=== PATIENT | female | born 1945 | race Caucasian/White ===

== ENCOUNTER → 2024-04-11 | Outpatient (CLI) | payer OTHER, MEDICAID, SELFPAY ==
[2024-04-11 13:13] LABS: Basophils # (Auto) 0.1 Thou/mm3 (0.0-0.2); Basophils % (Auto) 1 % (0-2.5); Eosinophils # (Auto) 0.1 Thou/mm3 (0.0-0.5); Eosinophils % (Auto) 1 % (0-10); Hematocrit 41.2 % (36.0-46.0); Immature Granulocytes % (Auto) 1 % (0-0); Immature Granulocytes Auto 0.06 Thou/mm3 (0.00-0.00); Lymphocytes # (Auto) 1.5 Thou/mm3 (1.0-4.8); Lymphocytes % (Auto) 17 % (10-50); Mean Corpuscular Hemoglobin 36.6 pg (25.0-35.0); Mean Corpuscular Volume 108 fL (80-100); Monocytes # (Auto) 0.5 Thou/mm3 (0.0-0.8); Monocytes % (Auto) 5 % (0-12); Neutrophils # (Auto) 6.7 Thou/mm3 (1.8-7.7); Neutrophils % (Auto) 75 % (37-80); Nucleated Red Blood Cell % 0 /100 WBC (0); Platelet Count 357 Thou/mm3 (140-440); RDW Standard Deviation 63.3 fL (36.4-46.3); Red Blood Count 3.83 Miln/mm3 (4.00-5.20)
[2024-04-11 13:39] LABS: Alanine Aminotransferase 7 U/L (10-49); Albumin, Serum 4.3 gm/dL (3.4-4.8); Alkaline Phosphatase 122 U/L (46-116); Anion Gap 7 (7-16); Aspartate Amino Transferase < 10 U/L (0-34); BUN/Creatinine Ratio 20 Ratio (12-20); Bilirubin,Total 0.6 mg/dL (0.3-1.2); Blood Urea Nitrogen 18 mg/dL (9-23); Carbon Dioxide 34.3 mMol/L (20.0-31.0); Chloride 99 mMol/L (98-107); Creatinine (Component) 0.9 mg/dL (0.6-1.3); Free T4 (Free Thyroxine) 1.43 ng/dL (0.89-1.76); Globulin 2.1 gm/dL (2.3-3.5); Glucose 107 mg/dL (74-106); Osmolality,Calculated 281 (275-295); Potassium 3.1 mMol/L (3.4-5.1); Sodium 140 mMol/L (136-145); Thyroid Stimulating Hormone 1.14 uIU/mL (0.55-4.78); Total Protein 6.4 gm/dL (5.7-8.2); eGFR > 60 See Note
== END | disposition home or self-care (01) ==
LOC: COPL 12:21 → SCTO 12:27
PROVIDERS: PCP Family Medicine; Referring Provider Nurse Practitioner Family; Visit Provider Nurse Practitioner Family
DX: D45 Polycythemia vera (principal)
CPT/HCPCS: 36415; 80053; 84439; 84443; 85025

== ENCOUNTER → 2024-05-25 | Outpatient (CLI) | payer OTHER, MEDICAID, SELFPAY ==
[2024-05-24 15:44] LABS: Basophils # (Auto) 0.1 Thou/mm3 (0.0-0.2); Basophils % (Auto) 1 % (0-2.5); Eosinophils # (Auto) 0.1 Thou/mm3 (0.0-0.5); Eosinophils % (Auto) 1 % (0-10); Hematocrit 43.1 % (36.0-46.0); Hemoglobin 14.5 g/dL (12.0-16.0); Immature Granulocytes % (Auto) 0 % (0-0); Immature Granulocytes Auto 0.03 Thou/mm3 (0.00-0.00); Lymphocytes # (Auto) 1.8 Thou/mm3 (1.0-4.8); Lymphocytes % (Auto) 20 % (10-50); Mean Corpuscular HGB Conc 33.6 g/dl (31.0-37.0); Mean Corpuscular Hemoglobin 36.9 pg (25.0-35.0); Mean Corpuscular Volume 110 fL (80-100); Monocytes # (Auto) 0.5 Thou/mm3 (0.0-0.8); Monocytes % (Auto) 5 % (0-12); Neutrophils # (Auto) 6.6 Thou/mm3 (1.8-7.7); Neutrophils % (Auto) 73 % (37-80); Nucleated Red Blood Cell % 0 /100 WBC (0); Platelet Count 340 Thou/mm3 (140-440); RDW Standard Deviation 57.5 fL (36.4-46.3); Red Blood Count 3.93 Miln/mm3 (4.00-5.20); White Blood Count 9.1 Thou/mm3 (3.6-11.0)
[2024-05-24 16:07] LABS: INR 1.1 (0.9-1.3); Prothrombin Time 11.8 Seconds (9.0-12.2)
== END | disposition home or self-care (01) ==
PROVIDERS: Radiology Diagnostic Radiology; PCP Nurse Practitioner Family; Referring Provider Nurse Practitioner Family; Visit Provider Nurse Practitioner Family
DX: Z53.8 Procedure and treatment not carried out for other reasons (principal); Z01.812 Encounter for preprocedural laboratory examination
CPT/HCPCS: 36415; 85025; 85610; 85730

== ENCOUNTER 2024-06-14 15:17 | Outpatient (RCR) | payer OTHER, MEDICAID, SELFPAY | END 2024-06-17 23:59 | disposition home or self-care (01) | LOC: SCTC 15:17 | PROVIDERS: PCP Family Medicine; Referring Provider Family Medicine; Visit Provider Internal Medicine Hematology & Oncology | DX: D45 Polycythemia vera (principal); J44.9 Chronic obstructive pulmonary disease, unspecified; Z99.81 Dependence on supplemental oxygen; E61.1 Iron deficiency; K62.1 Rectal polyp; R91.1 Solitary pulmonary nodule; E04.1 Nontoxic single thyroid nodule | CPT/HCPCS: 99212; G0463 ==

== ENCOUNTER → 2024-10-07 | Outpatient (CLI) | payer OTHER, MEDICAID, SELFPAY ==
[2024-10-07 13:44] LABS: Basophils # (Auto) 0.1 Thou/mm3 (0.0-0.2); Basophils % (Auto) 1 % (0-2.5); Eosinophils # (Auto) 0.1 Thou/mm3 (0.0-0.5); Eosinophils % (Auto) 1 % (0-10); Hematocrit 39.8 % (36.0-46.0); Hemoglobin 13.4 g/dL (12.0-16.0); Immature Granulocytes % (Auto) 0 % (0-0); Immature Granulocytes Auto 0.03 Thou/mm3 (0.00-0.00); Lymphocytes # (Auto) 1.8 Thou/mm3 (1.0-4.8); Lymphocytes % (Auto) 20 % (10-50); Mean Corpuscular HGB Conc 33.7 g/dl (31.0-37.0); Mean Corpuscular Hemoglobin 34.9 pg (25.0-35.0); Mean Corpuscular Volume 104 fL (80-100); Monocytes # (Auto) 0.6 Thou/mm3 (0.0-0.8); Monocytes % (Auto) 7 % (0-12); Neutrophils # (Auto) 6.2 Thou/mm3 (1.8-7.7); Neutrophils % (Auto) 71 % (37-80); Nucleated Red Blood Cell % 0 /100 WBC (0); Platelet Count 259 Thou/mm3 (140-440); RDW Standard Deviation 52.9 fL (36.4-46.3); Red Blood Count 3.84 Miln/mm3 (4.00-5.20); White Blood Count 8.7 Thou/mm3 (3.6-11.0)
[2024-10-07 13:55] LABS: Collection Type, Urine Clean Catch
[2024-10-07 14:09] LABS: Alanine Aminotransferase < 7 U/L (10-49); Albumin, Serum 4.1 gm/dL (3.4-4.8); Albumin/Globulin Ratio 1.7 (1.2-2.2); Alkaline Phosphatase 102 U/L (46-116); Anion Gap 11 (7-16); Aspartate Amino Transferase 11 U/L (0-34); BUN/Creatinine Ratio 17 Ratio (12-20); Bilirubin,Total 0.3 mg/dL (0.3-1.2); Blood Urea Nitrogen 19 mg/dL (9-23); Calcium 9.3 mg/dL (8.3-10.6); Calcium (Corrected) 9.3 mg/dL (8.5-10.1); Carbon Dioxide 33.8 mMol/L (20.0-31.0); Chloride 99 mMol/L (98-107); Creatinine (Component) 1.1 mg/dL (0.6-1.3); Globulin 2.4 gm/dL (2.3-3.5); Glucose 103 mg/dL (74-106); Osmolality,Calculated 289 (275-295); Potassium 2.8 mMol/L (3.4-5.1); Sodium 144 mMol/L (136-145); Thyroid Stimulating Hormone 1.59 uIU/mL (0.55-4.78); Total Protein 6.5 gm/dL (5.7-8.2); eGFR 51 See Note
[2024-10-07 14:20] LABS: Bacteria,Urine 1+; Bilirubin,Urine Negative (Negative); Blood,Urine 1+ (Negative); Color,Urine Yellow (Lt Yel-Yel); Glucose, Urine Negative (Negative); Ketones,Urine Negative (Negative); Leukocyte Esterase,Urine Positive (Negative); Nitrite,Urine Positive (Negative); Protein,Urine 1+ (Neg - Trace); RBC,Urine 20 /hpf (0-3); Specific Gravity,Urine 1.022 (1.001-1.035); Squamous Epithelial Cell,Urine 8 /hpf (0-5); Urobilinogen,Urine Negative mg/dL (0.0-1.0); WBC,Urine 2274 /hpf (0-5)
[2024-10-07 14:59] LABS: Clarity,Urine Cloudy (Clear/Hazy)
== END | disposition home or self-care (01) ==
LOC: COPL 12:44
PROVIDERS: PCP Family Medicine; Referring Provider Internal Medicine Hematology & Oncology; Visit Provider Internal Medicine Hematology & Oncology
DX: I10 Essential (primary) hypertension (principal); D45 Polycythemia vera
CPT/HCPCS: 36415; 80053; 81001; 84443; 85025

== ENCOUNTER 2024-10-12 13:45 | Outpatient (RCR) | payer OTHER, MEDICAID, SELFPAY ==
--- NOTE | 2024-10-16 20:28 | CTCFLWUP_ITS ---
Patient: SHEKHAR SHARP : 1945 Page 6 of 7 FOLLOW UP NOTE DATE OF SERVICE: 10/12/2024 NAME: SHEKHAR SHARP ACCOUNT: [id number] : 1945 AGE: 79 INTERVAL HISTORY: Subjective: Chief Complaint Follow-up for COPD, polycythemia, urinary tract infection History of Present Illness Alex Antoine, a patient with a history of COPD and polycythemia, presents for follow-up. Her primary concerns include ongoing management of her chronic conditions and addressing multiple referrals for various health issues. The patient reports that her COPD remains severe, requiring continuous oxygen therapy at 3 liters. She notes difficulty with her oxygen use, particularly in the car. She has not smoked for 20 years. The patient mentions feeling dizzy real quick, though the frequency and duration of these episodes are not specified. Regarding her polycythemia, the patient underwent phlebotomy approximately a year ago but has not required it since then. She continues to take hydroxyurea, though there was some confusion about this during the visit. The patient also reports having a urinary tract infection, though she does not mention any specific symptoms. She acknowledges not drinking enough water and consuming 5-6 cans of Pepsi daily. The patient's adherence to treatment appears mixed. She uses her oxygen therapy regularly but does not use a CPAP machine. There was initial confusion about her hydroxyurea use, but it was clarified that she is still taking it. The patient mentions staying busy with treatments in the morning before bed, though specific details are not provided. Recent healthcare interactions include multiple referrals that have not yet resulted in appointments, including gastroenterology for a colonoscopy, dermatology for suspicious black lesions on the lips, pulmonology, and endocrinology for thyroid nodules. The patient expresses frustration with the long wait times for these appointments. Medications and Supplements - Hydroxyurea 500 mg - Taking daily for polycythemia - Helps prevent need for phlebotomy - Patient was confused about whether she was still taking it Review of Systems General: Positive for dizziness. Skin: Positive for dry lips. HEENT: Positive for suspicious black lesions on the lips. Respiratory: Positive for difficulty breathing. Genitourinary: Positive for frequent urination. Objective: Vital Signs - Oxygen Saturation: 95% (method not specified) Physical Examination General: Patient appears uncomfortable. HEENT: Lips are dry. Skin: Skin appears charred. Laboratory, Imaging, and Diagnostic Test Results - Date: Not specified - Oxygen saturation: 95% - Hematocrit: 39.8% (noted as good ) - Hemoglobin: Noted as good - Urinalysis: Elevated WBC count (specific value not provided) - Kidney function: GFR 40 (normal >60) - Previous results: - Hematocrit: Previously elevated, requiring phlebotomy (last phlebotomy performed 1 year ago) HISTORY OF PRESENT ILLNESS: PREVIOUS NOTE: Patient is a 78 years old female with past medical history of COPD, depression/generalized anxiety disorder, rectal tumor status post resection done in [place], we do not have records. Was referred to [facility] cancer treatment center by her PCP when she was found to have elevated hemoglobin/hematocrit, WBC and platelets. Uses oxygen throughout the day. Uses walker to ambulate at baseline. She had an episode of bluish discoloration of her right fingers and toes for which her PCP has started her on aspirin. She denies fever, headache, chills, increased shortness of breath or cough, chest pain, abdominal pain, nausea, vomiting, skin rashes, join pain. 09/04/2022: WBC 18.4, RBC 8.71, hemoglobin 20.0, hematocrit 67.1, MCV 77, platelets 972, absolute neutrophil count 14.5, absolute lymphocyte count 2.1 10/07/2022: WBC 16.4, hemoglobin 21.5, hematocrit 69.8, MCV 78, platelet count 979, positive JAK2 mutation, MPL negative, EPO 2.0, ferritin 13 11/14/2022: Chest CT without contrast Undergoing therapeutic phlebotomy from 10/04/2022 through 12/04/2022 11/19/2022: Abdominal ultrasound 11/20/2022: WBC 9.9, hemoglobin 15.1, hematocrit 50.4, MCV 82, platelet count 546 03/17/2023: WBC 20.8, RBC 6.44, hemoglobin 14.5, hematocrit 51.1, MCV 79, platelet count of 1,059,000, ANC 17.9 10/15/2023: WBC 9.9, RBC 5.72, hemoglobin 14.8, hematocrit 50.1, MCV 88, platelet count 530,000, ANC 7.2, iron saturation 7%, ferritin 7, B12 is 352, folate is 11.55, erythropoietin is 2.6 10/15/2023: WBC 9.5, RBC 5.34, hemoglobin 14.1, hematocrit 47.9, MCV 90, platelet count 484,000, ANC 7.3 11/09/2023: CT chest without contrast 12/09/2023: WBC 10.2, hemoglobin 14.7, hematocrit 49.3, MCV 90, platelets 428,000, ANC 7.7 OTHER MEDICAL HISTORY/CONDITIONS: COPD/Asthma Depression Right?foot?surgery?-?5?yrs?ago FAMILY HISTORY: Patient?denies?family?cancer?history. 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 Tobacco?Pack?per?Day:?1 Tobacco?Use?Years:?30 Tobacco?Use:?Quit?-?2014 ETOH?Use:?Denies Drug?Note:?Denies Social History Note:?Lives with ex- [employer] HISTORY: Menopause:?44 :?4 Live?Births:?4 Age?1st?:?20 MEDICATIONS: 1. Diltiazem CD - 120 mg 1 Capsule Daily 2. Eliquis - 5 mg 1 tab Twice a Day 3. hydroxyurea - 500 mg 1 Capsule Every other day 4. losartan - 25 mg 0.5 tab Daily 5. Multaq - 400 mg 1 tab Twice a Day 6. Trelegy Ellipta - 100-62.5-25 mcg 1 As directed Medications Last Reconciled by Angeline Chambers MA on 10/12/2024 ALLERGIES: No Known Drug Allergies REVIEW OF SYSTEMS: A complete 14-point review of systems was performed and is negative except as noted in interval history. PHYSICAL EXAMINATION: VITAL SIGNS: Temperature?99.8, B/P?111/71, Oxygen?Saturation?93% PAIN: 0 - No pain ECOG Performance Status: 0 - Asymptomatic and fully active GENERAL APPEARANCE: Appears well, in no apparent distress, appropriately interactive, on supplement oxygen HEENT: Normocephalic, no temporal wasting, normal conjunctiva, no scleral icterus, normal hearing, lips without lesions, neck normal range of motion. PSHYCHIATRIC: Appropriate affect, mood normal, behavior normal, intact thought and speech. LABORATORY DATA: I have personally reviewed and interpreted each of the patient?s relevant lab tests, abnormal findings are below: Date 04/11/24 05/24/24 10/07/24 ??WHITE?BLOOD?COUNT?(Thou/mm3) 9.0 9.1 8.7 ??RED?BLOOD?COUNT?(Miln/mm3) 3.83?L 3.93?L 3.84?L ??HEMOGLOBIN?(gm/dl) 14.0 14.5 13.4 ??HEMATOCRIT?(%) 41.2 43.1 39.8 ??PLATELET?COUNT?(Thou/mm3) 357 340 259 ??NEUTROPHILS?%,?AUTO?(%) 75 73 71 ??LYMPH?%,?AUTO?(%) 17 20 20 ??NEUTROPHILS,?AUTO?(Thou/mm3) 6.7 6.6 6.2 ??GLUCOSE,RANDOM?(mg/dL) ? ? 103 ??BLOOD?UREA?NITROGEN?(mg/dL) ? ? 19 ??CREATININE?(mg/dL) ? ? 1.10 ??SODIUM?(mmol/L) ? ? 144 ??POTASSIUM?(mmol/L) ? ? 2.8?L ??CHLORIDE?(mmol/L) ? ? 99 ??CrCl?(CandG)?(ml/min) ? ? 43.17 ??AST/SGOT?(Unit/L) ? ? 11 ??ALT/SGPT?(Unit/L) ? ? <?7?L ??ALKALINE?PHOSPHATASE?(Unit/L) ? ? 102 ??BILIRUBIN,?TOTAL?(mg/dL) ? ? 0.3 ??PROTEIN?TOTAL?(gm/dl) ? ? 6.5 ??ALBUMIN,?SERUM?(gm/dl) ? ? 4.1 ??GLOBULIN?(gm/dl) ? ? 2.4 ??ALBUMIN/GLOBULIN?RATIO ? ? 1.7 ??CALCIUM,?SERUM?(mg/dL) ? ? 9.3 ??CALCIUM?SERUM?(CORRECTED)?(mg/dL) ? ? 9.3 ASSESSMENT/PLAN: Assessment and Plan: Alex Antoine, a female patient with a history of COPD, polycythemia, and recent urine infection, presents for follow-up of multiple chronic conditions. Chronic Obstructive Pulmonary Disease (COPD) Assessment: Patient has severe COPD and requires continuous oxygen therapy at 3 liters. Oxygen saturation is currently 95%, which is good. The patient stopped smoking 20 years ago. The use of continuous oxygen therapy has likely contributed to the improvement in hemoglobin and hematocrit levels, reducing the need for phlebotomy. Plan: - Continue oxygen therapy at 3 liters - Advised on proper oxygen use during car travel - Discussed importance of consistent oxygen use for longevity Polycythemia Polycythemia vera, positive JAK2 mutation, hemoglobin greater than 16.5 (10/07/2022), decreased EPO, consistent with PCV. Taking hydroxyurea 500 mg daily, tolerating it well. Aspirin 81 mg daily discontinued by cane flume watcher due to starting Eliquis and blood in stools, Dr. Zuniga cane flume watcher. Previous therapeutic phlebotomy with goal hematocrit <52 (due to history of COPD on oxygen). Multiple therapeutic phlebotomies, last time on 02/26/2023. Previously on monthly phlebotomy with goal hematocrit less than 52 Assessment: Patient's polycythemia appears to be well-controlled with current management. Recent lab work shows hematocrit at 39.8, which is within normal range. The improvement is likely due to consistent oxygen therapy and hydroxyurea treatment. The last phlebotomy was performed a year ago, and it has not been required since then. Plan: - Decrease hydroxyurea dose from 500 mg to 200 mg daily - New prescription for hydroxyurea 200 mg to be sent to [facility] - Advised on the importance of proper handling of hydroxyurea as a cancer medication - Continue to monitor hematocrit levels Urinary Tract Infection Assessment: Recent urine test revealed elevated WBC count, indicating a urinary tract infection. Patient reports frequent urination but admits to inadequate water intake and excessive consumption of caffeinated beverages (5-6 cans of Pepsi daily). There is concern for potential kidney damage, with current kidney function at 40% (normal being 60%). Plan: - Advised to increase water intake to at least 2 bottles per day - Recommended reducing Pepsi consumption and replacing with water or natural beverages - Educated on the importance of proper hydration for kidney health and infection prevention - Monitor kidney function and urine tests in follow-up visits Iron Deficiency Assessment: Patient presents with iron deficiency, which is contributing to her pallor. This condition is being intentionally maintained due to the patient's history of polycythemia. Plan: - Continue to avoid iron supplementation - Monitor iron levels in future blood work Rectal polyp per patient Patient reports rectal tumor status post resection done in [place] many years ago, we do not have records, patient does not remember name place where she had the surgery. Recently, patient had consultation appointment with GI, Dr. Summers for possible colonoscopy. Patient reports she declined recommended colonoscopy due to fear of procedure, reassurance provided to patient, patient agreeable to proceed forward with colonoscopy, patient will call and schedule with Dr. Summers. Referred to GI again as patient want to be checked again .f/u scheduled as per patient 6mm thyroid nodule, thyroid US recommended, mild aneurysmal dilatation, (11/09/2023). Has existing order for follow up CT due 04/2024 US of thyroid scheduled for 03/18/2024 TSH T4 prior to follow-up f/u with endo Follow-up Care Assessment: Multiple referrals have been made for various health concerns, including GI (for colonoscopy due to rectal polyp), endocrinology (for thyroid nodules), dermatology (for suspicious black lesions on lips), and pulmonology. Some appointments are pending or scheduled for later dates. Plan: - Follow up with insurance regarding expediting GI appointment for colonoscopy - Ensure patient attends scheduled endocrinology appointment in February - Follow up on dermatology and pulmonology referrals - Schedule follow-up visit in 2 months with blood work - Provide patient with a list of all necessary appointments before leaving Polycythemia vera SABI 2 positive, 10/07/2022 Aspirin 81 mg, discontinued by cane flume watcher. Hydroxyurea 500 mg daily started (10/06/2022-) Multiple therapeutic phlebotomies, last on 02/26/2023. Iron deficiency, no supplementation to minimize the need for frequent therapeutic phlebotomies History of COPD, uses oxygen ORDERS: Order # Description RETURN TO CLINIC: 2 months BILLING AND COMPLIANCE: I reviewed external records from providers outside my specialty as summarized above. I spent a total of 50 minutes on this patient?s care on the day of their visit excluding time spent related to any billed procedures. This time includes time spent with the patient as well as time spent documenting in the medical record, reviewing patients records and tests, obtaining history, placing orders, communicating with other healthcare professionals, counseling the patient, family or caregiver, and/or care coordination for the diagnoses above. Electronically Signed by: {Object.Sanct_ID*PnP.NameFL@M}, {Object.Sanct_ID*PnP.Suffix@U} D: {Object.Sanct_Date} T: {Object.Sanct_Time} CC: PCP: Angeline Foster Referring: Angeline Foster This document was completed utilizing speech recognition software. Grammatical errors, random word insertions, pronoun errors, and incomplete sentences are an occasional consequence of this system due to software limitations, ambient noise, and hardware issues. Any formal questions or concerns about the content, text or information contained within the body of this dictation should be directly addressed to the provider for clarification.
== END 2024-10-15 23:59 | disposition home or self-care (01) ==
LOC: SCTC 13:45
PROVIDERS: PCP Family Medicine; Referring Provider Family Medicine; Visit Provider Internal Medicine Hematology & Oncology
DX: D45 Polycythemia vera (principal); N39.0 Urinary tract infection, site not specified; J44.9 Chronic obstructive pulmonary disease, unspecified; Z87.891 Personal history of nicotine dependence; E04.1 Nontoxic single thyroid nodule; K62.1 Rectal polyp
CPT/HCPCS: 99212; G0463

== ENCOUNTER 2024-12-27 16:29 | Inpatient (IN) | payer OTHER, MEDICAID, MEDICARE, SELFPAY ==
[2024-12-27] VITALS (13 sets, daily range): BP systolic 130–172; BP diastolic 70–83; PULSE 76–92; RESP 18–31; TEMP 36.1–37.3; O2SAT 92–100; BMI 24.0
--- NOTE | 2024-12-27 16:38 | EKG_ITS ---
[facility] Test Date: 2024-12-27 Pat Name: SHEKHAR SAHRP Department: Room: - Gender: Female Tie Cutter: : 1945 Requested By: Mikayla Chávez Order Number: [id number] Reading MD: Mikayla Chávez Measurements Intervals [place] Rate: 88 P: 60 NH: 148 QRS: -46 QRSD: 110 T: 84 QT: 312 QTc: 379 Interpretive Statements SINUS RHYTHM LEFT ANTERIOR FASCICULAR BLOCK [QRS AXIS <= -45, QR IN I, RS IN II] NONSPECIFIC T-WAVE ABNORMALITY Compared to ECG 03/14/2023 11:12:56 Atrial fibrillation no longer present T-wave abnormality still present /store/S0/[id number]
--- NOTE | 2024-12-27 16:39 | PD.EDSOB ---
ED SOB =RME/HPI General Chief Complaint: Shortness of Breath/Dyspnea Stated Complaint: SOB Time Seen by Provider: 12/27/24 16:38 Arrival date/time: 12/27/24 16:29 RME / HPI RME / HPI Narrative: 79 year old female with history of COPD on 3L home oxygen, hypertension, remote hx of smoking tobacco presents to the ED BIBA from home for evaluation of shortness of breath today. Per medics report, patient at home was saturating 82% on 6L nasal cannula. Was given 2 breathing treatments and 2g of Magnesium with some improvement. In the ED, patient reports the shortness of breath began 2 days ago and not improved with increased home oxygen. No other associated symptoms reported. Denies fevers, chills, sore throat, headache, chest pain, cough, n/v/d, or urinary symptoms. Related Data Home Medications ?Medication ?Instructions ?Recorded ?Confirmed albuterol sulfate 90 mcg/actuation 2 puff inhalation Q6H 06/19/17 03/16/23 aerosol inhaler (Ventolin HFA) hydroxyurea 500 mg capsule 500 mg PO QDAY 03/15/23 03/15/23 paroxetine HCl 20 mg tablet 20 mg PO QDAY 03/15/23 03/15/23 temazepam 15 mg capsule 15 mg PO HS 03/15/23 03/15/23 tiotropium 2.5 mcg-olodaterol 2.5 2 puff inhalation Q24H 03/16/23 03/16/23 mcg/actuation mist for inhalation (Stiolto Respimat) apixaban 5 mg tablet (Eliquis) 5 mg PO BID 12/28/24 12/28/24 diltiazem HCl 120 mg capsule,24 120 mg PO QDAY 12/28/24 12/28/24 hr,extended release dronedarone 400 mg tablet (Multaq) 400 mg PO BID 12/28/24 12/28/24 Previous Rx's ?Medication ?Instructions ?Recorded prednisone 10 mg tablet See Taper PO QDAY #30 tabs 03/17/23 Allergies Allergy/AdvReac Type Severity Reaction Status Date / Time orange Allergy Swelling Verified 03/13/23 22:30 of Lip/Tongue/Throat orange juice Allergy Swelling Verified 03/13/23 22:30 of Lip/Tongue/Throat Review of Systems Review of Systems Systems Reviewed: All systems reviewed, normal except as documented Past Medical History Past Medical History CARDIAC: Positive Cardiac Disorders and Congestive Heart Failure RESPIRATORY: Positive Chronic Obstructive Pulmonary Disease (COPD), Asthma, Emphysema and Pneumonia REPRODUCTIVE: Positive Previous Pregnancies MUSCULOSKELETAL: Positive Musculoskeletal Disorders and Fractures (right ankle) ENT: Positive Cataracts HEMATOLOGIC: Positive Blood Disorders and Anemia PSYCHO/SOCIAL: Positive Depression and Anxiety OTHER HISTORY: Positive Falls and Chicken Pox Family History FAMILY HISTORY: Positive Family Respiratory Disorders and Family Cardiac Disorders Surgical History SURGICAL: Positive Eye Surgery, Abdominal Surgery, Open Reduction Internal Fixation (06/22/17-orif right trimalleolar fx. 10/2017-hardware removal right fibula) and Hysterectomy Social History SMOKING STATUS: Unknown if ever smoked SECOND HAND EXPOSURE: No (1PPd or less-QUIT 10 yrs ago) ED Exam Narrative Physical exam: Constitutional: Awake, alert, nontoxic, in respiratory distress HEENT: NC, AT, EOMI Neck: Supple CV: slightly tachycardic, no m/r/g Lungs: generalized significant wheezing, diminished breath sounds bilaterally, no r/r Abd: Soft, NT, NT, no HSM noted to palpation Extremities: No deformities, 1+ edema BLE Neuro: AAOx3, CN 2-12 GIBL, no acute neuro deficit noted. Skin: Hot to touch, dry, intact Course Course Course Narrative: The patient is quite short of breath on arrival with very diminished breath sounds. Was given 2g of Magnesium and 2 nebulizer treatments by medics with an additional hour long neb treatment, 10mg albuterol, Atrovent, and soluMEDROL. Labs and imaging ordered. Patient feels hot to touch, queried infectious etiology, ordered covid and flu. Significant labs, elevated WBC at 26, PLT count 1,281. ABG reveals she is acidotic, pH 7.33, Co2 65. Potassium is 3.2, BNP is mildly elevated at 198. Chest xray shows infiltrates in the left base. Will initiate abx. I spoke with hospitalist team A and is pending admission. Quality Measures none Orders Category Date Time Status Bedside COVID-19 Antigen Test NOW Care 12/27/24 16:42 Active Bedside Influenza A&B Antigen Test NOW Care 12/27/24 16:42 Completed COVID-19 Screening Questionnaire NOW Care 12/27/24 17:[address] Screening NOW Care 12/27/24 18:28 Active Solar Power Installer NOW Care 12/27/24 16:39 Active Continuous Pulse Oximetry NOW Care 12/27/24 16:38 Completed Decision to Admit X1 Care 12/27/24 17:56 Completed EKG (ED ONLY) *Do not use* NOW Care 12/27/24 16:38 Completed Insert IV STAT Care 12/27/24 16:[address] angio chest Stat Exams 12/27/24 18:27 Completed EKG (ED Only) Stat Exams 12/27/24 16:38 Draft XR chest 1V portable Stat Exams 12/27/24 16:38 Completed Arterial Blood Gas Stat Lab 12/27/24 16:52 Completed B-Type Natriuretic Peptide Stat Lab 12/27/24 16:54 Completed Blood Culture (Lab) Stat Lab 12/27/24 16:54 Received CBC Stat Lab 12/27/24 16:54 Completed Comprehensive Metabolic Panel Stat Lab 12/27/24 16:54 Completed D-Dimer Stat Lab 12/27/24 16:54 Completed Drug Screen,Urine Stat Lab 12/27/24 16:38 Ordered Lactic Acid [Lactate (Lactic Acid)] Stat Lab 12/27/24 16:54 Completed Magnesium Stat Lab 12/27/24 16:54 Completed Partial Thromboplastin Time Stat Lab 12/27/24 16:54 Completed Path Review Blood Smear Stat Lab 12/27/24 16:54 Completed Procalcitonin Stat Lab 12/27/24 16:54 Completed Prothrombin Time with INR Stat Lab 12/27/24 16:54 Completed Sed Rate (ESR) Stat Lab 12/27/24 16:54 Completed Troponin I Stat Lab 12/27/24 16:54 Completed Urinalysis Stat Lab 12/27/24 16:38 Ordered ALBUTEROL RT 0.5ml [Proventil Rt 0.5ml] Med 12/27/24 16:37 Discontinued 10 mg INH X1 ONE Azithromycin Inj [Zithromax Inj] 500 mg Med 12/28/24 14:00 Active Sodium Chloride 0.9% 250 ml [Ns] 250 ml IV QDAY@1400 Azithromycin Inj [Zithromax Inj] 500 mg Med 12/27/24 18:15 Discontinued Sodium Chloride 0.9% 250 ml [Ns] 250 ml IV X1 Ipratropium [place] Rt Lanie [Atrovent Rt Lanie] Med 12/27/24 16:41 Discontinued 0.5 mg INH X1 ONE MethylPREDNISolone.* [SoluMEDROL Inj] Med 12/27/24 16:38 Discontinued 125 mg IV X1 ONE Ringers Lactated 1000 ml [Lactated Ringers] 1,000 ml Med 12/27/24 17:59 Discontinued IV 999 mls/hr Sodium Chloride Rt Lanie 0.9% [NS Rt Lanie 0.9%] Med 12/27/24 16:37 Active 3 ml INH PRN PRN cefTRIAXone/D5w 1gm IV premix [Rocephin/D5w 1gm IV Med 12/27/24 17:58 Discontinued premix] 1 gm in 50 ml IV X1 BiPAP / CPAP NOW RT 12/27/24 16:58 Active Oxygen Delivery NOW RT 12/27/24 16:38 Active Vital Signs Vital signs: Vital Signs Pulse Rate 85 12/27/24 16:41 Shortness of Breath / Dyspnea MDM Narrative MDM Narrative:: Daphne Lucas, josé miguel scribing for and in the presence of Dr. Lino. Patient data External records reviewed:: [facility] previous records and EMS form Clinical information provided by:: patient Social determinants that could affect healthcare access:: none Patient has the following chronic illnesses:: COPD on 3L home oxygen, hypertension, remote hx of smoking tobacco How is presenting disease/condition affected by chronic disease/condition?: exacerbated by Evaluation data The following diagnostics were reviewed and interpreted by me:: lab results, radiology exam(s) and EKG tracing(s) (EKG 12/27/2024 @ 16:38h. NSR, rate 88, no STEMI. ) Lab and/or radiology exams considered but not ordered:: None Interpretation Summary: Ordering Physician: Mikayla Lino MD Date of Service: 12/27/24 Procedure(s): XR chest 1V portable Accession Number(s): [id number] cc: Osmani Elizabeth MD; Mikayla Lino MD; NO PRIMARY/FAMILY,PHYSICIAN~ Examination: AP chest single view Technique one AP portable semiupright chest single view Date and time: December 27, 2024, 1720 hours Comparison March 18, 2024 INDICATIONS: Shortness of breath today. FINDINGS: Moderate hyperexpansion Opacity in the lingular segment No pulmonary edema Ectatic thoracic aorta IMPRESSION: COPD Recommend lateral chest view follow-up to assess for pneumonia versus scarring in the lingular segment left upper lobe Dictated By: Osmani Elizabeth MD Signed By: <Electronically signed by Osmani Elizabeth MD in [place]> 12/27/24 1818 Medications / Prescriptions Medications or Prescriptions considered but not ordered:: None Medication administrations:: Medication Administration History Acetaminophen (Acetaminophen 325 Mg Tablet) 650 mg PO Q6H PRN PRN Reason: Fever >100.4 Stop: 01/26/25 18:53 Acetaminophen (Acetaminophen 325 Mg Tablet) 650 mg PO Q6H PRN PRN Reason: PAIN SCALE 1-3 (mild Stop: 01/26/25 18:53 Last Admin: 12/28/24 03:23 Dose: 650 mg Documented By: PALLAVI Albuterol/Ipratropium (Albuterol/Ipratropium (Duoneb) Rt Lanie 3 Ml Nebu) 3 ml INH Q2HR PRN PRN Reason: SHORTNESS OF BREATH OR WHEEZE Stop: 01/26/25 18:53 Albuterol/Ipratropium (Albuterol/Ipratropium (Duoneb) Rt Lanie 3 Ml Nebu) 3 ml INH Q4HRRT [facility] Stop: 01/26/25 18:59 Last Admin: 12/28/24 02:43 Dose: 3 ml Documented By: Admin: 12/27/24 23:54 Dose: 3 ml Documented By: Admin: 12/27/24 20:23 Dose: 3 ml Documented By: POP Allopurinol (Allopurinol 100 Mg Tablet) 300 mg PO QDAY [facility] Stop: 01/26/25 19:14 Last Admin: 12/27/24 20:39 Dose: 300 mg Documented By: PALLAVI Docusate Sodium (Docusate Sod 100 Mg Capsule) 100 mg PO QDAY [facility]; Protocol Stop: 01/27/25 08:59 Hydroxyurea (Hydroxyurea 500 Mg Capsule) 1,000 mg PO QDAY [facility] Stop: 01/26/25 19:04 Azithromycin 500 mg/ Sodium (Chloride) 250 mls @ 250 mls/hr IV QDAY@1400 [facility] Stop: 01/04/25 13:59 Sodium Chloride (Ns) 1,000 mls @ 75 mls/hr IV .[id number] [facility] Stop: 01/26/25 18:59 Last Admin: 12/27/24 20:40 Dose: 75 mls/hr Documented By: PALLAVI Heparin Sodium/Dextrose (Heparin In D5w Ivpb) 25,000 unit in 250 mls @ 11.431 mls/hr IV .[id number] [facility]; Protocol Stop: 01/10/25 18:59 Last Titration: 12/28/24 03:20 Dose: 20 units/kg/hr, 12.701 mls/hr Documented By: PALLAVI Co-signed By: VR Admin: 12/27/24 20:23 Dose: 18 units/kg/hr, 11.431 mls/hr Documented By: PALLAVI Co-signed By: MEGHAN Methylprednisolone Sodium Succinate (Methylprednisolone Sod Succ 62.5 Mg/Ml 2ml Vial) 60 mg IVP BID [facility] Stop: 01/03/25 23:14 Last Admin: 12/27/24 23:29 Dose: 60 mg Documented By: PALLAVI Ondansetron HCl (Ondansetron Inj 2 Mg/Ml Inj 2 Ml) 4 mg IVP Q6H PRN; Protocol PRN Reason: NAUSEA OR VOMITING Stop: 01/26/25 18:53 Phenyleph/Shark Oil/Min Oil/Petrol (Preparation H Oint 30 Gm Tube) 0 gm AR BID PRN PRN Reason: HEMORRHOIDS Stop: 01/26/25 21:02 Sennosides (Senna Tablet) 1 tab PO QDAY [facility]; Protocol Stop: 01/27/25 08:59 Sodium Chloride (Sodium Chloride Rt Lanie 0.9% 3 Ml Nebu) 3 ml INH PRN PRN PRN Reason: SOLN Stop: 01/26/25 16:36 Last Admin: 12/27/24 16:41 Dose: 3 ml Documented By: TONIA Discontinued Medications Albuterol (Albuterol Rt 2.5 Mg/0.5 Ml Nebu) 10 mg INH X1 ONE Stop: 12/27/24 16:38 Last Admin: 12/27/24 16:41 Dose: 10 mg Documented By: TONIA Heparin Sodium (Porcine) (Heparin Sod Inj 5000 Unit/Ml Vial) 5,100 unit IV X1 ONE; Protocol Stop: 12/27/24 19:00 Last Admin: 12/27/24 20:21 Dose: 5,100 unit Documented By: PALLAVI Co-signed By: MEGHAN Heparin Sodium (Porcine) (Heparin Sod Inj 5000 Unit/Ml Vial) 2,550 unit 40 unit/kg (2550 unit) IV X1 ONE; Protocol Stop: 12/28/24 02:59 Last Admin: 12/28/24 03:21 Dose: 2,550 unit Documented By: PALLAVI Co-signed By: YANG Ceftriaxone Sodium/Dextrose (Rocephin/D5w 1gm Iv Premix) 1 gm in 50 mls @ 100 mls/hr IV X1 ONE Stop: 12/27/24 18:27 Last Infusion: 12/27/24 18:44 Dose: Infused Documented By: Admin: 12/27/24 18:14 Dose: 100 mls/hr Documented By: CINDA Lactated Ringer's (Lactated Ringers) 1,000 mls @ 999 mls/hr IV .Q1H1M ONE Stop: 12/27/24 18:59 Last Admin: 12/27/24 18:17 Dose: 999 mls/hr Documented By: CINDA Azithromycin 500 mg/ Sodium (Chloride) 250 mls @ 250 mls/hr IV X1 ONE Stop: 12/27/24 19:14 Last Admin: 12/27/24 18:16 Dose: 250 mls/hr Documented By: CINDA Potassium Chloride (Kcl Ivpb) 10 meq in 100 mls @ 100 mls/hr IV Q1H [facility] Stop: 12/28/24 03:09 Last Admin: 12/28/24 03:22 Dose: 100 mls/hr Documented By: Infusion: 12/28/24 02:57 Dose: Infused Documented By: Admin: 12/28/24 01:57 Dose: 100 mls/hr Documented By: Infusion: 12/28/24 01:50 Dose: Infused Documented By: Admin: 12/28/24 00:50 Dose: 100 mls/hr Documented By: Infusion: 12/28/24 00:30 Dose: Infused Documented By: Admin: 12/27/24 23:30 Dose: 100 mls/hr Documented By: PALLAVI Ipratropium [place] (Ipratropium Rt 0.5 Mg/ 2.5 Ml Nebu) 0.5 mg INH X1 ONE Stop: 12/27/24 16:42 Last Admin: 12/27/24 17:09 Dose: 0.5 mg Documented By: TONIA Melatonin (Melatonin 3 Mg Tablet) 10 mg PO X1 ONE Stop: 12/28/24 00:47 Last Admin: 12/28/24 04:03 Dose: Not Given Documented By: SD Non-Admin Reason: Discontinued Melatonin (Melatonin 3 Mg Tablet) 9 mg PO X1 ONE Stop: 12/28/24 00:47 Last Admin: 12/28/24 01:22 Dose: 9 mg Documented By: SD Methylprednisolone Sodium Succinate (Methylprednisolone Sod Succ 62.5 Mg/Ml 2ml Vial) 125 mg IV X1 ONE Stop: 12/27/24 16:39 Last Admin: 12/27/24 16:45 Dose: 125 mg Documented By: CINDA Potassium Chloride (Potassium Chloride 20 Meq Tabcr) 40 meq PO X1 ONE Stop: 12/27/24 19:13 Last Admin: 12/27/24 20:39 Dose: 40 meq Documented By: SD See above Consultations Consultation(s) initiated? (list below): No Diagnosis Shortness of Breath Differential Diagnosis: acute exacerbation of chronic obstructive airways disease, congestive heart failure, community acquired pneumonia and asthma with exacerbation Most likely diagnosis given after review of the tests above:: hypoxia dyspnea likely copd exacerbation Admission Indicated Admission indicated?: indicated Admission Request Was there a request for admission?: Yes Admission Attestation Admission request attestation: Discussed case with [] from Hospitalist service regarding admission. Discussed patients ED course, exam findings, labs, and radiology results. The Hospitalist [agrees,declines] to accept the patient for admission. Disposition Plan Disposition Plan: Admit Critical Care Time Critical Care Time Critical Care Time: Yes Total Critical Care Time (min.): 35 Attestation: The high probability of sudden, clinically significant deterioration in the patient's condition required the highest level of my preparedness to intervene urgently. The services I provided to this patient were to treat and/or prevent clinically significant deterioration. Services included the following: chart data review, reviewing nursing notes and/or old charts, documentation time, commercial solar sales consultant collaboration regarding findings and treatment options, medication orders and management, direct patient care, vital sign assessments and ordering, interpreting and reviewing diagnostic studies and lab tests. Aggregate critical care time includes only time during which I was engaged in work directly related to the patient's care, as described above, whether at bedside or elsewhere in the Emergency Department. It did not include time spent performing other reported procedures or the services of residents, students, nurses or physician assistants. Discharge Plan Plan Patient Disposition: Admit Acute Care w/in Hospital Problem List Clinical Impression: Hypoxia, Dyspnea, COPD exacerbation
[2024-12-27] MEDS: ALBUTEROL RT 2.5 MG/0.5 ML NEBU 10 MG INH (16:41)
[2024-12-27] MEDS: SODIUM CHLORIDE RT SOL 0.9% 3 ML NEBU INH (16:41)
[2024-12-27] MEDS: MethylPREDNISolone SOD SUCC 62.5 MG/ML 2ML VIAL 125 MG IV (16:45)
[2024-12-27 17:01] LABS: Base Excess 6 (-3-3); HCO3 34 mEq/L (20-26); Inspired O2, VO2 Liters 7 L/min; O2 Saturation 100 % (91-98); PCO2 65 mmHg (32.0-48.0); PO2 189 mmHg (83-108); pH, Arterial 7.33 (7.35-7.45)
[2024-12-27 17:02] LABS: Allen Test Performed/OK; Puncture Site Right Radial
[2024-12-27] MEDS: IPRATROPIUM RT 0.5 MG/ 2.5 ML NEBU INH (17:09)
[2024-12-27 17:10] LABS: Lactate (Lactic Acid) 1.3 mMol/L (0.4-2.0)
[2024-12-27 17:12] LABS: Basophils # (Auto) 0.4 Thou/mm3 (0.0-0.2); Basophils % (Auto) 1 % (0-2.5); Eosinophils # (Auto) 0.7 Thou/mm3 (0.0-0.5); Eosinophils % (Auto) 3 % (0-10); Hematocrit 40.9 % (36.0-46.0); Hemoglobin 11.8 g/dL (12.0-16.0); Immature Granulocytes Auto 0.25 Thou/mm3 (0.00-0.00); Lymphocytes # (Auto) 3.8 Thou/mm3 (1.0-4.8); Lymphocytes % (Auto) 15 % (10-50); Mean Corpuscular HGB Conc 28.9 g/dl (31.0-37.0); Mean Corpuscular Hemoglobin 23.9 pg (25.0-35.0); Mean Corpuscular Volume 83 fL (80-100); Monocytes # (Auto) 1.2 Thou/mm3 (0.0-0.8); Monocytes % (Auto) 5 % (0-12); Neutrophils # (Auto) 19.8 Thou/mm3 (1.8-7.7); Neutrophils % (Auto) 76 % (37-80); Nucleated Red Blood Cell # 0.00 Thou/mm3 (0.00-0.00); Nucleated Red Blood Cell % 0 /100 WBC (0); RDW Standard Deviation 64.0 fL (36.4-46.3); Red Blood Count 4.94 Miln/mm3 (4.00-5.20); White Blood Count 26.1 Thou/mm3 (3.6-11.0)
[2024-12-27 17:33] LABS: B-Type Natriuretic Peptide 198 pg/mL (0-100)
[2024-12-27 17:40] LABS: Platelet Count 1281 Thou/mm3 (140-440)
[2024-12-27 17:44] LABS: INR 1.1 (0.9-1.3); Partial Thromboplastin Time 32.6 Seconds (22.0-36.0); Prothrombin Time 11.8 Seconds (9.0-12.2)
[2024-12-27 17:46] LABS: Alanine Aminotransferase < 7 U/L (10-49); Albumin, Serum 3.9 gm/dL (3.4-4.8); Albumin/Globulin Ratio 1.8 (1.2-2.2); Alkaline Phosphatase 114 U/L (46-116); Anion Gap 8 (7-16); Aspartate Amino Transferase 14 U/L (0-34); BUN/Creatinine Ratio 14 Ratio (12-20); Bilirubin,Total 0.2 mg/dL (0.3-1.2); Blood Urea Nitrogen 13 mg/dL (9-23); Calcium 9.1 mg/dL (8.3-10.6); Calcium (Corrected) 9.2 mg/dL (8.5-10.1); Carbon Dioxide 32.2 mMol/L (20.0-31.0); Chloride 101 mMol/L (98-107); Creatinine (Component) 0.9 mg/dL (0.6-1.3); Estimated Creatinine Clearance 43.1 mL/min (>60); Globulin 2.2 gm/dL (2.3-3.5); Glucose 118 mg/dL (74-106); Magnesium 2.8 mg/dL (1.6-2.6); Osmolality,Calculated 282 (275-295); Potassium 3.2 mMol/L (3.4-5.1); Procalcitonin 0.06 ng/ml (0.0-0.49); Sodium 141 mMol/L (136-145); Total Protein 6.1 gm/dL (5.7-8.2); Troponin I < 0.020 ng/mL (0.0-0.045); eGFR > 60 See Note
[2024-12-27 17:57] LABS: Path Review Blood Smear Sent to Pathologist
[2024-12-27 18:11] LABS: D-Dimer < 250 ng/mL (<600)
[2024-12-27] MEDS: cefTRIAXone/D5w 1gm IV premix 1 GM/50 ML BAG IV (18:14)
[2024-12-27] MEDS: AZITHROMYCIN INJ 500 MG in SODIUM CHLORIDE 0.9% 250 ML 250 ML 250 MG IV (18:16)
[2024-12-27] MEDS: RINGERS LACTATED 1000 ML 1,000 ML 999 ML IV (18:17)
--- NOTE | 2024-12-27 18:27 | XR_ITS ---
Examination: CTA chest with intravenous contrast 2-D reconstructions 3-D reconstructions, vascular Date and time of exam: December 27, 2024 1912 hours INDICATIONS: Such as pain shortness of breath today CTDI: vol (mGy) 10.6 DLP: (mGycm) 231. Technique: Multiple axial sections of the thorax have been obtained. 3 mm slice thickness, from below the hemidiaphragms to above the apices of the lungs. Mediastinal and lung density settings have been obtained. 2-D sagittal and coronal reconstructions. 3-D angiographic renderings, 3-D volume renderings, 3D post processing, vascular maximum intensity projections obtained. Contrast administered is 100 cc Isovue 370.. Low dose protocols were performed. One or more of the following dose reduction techniques were used; automated exposure control, adjustment of the mA and/or KV according to patient size, use of iterative reconstruction technique. Findings: AP dimension ascending thoracic aorta 3.8 cm Mean pulmonary artery segment 35mm No pulmonary artery filling defects Moderate enlargement cardiac contour No lobar pneumonia or isabel pulmonary edema Liver is irregular in contour Gallstones Mild splenomegaly No pancreatic mass Partial visualization large right renal cyst 7.4 cm Severe osteopenia with mild chronic wedging mid dorsal vertebral bodies IMPRESSION: Pulmonary artery hypertension Negative for pulmonary artery emboli No pneumonia or pulmonary edema Cholelithiasis
--- NOTE | 2024-12-27 18:59 | ECHO_ITS ---
Transthoracic Echo Report Ht (in): 64 Wt (lb): 140 Exam Location: Echo Lab Status: Emergency Cushion Assembler: Sophia Todd Indications: Procedure Performed: BP: 139 / 75 HR: 91 MEASUREMENTS (Male / Female) Normal Values 2D ECHO LV Diastolic Diameter PLAX 5.0 cm 4.2 - 5.9 / 3.9 - 5.3 cm LV Systolic Diameter PLAX 3.3 cm IVS Diastolic Thickness 1.0 cm 0.6 - 1.0 / 0.6 - 0.9 cm LVPW Diastolic Thickness 1.1 cm 0.6 - 1.0 / 0.6 - 0.9 cm LV Relative Wall Thickness 0.4 LVOT Diameter 1.8 cm LA Volume Index 32.1 cm?/m? 16 - 28 cm?/m? Ascending Aorta Diameter 3.0 cm M-MODE AV Cusp Separation MM 1.5 cm DOPPLER AV Peak Velocity 199.0 cm/s AV Peak Gradient 15.8 mmHg AV Mean Gradient 7.0 mmHg AV Velocity Time Integral 43.1 cm LVOT Peak Velocity 144.0 cm/s LVOT Peak Gradient 8.3 mmHg LVOT Velocity Time Integral 30.5 cm LVOT Cardiac Index 4149.7 cm?/min?m? AV Area Cont Eq vti 1.8 cm? AV Area Cont Eq pk 1.8 cm? MV Area PHT 6.1 cm? Mitral E Point Velocity 103.0 cm/s Mitral A Point Velocity 121.0 cm/s Mitral E to A Ratio 0.9 LV E' Lateral Velocity 6.1 cm/s Mitral E to LV E' Lateral Ratio 16.9 LV E' Septal Velocity 7.1 cm/s Mitral E to LV E' Septal Ratio 14.6 TR Peak Velocity 300.0 cm/s TR Peak Gradient 36.0 mmHg PV Peak Velocity 124.0 cm/s PV Peak Gradient 6.2 mmHg FINDINGS Left Ventricle Normal left ventricular size, wall thickness, systolic function with no obvious regional wall motion abnormalities. There is grade I diastolic dysfunction of the left ventricle (impaired relaxation pattern). The ejection fraction is visually estimated at 55-60%. Right Ventricle The right ventricle is normal in size and systolic function. Left Atrium The left atrial cavity size is mildly increased. Right Atrium The right atrium is normal by two-dimensional imaging, color flow and Doppler imaging with no structural abnormalities, no thrombus formation present. Atrial Septum The interatrial septum appears normal with no evidence of a shunt. Aorta The aorta is normal by two-dimensional, color flow and Doppler interrogation. Mitral Valve The mitral valve is normal by two-dimensional, color flow and Doppler interrogation.mild mitral regurgitation. Aortic Valve Sclerotic aortic valve.There is no significant aortic valve regurgitation. Tricuspid Valve The tricuspid valve is normal by two-dimensional, color flow and Doppler interrogation. There is mild tricuspid valve regurgitation. Pulmonic Valve The pulmonic valve is not well visualized. There is no significant pulmonic valve regurgitation. Vessels The pulmonary artery appears normal. The inferior vena cava mildly dilated measuring 2.1cm Pericardium The pericardium is normal by two-dimensional imaging. There is no significant pericardial effusion. CONCLUSIONS Indication: A-fib and history of COPD Normal LV size and function. Diastolic dysfunction stage I. Estimated EF 55-60%. Normal RV size and function. Estimated RVSP moderately elevated at around of 40 to 50 mmHg Mild MR and TR. Mild aortic valve sclerosis without stenosis. Moderately dilated LA. IVC Mildly dilated measuring 2.1cm. No pericardial effusion Inderjit Bhatt (Electronically Signed) Final Date: 28 December 2024 19:40
--- NOTE | 2024-12-27 19:26 | ESHP_ITS ---
<Statement entered by Bebeto Robles MD - 12/28/24 17:28> Patient was examined and case was reviewed with team including attending physician. Note reviewed, I agree with most of its contents and agree with the patient's care as documented by Dr. 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 Per the ex- who was at the bedside he states that the patient has been having progressive shortness of breath for the past few months that worsened recently. Patient currently wearing BiPAP and refuses to remove it as she states it helps her breath. She was noted to have leukocytosis and thrombocytosis with platelets of 1281. Patient denies any fever or chills. As the patient is hypercoagulable due to her polycythemia and is currently hypoxic and tachycardic we started the patient on heparin drip while awaiting CTA of the chest to rule out pulmonary embolism. Patient however is on Eliquis however differential of pulmonary embolism remains. Spoke to Dr. Osman who is the patient's charge accounts audit clerk who recommended 1 g of hydroxyurea daily allopurinol and some cardiac workup. Patient will be started on DuoNebs as needed and scheduled and empiric antibiotics for possible community-acquired pneumonia. Case discussed with my attending Dr. Ada Robles MD PGY-2 Disclaimer: Despite multiple revisions, due to the dictation software being used, the document bellow may not be free of grammatical errors including phonetic/typographic errors. However, this does not deter from our commitment to providing health care in the patient's best interest in mind. Documentation for date of: 12/27/24 HPI History of Present Illness History of present illness: 79-year-old female with a past medical history of COPD on 3 L home oxygen, [id number] smoking history, hypertension, childhood asthma, and polycythemia presented to the ED via ambulance from home on 12/27/2024 for evaluation of worsening shortness of breath. History was obtained from her ex- at bedside due to her respiratory distress and being on bipap. According to the ex-, the patient has experienced chronic shortness of breath for the past year, with progressive worsening. Two home breathing treatments provided no relief. She is unable to lie flat, as this exacerbates her dyspnea. The shortness of breath occurs randomly, unrelated to activity, and is not present at night. She does not awaken with nocturnal dyspnea. She denies recent illness, cough, fever, chills, night sweats, leg swelling, nausea, vomiting, diarrhea, weight loss or urinary symptoms, but endorses fatigue and lightheadedness over the past three days. She has no history of recent surgery, prolonged travel, or immobility. Per EMS, the patient was saturating 82% on 6 L nasal cannula at home. She received two nebulized breathing treatments and 2 g of IV magnesium sulfate en route. ED course - Vitals: BP 172/83, HR 85, T 99.1F, O2 saturation: 92% on 6 L/min nasal cannula (FiO2 45%) - Labs: WBC 26.1. hemoglobin 11.8, platelet 1281; sodium 141, potassium 3.2, bicarb 32.2, creatinine 0.9, eGFR > 60, BUN/Cr ratio 14; BNP 198, Procalcitonin 0.06; D-dimer < 250; Lactic acid 1.3; Magnesium 2.8; ABG pH of 7.33, [id number], pO2 189, HCO3 34; AST 14, ALT <7, ALP 114; glucose 118 - Imaging: CXR showed moderate hyperexpansion, opacity in the lingular segment, no pulmonary edema, ectatic thoracic aorta in the lingular segment left upper lobe - Treatment: Albuterol 10mg x1 INH, Sodium chloride 3ml INH, Methylprednisolone 125mg x1, Ipratropium 0.5 mg INH x1, Ceftriaxone 1 gram x1, Azithromycin 500 mg x1, 1L Lactated Ringers Review of Systems Review of Systems Narrative Review of Systems: All 13 review of systems are negative except as listed above in the HPI. Past Medical History Past Medical History Comments PMH COMMENT: Past Medical History: as above Past Surgical History: hysterectomy Family History: respiratory and cardiac disorders Social History - Smoking: Quit smoking in 2015. Smoked 1 pack a day for 30 years. 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 Heart: Regular rate and rhythm, no murmurs. Lungs: Slightly tachypneic. Diminished breath sounds. No wheezing heard. Abdomen: Soft, nondistended, nontender. No guarding or rebound tenderness. Neurologic: Alert and oriented x3, no gross neurological deficit, and patient able to move all 4 extremities. Extremities: 1+ bilateral LE edema. Skin: No rash or ecchymoses. Results: Labs 12/28/24 02:22 12/28/24 02:22 Labs: Short CBC 12/27/24 Range/Units 16:54 WBC 26.1 H (3.6-11.0) Thou/mm3 Hgb 11.8 L (12.0-16.0) g/dL Hct 40.9 (36.0-46.0) % Plt Count 1281 H* (140-440) Thou/mm3 BMP 12/27/24 16:54 Sodium 141 Potassium 3.2 L Chloride 101 Carbon Dioxide 32.2 H BUN 13 Creatinine 0.9 Glucose 118 H Calcium 9.1 Cardiac Enzymes 12/27/24 Range/Units 16:54 Troponin I < 0.020 (0.0-0.045) ng/mL Liver Function 12/27/24 Range/Units 16:54 Total Bilirubin 0.2 L (0.3-1.2) mg/dL AST 14 (0-34) U/L ALT < 7 L (10-49) U/L Alkaline Phosphatase 114 (46-116) U/L Albumin 3.9 (3.4-4.8) gm/dL ABG Interpretation ABG results: 12/27/24 16:52 ABG pH 7.33 L ABG pCO2 65 H ABG pO2 189 H ABG HCO3 34 H ABG O2 Saturation 100 H ABG Base Excess 6 H Quality Measures Quality Measures none Advance care planning discussed with:: patient Medications Home Medications and Allergies Home Medications ?Medication ?Instructions ?Recorded ?Confirmed ?Type albuterol sulfate 90 mcg/actuation 2 puff inhalation Q 6H 06/19/17 12/28/24 History aerosol inhaler (Ventolin HFA) hydroxyurea 500 mg capsule 500 mg PO QDAY 03/15/23 History paroxetine HCl 20 mg tablet 20 mg PO QDAY 03/15/23 History temazepam 15 mg capsule 15 mg PO HS 03/15/23 5 History tiotropium 2.5 mcg-olodaterol 2.5 2 puff inhalation Q2 4H 03/16/23 12/28/24 History mcg/actuation mist for inhalation (Stiolto Respimat) apixaban 5 mg tablet (Eliquis) 5 mg PO BID 12/28/24 History diltiazem HCl 120 mg capsule,24 120 mg PO QDAY 5 12/28/24 History hr,extended release dronedarone 400 mg tablet (Multaq) 400 mg PO BID 12/2812/28/24 History Allergies Allergy/AdvReac Type Severity Reaction Status Date / Time orange Allergy Swelling Verified 03/13/23 22:30 of Lip/Tongue/Throat orange juice Allergy Swelling Verified 03/13/23 22:30 of Lip/Tongue/Throat Visit Medications Acetaminophen (Acetaminophen 325 Mg Tablet) 650 mg PO Q6H PRN PRN Reason: Fever >100.4 Stop: 01/26/25 18:53 Acetaminophen (Acetaminophen 325 Mg Tablet) 650 mg PO Q6H PRN PRN Reason: PAIN SCALE 1-3 (mild Stop: 01/26/25 18:53 Albuterol/Ipratropium (Albuterol/Ipratropium (Duoneb) Rt Lanie 3 Ml Nebu) 3 ml INH Q2HR PRN PRN Reason: SHORTNESS OF BREATH OR WHEEZE Stop: 01/26/25 18:53 Albuterol/Ipratropium (Albuterol/Ipratropium (Duoneb) Rt Lanie 3 Ml Nebu) 3 ml INH Q4HRRT AUTUMN Stop: 01/26/25 18:59 Allopurinol (Allopurinol 100 Mg Tablet) 300 mg PO QDAY AUTUMN Stop: 01/26/25 19:14 Docusate Sodium (Docusate Sod 100 Mg Capsule) 100 mg PO QDAY [facility]; Protocol Stop: 01/27/25 08:59 Hydroxyurea (Hydroxyurea 500 Mg Capsule) 1,000 mg PO QDAY [facility] Stop: 01/26/25 19:04 Azithromycin 500 mg/ Sodium (Chloride) 250 mls @ 250 mls/hr IV QDAY@1400 AUTUMN Stop: 01/04/25 13:59 Sodium Chloride (Ns) 1,000 mls @ 75 mls/hr IV .[id number] AUTUMN Stop: 01/26/25 18:59 Heparin Sodium/Dextrose (Heparin In D5w Ivpb) 25,000 unit in 250 mls @ 11.431 mls/hr IV .[id number] AUTUMN; Protocol Stop: 01/10/25 18:59 Ondansetron HCl (Ondansetron Inj 2 Mg/Ml Inj 2 Ml) 4 mg IVP Q6H PRN; Protocol PRN Reason: NAUSEA OR VOMITING Stop: 01/26/25 18:53 Sennosides (Senna Tablet) 1 tab PO QDAY [facility]; Protocol Stop: 01/27/25 08:59 Sodium Chloride (Sodium Chloride Rt Lanie 0.9% 3 Ml Nebu) 3 ml INH PRN PRN PRN Reason: SOLN Stop: 01/26/25 16:36 Last Admin: 12/27/24 16:41 Dose: 3 ml Discontinued Medications Albuterol (Albuterol Rt 2.5 Mg/0.5 Ml Nebu) 10 mg INH X1 ONE Stop: 12/27/24 16:38 Last Admin: 12/27/24 16:41 Dose: 10 mg Heparin Sodium (Porcine) (Heparin Sod Inj 5000 Unit/Ml Vial) 5,100 unit IV X1 ONE; Protocol Stop: 12/27/24 19:00 Ceftriaxone Sodium/Dextrose (Rocephin/D5w 1gm Iv Premix) 1 gm in 50 mls @ 100 mls/hr IV X1 ONE Stop: 12/27/24 18:27 Last Infusion: 12/27/24 18:44 Dose: Infused Lactated Ringer's (Lactated Ringers) 1,000 mls @ 999 mls/hr IV .[id number] ONE Stop: 12/27/24 18:59 Last Admin: 12/27/24 18:17 Dose: 999 mls/hr Azithromycin 500 mg/ Sodium (Chloride) 250 mls @ 250 mls/hr IV X1 ONE Stop: 12/27/24 19:14 Last Admin: 12/27/24 18:16 Dose: 250 mls/hr Ipratropium [place] (Ipratropium Rt 0.5 Mg/ 2.5 Ml Nebu) 0.5 mg INH X1 ONE Stop: 12/27/24 16:42 Last Admin: 12/27/24 17:09 Dose: 0.5 mg Methylprednisolone Sodium Succinate (Methylprednisolone Sod Succ 62.5 Mg/Ml 2ml Vial) 125 mg IV X1 ONE Stop: 12/27/24 16:39 Last Admin: 12/27/24 16:45 Dose: 125 mg Potassium Chloride (Potassium Chloride 20 Meq Tabcr) 40 meq PO X1 ONE Stop: 12/27/24 19:13 Assessment & Plan Plan 79-year-old female with severe COPD on 3?6 L home O2, [id number] smoking history, and hypertension presenting with acute on chronic hypoxic and hypercapnic respiratory failure likely due to COPD exacerbation requiring BiPAP and empiric antibiotics. #Acute on chronic hypoxic and hypercapnic respiratory failure COPD exacerbation vs PE vs CHF ABG on admission: pH 7.33, pCO2 65, pO2 189, HCO3 34 ? consistent with chronic CO2 retention with acute decompensation. CTA chest negative for pulmonary embolism, no evidence of pneumonia or pulmonary edema. Noted pulmonary artery hypertension. D-dimer <250. BNP 198. CTA other findings: Pulmonary artery hypertension, No pneumonia or pulmonary edema Met 2/4 SIRS criteria: RR 30, WBC 26.1. On admission, patient requiring 6 L/min NC (FiO2 45%) to maintain SpO2 92%. Received Methylprednisolone and antibitoics (Ceftriaxone 1 gram x1, Azithromycin 500 mg x1) in ED. Plan: - Continue supplemental O2, target SpO2 88?92% to avoid worsening hypercapnia. - Continue BiPAP - Continue scheduled albuterol-ipratropium nebulizers; add PRN treatments for breakthrouhg dyspnea. - Reassess ABG in 2?4 hrs if respiratory distress persists #Leukocytosis WBC 26.1 Likely reactive secondary to acute patient status. Plan - Trend CBC daily. - Evaluate for alternative sources of infection if no improvement. #Polycythemia vera Platelet count 1281. Known diagnosis. JAK2-positive. Followed by Dr. Trinidad. History noteable for multiple prior therapeutic phlebotomies. Currently on hydroxyurea 500 mg daily at home. Plan: - Increase hydroxyurea to [address] Trinidad's recommendation. - Start allopurinol 300 mg daily for hyperuricemia prophylaxis. - Monitor CBC daily to assess treatment response. - Maintain adequate hydration to reduce thrombosis risk. - Dr. Trinidad aware of admission. #Electrolyte abnormalities #Hypokalemia #Hypermagnesemia K 3.2 Mg 2.8. Likely iatrogenic from IV mag administered by EMS en route to hospital. Plan: - Pending phosphorous levels. If phosphorous is low, replace concurrently with potassium as hypophosphatemia can impair potassium repletion. - Recheck electrolytes in AM labs. Health Maintenance Disposition: Tele DVT prophylaxis: Heparin GI prophylaxis: none Diet: Low sodium Lines: Peripheral IV CODE STATUS: Limited Code Attending Provider Attestation/Addendum Yakelin Lucas DO, attest that I was physically present for the bartholomew portions of the service and evaluated the patient with the resident and I reviewed and discussed the case with the resident and agree with the resident's findings and plans of care as documented above Patient is an 79-year-old female with past medical history of COPD on 3 L home O2, chronic tobacco use of [id number] history, hypertension, 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 Patient states that she has had chronic shortness of breath, but came on worse today. Patient wearing BiPAP mask at time of evaluation and refusing to remove it. Per nurse at bedside, patient was saturating at 82% on 6 L nasal cannula upon presenting to the ED. She otherwise denies any fevers or chills. However, she does endorse having worsening fatigue and inability to perform her ADLs recently. Patient received 2 breathing treatments in the ED and magnesium with some improvement of her respiratory status. Upon evaluation in the ED, patient was noted to have leukocytosis of 26.1, hemoglobin 11.8 and thrombocytosis of 1281. Patient is afebrile and hypertensive. On exam, patient has diminished breath sounds in bilateral lung jackson with poor air movement. Will continue with breathing treatments. Due to respiratory distress, and patient's hypercoagulability in the setting of polycythemia, will obtain a CTA of chest to rule out any pulmonary embolism. Patient does take Eliquis at home, but will start patient on a heparin drip at this time. Case was discussed with patient's charge accounts audit clerk who recommends starting patient on hydroxyurea of 1 g daily, allopurinol and cardiac workup. Will consult patient's reinforcing iron and rebar workers. Will admit patient to telemetry for further workup and medical management of acute hypoxic respiratory failure, likely multifactorial in the setting of acute COPD exacerbation. Pending further imaging to rule out other causes. Patient does have trace pitting edema on bilateral lower extremities, but no vascular congestion noted on chest x-ray. Will give IV fluid hydration due to elevated cell counts. Will monitor fluid status closely. Will continue with breathing treatments and empiric antibiotics for community-acquired pneumonia. Will order echocardiogram.
[2024-12-27] MEDS: HEPARIN SOD INJ 5000 UNIT/ML VIAL 5100 UNIT IV (20:21)
[2024-12-27] MEDS: ALBUTEROL/IPRATROPIUM (Duoneb) RT SOL 3 ML NEBU INH ×2 (20:23→23:54)
[2024-12-27] MEDS: Heparin/D5w 25K 250 ML Ivpb 25,000 UNIT/250 ML BAG 11.431 UNIT IV (20:23)
[2024-12-27] MEDS: SODIUM CHLORIDE 0.9% 1000 ML 1,000 ML 75 ML IV (20:40)
--- NOTE | 2024-12-27 20:44 | PC.NURSE ---
attempted to call family (Gene) to bring home meds. left voicemail
[2024-12-27 20:54] LABS: Sed Rate (ESR) 31 mm/hr (0-30)
[2024-12-27 21:07] LABS: Base Excess 2 (-3-3); HCO3 30 mEq/L (20-26); Inspired Oxygen, FIO2 55 %; O2 Saturation 78 % (91-98); PCO2 61 mmHg (32.0-48.0); pH, Arterial 7.30 (7.35-7.45)
[2024-12-27 21:09] LABS: Allen Test Performed/OK; PO2 47 mmHg (83-108); Puncture Site Right Radial
[2024-12-27 21:32] LABS: Misc Send Out* See Sep Rpt
[2024-12-27 21:59] LABS: Troponin I < 0.020 ng/mL (0.0-0.045)
[2024-12-27 22:23] LABS: C-Reactive Protein < 0.5 mg/dL (0.0-0.9)
--- NOTE | 2024-12-27 23:01 | ESCONSULT_ITS ---
<Statement entered by Inderjit Bhatt MD - 12/28/24 18:54> I have personally seen and examined the patient separately on the above date of service and discussed the plan of care with the resident. I reviewed the resident Dr. Gilbert consultation progress note and agree with the resident findings and plan in the note above and have also edited the documentation to reflect my findings and plan. Patient well-known to me and follows up with me in the clinic regularly. 87-year-old female with a past medical history of severe COPD with 3 to 5 L home oxygen, ex-smoker with more than [id number] smoking history, paroxysmal atrial fibrillation diagnosed in 2022 anticoagulation as well as Multaq and Cardizem, polycythemia and thrombocytosis with JAK2 mutation followed by Dr. Dominguez with oncology, pulmonary hypertension secondary to her smoking history, essential hypertension, depression, anxiety, limited mobility mostly in wheelchair presented to the emergency department for worsening shortness of breath. Send patient now diagnosed with COPD exacerbation and cardiology consulted for further management of her atrial fibrillation on multiple medications. 1. Acute on chronic hypercapnic and had a toxic respiratory failure secondary to COPD exacerbation 2. Acute on chronic COPD exacerbation 3. Paroxysmal atrial fibrillation 4. Pulmonary hypertension 5. Polycythemia and thrombocytosis with JAK2 mutation 6. Severe COPD on 3 to 4 L home oxygen 7. Essential hypertension. Patient presented with severe COPD exacerbation. She has not been taking her inhalers recently and has been having worsening shortness of breath and continue to increase her oxygen at home and still continued to be short of breath and hence came to the emergency department for further evaluation. No clear cause found for the acute exacerbation of the COPD. Recommend to aggressively treat for COPD exacerbation with IV steroids Solu-Medrol as well as empiric antibiotics. Rule out any infection and other triggers for the COPD. Please consider BiPAP for increased work of breathing and to help with COPD exacerbation Regarding her paroxysmal atrial fibrillation she was initially diagnosed in 2022 and was placed on Multaq because of her COPD at 4 mg twice daily along with diltiazem 120 mg CD. Patient is in normal sinus rhythm with Multaq and and no RVR episodes in the last 2 years. She was on anticoagulation with Eliquis and recommend to continue the same if no further procedures are planned. She did have a history of some hematuria/uterine bleeding in between which actually improved. Check hemoglobin. Rate is well-controlled and recommend to continue with multiform a milligrams twice daily. If patient is hypotensive then diltiazem can be held for now. Blood pressure appears to be well-controlled on Cardizem and recommend to continue with the same if stable Inderjit Bhatt M.D. Interventional Cardiology HPI Data of Consult Patient: known to practice within the last 3 years Consult date: 12/27/24 Requesting Physician: Yakelin Caballero DO Admitting Provider: Yakelin Caballero DO Attending Provider: Yakelin Caballero DO Primary Care Provider: Physician No Primary/Family Consult Narrative History of present illness: Patient is an 79-year-old female with a past medical history of severe COPD on 3-5 L home oxygen, HTN, atrial fibrillation, polycythemia and thrombocytosis with JAK2 mutation, followed by Dr. Trinidad, pulmonary hypertension, history of smoking 40 to 50 pack year, who presented to the emergency room complaining of worsening shortness of breath. Per EMS, the patient was saturating 82% on on home oxygen, she received 2 breathing treatments and 2 g of IV magnesium sulfate en route but was still in respiratory distress. The patient reported that she had ran out of air at home, the patient reported she did have access to oxygen, but does not have any inhalers. Denied any sick contacts, denied fever, denied chest pain, syncope, nausea or vomiting. In the ED, initial vitals were BP 172/83, heart rate 85, T99.1F, saturating 92% on 6 L nasal cannula O2, patient was later started on BiPAP, initial labs showed leukocytosis WBC count 6.1 hemoglobin 11.8 platelet 1281, sodium 141 potassium 3.2 bicarb 32.2 creatinine 0.9 EGFR 60 BNP 198 procalcitonin 0.06 D-dimers < 250, lactic acid 1.3 magnesium 2.8, ABG 7.33, PC865, PO211, bicarb 34, AST 14 ALT less than 7 ALP 114, glucose 118, chest x-ray showed moderate hyperexpansion, potassium level Manage, ectatic thoracic aorta, the patient was given continuous nebulizer treatment in the ED, IV methylprednisolone 125 mg x 1, IV antibiotics ceftriaxone azithromycin and 1 L IV fluid bolus. Past medical history: severe COPD on 3-5 L home oxygen, HTN, atrial fibrillation, polycythemia and thrombocytosis with JAK2 mutation, followed by Dr. Trinidad, pulmonary hypertension, history of smoking 40 to 50 pack year, Past surgical history: Positive Eye Surgery, Abdominal Surgery, Open Reduction Internal Fixation (06/22/17-orif right trimalleolar fx. 10/2017-hardware removal right fibula) and Hysterectomy. Social history: Patient reported smoking more than 1 pack a day for over 30 years, quit smoking a few years ago, denied alcohol use, denied illicit drug use, patient is retired and lives with her ex-. Home medications: Multaq 400 mg twice daily, diltiazem 120 mg daily, Eliquis 5 mg twice daily, hydroxyurea 500 mg daily, paroxetine 20 mg daily, temazepam 15 mg nightly, tiotropium inhaler. cc:: cc: Yakelin Caballero DO Review of Systems Review of Systems Systems Reviewed: All systems reviewed, normal except as documented Past Medical History Past Medical History NEUROLOGIC: Negative Neurological Disorders, Seizures or Amyotrophic Lateral Sclerosis (ALS/Jimena Gehrig's) CARDIAC: Negative Cardiac Disorders or Congestive Heart Failure RESPIRATORY: Positive Chronic Obstructive Pulmonary Disease (COPD), Asthma, Emphysema and Pneumonia GASTROINTESTINAL: Negative Gastrointestinal Disorders GENITOURINARY: Negative Genitourinary Disorders or Renal Disease REPRODUCTIVE: Positive Previous Pregnancies MUSCULOSKELETAL: Positive Musculoskeletal Disorders and Fractures ENT: Positive Cataracts ENDOCRINE: Negative Endocrine Disorders, Diabetes Mellitus Type 1 or Diabetes Mellitus Type 2 HEMATOLOGIC: Positive Blood Disorders and Anemia; Negative Sickle Cell Disease PSYCHO/SOCIAL: Positive Depression and Anxiety OTHER HISTORY: Positive Falls and Chicken Pox; Negative Blood Transfusions, Blood Transfusion Reaction or Anesthesia Reactions Family History FAMILY HISTORY: Positive Family Respiratory Disorders and Family Cardiac Disorders Surgical History SURGICAL: Positive Eye Surgery, Abdominal Surgery, Open Reduction Internal Fixation and Hysterectomy Social History SMOKING STATUS: Former smoker SECOND HAND EXPOSURE: No (1PPd or less-QUIT 10 yrs ago) Past Medical History Comments PMH COMMENT: Past Medical History: as above Past Surgical History: hysterectomy Family History: respiratory and cardiac disorders Social History - Smoking: Quit smoking in 2014. Smoked 1 pack a day for 30 years. 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 HEENT: Atraumatic/normocephalic, MIC, neck supple Heart: RRR, S1 and S2 without clicks or murmurs Lungs: Wheezing on auscultation bilaterally, noted accessory muscle use Abdomen: Soft, nontender. Bowel sounds present . Vascular: Peripheral pulses palpable Neuro: No focal neurological deficits noted. Results Labs 12/28/24 02:22 12/28/24 02:22 Labs: Short CBC 12/27/24 Range/Units 16:54 WBC 26.1 H (3.6-11.0) Thou/mm3 Hgb 11.8 L (12.0-16.0) g/dL Hct 40.9 (36.0-46.0) % Plt Count 1281 H* (140-440) Thou/mm3 BMP 12/27/24 16:54 Sodium 141 Potassium 3.2 L Chloride 101 Carbon Dioxide 32.2 H BUN 13 Creatinine 0.9 Glucose 118 H Calcium 9.1 Cardiac Enzymes 12/27/24 12/27/24 Range/Units 16:54 21:14 Troponin I < 0.020 < 0.020 (0.0-0.045) ng/mL Liver Function 12/27/24 Range/Units 16:54 Total Bilirubin 0.2 L (0.3-1.2) mg/dL AST 14 (0-34) U/L ALT < 7 L (10-49) U/L Alkaline Phosphatase 114 (46-116) U/L Albumin 3.9 (3.4-4.8) gm/dL ABG Interpretation ABG results: 12/27/24 12/27/24 16:52 20:50 ABG pH 7.33 L 7.30 L ABG pCO2 65 H 61 H ABG pO2 189 H 47 L* D ABG HCO3 34 H 30 H ABG O2 Saturation 100 H 78 L ABG Base Excess 6 H 2 Quality Measures Quality Measures none Advance care planning discussed with:: patient Medications Home Medications and Allergies Home Medications ?Medication ?Instructions ?Recorded ?Confirmed ?Type albuterol sulfate 90 mcg/actuation 2 puff inhalation Q 6H 06/19/17 03/16/23 History aerosol inhaler (Ventolin HFA) hydroxyurea 500 mg capsule 500 mg PO QDAY 03/15/23 History paroxetine HCl 20 mg tablet 20 mg PO QDAY 03/15/23 History temazepam 15 mg capsule 15 mg PO HS 03/15/23 3 History tiotropium 2.5 mcg-olodaterol 2.5 2 puff inhalation Q2 4H 03/16/23 03/16/23 History mcg/actuation mist for inhalation (Stiolto Respimat) apixaban 5 mg tablet (Eliquis) 5 mg PO BID 12/28/24 History diltiazem HCl 120 mg capsule,24 120 mg PO QDAY 5 12/28/24 History hr,extended release dronedarone 400 mg tablet (Multaq) 400 mg PO BID 12/2812/28/24 History Allergies Allergy/AdvReac Type Severity Reaction Status Date / Time orange Allergy Swelling Verified 03/13/23 22:30 of Lip/Tongue/Throat orange juice Allergy Swelling Verified 03/13/23 22:30 of Lip/Tongue/Throat Visit Medications Acetaminophen (Acetaminophen 325 Mg Tablet) 650 mg PO Q6H PRN PRN Reason: Fever >100.4 Stop: 01/26/25 18:53 Acetaminophen (Acetaminophen 325 Mg Tablet) 650 mg PO Q6H PRN PRN Reason: PAIN SCALE 1-3 (mild Stop: 01/26/25 18:53 Albuterol/Ipratropium (Albuterol/Ipratropium (Duoneb) Rt Lanie 3 Ml Nebu) 3 ml INH Q2HR PRN PRN Reason: SHORTNESS OF BREATH OR WHEEZE Stop: 01/26/25 18:53 Albuterol/Ipratropium (Albuterol/Ipratropium (Duoneb) Rt Lanie 3 Ml Nebu) 3 ml INH Q4HRRT AUTUMN Stop: 01/26/25 18:59 Last Admin: 12/27/24 20:23 Dose: 3 ml Allopurinol (Allopurinol 100 Mg Tablet) 300 mg PO QDAY [facility] Stop: 01/26/25 19:14 Last Admin: 12/27/24 20:39 Dose: 300 mg Docusate Sodium (Docusate Sod 100 Mg Capsule) 100 mg PO QDAY [facility]; Protocol Stop: 01/27/25 08:59 Hydroxyurea (Hydroxyurea 500 Mg Capsule) 1,000 mg PO QDAY [facility] Stop: 01/26/25 19:04 Azithromycin 500 mg/ Sodium (Chloride) 250 mls @ 250 mls/hr IV QDAY@1400 [facility] Stop: 01/04/25 13:59 Sodium Chloride (Ns) 1,000 mls @ 75 mls/hr IV .[id number] [facility] Stop: 01/26/25 18:59 Last Admin: 12/27/24 20:40 Dose: 75 mls/hr Heparin Sodium/Dextrose (Heparin In D5w Ivpb) 25,000 unit in 250 mls @ 11.431 mls/hr IV .[id number] [facility]; Protocol Stop: 01/10/25 18:59 Last Admin: 12/27/24 20:23 Dose: 18 units/kg/hr, 11.431 mls/hr Ondansetron HCl (Ondansetron Inj 2 Mg/Ml Inj 2 Ml) 4 mg IVP Q6H PRN; Protocol PRN Reason: NAUSEA OR VOMITING Stop: 01/26/25 18:53 Phenyleph/Shark Oil/Min Oil/Petrol (Preparation H Oint 30 Gm Tube) [address] BID PRN PRN Reason: HEMORRHOIDS Stop: 01/26/25 21:02 Sennosides (Senna Tablet) 1 tab PO QDAY [facility]; Protocol Stop: 01/27/25 08:59 Sodium Chloride (Sodium Chloride Rt Lanie 0.9% 3 Ml Nebu) 3 ml INH PRN PRN PRN Reason: SOLN Stop: 01/26/25 16:36 Last Admin: 12/27/24 16:41 Dose: 3 ml Discontinued Medications Albuterol (Albuterol Rt 2.5 Mg/0.5 Ml Nebu) 10 mg INH X1 ONE Stop: 12/27/24 16:38 Last Admin: 12/27/24 16:41 Dose: 10 mg Heparin Sodium (Porcine) (Heparin Sod Inj 5000 Unit/Ml Vial) 5,100 unit IV X1 ONE; Protocol Stop: 12/27/24 19:00 Last Admin: 12/27/24 20:21 Dose: 5,100 unit Ceftriaxone Sodium/Dextrose (Rocephin/D5w 1gm Iv Premix) 1 gm in 50 mls @ 100 mls/hr IV X1 ONE Stop: 12/27/24 18:27 Last Infusion: 12/27/24 18:44 Dose: Infused Lactated Ringer's (Lactated Ringers) 1,000 mls @ 999 mls/hr IV .Q1H1M ONE Stop: 12/27/24 18:59 Last Admin: 12/27/24 18:17 Dose: 999 mls/hr Azithromycin 500 mg/ Sodium (Chloride) 250 mls @ 250 mls/hr IV X1 ONE Stop: 12/27/24 19:14 Last Admin: 12/27/24 18:16 Dose: 250 mls/hr Ipratropium [place] (Ipratropium Rt 0.5 Mg/ 2.5 Ml Nebu) 0.5 mg INH X1 ONE Stop: 12/27/24 16:42 Last Admin: 12/27/24 17:09 Dose: 0.5 mg Methylprednisolone Sodium Succinate (Methylprednisolone Sod Succ 62.5 Mg/Ml 2ml Vial) 125 mg IV X1 ONE Stop: 12/27/24 16:39 Last Admin: 12/27/24 16:45 Dose: 125 mg Potassium Chloride (Potassium Chloride 20 Meq Tabcr) 40 meq PO X1 ONE Stop: 12/27/24 19:13 Last Admin: 12/27/24 20:39 Dose: 40 meq Assessment & Plan Plan Patient is an 79-year-old female with a past medical history of severe COPD on 3-5 L home oxygen, HTN, atrial fibrillation, polycythemia and thrombocytosis with JAK2 mutation, followed by Dr. Trinidad, pulmonary hypertension, history of smoking 40 to 50 pack year, who presented to the emergency room complaining of worsening shortness of breath. Patient was found to have acute hypoxic and hypercapnic respiratory failure secondary to severe COPD , she was initially started on BiPAP, ABG showed respiratory acidosis. Later patient was transitioned to high flow nasal cannula oxygen. Problems: 1. Acute on chronic hypoxic/hypercapnic respiratory failure 2. COPD exacerbation 3. Thrombocytopenia 4. Ruled out pulmonary embolism 5. History of pulmonary hypertension 6. History of hypertension 7. History of A-fib The patient has history of severe COPD and is on 3 to 5 L nasal cannula oxygen, but started becoming more short of breath over the past few days, denies any sick contacts, or fever, she reported access to oxygen, but said that she ran out of inhalers. Patient reported she has not seen her primary care doctor in over a year. At the time of evaluation, patient was seen on high flow nasal cannula oxygen at 25 L, 45% FiO2, patient was wheezing excessively and showing signs of respiratory distress. Also noted respiratory acidosis on initial ABG, recommended using BiPAP if continued increased work of breathing. Patient had received 1 dose of Solu-Medrol 125 mg in the ED. Recommend starting patient on IV steroids Solu-Medrol 60 mg twice daily for COPD exacerbation. The patient is started on ceftriaxone and azithromycin, though patient is taking dronedarone for atrial fibrillation which can prolong QT, ordered repeat EKG in the morning to monitor QT. The patient currently is in sinus rhythm, QT362, QTc 431 on 12/28/2024, recommend continued monitoring of QT interval. Patient has history of polycythemia and thrombocytosis with JAK2 mutation, previously requiring phlebotomy, currently on hydroxyurea, patient has persistent thrombocytosis, due to concern for acute hypoxic respiratory failure, and thrombocytosis there was concern for pulmonary embolism, but CT angiogram was done which ruled out pulm embolism. Patient was started on heparin drip by primary team as empiric treatment, Which is now on hold. Recommend to resume patient's home medication Eliquis. Echocardiogram in 2022 showed normal LV size and function, EF 55%, grade 1 diastolic dysfunction, will get repeat echocardiogram. Recommendations: ? CT angiogram negative for pulmonary embolism, Recommend to resume patient's home medication Eliquis. ? Recommend resuming home medication dronedarone/Multaq ? Recommend continuing home medication diltiazem, if blood pressure allows ? Recommend to avoid hypomagnesemia and hypokalemia as patient is getting dronedarone which can lead to increased QT. Keep magnesium more than 2 and potassium more than 4 at all times. ? Consider BiPAP if indicated for increased work of breathing or severe hypercapnia ? Recommend to continue IV steroids due to severe COPD Rest of the management deferred to primary team. Thank you for cardiology consultation. We appreciate the opportunity to participate in this patient's care. Will continue to follow-up on this patient This case was discussed with movie actor, Dr. Bhatt. Ofelia Canela MD PG3
[2024-12-27] MEDS: MethylPREDNISolone SOD SUCC 62.5 MG/ML 2ML VIAL 60 MG IVP (23:29)
[2024-12-27] MEDS: POTASSIUM CHL 10 mEq IVPB 10 MEQ/100 ML BAG 100 MEQ IV (23:30)
[2024-12-28] VITALS (15 sets, daily range): BP systolic 129–151; BP diastolic 65–84; PULSE 75–112; RESP 17–36; TEMP 36.4–36.6; O2SAT 93–100; BMI 27.6; BMI 27.4
[2024-12-28] MEDS: POTASSIUM CHL 10 mEq IVPB 10 MEQ/100 ML BAG 100 MEQ IV ×3 (00:50→03:22)
[2024-12-28] MEDS: MELATONIN 3 MG TABLET 9 MG PO (01:22)
--- NOTE | 2024-12-28 02:06 | PC.NURSE ---
Night nurse Lukas was able to do partial part of the med rec due to family only bringing 3 of her prescription packet (Eliquis 5mg, Multaq 400mg, Diltiazem 120 mg).
[2024-12-28 02:32] LABS: Basophils # (Auto) 0.1 Thou/mm3 (0.0-0.2); Basophils % (Auto) 1 % (0-2.5); Eosinophils # (Auto) 0.0 Thou/mm3 (0.0-0.5); Eosinophils % (Auto) 0 % (0-10); Hematocrit 39.1 % (36.0-46.0); Hemoglobin 11.2 g/dL (12.0-16.0); Immature Granulocytes Auto 0.17 Thou/mm3 (0.00-0.00); Lymphocytes # (Auto) 0.4 Thou/mm3 (1.0-4.8); Lymphocytes % (Auto) 2 % (10-50); Mean Corpuscular HGB Conc 28.6 g/dl (31.0-37.0); Mean Corpuscular Hemoglobin 23.9 pg (25.0-35.0); Mean Corpuscular Volume 84 fL (80-100); Monocytes # (Auto) 0.1 Thou/mm3 (0.0-0.8); Monocytes % (Auto) 0 % (0-12); Neutrophils # (Auto) 25.4 Thou/mm3 (1.8-7.7); Neutrophils % (Auto) 97 % (37-80); Nucleated Red Blood Cell # 0.00 Thou/mm3 (0.00-0.00); Nucleated Red Blood Cell % 0 /100 WBC (0); RDW Standard Deviation 64.6 fL (36.4-46.3); Red Blood Count 4.68 Miln/mm3 (4.00-5.20); White Blood Count 26.1 Thou/mm3 (3.6-11.0)
[2024-12-28] MEDS: ALBUTEROL/IPRATROPIUM (Duoneb) RT SOL 3 ML NEBU INH ×6 (02:43→22:58)
[2024-12-28 02:45] LABS: Partial Thromboplastin Time 48.8 Seconds (22.0-36.0)
[2024-12-28 03:00] LABS: Alanine Aminotransferase < 7 U/L (10-49); Albumin, Serum 3.7 gm/dL (3.4-4.8); Albumin/Globulin Ratio 1.9 (1.2-2.2); Alkaline Phosphatase 105 U/L (46-116); Anion Gap 9 (7-16); Aspartate Amino Transferase 13 U/L (0-34); BUN/Creatinine Ratio 13 Ratio (12-20); Bilirubin,Total 0.2 mg/dL (0.3-1.2); Blood Urea Nitrogen 13 mg/dL (9-23); Calcium 9.1 mg/dL (8.3-10.6); Calcium (Corrected) 9.3 mg/dL (8.5-10.1); Carbon Dioxide 29.3 mMol/L (20.0-31.0); Cardiac Risk Estimate 2.2 RATIO (3.7-5.6); Chloride 102 mMol/L (98-107); Cholesterol 152 mg/dL (132-200); Creatinine (Component) 1.0 mg/dL (0.6-1.3); Estimated Creatinine Clearance 38.7 mL/min (>60); Globulin 2.0 gm/dL (2.3-3.5); Glucose 184 mg/dL (74-106); HDL Cholesterol 68 mg/dL (40-60); LDL Cholesterol,Calculated 75 mg/dL (0-130); Magnesium 2.0 mg/dL (1.6-2.6); Osmolality,Calculated 284 (275-295); Phosphorous 3.5 mg/dL (2.4-5.1); Potassium 3.7 mMol/L (3.4-5.1); Sodium 140 mMol/L (136-145); Thyroid Stimulating Hormone 0.42 uIU/mL (0.55-4.78); Total Protein 5.7 gm/dL (5.7-8.2); Triglycerides 47 mg/dL (30-150); eGFR 57 See Note
[2024-12-28 03:01] LABS: Platelet Count 1047 Thou/mm3 (140-440)
[2024-12-28] MEDS: HEPARIN SOD INJ 5000 UNIT/ML VIAL 2550 UNIT IV (03:21)
[2024-12-28] MEDS: ACETAMINOPHEN 325 MG TABLET 650 MG PO (03:23)
--- NOTE | 2024-12-28 05:15 | PC.NURSE ---
Contacted hospitalist , Dr. Smith in regards to the patient's heparin drip order. Nurse noticed that the heparin drip was ordered for rule out PE. Chest CTA results showed that negative for PE. MD made aware. Per night MD continue infusing the heparin drip, and day team hospitalist will be notified, by Nightshift .
--- NOTE | 2024-12-28 06:00 | EKG_ITS ---
[facility] Test Date: 2024-12-28 Pat Name: SHEKHAR SHARP Department: Room: S264A Gender: Female Aemt: WILIAN : 1945 Requested By: Ofelia Canela Order Number: [id number] Reading MD: Ofelia Canela Measurements Intervals [place] Rate: 85 P: 70 NV: 168 QRS: -52 QRSD: 106 T: 92 QT: 362 QTc: 431 Interpretive Statements SINUS RHYTHM WITH SINUS ARRHYTHMIA LEFT ANTERIOR FASCICULAR BLOCK ABNORMAL QRS-T ANGLE Compared to ECG 12/27/2024 16:38:17 T-wave abnormality no longer present /store/S0/[id number].pdf
--- NOTE | 2024-12-28 08:41 | PC.NURSE ---
Per Dr. Souza, heparin on hold. Awaiting new orders.
[2024-12-28] MEDS: MethylPREDNISolone SOD SUCC 62.5 MG/ML 2ML VIAL 60 MG IVP ×2 (09:03→21:17)
[2024-12-28] MEDS: DOCUSATE SOD 100 MG CAPSULE PO (09:04)
[2024-12-28 09:38] LABS: Base Excess 2 (-3-3); HCO3 29 mEq/L (20-26); Inspired Oxygen, FIO2 50 %; O2 Saturation 95 % (91-98); PCO2 53 mmHg (32.0-48.0); PO2 71 mmHg (83-108); pH, Arterial 7.35 (7.35-7.45)
--- NOTE | 2024-12-28 09:44 | PD.RESPRO ---
Documentation for date of: 12/28/24 Subjective Subjective Interval history: The patient is evaluated at bedside, currently stable on high flow nasal cannula, saturating 100% on 55% FiO2, 35 L/min, Patient reported improvement in symptoms. CBC shows WBC 26.1, hemoglobin 9.2, platelets 1047, CHEM panel shows NA 140 K3.7, CO2 2010.3, BUN 13 and creatinine 1.0. Glucose 184. EKG was repeated this morning to measure QT, as patient is having azithromycin and is also on Multaq, concern for QT prolongation, QT 362, QTc 431, CTA was negative, pulmonary embolism ruled out, heparin drip was discontinued and patient was started on home medication Eliquis 5 mg twice daily for atrial fibrillation. Resume home medications of diltiazem 120 mg daily and Multaq 400 mg twice daily. Recommended to keep magnesium more than 2 and potassium more than 4 at all times due to risk of QT prolongation. Patient has risk for thrombophilia due to thrombocytosis, sailing officer/oncologist recommending continuing patient's hydroxyurea. Echocardiogram ordered, patient had previous echocardiogram which showed diastolic dysfunction. But normal LVEF. Can give IV fluids if needed due to thrombocytosis. Exam Vital Signs Temp Pulse Resp BP Pulse Ox O2 Del Method O2 Flow Rate 97.6 F 84 23 H 140/76 H 99 High Flow Nasal Cannula 30 12/28/24 08:00 12/28/24 08:00 12/28/24 08:00 12/28/24 08:00 12/28/24 08:00 12/28/24 08:00 12/28/24 08:00 FiO2 50 12/28/24 08:00 Narrative Exam General: AOx3, in no acute distress laying comfortably in bed, currently on HFNC Skin: Intact, no cyanosis or edema noted. HEENT: Atraumatic/normocephalic, MIC, neck supple Heart: RRR, S1 and S2 without clicks or murmurs Lungs: Wheezing on auscultation bilaterally, no accessory muscle use, breathing improved compared to yesterday. Abdomen: Soft, nontender. Bowel sounds present . Vascular: Peripheral pulses palpable Neuro: No focal neurological deficits noted. Objective Labs 12/28/24 02:22 12/28/24 02:22 Labs: Laboratory Results - last 24 hr 12/27/24 12/27/24 12/27/24 16:52 16:54 20:50 WBC 26.1 H RBC 4.94 Hgb 11.8 L Hct 40.9 MCV 83 MCH 23.9 L MCHC 28.9 L RDW Std Deviation 64.0 H Plt Count 1281 H* Neut % (Auto) 76 Lymph % (Auto) 15 [place] % (Auto) 5 Eos % (Auto) 3 Baso % (Auto) 1 Neut # (Auto) 19.8 H Lymph # (Auto) 3.8 [place] # (Auto) 1.2 H Eos # (Auto) 0.7 H Baso # (Auto) 0.4 H Immature Gran # (Auto) 0.25 H Absolute Nucleated RBC 0.00 Immature Gran % 1 H Nucleated RBC % 0 Smear Path Review Sent to Pathologist ESR 31 H PT 11.8 INR 1.1 APTT 32.6 D-Dimer < 250 Puncture Site Right Radial Right Radial ABG pH 7.33 L 7.30 L ABG pCO2 65 H 61 H ABG pO2 189 H 47 L* D ABG HCO3 34 H 30 H ABG O2 Saturation 100 H 78 L ABG Base Excess 6 H 2 Oxygen Liter Flow 7 FiO2 55 Sodium 141 Potassium 3.2 L Chloride 101 Carbon Dioxide 32.2 H Anion Gap 8 BUN 13 Creatinine 0.9 Estim Creat Clear Calc 43.1 L eGFR > 60 BUN/Creatinine Ratio 14 Glucose 118 H Calculated Osmolality 282 Lactic Acid 1.3 Calcium 9.1 Corrected Calcium 9.2 Phosphorus Magnesium 2.8 H Total Bilirubin 0.2 L AST 14 ALT < 7 L Alkaline Phosphatase 114 Troponin I < 0.020 C-Reactive Prot, Quant B-Natriuretic Peptide 198 H Total Protein 6.1 Albumin 3.9 Globulin 2.2 L Albumin/Globulin Ratio 1.8 Triglycerides Cholesterol LDL Cholesterol, Calc HDL Cholesterol Cholesterol/HDL Ratio Procalcitonin 0.06 TSH 12/27/24 12/28/24 21:14 02:22 WBC 26.1 H RBC 4.68 Hgb 11.2 L Hct 39.1 MCV 84 MCH 23.9 L MCHC 28.6 L RDW Std Deviation 64.6 H Plt Count 1047 H* D Neut % (Auto) 97 H Lymph % (Auto) 2 L [place] % (Auto) 0 Eos % (Auto) 0 Baso % (Auto) 1 Neut # (Auto) 25.4 H Lymph # (Auto) 0.4 L [place] # (Auto) 0.1 Eos # (Auto) 0.0 Baso # (Auto) 0.1 Immature Gran # (Auto) 0.17 H Absolute Nucleated RBC 0.00 Immature Gran % 1 H Nucleated RBC % 0 Smear Path Review ESR PT INR APTT 48.8 H D D-Dimer Puncture Site ABG pH ABG pCO2 ABG pO2 ABG HCO3 ABG O2 Saturation ABG Base Excess Oxygen Liter Flow FiO2 Sodium 140 Potassium 3.7 D Chloride 102 Carbon Dioxide 29.3 Anion Gap 9 BUN 13 Creatinine 1.0 Estim Creat Clear Calc 38.7 L eGFR 57 L BUN/Creatinine Ratio 13 Glucose 184 H D Calculated Osmolality 284 Lactic Acid Calcium 9.1 Corrected Calcium 9.3 Phosphorus 3.5 Magnesium 2.0 Total Bilirubin 0.2 L AST 13 ALT < 7 L Alkaline Phosphatase 105 Troponin I < 0.020 C-Reactive Prot, Quant < 0.5 B-Natriuretic Peptide Total Protein 5.7 Albumin 3.7 Globulin 2.0 L Albumin/Globulin Ratio 1.9 Triglycerides 47 Cholesterol 152 LDL Cholesterol, Calc 75 HDL Cholesterol 68 H Cholesterol/HDL Ratio 2.2 L Procalcitonin TSH 0.42 L ABG Interpretation ABG results: 12/27/24 12/27/24 16:52 20:50 ABG pH 7.33 L 7.30 L ABG pCO2 65 H 61 H ABG pO2 189 H 47 L* D ABG HCO3 34 H 30 H ABG O2 Saturation 100 H 78 L ABG Base Excess 6 H 2 Quality Measures Quality Measures none Advance care planning discussed with:: patient Assessment & Plan Assessment Current Active Medications: Generic Name Dose Route Start Last Admin Trade Name Remyq PRN Reason Stop Dose Admin Acetaminophen 650 mg 12/27/24 18:54 Acetaminophen 325 Mg Tablet PO 01/26/25 18:53 Q6H PRN Fever >100.4 Acetaminophen 650 mg 12/27/24 18:54 12/28/24 03:23 Acetaminophen 325 Mg Tablet PO 01/26/25 18:53 650 mg Q6H PRN Administration PAIN SCALE 1-3 (mild Albuterol/Ipratropium 3 ml 12/27/24 18:54 Albuterol/Ipratropium (Duoneb) Rt Lanie 3 Ml Nebu INH 01/26/25 18:53 Q2HR PRN SHORTNESS OF BREATH OR WHEEZE Albuterol/Ipratropium 3 ml 12/27/24 19:00 12/28/24 07:28 Albuterol/Ipratropium (Duoneb) Rt Lanie 3 Ml Nebu INH 01/26/25 18:59 3 ml Q4HRRT AUTUMN Administration Allopurinol 300 mg 12/27/24 19:15 12/28/24 09:03 Allopurinol 100 Mg Tablet PO 01/26/25 19:14 300 mg QDAY AUTUMN Administration Diltiazem HCl 120 mg 12/28/24 09:15 Diltiazem Cd 120 Mg Capcr PO 01/27/25 09:14 QDAY AUTUMN Docusate Sodium 100 mg 12/28/24 09:00 12/28/24 09:04 Docusate Sod 100 Mg Capsule PO 01/27/25 08:59 100 mg QDAY AUTUMN Administration Protocol Dronedarone 400 mg 12/28/24 10:00 Dronedarone Hcl 400 Mg Tablet (Non-Formulary) PO 01/27/25 09:59 BID AUTUMN Hydroxyurea 1,000 mg 12/27/24 19:05 Hydroxyurea 500 Mg Capsule PO 01/26/25 19:04 QDAY AUTUMN Azithromycin 500 mg/ Sodium 250 mls @ 250 mls/hr 12/28/24 14:00 Chloride IV 01/04/25 13:59 QDAY@1400 AUTUMN Sodium Chloride 1,000 mls @ 75 mls/hr 12/27/24 19:00 12/27/24 20:40 Ns IV 01/26/25 18:59 75 mls/hr .[id number] AUTUMN Administration Heparin Sodium/Dextrose 25,000 unit in 250 mls @ 11.431 mls/hr 12/27/24 19:00 12/28/24 03:20 Heparin In D5w Ivpb IV 01/10/25 18:59 20 units/kg/hr .[id number] [facility] 12.701 mls/hr Titration Protocol 18 UNITS/KG/HR Ceftriaxone Sodium/Dextrose 1 gm in 50 mls @ 100 mls/hr 12/28/24 09:08 Rocephin/D5w 1gm Iv Premix IV 01/04/25 09:07 QDAY AUTUMN Magnesium Oxide 400 mg 12/28/24 10:00 Magnesium Oxide 400 Mg Tablet PO 12/28/24 10:01 X1 ONE Methylprednisolone Sodium Succinate 60 mg 12/27/24 23:15 12/28/24 09:03 Methylprednisolone Sod Succ 62.5 Mg/Ml 2ml Vial IVP 01/03/25 23:14 60 mg BID AUTUMN Administration Ondansetron HCl 4 mg 12/27/24 18:54 Ondansetron Inj 2 Mg/Ml Inj 2 Ml IVP 01/26/25 18:53 Q6H PRN NAUSEA OR VOMITING Protocol Phenyleph/Shark Oil/Min Oil/Petrol 0 gm 12/27/24 21:03 Preparation H Oint 30 Gm Tube MS 01/26/25 21:02 BID PRN HEMORRHOIDS Sennosides 1 tab 12/28/24 09:00 12/28/24 09:03 Senna Tablet PO 01/27/25 08:59 1 tab QDAY AUTUMN Administration Protocol Sodium Chloride 3 ml 12/27/24 16:37 12/27/24 16:41 Sodium Chloride Rt Lanie 0.9% 3 Ml Nebu INH 01/26/25 16:36 3 ml PRN PRN Administration SOLN Plan Patient is an 79-year-old female with a past medical history of severe COPD on 3-5 L home oxygen, HTN, atrial fibrillation, polycythemia and thrombocytosis with JAK2 mutation, followed by Dr. Trinidad, pulmonary hypertension, history of smoking 40 to 50 pack year, who presented to the emergency room complaining of worsening shortness of breath. Patient was found to have acute hypoxic and hypercapnic respiratory failure secondary to severe COPD , she was initially started on BiPAP, ABG showed respiratory acidosis. Later patient was transitioned to high flow nasal cannula oxygen. Problems: 1. Acute on chronic hypoxic/hypercapnic respiratory failure 2. COPD exacerbation 3. Thrombocytopenia 4. Ruled out pulmonary embolism 5. History of pulmonary hypertension 6. History of hypertension 7. History of A-fib The patient has history of severe COPD and is on 3 to 5 L nasal cannula oxygen, but started becoming more short of breath over the past few days, denies any sick contacts, or fever, she reported access to oxygen, but said that she ran out of inhalers. Patient reported she has not seen her primary care doctor in over a year. At the time of evaluation, patient was seen on high flow nasal cannula oxygen at 25 L, 45% FiO2, patient was wheezing excessively and showing signs of respiratory distress. Also noted respiratory acidosis on initial ABG, recommended using BiPAP if continued increased work of breathing. Patient had received 1 dose of Solu-Medrol 125 mg in the ED. Recommend starting patient on IV steroids Solu-Medrol 60 mg twice daily for COPD exacerbation. The patient is started on ceftriaxone and azithromycin, though patient is taking dronedarone for atrial fibrillation which can prolong QT, ordered repeat EKG in the morning to monitor QT. The patient currently is in sinus rhythm, QT362, QTc 431 on 12/28/2024, recommend continued monitoring of QT interval. Patient has history of polycythemia and thrombocytosis with JAK2 mutation, previously requiring phlebotomy, currently on hydroxyurea, patient has persistent thrombocytosis, due to concern for acute hypoxic respiratory failure, and thrombocytosis there was concern for pulmonary embolism, but CT angiogram was done which ruled out pulm embolism. Patient was started on heparin drip by primary team as empiric treatment, Which is now on hold. Recommend to resume patient's home medication Eliquis. Echocardiogram in 2022 showed normal LV size and function, EF 55%, grade 1 diastolic dysfunction, will get repeat echocardiogram. CBC shows WBC 26.1, hemoglobin 9.2, platelets 1047, CHEM panel shows NA 140 K3.7, CO2 2010.3, BUN 13 and creatinine 1.0. Glucose 184. EKG was repeated this morning to measure QT, as patient is having azithromycin and is also on Multaq, concern for QT prolongation, QT 362, QTc 431, CTA was negative, pulmonary embolism ruled out, heparin drip was discontinued and patient was started on home medication Eliquis 5 mg twice daily for atrial fibrillation. Resume home medications of diltiazem 120 mg daily and Multaq 400 mg twice daily. Recommended to keep magnesium more than 2 and potassium more than 4 at all times due to risk of QT prolongation. Echocardiogram ordered, patient had previous echocardiogram which showed diastolic dysfunction. But normal LVEF. Can give IV fluids if needed due to thrombocytosis. Recommendations: ? CT angiogram negative for pulmonary embolism, Recommend to resume patient's home medication Eliquis. ? Recommend resuming home medication dronedarone/Multaq ? Recommend continuing home medication diltiazem, if blood pressure allows ? Recommend to avoid hypomagnesemia and hypokalemia as patient is getting dronedarone which can lead to increased QT. Keep magnesium more than 2 and potassium more than 4 at all times. ? Consider BiPAP if indicated for increased work of breathing or severe hypercapnia ? Recommend to continue IV steroids due to severe COPD ? Agree with sailing officer/oncologist recommending continuing patient's hydroxyurea. Rest of the management deferred to primary team. Thank you for cardiology consultation. We appreciate the opportunity to participate in this patient's care. Will continue to follow-up on this patient This case was discussed with career orientation teacher, Dr. Bhatt. Ofelia Canela MD PG3 Attending Provider Attestation/Addendum I have personally seen and examined the patient separately on the above date of service and discussed the plan of care with the resident. I reviewed the resident Dr. Gilbert consultation progress note and agree with the resident findings and plan in the note above and have also edited the documentation to reflect my findings and plan. Inderjit Bhatt M.D. Interventional Cardiology
[2024-12-28 09:46] LABS: Allen Test Performed/OK; Puncture Site Right Radial
[2024-12-28 10:15] LABS: Partial Thromboplastin Time 33.3 Seconds (22.0-36.0)
--- NOTE | 2024-12-28 10:37 | PC.SS ---
[employer] conducted bedside contact with the patient conduct initial assessment and to discuss discharge planning.? Patient possesses a history of COPD.? Patient confirmed demographic information.? Patient resides at home with spouse, Ronald Mayer; .? Patient utilizes a walker to assist with ambulation.? Patient utilizes home oxygen.? Patient currently on high flow oxygen, 30L.? Patient reports need for assistance to complete ADL?s.? Patient is aligned with [facility].? Patient?s PCP is Dr. Bui.? Patient?s oncologist is Dr. Trinidad.? Patient reports not receiving oncology treatment.? Plan is for the patient to return home at the time of discharge.? Family will provide transportation on behalf of the patient. ?No further discharge needs identified by the patient.? No further intervention required at this time, social work manager will be available to address any further concerns.? Next of Kin: Ronald Mayer D/C Plan: Home
[2024-12-28] MEDS: SODIUM CHLORIDE 0.9% 1000 ML 1,000 ML 75 ML IV (11:13)
[2024-12-28] MEDS: DRONEDARONE HCL 400 MG PO ×2 (11:28→21:16)
[2024-12-28] MEDS: cefTRIAXone/D5w 1gm IV premix 1 GM/50 ML BAG IV (11:28)
[2024-12-28] MEDS: MAGNESIUM OXIDE 400 MG TABLET PO (11:29)
[2024-12-28] MEDS: DILTIAZEM CD 120 MG CAPCR PO (11:30)
--- NOTE | 2024-12-28 13:11 | ESPR_ITS ---
<Statement entered by Bebeto Robles MD - 12/28/24 18:06> Patient was examined and case was reviewed with team including attending physician. Note reviewed, I agree with most of its contents and agree with the patient's care as documented by Dr. Souza Patient seen today at the bedside found awake, alert. No overnight events reported. Vitals and labs reviewed. She is still reporting shortness of breath and is now currently on high flow nasal cannula on 30 L. CTA was negative for pulmonary embolism. Current management for COPD includes breathing treatments, azithromycin, and steroid medication. Patient also noted to have pulmonary hypertension on CTA chest and one-time dose of Lasix 40 mg was given. Per the patient's polycythemia plan was to start the patient on hydroxyurea 1 g daily as recommended by Dr. Osman broadcast engineer however medication are not available on formulary are awaiting ex- to bring the medication. Case discussed with my attending Dr. Vivien Robles MD PGY-2 Disclaimer: Despite multiple revisions, due to the dictation software being used, the document bellow may not be free of grammatical errors including phonetic/typographic errors. However, this does not deter from our commitment to providing health care in the patient's best interest in mind. Documentation for date of: 12/28/24 Subjective Subjective Interval history: Patient was evaluated at bedside this morning. She continues to report shortness of breath and is currently on high-flow nasal cannula at 30 L/min with FiO2 50%. She is alert and oriented ?2, but appears confused regarding her diagnosis of polycythemia and denies taking hydroxyurea at home. She also reports light- headedness. Patient refuses Orr catheter placement and voids into her diaper, making urine sample collection for UA challenging. Will continue to encourage her to provide a sample to help identify a possible source of leukocytosis. This morning, she received a one-time dose of furosemide 40 mg IV for pulmonary hypertension noted on recent CTA. Plan to resume home apixaban. Hydroxyurea was not initiated yesterday as pharmacy is awaiting delivery of the medication. Exam Vital Signs Temp Pulse Resp BP Pulse Ox O2 Del Method O2 Flow Rate 97.7 F 111 H 25 H 150/83 H 100 High Flow Nasal Cannula 30 12/28/24 12:00 12/28/24 12:29 12/28/24 12:29 12/28/24 12:00 12/28/24 12:29 12/28/24 12:00 12/28/24 12:29 FiO2 45 12/28/24 12:29 Narrative Exam Physical Exam General: Awake, alert, nontoxic appearing, in respiratory distress, bipap present HEENT: Normocephalic, atraumatic. Heart: Regular rate and rhythm, no murmurs. Lungs: Slightly tachypneic. Diminished breath sounds. No wheezing heard. Abdomen: Soft, nondistended, nontender. No guarding or rebound tenderness. Neurologic: Alert and oriented x3, no gross neurological deficit, and patient able to move all 4 extremities. Extremities: trace pitting edema on bilateral lower extremities. Skin: No rash or ecchymoses. Objective Labs 12/29/24 05:06 12/29/24 06:27 Labs: Laboratory Results - last 24 hr 12/27/24 12/27/24 12/27/24 16:52 16:54 20:50 WBC 26.1 H RBC 4.94 Hgb 11.8 L Hct 40.9 MCV 83 MCH 23.9 L MCHC 28.9 L RDW Std Deviation 64.0 H Plt Count 1281 H* Neut % (Auto) 76 Lymph % (Auto) 15 [place] % (Auto) 5 Eos % (Auto) 3 Baso % (Auto) 1 Neut # (Auto) 19.8 H Lymph # (Auto) 3.8 [place] # (Auto) 1.2 H Eos # (Auto) 0.7 H Baso # (Auto) 0.4 H Immature Gran # (Auto) 0.25 H Absolute Nucleated RBC 0.00 Immature Gran % 1 H Nucleated RBC % 0 Smear Path Review Sent to Pathologist ESR 31 H PT 11.8 INR 1.1 APTT 32.6 D-Dimer < 250 Puncture Site Right Radial Right Radial ABG pH 7.33 L 7.30 L ABG pCO2 65 H 61 H ABG pO2 189 H 47 L* D ABG HCO3 34 H 30 H ABG O2 Saturation 100 H 78 L ABG Base Excess 6 H 2 Oxygen Liter Flow 7 FiO2 55 Sodium 141 Potassium 3.2 L Chloride 101 Carbon Dioxide 32.2 H Anion Gap 8 BUN 13 Creatinine 0.9 Estim Creat Clear Calc 43.1 L eGFR > 60 BUN/Creatinine Ratio 14 Glucose 118 H Calculated Osmolality 282 Lactic Acid 1.3 Calcium 9.1 Corrected Calcium 9.2 Phosphorus Magnesium 2.8 H Total Bilirubin 0.2 L AST 14 ALT < 7 L Alkaline Phosphatase 114 Troponin I < 0.020 C-Reactive Prot, Quant B-Natriuretic Peptide 198 H Total Protein 6.1 Albumin 3.9 Globulin 2.2 L Albumin/Globulin Ratio 1.8 Triglycerides Cholesterol LDL Cholesterol, Calc HDL Cholesterol Cholesterol/HDL Ratio Procalcitonin 0.06 TSH 12/27/24 12/28/24 12/28/24 21:14 02:22 09:11 WBC 26.1 H RBC 4.68 Hgb 11.2 L Hct 39.1 MCV 84 MCH 23.9 L MCHC 28.6 L RDW Std Deviation 64.6 H Plt Count 1047 H* D Neut % (Auto) 97 H Lymph % (Auto) 2 L [place] % (Auto) 0 Eos % (Auto) 0 Baso % (Auto) 1 Neut # (Auto) 25.4 H Lymph # (Auto) 0.4 L [place] # (Auto) 0.1 Eos # (Auto) 0.0 Baso # (Auto) 0.1 Immature Gran # (Auto) 0.17 H Absolute Nucleated RBC 0.00 Immature Gran % 1 H Nucleated RBC % 0 Smear Path Review ESR PT INR APTT 48.8 H D 33.3 D D-Dimer Puncture Site ABG pH ABG pCO2 ABG pO2 ABG HCO3 ABG O2 Saturation ABG Base Excess Oxygen Liter Flow FiO2 Sodium 140 Potassium 3.7 D Chloride 102 Carbon Dioxide 29.3 Anion Gap 9 BUN 13 Creatinine 1.0 Estim Creat Clear Calc 38.7 L eGFR 57 L BUN/Creatinine Ratio 13 Glucose 184 H D Calculated Osmolality 284 Lactic Acid Calcium 9.1 Corrected Calcium 9.3 Phosphorus 3.5 Magnesium 2.0 Total Bilirubin 0.2 L AST 13 ALT < 7 L Alkaline Phosphatase 105 Troponin I < 0.020 C-Reactive Prot, Quant < 0.5 B-Natriuretic Peptide Total Protein 5.7 Albumin 3.7 Globulin 2.0 L Albumin/Globulin Ratio 1.9 Triglycerides 47 Cholesterol 152 LDL Cholesterol, Calc 75 HDL Cholesterol 68 H Cholesterol/HDL Ratio 2.2 L Procalcitonin TSH 0.42 L 12/28/24 09:30 WBC RBC Hgb Hct MCV MCH MCHC RDW Std Deviation Plt Count Neut % (Auto) Lymph % (Auto) [place] % (Auto) Eos % (Auto) Baso % (Auto) Neut # (Auto) Lymph # (Auto) [place] # (Auto) Eos # (Auto) Baso # (Auto) Immature Gran # (Auto) Absolute Nucleated RBC Immature Gran % Nucleated RBC % Smear Path Review ESR PT INR APTT D-Dimer Puncture Site Right Radial ABG pH 7.35 ABG pCO2 53 H ABG pO2 71 L D ABG HCO3 29 H ABG O2 Saturation 95 ABG Base Excess 2 Oxygen Liter Flow FiO2 50 Sodium Potassium Chloride Carbon Dioxide Anion Gap BUN Creatinine Estim Creat Clear Calc eGFR BUN/Creatinine Ratio Glucose Calculated Osmolality Lactic Acid Calcium Corrected Calcium Phosphorus Magnesium Total Bilirubin AST ALT Alkaline Phosphatase Troponin I C-Reactive Prot, Quant B-Natriuretic Peptide Total Protein Albumin Globulin Albumin/Globulin Ratio Triglycerides Cholesterol LDL Cholesterol, Calc HDL Cholesterol Cholesterol/HDL Ratio Procalcitonin TSH ABG Interpretation ABG results: 12/27/24 12/27/24 12/28/24 16:52 20:50 09:30 ABG pH 7.33 L 7.30 L 7.35 ABG pCO2 65 H 61 H 53 H ABG pO2 189 H 47 L* D 71 L D ABG HCO3 34 H 30 H 29 H ABG O2 Saturation 100 H 78 L 95 ABG Base Excess 6 H 2 2 Quality Measures Quality Measures none Advance care planning discussed with:: patient Assessment & Plan Assessment Current Active Medications: Generic Name Dose Route Start Last Admin Trade Name Freq PRN Reason Stop Dose Admin Acetaminophen 650 mg 12/27/24 18:54 Acetaminophen 325 Mg Tablet PO 01/26/25 18:53 Q6H PRN Fever >100.4 Acetaminophen 650 mg 12/27/24 18:54 12/28/24 03:23 Acetaminophen 325 Mg Tablet PO 01/26/25 18:53 650 mg Q6H PRN Administration PAIN SCALE 1-3 (mild Albuterol/Ipratropium 3 ml 12/27/24 18:54 Albuterol/Ipratropium (Duoneb) Rt Lanie 3 Ml Nebu INH 01/26/25 18:53 Q2HR PRN SHORTNESS OF BREATH OR WHEEZE Albuterol/Ipratropium 3 ml 12/27/24 19:00 12/28/24 12:27 Albuterol/Ipratropium (Duoneb) Rt Lanie 3 Ml Nebu INH 01/26/25 18:59 3 ml Q4HRRT AUTUMN Administration Allopurinol 300 mg 12/27/24 19:15 12/28/24 09:03 Allopurinol 100 Mg Tablet PO 01/26/25 19:14 300 mg QDAY AUTUMN Administration Apixaban 5 mg 12/28/24 21:00 Apixaban 2.5 Mg Tablet PO 01/27/25 20:59 BID AUTUMN Diltiazem HCl 120 mg 12/28/24 09:15 12/28/24 11:30 Diltiazem Cd 120 Mg Capcr PO 01/27/25 09:14 120 mg QDAY AUTUMN Administration Docusate Sodium 100 mg 12/28/24 09:00 12/28/24 09:04 Docusate Sod 100 Mg Capsule PO 01/27/25 08:59 100 mg QDAY AUTUMN Administration Protocol Dronedarone 400 mg 12/28/24 10:00 12/28/24 11:28 Dronedarone Hcl 400 Mg Tablet (Non-Formulary) PO 01/27/25 09:59 400 mg BID AUTUMN Administration Hydroxyurea 1,000 mg 12/27/24 19:05 12/28/24 11:25 Hydroxyurea 500 Mg Capsule PO 01/26/25 19:04 Not Given QDAY AUTUMN Azithromycin 500 mg/ Sodium 250 mls @ 250 mls/hr 12/28/24 14:00 Chloride IV 01/04/25 13:59 QDAY@1400 AUTUMN Sodium Chloride 1,000 mls @ 75 mls/hr 12/27/24 19:00 12/28/24 11:13 Ns IV 01/26/25 18:59 75 mls/hr .[id number] AUTUMN Administration Ceftriaxone Sodium/Dextrose 1 gm in 50 mls @ 100 mls/hr 12/28/24 09:08 12/28/24 11:28 Rocephin/D5w 1gm Iv Premix IV 01/04/25 09:07 100 mls/hr QDAY AUTUMN Administration Methylprednisolone Sodium Succinate 60 mg 12/27/24 23:15 12/28/24 09:03 Methylprednisolone Sod Succ 62.5 Mg/Ml 2ml Vial IVP 01/03/25 23:14 60 mg BID AUTUMN Administration Ondansetron HCl 4 mg 12/27/24 18:54 Ondansetron Inj 2 Mg/Ml Inj 2 Ml IVP 01/26/25 18:53 Q6H PRN NAUSEA OR VOMITING Protocol Phenyleph/Shark Oil/Min Oil/Petrol 0 gm 12/27/24 21:03 Preparation H Oint 30 Gm Tube DE 01/26/25 21:02 BID PRN HEMORRHOIDS Sennosides 1 tab 12/28/24 09:00 12/28/24 09:03 Senna Tablet PO 01/27/25 08:59 1 tab QDAY AUTUMN Administration Protocol Sodium Chloride 3 ml 12/27/24 16:37 12/27/24 16:41 Sodium Chloride Rt Lanie 0.9% 3 Ml Nebu INH 01/26/25 16:36 3 ml PRN PRN Administration SOLN Plan 79-year-old female with severe COPD on 3?6 L home O2, [id number] smoking history, hypertension, atrial fibrillation, polycythemia, and thrombocytosis with JAK2 mutation presenting with acute on chronic hypoxic and hypercapnic respiratory failure likely due to COPD exacerbation requiring high flow nasal cannula. #Acute on chronic hypoxic and hypercapnic respiratory failure COPD exacerbation vs PE vs CHF ABG on admission: pH 7.33, pCO2 65, pO2 189, HCO3 34 ? consistent with chronic CO2 retention with acute decompensation. CTA chest negative for pulmonary embolism, no evidence of pneumonia or pulmonary edema. Noted pulmonary artery hypertension. D-dimer <250. BNP 198. CTA other findings: Pulmonary artery hypertension, No pneumonia or pulmonary edema Met 2/4 SIRS criteria: RR 30, WBC 26.1. On admission, patient requiring 6 L/min NC (FiO2 45%) to maintain SpO2 92%. Received Methylprednisolone and antibitoics (Ceftriaxone 1 gram x1, Azithromycin 500 mg x1) in ED. Plan: - Continue supplemental O2, target SpO2 88?92% to avoid worsening hypercapnia. - Continue high flow nasal cannula 30/50. - Continue scheduled albuterol-ipratropium nebulizers; add PRN treatments for breakthrouhg dyspnea. - Reassess ABG in 2?4 hrs if respiratory distress persists. - Continue Methylprednisolone 60 mg BID to reduce inflammation and improve airflow. - Continue Ceftriaxone 1 gram. - Continue Azithromycin 500 mg. - Resumed patient's home medication Eliquis, dronedarone, and diltiazem per cardio recs. - Keep magnesium > 2 and potassium >4 at all times as dronedarone can lead to increased QT. - Pending echo. #Leukocytosis WBC 26.1 Likely reactive secondary to acute patient status. Plan - Trend CBC daily. - Evaluate for alternative sources of infection if no improvement. #Polycythemia vera Platelet count 1281 --> 1047. Known diagnosis. JAK2-positive. Followed by Dr. Trinidad. History noteable for multiple prior therapeutic phlebotomies. Currently on hydroxyurea 500 mg daily at home. Plan: - Increase hydroxyurea to [address] Trinidad's recommendation. - Start allopurinol 300 mg daily for hyperuricemia prophylaxis. - Monitor CBC daily to assess treatment response. - Maintain adequate hydration to reduce thrombosis risk. - Dr. Trinidad aware of admission. #Electrolyte abnormalities #Hypokalemia #Hypermagnesemia (resolved) K 3.2 --> 3.7 Mg 2.8. Likely iatrogenic from IV mag administered by EMS en route to hospital. Plan: - Repleted potassium - Keep magnesium > 2 and potassium >4 at all times as dronedarone can lead to increased QT. - Recheck electrolytes in AM labs. Health Maintenance Disposition: Tele DVT prophylaxis: Heparin GI prophylaxis: none Diet: Low sodium Lines: Peripheral IV CODE STATUS: Limited Code Patient plan of care was discussed with the senior resident, Dr. Arce, and attending physician, . Marika Souza, DO Attending Provider Attestation/Addendum I have examined the patient, reviewed labs and imaging findings, discussed the case with the resident(s), and reviewed entered orders. I agree with the plan of care as outlined in this note, with these additional summaries/recommendations: Patient seen at bedside. No acute overnight events. Patient has no complaints at this time. Patient diagnosed with acute on chronic hypoxic and hypercapnic failure most likely secondary to COPD exacerbation. Continue breathing treatments, IV steroids, and azithromycin if QTc permits. Leukocytosis likely steroid-induced versus polycythemia vera. Continue daily hematology panel. Continue supplemental oxygen, patient currently requiring 30 L via high flow nasal cannula. Cardiology consulted for possible new onset CHF although this appears unlikely at this time. Echocardiogram pending. Patient has underlying polycythemia vera and followed by hematology at cancer center. Platelets currently trending at 1047. Continue home hydroxyurea and Multaq, outpatient follow-up. Patient has chronic atrial fibrillation resume home Eliquis and diltiazem. Patient updated on the plan and in agreement. All questions answered to satisfaction. Please see residents note for additional details management. Dr. Vivien MD
--- NOTE | 2024-12-28 14:16 | PC.SS ---
Rounding Note: Patient is currently on high flow oxygen. Discharge within next 2 days.
[2024-12-28] MEDS: AZITHROMYCIN INJ 500 MG in SODIUM CHLORIDE 0.9% 250 ML 250 ML 250 MG IV (14:50)
[2024-12-28 20:25] LABS: INR 1.1 (0.9-1.3); Partial Thromboplastin Time 26.0 Seconds (22.0-36.0); Prothrombin Time 11.8 Seconds (9.0-12.2)
[2024-12-28] MEDS: APIXABAN 2.5 MG TABLET 5 MG PO (21:09)
--- NOTE | 2024-12-28 21:36 | PC.NURSE ---
on admit doctor ordered waddell, and a UA. Patient is incontinent and refused waddell, refused in and out to get sample. I spoke with patient about a purwick to obtain sample. patient refused purwick.
[2024-12-29] VITALS (22 sets, daily range): BP systolic 139–164; BP diastolic 68–94; PULSE 75–171; RESP 19–38; TEMP 35.9–36.8; O2SAT 85–100; BMI 27.1
[2024-12-29] MEDS: SODIUM CHLORIDE 0.9% 1000 ML 1,000 ML 75 ML IV (02:39)
[2024-12-29 03:19] LABS: Collection Type, Urine Clean Catch
[2024-12-29 03:36] LABS: Bilirubin,Urine Negative (Negative); Blood,Urine Trace (Negative); Clarity,Urine Clear (Clear/Hazy); Color,Urine Lt-Yellow (Lt Yel-Yel); Glucose, Urine Negative (Negative); Ketones,Urine Negative (Negative); Leukocyte Esterase,Urine Positive (Negative); Nitrite,Urine Negative (Negative); PH,Urine 5.5 (5.0-7.0); Protein,Urine Negative (Neg - Trace); RBC,Urine 1 /hpf (0-3); Specific Gravity,Urine 1.017 (1.001-1.035); Squamous Epithelial Cell,Urine < 1 /hpf (0-5); Urobilinogen,Urine Negative mg/dL (0.0-1.0); WBC,Urine 1 /hpf (0-5)
[2024-12-29 03:43] LABS: Amphetamine/Methamp Scrn,U Negative (Negative); Barbiturate Screen,Urine Negative (Negative); Benzodiazepines Screen,Urine Negative (Negative); Benzoylecgonine Screen, Ur Negative (Negative); Fentanyl Screen,Urine Negative (Negative); Opiate Screen,Urine Negative (Negative); THC Screen,Urine Negative (Negative)
[2024-12-29] MEDS: ALBUTEROL/IPRATROPIUM (Duoneb) RT SOL 3 ML NEBU INH ×6 (05:21→22:56)
[2024-12-29 05:33] LABS: Basophils # (Auto) 0.1 Thou/mm3 (0.0-0.2); Basophils % (Auto) 0 % (0-2.5); Eosinophils # (Auto) 0.0 Thou/mm3 (0.0-0.5); Eosinophils % (Auto) 0 % (0-10); Hematocrit 41.7 % (36.0-46.0); Hemoglobin 11.8 g/dL (12.0-16.0); Immature Granulocytes Auto 0.52 Thou/mm3 (0.00-0.00); Lymphocytes # (Auto) 0.7 Thou/mm3 (1.0-4.8); Lymphocytes % (Auto) 2 % (10-50); Mean Corpuscular HGB Conc 28.3 g/dl (31.0-37.0); Mean Corpuscular Hemoglobin 23.6 pg (25.0-35.0); Mean Corpuscular Volume 83 fL (80-100); Monocytes # (Auto) 0.5 Thou/mm3 (0.0-0.8); Monocytes % (Auto) 1 % (0-12); Neutrophils # (Auto) 34.9 Thou/mm3 (1.8-7.7); Neutrophils % (Auto) 95 % (37-80); Nucleated Red Blood Cell # 0.03 Thou/mm3 (0.00-0.00); Nucleated Red Blood Cell % 0 /100 WBC (0); RDW Standard Deviation 64.3 fL (36.4-46.3); Red Blood Count 5.00 Miln/mm3 (4.00-5.20)
[2024-12-29 05:35] LABS: Platelet Count 1158 Thou/mm3 (140-440)
[2024-12-29 05:36] LABS: White Blood Count 36.7 Thou/mm3 (3.6-11.0)
[2024-12-29 05:51] LABS: INR 1.1 (0.9-1.3); Partial Thromboplastin Time 28.5 Seconds (22.0-36.0); Prothrombin Time 12.3 Seconds (9.0-12.2)
--- NOTE | 2024-12-29 06:57 | ESPR_ITS ---
<Statement entered by Bebeto Robles MD - 12/29/24 17:27> Patient was examined and case was reviewed with team including attending physician. Note reviewed, I agree with most of its contents and agree with the patient's care as documented by Dr. Souza Patient seen today and evaluated at the bedside. She continues to endorse some shortness of breath however states some improvement compared to the day of admission. Currently on high flow nasal cannula on 25 L FiO2 of 45% which is an improvement compared to yesterday although still requiring 25 L. Since the day of admission patient was ordered to have hydroxyurea 1 g daily as recommended by her oncologist Dr. Osman however pharmacy did not have it available till today and will start 2 g daily of hydroxyurea after speaking to Dr. Osman again. She also recommended to trend her uric acid and LDH levels as well as flow cytometry which will be coordinated tomorrow. Case discussed with my attending Dr. Vivein Robles MD PGY-2 Disclaimer: Despite multiple revisions, due to the dictation software being used, the document bellow may not be free of grammatical errors including phonetic/typographic errors. However, this does not deter from our commitment to providing health care in the patient's best interest in mind. Documentation for date of: 12/29/24 Subjective Subjective Interval history: Patient was seen at the bedside this morning, awake and alert with no overnight complications reported. She continues to experience shortness of breath, although she states that it is less severe than upon admission. The patient was on a high-flow nasal cannula at 30L with an FiO2 of 50% yesterday and today she is on 25L with an FiO2 of 45%. A chest X-ray was ordered due to persistent diminished breath sounds. When asked about her hydroxyurea prescription, the patient did not recognize the name of the medication. After contacting the pharmacy, it was confirmed that the medication was received today and will be administered tonight. Spoke with Dr. Trinidad, who recommended initiating hydroxyurea 2 g along with IV fluids today. I informed Dr. Trinidad that the patient is currently undergoing diuresis for pulmonary hypertension, and will wait for her response regarding proceeding with diuresis or IV fluids. She recommended monitoring uric acid and LDH levels every 8 hours. Additional laboratory tests recommended include a peripheral blood smear, iron panel, and flow cytometry. The peripheral blood smear was ordered on admission and is pending. Flow cytometry has been coordinated with the laboratory and is scheduled for collection and send-out tomorrow. Exam Vital Signs Temp Pulse Resp BP Pulse Ox O2 Del Method O2 Flow Rate 96.7 F L 82 24 H 145/84 H 95 High Flow Nasal Cannula 30 12/29/24 04:00 12/29/24 05:22 12/29/24 05:22 12/29/24 04:00 12/29/24 05:22 12/29/24 04:00 12/29/24 05:22 FiO2 45 12/29/24 05:22 Narrative Exam Physical Exam General: Awake, alert, nontoxic appearing, not in respiratory distress, nasal cannula present HEENT: Normocephalic, atraumatic. Heart: Regular rate and rhythm, no murmurs. Lungs: Slightly tachypneic. Diminished breath sounds. Diminished air movement. No wheezing heard. Abdomen: Soft, nondistended, nontender. No guarding or rebound tenderness. Neurologic: Alert and oriented x3, no gross neurological deficit, and patient able to move all 4 extremities. Extremities: trace pitting edema on bilateral lower extremities. Skin: No rash or ecchymoses. Objective Labs 12/30/24 05:04 12/30/24 05:04 Labs: Laboratory Results - last 24 hr 12/28/24 12/28/24 12/28/24 09:11 09:30 19:30 WBC RBC Hgb Hct MCV MCH MCHC RDW Std Deviation Plt Count Neut % (Auto) Lymph % (Auto) [place] % (Auto) Eos % (Auto) Baso % (Auto) Neut # (Auto) Lymph # (Auto) [place] # (Auto) Eos # (Auto) Baso # (Auto) Immature Gran # (Auto) Absolute Nucleated RBC Immature Gran % Nucleated RBC % PT 11.8 INR 1.1 APTT 33.3 D 26.0 Puncture Site Right Radial ABG pH 7.35 ABG pCO2 53 H ABG pO2 71 L D ABG HCO3 29 H ABG O2 Saturation 95 ABG Base Excess 2 FiO2 50 Ur Collection Type Urine Color Urine Clarity Urine pH Ur Specific [place] Urine Protein Urine Glucose (UA) Urine Ketones Urine Blood Urine Nitrite Urine Bilirubin Urine Urobilinogen (Auto) Ur Leukocyte Esterase Urine RBC Urine WBC Ur Squamous Epith Cells Urine Bacteria Urine Opiates Screen Urine Fentanyl Screen Ur Barbiturates Screen U Amphetamin/Meth Scrn U Benzodiazepines Scrn U Cocaine Metab Screen U Marijuana (THC) Screen 12/29/24 12/29/24 03:06 05:06 WBC 36.7 H* D RBC 5.00 Hgb 11.8 L Hct 41.7 MCV 83 MCH 23.6 L MCHC 28.3 L RDW Std Deviation 64.3 H Plt Count 1158 H* D Neut % (Auto) 95 H Lymph % (Auto) 2 L [place] % (Auto) 1 Eos % (Auto) 0 Baso % (Auto) 0 Neut # (Auto) 34.9 H Lymph # (Auto) 0.7 L [place] # (Auto) 0.5 Eos # (Auto) 0.0 Baso # (Auto) 0.1 Immature Gran # (Auto) 0.52 H Absolute Nucleated RBC 0.03 H Immature Gran % 1 H Nucleated RBC % 0 PT 12.3 H INR 1.1 APTT 28.5 Puncture Site ABG pH ABG pCO2 ABG pO2 ABG HCO3 ABG O2 Saturation ABG Base Excess FiO2 Ur Collection Type Clean Catch Urine Color Lt-Yellow Urine Clarity Clear Urine pH 5.5 Ur Specific [place] 1.017 Urine Protein Negative Urine Glucose (UA) Negative Urine Ketones Negative Urine Blood Trace Urine Nitrite Negative Urine Bilirubin Negative Urine Urobilinogen (Auto) Negative Ur Leukocyte Esterase Positive Urine RBC 1 Urine WBC 1 Ur Squamous Epith Cells < 1 Urine Bacteria None Urine Opiates Screen Negative Urine Fentanyl Screen Negative Ur Barbiturates Screen Negative U Amphetamin/Meth Scrn Negative U Benzodiazepines Scrn Negative U Cocaine Metab Screen Negative U Marijuana (THC) Screen Negative ABG Interpretation ABG results: 12/27/24 12/27/24 12/28/24 16:52 20:50 09:30 ABG pH 7.33 L 7.30 L 7.35 ABG pCO2 65 H 61 H 53 H ABG pO2 189 H 47 L* D 71 L D ABG HCO3 34 H 30 H 29 H ABG O2 Saturation 100 H 78 L 95 ABG Base Excess 6 H 2 2 Quality Measures Quality Measures none Advance care planning discussed with:: patient and spouse Assessment & Plan Assessment Current Active Medications: Generic Name Dose Route Start Last Admin Trade Name Freq PRN Reason Stop Dose Admin Acetaminophen 650 mg 12/27/24 18:54 Acetaminophen 325 Mg Tablet PO 01/26/25 18:53 Q6H PRN Fever >100.4 Acetaminophen 650 mg 12/27/24 18:54 12/28/24 03:23 Acetaminophen 325 Mg Tablet PO 01/26/25 18:53 650 mg Q6H PRN Administration PAIN SCALE 1-3 (mild Albuterol/Ipratropium 3 ml 12/27/24 18:54 Albuterol/Ipratropium (Duoneb) Rt Lanie 3 Ml Nebu INH 01/26/25 18:53 Q2HR PRN SHORTNESS OF BREATH OR WHEEZE Albuterol/Ipratropium 3 ml 12/27/24 19:00 12/29/24 05:21 Albuterol/Ipratropium (Duoneb) Rt Lanie 3 Ml Nebu INH 01/26/25 18:59 3 ml Q4HRRT AUTUMN Administration Allopurinol 300 mg 12/27/24 19:15 12/28/24 09:03 Allopurinol 100 Mg Tablet PO 01/26/25 19:14 300 mg QDAY AUTUMN Administration Apixaban 5 mg 12/28/24 21:00 12/28/24 21:09 Apixaban 2.5 Mg Tablet PO 01/27/25 20:59 5 mg BID AUTUMN Administration Diltiazem HCl 120 mg 12/28/24 09:15 12/28/24 11:30 Diltiazem Cd 120 Mg Capcr PO 01/27/25 09:14 120 mg QDAY AUTUMN Administration Docusate Sodium 100 mg 12/28/24 09:00 12/28/24 09:04 Docusate Sod 100 Mg Capsule PO 01/27/25 08:59 100 mg QDAY AUTUMN Administration Protocol Dronedarone 400 mg 12/28/24 10:00 12/28/24 21:16 Dronedarone Hcl 400 Mg Tablet (Non-Formulary) PO 01/27/25 09:59 400 mg BID AUTUMN Administration Hydroxyurea 1,000 mg 12/27/24 19:05 12/28/24 11:25 Hydroxyurea 500 Mg Capsule PO 01/26/25 19:04 Not Given QDAY AUTUMN Azithromycin 500 mg/ Sodium 250 mls @ 250 mls/hr 12/28/24 14:00 12/28/24 19:41 Chloride IV 01/04/25 13:59 Infused QDAY@1400 AUTUMN Infusion Ceftriaxone Sodium/Dextrose 1 gm in 50 mls @ 100 mls/hr 12/28/24 09:08 12/28/24 21:25 Rocephin/D5w 1gm Iv Premix IV 01/04/25 09:07 Infused QDAY AUTUMN Infusion Methylprednisolone Sodium Succinate 60 mg 12/27/24 23:15 12/28/24 21:17 Methylprednisolone Sod Succ 62.5 Mg/Ml 2ml Vial IVP 01/03/25 23:14 60 mg BID AUTUMN Administration Ondansetron HCl 4 mg 12/27/24 18:54 Ondansetron Inj 2 Mg/Ml Inj 2 Ml IVP 01/26/25 18:53 Q6H PRN NAUSEA OR VOMITING Protocol Phenyleph/Shark Oil/Min Oil/Petrol 0 gm 12/27/24 21:03 Preparation H Oint 30 Gm Tube OH 01/26/25 21:02 BID PRN HEMORRHOIDS Sennosides 1 tab 12/28/24 09:00 12/28/24 09:03 Senna Tablet PO 01/27/25 08:59 1 tab QDAY AUTUMN Administration Protocol Sodium Chloride 3 ml 12/27/24 16:37 12/27/24 16:41 Sodium Chloride Rt Lanie 0.9% 3 Ml Nebu INH 01/26/25 16:36 3 ml PRN PRN Administration SOLN Plan 79-year-old female with severe COPD on 3?6 L home O2, 55-crff-bcry smoking history, hypertension, atrial fibrillation, polycythemia, and thrombocytosis with JAK2 mutation presenting with acute on chronic hypoxic and hypercapnic respiratory failure likely due to COPD exacerbation requiring high flow nasal cannula. #Acute on chronic hypoxic and hypercapnic respiratory failure Met 2/4 SIRS criteria: RR 30, WBC 26.1. COPD exacerbation vs PE vs CHF ABG on admission: pH 7.33, pCO2 65, pO2 189, HCO3 34 ? consistent with chronic CO2 retention with acute decompensation. CTA chest negative for pulmonary embolism, no evidence of pneumonia or pulmonary edema. Noted pulmonary artery hypertension. D-dimer <250. BNP 198. CTA other findings: Pulmonary artery hypertension, No pneumonia or pulmonary edema. On admission, patient requiring 6 L/min NC (FiO2 45%) to maintain SpO2 92%. Received Methylprednisolone and antibitoics (Ceftriaxone 1 gram x1, Azithromycin 500 mg x1) in ED. CXR (12/29): Basilar bronchitis pattern. Plan: - Continue supplemental O2, target SpO2 88?92% to avoid worsening hypercapnia. - Continue high flow nasal cannula 25/45. Goal is 5L/min. - Hold Methylprednisolone 60 mg BID. - Continue Ceftriaxone 1 gram. - Continue Azithromycin 500 mg. - Continue scheduled albuterol-ipratropium nebulizers; add PRN treatments for breakthrough dyspnea. - Resumed patient's home medication Eliquis, dronedarone, and diltiazem per cardio recs. - Keep magnesium > 2 and potassium >4 at all times as dronedarone can lead to increased QT. - Reassess ABG in 2?4 hrs if respiratory distress persists. #Pulmonary Hypertension Echo (12/27): Normal LV size and function. Diastolic dysfunction stage I. Estimated EF 55-60%. Normal RV size and function. Estimated RVSP moderately elevated at around of 40 to 50 mmHg Mild MR and TR. Mild aortic valve sclerosis without stenosis. Moderately dilated LA. IVC Mildly dilated measuring 2.1cm. Plan: - One-time dose of Lasix 40 mg (12/28) - One-time dose of Bumetanide 1mg (12/29) #Leukocytosis WBC 26.1 --> 36.7 Procalcitonin 0.06 UA: negative. Steroid-induced versus polycythemia vera. Plan - Hold Methylprednisolone 60 mg BID and monitor for improvement in leukocytosis. - Trend CBC daily. - Evaluate for alternative sources of infection if no improvement. #Polycythemia vera Platelet count 1281 --> 1047 --> 1158. Known diagnosis. JAK2-positive. Followed by Dr. Trinidad. History noteable for multiple prior therapeutic phlebotomies. Currently on hydroxyurea 500 mg daily at home. Plan: - Start hydroxyurea to [address] Trinidad's recommendation. - Start allopurinol 300 mg daily for hyperuricemia prophylaxis. - Monitor CBC daily to assess treatment response. - Maintain adequate hydration to reduce thrombosis risk. - Dr. Trinidad aware of admission. #Electrolyte abnormalities #Hypokalemia (resolved) #Hypermagnesemia (resolved) K 3.2 --> 3.7 Mg 2.8. Likely iatrogenic from IV mag administered by EMS en route to hospital. Plan: - Keep magnesium > 2 and potassium >4 at all times as dronedarone can lead to increased QT. - Recheck electrolytes in AM labs. Health Maintenance Disposition: Tele DVT prophylaxis: Heparin GI prophylaxis: none Diet: Low sodium Lines: Peripheral IV CODE STATUS: Limited Code Patient plan of care was discussed with the senior resident, Dr. Arce, and attending physician, . Marika Souza, DO Attending Provider Attestation/Addendum I have examined the patient, reviewed labs and imaging findings, discussed the case with the resident(s), and reviewed entered orders. I agree with the plan of care as outlined in this note, with these additional summaries/recommendations: Patient and seen at bedside. No acute overnight events. Patient has no complaints at this time but I did discuss with patient and that patient likely has moderate to severe undiagnosed dementia. Discussed outpatient follow-up with neurology as desired. Patient diagnosed with acute on chronic hypoxic and hypercapnic failure most likely secondary to COPD exacerbation +/- pulmonary hypertension. Continue breathing treatments and azithromycin. We will place IV steroids on hold today given significant leukocytosis. Patient was on 30 L high flow nasal cannula yesterday and titrated to 25 L today. Continue to wean O2 requirements as tolerated. Echocardiogram completed which revealed normal ejection fraction with stage I diastolic dysfunction and unlikely CHF exacerbation. Patient has underlying polycythemia vera and followed by hematology at cancer center. She has significant leukocytosis and thrombocytosis. Platelets appear relatively close to baseline and WBC count significantly elevated to 36.7 which is likely steroid-induced. DC steroids. Will follow-up with hematology/oncology if therapeutic phlebotomy is required here. Pharmacy now has available hydroxyurea which we will resume today. Continue Multaq. Patient has chronic atrial fibrillation resume home Eliquis and diltiazem. Patient updated on the plan and in agreement. All questions answered to satisfaction. Please see residents note for additional details management. Dr. Vivien MD
[2024-12-29 07:02] LABS: Alanine Aminotransferase 9 U/L (10-49); Albumin, Serum 4.1 gm/dL (3.4-4.8); Albumin/Globulin Ratio 1.9 (1.2-2.2); Alkaline Phosphatase 100 U/L (46-116); Anion Gap 8 (7-16); Aspartate Amino Transferase 29 U/L (0-34); BUN/Creatinine Ratio 15 Ratio (12-20); Bilirubin,Total 0.3 mg/dL (0.3-1.2); Blood Urea Nitrogen 12 mg/dL (9-23); Calcium 10.5 mg/dL (8.3-10.6); Calcium (Corrected) 10.5 mg/dL (8.5-10.1); Carbon Dioxide 32.7 mMol/L (20.0-31.0); Chloride 102 mMol/L (98-107); Creatinine (Component) 0.8 mg/dL (0.6-1.3); Estimated Creatinine Clearance 54.6 mL/min (>60); Globulin 2.2 gm/dL (2.3-3.5); Glucose 126 mg/dL (74-106); Magnesium 2.2 mg/dL (1.6-2.6); Osmolality,Calculated 286 (275-295); Phosphorous 3.2 mg/dL (2.4-5.1); Potassium 4.2 mMol/L (3.4-5.1); Sodium 143 mMol/L (136-145); Total Protein 6.3 gm/dL (5.7-8.2); eGFR > 60 See Note
--- NOTE | 2024-12-29 08:56 | XR_ITS ---
Examination: AP chest single view Technique one AP portable upright chest single view Date and time: December 29, 2024 0905 hours Comparison December 27, 2024 INDICATIONS: Shortness of breath today. FINDINGS: Moderate hyperexpansion Accentuation basilar bronchovascular markings. Mild prominence left ventricle Prominent osteopenia IMPRESSION: COPD Basilar bronchitis pattern
[2024-12-29] MEDS: DILTIAZEM CD 120 MG CAPCR PO (09:59)
[2024-12-29] MEDS: DRONEDARONE HCL 400 MG PO ×2 (09:59→20:42)
[2024-12-29] MEDS: cefTRIAXone/D5w 1gm IV premix 1 GM/50 ML BAG IV (09:59)
[2024-12-29] MEDS: BUMETANIDE INJ 0.25 MG/ML VIAL 4 ML 1 MG IVP (10:00)
[2024-12-29] MEDS: APIXABAN 2.5 MG TABLET 5 MG PO ×2 (10:00→20:40)
[2024-12-29] MEDS: DOCUSATE SOD 100 MG CAPSULE PO (10:00)
[2024-12-29] MEDS: HYDROXYUREA 500 MG CAPSULE 1000 MG PO ×2 (10:01→16:37)
--- NOTE | 2024-12-29 13:25 | PD.RESPRO ---
Documentation for date of: 12/29/24 Subjective Subjective Interval history: Patient is evaluated bedside,Currently on high flow nasal, oxygen 25 L/min, 45% FiO2, chest x-ray showed bilateral basilar bronchitis pattern, no evidence of pneumonia. Echocardiogram had showed diastolic dysfunction stage I, EF 55 to 60%, mild MR and TR, moderately dilated LA, normal LV and RV size and function. Continue diltiazem and Multaq., Continue to monitor QT. Noted worsening leukocytosis on WBCs, quite possibly secondary to reactive process/steroids. Patient continues to be afebrile. Patient is noted saturating 100% on 25 L of oxygen 45% FiO2, patient has severe COPD, target SpO2 should be 88 to 92%, we decreased the patient's oxygen to 15 L 30% FiO2, patient continued to saturate 94%, instructed RN to continue going down on oxygen as long as patient is saturating above 88%. Noted improvement in wheezing today. Patient is okay to be discharged from cardiac standpoint as long as oxygen requirements are less than 5 L. Patient needs to follow-up with oncologist/assistant signal maintainer Dr. Trinidad for further management of polycythemia and thrombocytosis. Exam Vital Signs Temp Pulse Resp BP Pulse Ox O2 Del Method O2 Flow Rate 97.5 F 84 28 H 164/83 H 100 High Flow Nasal Cannula 25 12/29/24 08:00 12/29/24 10:48 12/29/24 10:48 12/29/24 10:00 12/29/24 10:48 12/29/24 08:00 12/29/24 10:48 FiO2 45 12/29/24 10:48 Narrative Exam General: AOx3, in no acute distress laying comfortably in bed, currently on HFNC Skin: Intact, no cyanosis or edema noted. HEENT: Atraumatic/normocephalic, MIC, neck supple Heart: RRR, S1 and S2 without clicks or murmurs Lungs: Wheezing on auscultation bilaterally, no accessory muscle use, breathing improved compared to yesterday. Abdomen: Soft, nontender. Bowel sounds present . Vascular: Peripheral pulses palpable Neuro: No focal neurological deficits noted. Objective Labs 12/29/24 05:06 12/29/24 06:27 Labs: Laboratory Results - last 24 hr 12/28/24 12/29/24 12/29/24 19:30 03:06 05:06 WBC 36.7 H* D RBC 5.00 Hgb 11.8 L Hct 41.7 MCV 83 MCH 23.6 L MCHC 28.3 L RDW Std Deviation 64.3 H Plt Count 1158 H* D Neut % (Auto) 95 H Lymph % (Auto) 2 L [place] % (Auto) 1 Eos % (Auto) 0 Baso % (Auto) 0 Neut # (Auto) 34.9 H Lymph # (Auto) 0.7 L [place] # (Auto) 0.5 Eos # (Auto) 0.0 Baso # (Auto) 0.1 Immature Gran # (Auto) 0.52 H Absolute Nucleated RBC 0.03 H Immature Gran % 1 H Nucleated RBC % 0 PT 11.8 12.3 H INR 1.1 1.1 APTT 26.0 28.5 Sodium Potassium Chloride Carbon Dioxide Anion Gap BUN Creatinine Estim Creat Clear Calc eGFR BUN/Creatinine Ratio Glucose Calculated Osmolality Calcium Corrected Calcium Phosphorus Magnesium Total Bilirubin AST ALT Alkaline Phosphatase Total Protein Albumin Globulin Albumin/Globulin Ratio Ur Collection Type Clean Catch Urine Color Lt-Yellow Urine Clarity Clear Urine pH 5.5 Ur Specific [place] 1.017 Urine Protein Negative Urine Glucose (UA) Negative Urine Ketones Negative Urine Blood Trace Urine Nitrite Negative Urine Bilirubin Negative Urine Urobilinogen (Auto) Negative Ur Leukocyte Esterase Positive Urine RBC 1 Urine WBC 1 Ur Squamous Epith Cells < 1 Urine Bacteria None Urine Opiates Screen Negative Urine Fentanyl Screen Negative Ur Barbiturates Screen Negative U Amphetamin/Meth Scrn Negative U Benzodiazepines Scrn Negative U Cocaine Metab Screen Negative U Marijuana (THC) Screen Negative 12/29/24 06:27 WBC RBC Hgb Hct MCV MCH MCHC RDW Std Deviation Plt Count Neut % (Auto) Lymph % (Auto) [place] % (Auto) Eos % (Auto) Baso % (Auto) Neut # (Auto) Lymph # (Auto) [place] # (Auto) Eos # (Auto) Baso # (Auto) Immature Gran # (Auto) Absolute Nucleated RBC Immature Gran % Nucleated RBC % PT INR APTT Sodium 143 Potassium 4.2 D Chloride 102 Carbon Dioxide 32.7 H Anion Gap 8 BUN 12 Creatinine 0.8 Estim Creat Clear Calc 54.6 L eGFR > 60 BUN/Creatinine Ratio 15 Glucose 126 H D Calculated Osmolality 286 Calcium 10.5 Corrected Calcium 10.5 H Phosphorus 3.2 Magnesium 2.2 Total Bilirubin 0.3 AST 29 ALT 9 L Alkaline Phosphatase 100 Total Protein 6.3 Albumin 4.1 Globulin 2.2 L Albumin/Globulin Ratio 1.9 Ur Collection Type Urine Color Urine Clarity Urine pH Ur Specific [place] Urine Protein Urine Glucose (UA) Urine Ketones Urine Blood Urine Nitrite Urine Bilirubin Urine Urobilinogen (Auto) Ur Leukocyte Esterase Urine RBC Urine WBC Ur Squamous Epith Cells Urine Bacteria Urine Opiates Screen Urine Fentanyl Screen Ur Barbiturates Screen U Amphetamin/Meth Scrn U Benzodiazepines Scrn U Cocaine Metab Screen U Marijuana (THC) Screen ABG Interpretation ABG results: 12/27/24 12/27/24 12/28/24 16:52 20:50 09:30 ABG pH 7.33 L 7.30 L 7.35 ABG pCO2 65 H 61 H 53 H ABG pO2 189 H 47 L* D 71 L D ABG HCO3 34 H 30 H 29 H ABG O2 Saturation 100 H 78 L 95 ABG Base Excess 6 H 2 2 Quality Measures Quality Measures none Advance care planning discussed with:: patient Assessment & Plan Assessment Current Active Medications: Generic Name Dose Route Start Last Admin Trade Name Freq PRN Reason Stop Dose Admin Acetaminophen 650 mg 12/27/24 18:54 Acetaminophen 325 Mg Tablet PO 01/26/25 18:53 Q6H PRN Fever >100.4 Acetaminophen 650 mg 12/27/24 18:54 12/28/24 03:23 Acetaminophen 325 Mg Tablet PO 01/26/25 18:53 650 mg Q6H PRN Administration PAIN SCALE 1-3 (mild Albuterol/Ipratropium 3 ml 12/27/24 18:54 Albuterol/Ipratropium (Duoneb) Rt Lanie 3 Ml Nebu INH 01/26/25 18:53 Q2HR PRN SHORTNESS OF BREATH OR WHEEZE Albuterol/Ipratropium 3 ml 12/27/24 19:00 12/29/24 10:44 Albuterol/Ipratropium (Duoneb) Rt Lanie 3 Ml Nebu INH 01/26/25 18:59 3 ml Q4HRRT AUTUMN Administration Allopurinol 300 mg 12/27/24 19:15 12/29/24 09:59 Allopurinol 100 Mg Tablet PO 01/26/25 19:14 300 mg QDAY AUTUMN Administration Apixaban 5 mg 12/28/24 21:00 12/29/24 10:00 Apixaban 2.5 Mg Tablet PO 01/27/25 20:59 5 mg BID AUTUMN Administration Diltiazem HCl 120 mg 12/28/24 09:15 12/29/24 09:59 Diltiazem Cd 120 Mg Capcr PO 01/27/25 09:14 120 mg QDAY AUTUMN Administration Docusate Sodium 100 mg 12/28/24 09:00 12/29/24 10:00 Docusate Sod 100 Mg Capsule PO 01/27/25 08:59 100 mg QDAY AUTUMN Administration Protocol Dronedarone 400 mg 12/28/24 10:00 12/29/24 09:59 Dronedarone Hcl 400 Mg Tablet (Non-Formulary) PO 01/27/25 09:59 400 mg BID AUTUMN Administration Hydroxyurea 1,000 mg 12/29/24 09:30 12/29/24 10:01 Hydroxyurea 500 Mg Capsule PO 01/28/25 09:29 1,000 mg QDAY AUTUMN Administration Azithromycin 500 mg/ Sodium 250 mls @ 250 mls/hr 12/28/24 14:00 12/28/24 19:41 Chloride IV 01/04/25 13:59 Infused QDAY@1400 AUTUMN Infusion Ceftriaxone Sodium/Dextrose 1 gm in 50 mls @ 100 mls/hr 12/28/24 09:08 12/29/24 09:59 Rocephin/D5w 1gm Iv Premix IV 01/04/25 09:07 100 mls/hr QDAY AUTUMN Administration Methylprednisolone Sodium Succinate 60 mg 12/27/24 23:15 12/29/24 10:02 Methylprednisolone Sod Succ 62.5 Mg/Ml 2ml Vial IVP 01/03/25 23:14 Not Given BID AUTUMN Ondansetron HCl 4 mg 12/27/24 18:54 Ondansetron Inj 2 Mg/Ml Inj 2 Ml IVP 01/26/25 18:53 Q6H PRN NAUSEA OR VOMITING Protocol Phenyleph/Shark Oil/Min Oil/Petrol 0 gm 12/27/24 21:03 Preparation H Oint 30 Gm Tube ME 01/26/25 21:02 BID PRN HEMORRHOIDS Sennosides 1 tab 12/28/24 09:00 12/29/24 10:00 Senna Tablet PO 01/27/25 08:59 1 tab QDAY AUTUMN Administration Protocol Sodium Chloride 3 ml 12/27/24 16:37 12/27/24 16:41 Sodium Chloride Rt Lanie 0.9% 3 Ml Nebu INH 01/26/25 16:36 3 ml PRN PRN Administration SOLN Plan Patient is an 79-year-old female with a past medical history of severe COPD on 3-5 L home oxygen, HTN, atrial fibrillation, polycythemia and thrombocytosis with JAK2 mutation, followed by Dr. Trinidad, pulmonary hypertension, history of smoking 40 to 50 pack year, who presented to the emergency room complaining of worsening shortness of breath. Patient was found to have acute hypoxic and hypercapnic respiratory failure secondary to severe COPD , she was initially started on BiPAP, ABG showed respiratory acidosis. Later patient was transitioned to high flow nasal cannula oxygen. Problems: 1. Acute on chronic hypoxic/hypercapnic respiratory failure 2. COPD exacerbation 3. Thrombocytopenia 4. Ruled out pulmonary embolism 5. History of pulmonary hypertension 6. History of hypertension 7. History of A-fib The patient has history of severe COPD and is on 3 to 5 L nasal cannula oxygen, but started becoming more short of breath over the past few days, denies any sick contacts, or fever, she reported access to oxygen, but said that she ran out of inhalers. Patient reported she has not seen her primary care doctor in over a year. At the time of evaluation, patient was seen on high flow nasal cannula oxygen at 25 L, 45% FiO2, patient was wheezing excessively and showing signs of respiratory distress. Also noted respiratory acidosis on initial ABG, recommended using BiPAP if continued increased work of breathing. Patient had received 1 dose of Solu-Medrol 125 mg in the ED. Recommend starting patient on IV steroids Solu-Medrol 60 mg twice daily for COPD exacerbation. The patient is started on ceftriaxone and azithromycin, though patient is taking dronedarone for atrial fibrillation which can prolong QT, ordered repeat EKG in the morning to monitor QT. EKG showed sinus rhythm, QT362, QTc 431 on 12/28/2024, recommend continued monitoring of QT interval. Patient has history of polycythemia and thrombocytosis with JAK2 mutation, previously requiring phlebotomy, currently on hydroxyurea, patient has persistent thrombocytosis, due to concern for acute hypoxic respiratory failure, and thrombocytosis there was concern for pulmonary embolism, but CT angiogram was done which ruled out pulm embolism. Patient was started on heparin drip by primary team as empiric treatment, Which is now on hold. Recommend to resume patient's home medication Eliquis. CBC shows Noted worsening leukocytosis on WBCs, quite possibly secondary to reactive process/steroids. Patient continues to be afebrile. EKG was repeated that showed please take it under your care please take it out that both thank you just 1 I would think you should we did 2 weeks then I story board you may stickers there you to measure QT, as patient is having azithromycin and is also on Multaq, concern for QT prolongation, QT 362, QTc 431, CTA was negative, pulmonary embolism ruled out, heparin drip was discontinued and patient was started on home medication Eliquis 5 mg twice daily for atrial fibrillation. Resume home medications of diltiazem 120 mg daily and Multaq 400 mg twice daily. Recommended to keep magnesium more than 2 and potassium more than 4 at all times due to risk of QT prolongation. Echocardiogram had showed diastolic dysfunction stage I, EF 55 to 60%, mild MR and TR, moderately dilated LA, normal LV and RV size and function.Can give IV fluids if needed due to thrombocytosis. Patient is noted saturating 100% on 25 L of oxygen 45% FiO2, patient has severe COPD, target SpO2 should be 88 to 92%, we decreased the patient's oxygen to 15 L 30% FiO2, patient continued to saturate 94%, instructed RN to continue going down on oxygen as long as patient is saturating above 88%. Noted improvement in wheezing today. Patient is okay to be discharged from cardiac standpoint as long as oxygen requirements are less than 5 L. Patient needs to follow-up with oncologist/assistant signal maintainer Dr. Trinidad for further management of polycythemia and thrombocytosis. Recommendations: ? CT angiogram negative for pulmonary embolism, resume patient's home medication Eliquis. ? Recommend resuming home medication dronedarone/Multaq ? Recommend continuing home medication diltiazem, if blood pressure allows ? Recommend to avoid hypomagnesemia and hypokalemia as patient is getting dronedarone which can lead to increased QT. Keep magnesium more than 2 and potassium more than 4 at all times. ? Consider BiPAP if indicated for increased work of breathing or severe hypercapnia ? Recommend to continue IV steroids due to severe COPD and giving steroid taper on discharge. ? Agree with assistant signal maintainer/oncologist recommending continuing patient's hydroxyurea. Patient is okay to be discharged from cardiac standpoint as long as oxygen requirements are less than 5 L. Patient needs to follow-up with oncologist/assistant signal maintainer Dr. Trinidad for further management of polycythemia and thrombocytosis. Rest of the management deferred to primary team. Thank you for cardiology consultation. We appreciate the opportunity to participate in this patient's care. Will continue to follow-up on this patient This case was discussed with special forces specialist, Dr. Bhatt. Ofelia Canela MD PG3 Attending Provider Attestation/Addendum I have personally seen and examined the patient separately on the above date of service and discussed the plan of care with the resident. I reviewed the resident Dr. Gilbert consultation progress note and agree with the resident findings and plan in the note above and have also edited the documentation to reflect my findings and plan. Inderjit Bhatt M.D. Interventional Cardiology
[2024-12-29] MEDS: AZITHROMYCIN INJ 500 MG in SODIUM CHLORIDE 0.9% 250 ML 250 ML 250 MG IV (14:35)
[2024-12-29 14:38] LABS: Path Review Blood Smear Sent to Pathologist
--- NOTE | 2024-12-29 14:48 | PC.SS ---
Afternoon rounding note: Pt is still on high flow nasal, oxygen 25 L/min, 45% FiO2. Patient continues to be afebrile. Attending phsycian is thinking d/c in about 2 more days. Not exact d/c date at this time.
[2024-12-29 15:48] LABS: LDH (Lactate Dehydrogenase) 416 U/L (120-246); Uric Acid 4.9 mg/dL (3.1-7.8)
[2024-12-29 16:53] LABS: Iron 7 mcg/dL (50-170); Percent Iron Saturation 1 % (20-55); Total Iron Binding Capacity 410 mcg/dL (250-425); Unsaturated Iron Binding 403 (225-295)
--- NOTE | 2024-12-29 19:20 | PC.NURSE ---
spoke with Dr. Barron after patient's heartrate went to 160's x2 but did not sustain. will monitor
[2024-12-29 21:34] LABS: LDH (Lactate Dehydrogenase) 300 U/L (120-246)
[2024-12-29] MEDS: DILTIAZEM 30 MG TABLET PO (22:33)
--- NOTE | 2024-12-29 22:40 | PC.NURSE ---
patient continued to go into svt with heart rates in the 160's. I notified [facility] and patient was asymptomatic. pateint continued more frequently and I notiifed Dr. Mckenna and he ordered x1 of cardizem po. patient is still asymtomatic and I will monitor.
--- NOTE | 2024-12-29 23:38 | XR_ITS ---
Examination: AP chest single view Technique 20 point upright chest single view Date and time: 03/31/2025 1149 hours Comparison December 29, 2024 0905 hours INDICATIONS: Shortness of breath chest pain today FINDINGS: Moderate hyperexpansion Mild prominence left ventricle Prominent central pulmonary arteries Interstitial accentuation at the lung bases No pulmonary edema Prominent osteopenia IMPRESSION: COPD Basilar bronchitis pattern. Suspicious for pulmonary artery hypertension
[2024-12-29] MEDS: MethylPREDNISolone SOD SUCC 62.5 MG/ML 2ML VIAL 125 MG IVP (23:46)
[2024-12-29] MEDS: IPRATROPIUM RT 0.5 MG/ 2.5 ML NEBU INH (23:54)
[2024-12-29] MEDS: ALBUTEROL RT 2.5 MG/0.5 ML NEBU 10 MG INH (23:54)
[2024-12-30] VITALS (19 sets, daily range): BP systolic 132–149; BP diastolic 60–95; PULSE 25–125; RESP 20–242; TEMP 36.1–36.7; O2SAT 87–99; BMI 27.5
[2024-12-30 00:16] LABS: Base Excess 7 (-3-3); HCO3 37 mEq/L (20-26); Inspired Oxygen, FIO2 45 %; O2 Saturation 100 % (91-98); PCO2 77 mmHg (32.0-48.0); PO2 169 mmHg (83-108); pH, Arterial 7.29 (7.35-7.45)
[2024-12-30 00:18] LABS: Allen Test Performed/OK; Puncture Site Right Radial
--- NOTE | 2024-12-30 00:38 | EVENTNT_ITS ---
<Statement entered by Lenny Ca MD - 12/30/24 06:07> I have discussed and was present for the essential components of the history, physical examination, diagnosis, and treatment plan with the resident. I agree with the patient's care as documented by the resident and amended herein by me. Lenny Ca MD FACP. Documentation for date of: 12/30/24 Event Note Event Note: Response was called at 2344 tachycardia and decreased saturations. Heart rate increased to 160s, O2 saturation dropped to low 80s. Patient complained of shortness of breath and tightness in her chest. Severely diminished lung sounds with wheezing on exam. Patient was given additional breathing treatments and methylprednisolone 125 mg x 1. Patient O2 saturation increased to 90% but patient continued to complain of symptoms of shortness of breath. ABG was drawn which showed pH 7.29, pCO2 77, hypercapnia new compared to ABG drawn on 12/28. Patient was started on BiPAP, with mild symptomatic improvement. Chest x-ray taken at time of rapid did not show new consolidations or effusions. Plan of care discussed with attending Dr. Ca. Simon Barron MD PGY?2
[2024-12-30] MEDS: HALOPERIDOL LACT INJ 5 MG/ML VIAL IV (01:35)
--- NOTE | 2024-12-30 02:14 | PC.NURSE ---
patient was desatting and very little air movement in lungs, ordered bipap and patient kept pulling it off and trying to get out of bed. We put on restraints, gave a dose of haldol and posted a sitter at bedside. Patient is tolerating well.
[2024-12-30 03:39] LABS: Base Excess 10 (-3-3); HCO3 37 mEq/L (20-26); O2 Saturation 92 % (91-98); PCO2 60 mmHg (32.0-48.0); PO2 63 mmHg (83-108); pH, Arterial 7.40 (7.35-7.45)
[2024-12-30 03:42] LABS: Inspired Oxygen, FIO2 25 %
[2024-12-30 03:43] LABS: Allen Test Performed/OK; Puncture Site Right Radial
[2024-12-30] MEDS: ALBUTEROL/IPRATROPIUM (Duoneb) RT SOL 3 ML NEBU INH ×6 (04:15→22:37)
[2024-12-30 05:52] LABS: Basophils # (Auto) 0.1 Thou/mm3 (0.0-0.2); Basophils % (Auto) 0 % (0-2.5); Eosinophils # (Auto) 0.0 Thou/mm3 (0.0-0.5); Eosinophils % (Auto) 0 % (0-10); Hematocrit 40.1 % (36.0-46.0); Hemoglobin 11.5 g/dL (12.0-16.0); Immature Granulocytes Auto 0.38 Thou/mm3 (0.00-0.00); Lymphocytes # (Auto) 0.2 Thou/mm3 (1.0-4.8); Lymphocytes % (Auto) 1 % (10-50); Mean Corpuscular HGB Conc 28.7 g/dl (31.0-37.0); Mean Corpuscular Hemoglobin 23.5 pg (25.0-35.0); Mean Corpuscular Volume 82 fL (80-100); Monocytes # (Auto) 0.3 Thou/mm3 (0.0-0.8); Monocytes % (Auto) 1 % (0-12); Neutrophils # (Auto) 28.5 Thou/mm3 (1.8-7.7); Neutrophils % (Auto) 97 % (37-80); Nucleated Red Blood Cell # 0.00 Thou/mm3 (0.00-0.00); Nucleated Red Blood Cell % 0 /100 WBC (0); RDW Standard Deviation 64.3 fL (36.4-46.3); Red Blood Count 4.89 Miln/mm3 (4.00-5.20); White Blood Count 29.5 Thou/mm3 (3.6-11.0)
[2024-12-30 06:03] LABS: Alanine Aminotransferase 10 U/L (10-49); Albumin, Serum 3.8 gm/dL (3.4-4.8); Albumin/Globulin Ratio 1.9 (1.2-2.2); Alkaline Phosphatase 95 U/L (46-116); Anion Gap 13 (7-16); Aspartate Amino Transferase 30 U/L (0-34); BUN/Creatinine Ratio 17 Ratio (12-20); Bilirubin,Total 0.4 mg/dL (0.3-1.2); Blood Urea Nitrogen 17 mg/dL (9-23); Calcium 9.8 mg/dL (8.3-10.6); Calcium (Corrected) 10.0 mg/dL (8.5-10.1); Carbon Dioxide 30.2 mMol/L (20.0-31.0); Chloride 97 mMol/L (98-107); Creatinine (Component) 1.0 mg/dL (0.6-1.3); Estimated Creatinine Clearance 44.0 mL/min (>60); Globulin 2.0 gm/dL (2.3-3.5); Glucose 146 mg/dL (74-106); LDH (Lactate Dehydrogenase) 277 U/L (120-246); Magnesium 2.1 mg/dL (1.6-2.6); Osmolality,Calculated 283 (275-295); Phosphorous 3.8 mg/dL (2.4-5.1); Potassium 3.6 mMol/L (3.4-5.1); Sodium 140 mMol/L (136-145); Total Protein 5.8 gm/dL (5.7-8.2); Uric Acid 4.7 mg/dL (3.1-7.8); eGFR 57 See Note
[2024-12-30 06:06] LABS: Platelet Count 1049 Thou/mm3 (140-440)
[2024-12-30 06:20] LABS: Flow Cytometry* See Sep Rpt
--- NOTE | 2024-12-30 08:10 | ESPR_ITS ---
<Statement entered by Bebeto Robles MD - 12/31/24 06:50> Patient was examined and case was reviewed with team including attending physician. Note reviewed, I agree with most of its contents and agree with the patient's care as documented by Dr. Souza Patient seen and evaluated at the bedside. Overnight patient became agitated and combative and was given haldol and required to be restrained suspect it was due to steroid medications. We will hold steroids at this time. Currently on BiPAP will continue to try to wean. Bebeto Robles MD PGY-2 Documentation for date of: 12/30/24 Subjective Subjective Interval history: Patient was seen at the bedside this morning. Overnight, a rapid response was called due to tachycardia and oxygen desaturation into the low 80s. Patient was complaining of shortness of breath and chest tightness. An arterial blood gas showed acidemia with a pH of 7.29 and a significantly elevated pCO2, consistent with acute on chronic hypercapnia. A venous blood gas was ordered this morning and showed pH of 7.43 and pCO2 of 55. She was treated with breathing treatments and received one dose of methylprednisolone 125 mg. Shortly afterward, the patient became agitated and combative, requiring restraints and a single dose of haloperidol. Restraints were removed this morning to observe her behavior. This morning, the patient is on BiPAP with improved respiratory parameters compared to yesterday, when she was on high-flow nasal cannula. Steroids were discontinued yesterday as her lungs were clear and she was no longer wheezing. 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 Her leukocytosis has improved. Her platelet count, while still elevated, has decreased. Fluid restriction will be continued. Going forward, the night team will be advised to avoid haloperidol and use quetiapine if sedation is necessary. Exam Vital Signs Temp Pulse Resp BP Pulse Ox O2 Del Method O2 Flow Rate 98.0 F 88 30 H 148/95 H 99 BiPAP 12/30/24 04:00 12/30/24 07:01 12/30/24 07:01 12/30/24 04:00 12/30/24 07:01 12/30/24 04:00 12/30/24 00:00 FiO2 30 12/30/24 07:01 Narrative Exam Physical Exam General: Lethargic and somnolent, nontoxic appearing, not in respiratory distress, bipap in place. HEENT: Normocephalic, atraumatic. Heart: Regular rate and rhythm, no murmurs. Lungs: Diminished breath sounds. Diminished air movement. Mild wheezing in right lower lung. Abdomen: Soft, nondistended, nontender. No guarding or rebound tenderness. Neurologic: No gross neurological deficit. Extremities: No edema on bilateral lower extremities. Soft restraints on both forearms. Skin: No rash or ecchymoses. Objective Labs 12/31/24 06:00 12/31/24 06:00 Labs: Laboratory Results - last 24 hr 12/29/24 12/29/24 12/29/24 05:06 06:27 20:30 WBC RBC Hgb Hct MCV MCH MCHC RDW Std Deviation Plt Count Neut % (Auto) Lymph % (Auto) Gall[place] % (Auto) Eos % (Auto) Baso % (Auto) Neut # (Auto) Lymph # (Auto) Gall[place] # (Auto) Eos # (Auto) Baso # (Auto) Immature Gran # (Auto) Absolute Nucleated RBC Immature Gran % Nucleated RBC % Smear Path Review Sent to Pathologist Puncture Site ABG pH ABG pCO2 ABG pO2 ABG HCO3 ABG O2 Saturation ABG Base Excess FiO2 Sodium Potassium Chloride Carbon Dioxide Anion Gap BUN Creatinine Estim Creat Clear Calc eGFR BUN/Creatinine Ratio Glucose Calculated Osmolality Uric Acid 4.9 Calcium Corrected Calcium Phosphorus Magnesium Iron 7 L TIBC 410 Iron Saturation 1 L Unsat Iron Binding 403 H Total Bilirubin AST ALT Alkaline Phosphatase Lactate Dehydrogenase 416 H 300 H Total Protein Albumin Globulin Albumin/Globulin Ratio 12/30/24 12/30/24 12/30/24 00:06 03:30 05:04 WBC 29.5 H D RBC 4.89 Hgb 11.5 L Hct 40.1 MCV 82 MCH 23.5 L MCHC 28.7 L RDW Std Deviation 64.3 H Plt Count 1049 H* D Neut % (Auto) 97 H Lymph % (Auto) 1 L Gall[place] % (Auto) 1 Eos % (Auto) 0 Baso % (Auto) 0 Neut # (Auto) 28.5 H Lymph # (Auto) 0.2 L Gall[place] # (Auto) 0.3 Eos # (Auto) 0.0 Baso # (Auto) 0.1 Immature Gran # (Auto) 0.38 H Absolute Nucleated RBC 0.00 Immature Gran % 1 H Nucleated RBC % 0 Smear Path Review Puncture Site Right Radial Right Radial ABG pH 7.29 L 7.40 D ABG pCO2 77 H* D 60 H D ABG pO2 169 H D 63 L D ABG HCO3 37 H 37 H ABG O2 Saturation 100 H 92 ABG Base Excess 7 H 10 H FiO2 45 25 Sodium 140 Potassium 3.6 D Chloride 97 L Carbon Dioxide 30.2 Anion Gap 13 BUN 17 Creatinine 1.0 Estim Creat Clear Calc 44.0 L eGFR 57 L BUN/Creatinine Ratio 17 Glucose 146 H Calculated Osmolality 283 Uric Acid 4.7 Calcium 9.8 Corrected Calcium 10.0 Phosphorus 3.8 Magnesium 2.1 Iron TIBC Iron Saturation Unsat Iron Binding Total Bilirubin 0.4 AST 30 ALT 10 Alkaline Phosphatase 95 Lactate Dehydrogenase 277 H Total Protein 5.8 Albumin 3.8 Globulin 2.0 L Albumin/Globulin Ratio 1.9 ABG Interpretation ABG results: 12/27/24 12/27/24 12/28/24 16:52 20:50 09:30 ABG pH 7.33 L 7.30 L 7.35 ABG pCO2 65 H 61 H 53 H ABG pO2 189 H 47 L* D 71 L D ABG HCO3 34 H 30 H 29 H ABG O2 Saturation 100 H 78 L 95 ABG Base Excess 6 H 2 2 12/30/24 12/30/24 00:06 03:30 ABG pH 7.29 L 7.40 D ABG pCO2 77 H* D 60 H D ABG pO2 169 H D 63 L D ABG HCO3 37 H 37 H ABG O2 Saturation 100 H 92 ABG Base Excess 7 H 10 H Quality Measures Quality Measures none Advance care planning discussed with:: patient and spouse Assessment & Plan Assessment Current Active Medications: Generic Name Dose Route Start Last Admin Trade Name Freq PRN Reason Stop Dose Admin Acetaminophen 650 mg 12/27/24 18:54 Acetaminophen 325 Mg Tablet PO 01/26/25 18:53 Q6H PRN Fever >100.4 Acetaminophen 650 mg 12/27/24 18:54 12/28/24 03:23 Acetaminophen 325 Mg Tablet PO 01/26/25 18:53 650 mg Q6H PRN Administration PAIN SCALE 1-3 (mild Albuterol/Ipratropium 3 ml 12/27/24 18:54 Albuterol/Ipratropium (Duoneb) Rt Lanie 3 Ml Nebu INH 01/26/25 18:53 Q2HR PRN SHORTNESS OF BREATH OR WHEEZE Albuterol/Ipratropium 3 ml 12/27/24 19:00 12/30/24 07:00 Albuterol/Ipratropium (Duoneb) Rt Lanie 3 Ml Nebu INH 01/26/25 18:59 3 ml Q4HRRT AUTUMN Administration Allopurinol 300 mg 12/27/24 19:15 12/29/24 09:59 Allopurinol 100 Mg Tablet PO 01/26/25 19:14 300 mg QDAY AUTUMN Administration Apixaban 5 mg 12/28/24 21:00 12/29/24 20:40 Apixaban 2.5 Mg Tablet PO 01/27/25 20:59 5 mg BID AUTUMN Administration Diltiazem HCl 120 mg 12/28/24 09:15 12/29/24 09:59 Diltiazem Cd 120 Mg Capcr PO 01/27/25 09:14 120 mg QDAY AUTUMN Administration Docusate Sodium 100 mg 12/28/24 09:00 12/29/24 10:00 Docusate Sod 100 Mg Capsule PO 01/27/25 08:59 100 mg QDAY AUTUMN Administration Protocol Dronedarone 400 mg 12/28/24 10:00 12/29/24 20:42 Dronedarone Hcl 400 Mg Tablet (Non-Formulary) PO 01/27/25 09:59 400 mg BID AUTUMN Administration Hydroxyurea 2,000 mg 12/30/24 09:00 Hydroxyurea 500 Mg Capsule PO 01/29/25 08:59 QDAY AUTUMN Protocol Azithromycin 500 mg/ Sodium 250 mls @ 250 mls/hr 12/28/24 14:00 12/29/24 19:23 Chloride IV 01/04/25 13:59 Infused QDAY@1400 AUTUMN Infusion Ceftriaxone Sodium/Dextrose 1 gm in 50 mls @ 100 mls/hr 12/28/24 09:08 12/29/24 19:23 Rocephin/D5w 1gm Iv Premix IV 01/04/25 09:07 Infused QDAY AUTUMN Infusion Methylprednisolone Sodium Succinate 60 mg 12/27/24 23:15 12/29/24 10:02 Methylprednisolone Sod Succ 62.5 Mg/Ml 2ml Vial IVP 01/03/25 23:14 Not Given BID AUTUMN Ondansetron HCl 4 mg 12/27/24 18:54 Ondansetron Inj 2 Mg/Ml Inj 2 Ml IVP 01/26/25 18:53 Q6H PRN NAUSEA OR VOMITING Protocol Phenyleph/Shark Oil/Min Oil/Petrol 0 gm 12/27/24 21:03 Preparation H Oint 30 Gm Tube WV 01/26/25 21:02 BID PRN HEMORRHOIDS Sennosides 1 tab 12/28/24 09:00 12/29/24 10:00 Senna Tablet PO 01/27/25 08:59 1 tab QDAY AUTUMN Administration Protocol Sodium Chloride 3 ml 12/29/24 23:45 Sodium Chloride Rt Lanie 0.9% 3 Ml Nebu INH 01/28/25 23:44 PRN PRN SOLN Plan 79-year-old female with severe COPD on 3?6 L home O2, [id number] smoking history, hypertension, atrial fibrillation, polycythemia, and thrombocytosis with JAK2 mutation presenting with acute on chronic hypoxic and hypercapnic respiratory failure likely due to COPD exacerbation requiring high flow nasal cannula. #Acute on chronic hypoxic and hypercapnic respiratory failure Met 2/4 SIRS criteria: RR 30, WBC 26.1. COPD exacerbation vs PE vs CHF ABG on admission: pH 7.33, pCO2 65, pO2 189, HCO3 34 ? consistent with chronic CO2 retention with acute decompensation. CTA chest negative for pulmonary embolism, no evidence of pneumonia or pulmonary edema. Noted pulmonary artery hypertension. D-dimer <250. BNP 198. CTA other findings: Pulmonary artery hypertension, No pneumonia or pulmonary edema. On admission, patient requiring 6 L/min NC (FiO2 45%) to maintain SpO2 92%. Received Methylprednisolone and antibitoics (Ceftriaxone 1 gram x1, Azithromycin 500 mg x1) in ED. CXR (12/29): Basilar bronchitis pattern. VBG (12/30): pH 7.43, pCO2 55. Plan: - Continue supplemental O2, target SpO2 88?92% to avoid worsening hypercapnia. - Continue Bipap. Continue to wean O2 requirements as tolerated. - Hold Methylprednisolone 60 mg BID. - Continue Ceftriaxone 1 gram. - Continue Azithromycin 500 mg. - Continue scheduled albuterol-ipratropium nebulizers; add PRN treatments for breakthrough dyspnea. - Resumed patient's home medication Eliquis, dronedarone, and diltiazem per cardio recs. - Keep magnesium > 2 and potassium >4 at all times as dronedarone can lead to increased QT. - Reassess ABG in 2?4 hrs if respiratory distress persists. #Pulmonary Hypertension Echo (12/27): Normal LV size and function. Diastolic dysfunction stage I. Estimated EF 55-60%. Normal RV size and function. Estimated RVSP moderately elevated at around of 40 to 50 mmHg. Mild MR and TR. Mild aortic valve sclerosis without stenosis. Moderately dilated LA. IVC Mildly dilated measuring 2.1cm. Plan: - Fluid restriction 1800 mL. - One-time dose of Lasix 40 mg (12/28) - One-time dose of Bumetanide 1mg (12/29) #Leukocytosis (improving) WBC 26.1 --> 36.7 --> 29.5 Procalcitonin 0.06 UA: negative. Steroid-induced versus polycythemia vera. Plan - Hold Methylprednisolone 60 mg BID and monitor for improvement in leukocytosis. - Trend CBC daily. - Evaluate for alternative sources of infection if no improvement. #Polycythemia vera Platelet count 1281 --> 1047 --> 1158 --> 1049. Known diagnosis. JAK2-positive. Followed by Dr. Trinidad. History noteable for multiple prior therapeutic phlebotomies. Currently on hydroxyurea 500 mg daily at home. LDH 416 --> 300 --> 277. Plan: - Continue hydroxyurea to [address] Trinidad's recommendation. - Continue with LDH and uric acid checks Q8H. - Start allopurinol 300 mg daily for hyperuricemia prophylaxis. - Monitor CBC daily to assess treatment response. - Maintain adequate hydration to reduce thrombosis risk. - Dr. Trinidad aware of admission. #Electrolyte abnormalities #Hypokalemia (resolved) #Hypermagnesemia (resolved) Mg 2.8. Likely iatrogenic from IV mag administered by EMS en route to hospital. Plan: - Keep magnesium > 2 and potassium >4 at all times as dronedarone can lead to increased QT. - Recheck electrolytes in AM labs. Health Maintenance Disposition: Tele DVT prophylaxis: Heparin GI prophylaxis: none Diet: Low sodium Lines: Peripheral IV CODE STATUS: Limited Code Patient plan of care was discussed with the senior resident, Dr. Arce, and attending physician, . Marika Souza DO Attending Provider Attestation/Addendum I, Yakelin Caballero DO, attest that I was physically present for the bartholomew portions of the service and evaluated the patient with the resident and I reviewed and discussed the case with the resident and agree with the resident's findings and plans of care as documented above Patient seen and evaluated this AM. Patient on Bipap with sitter. Patient gets agitated upon waking up and cursed at team. Patient did not verbalize any complaints otherwise. Mental status and confusion appeared to worsen after patient had received IV steroids. ABG otherwise appears improved. Breath sounds are diminished b/l. Will Continue with breathing treatments. Monitoring pt off steroids at this time due to confusion. Patient noted to have high pulmonary pressures. Holding diuretics at this time. Patient does not appear to be fluid overloaded.
--- NOTE | 2024-12-30 08:17 | EKG_ITS ---
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 Engineer: PRASANNA : 1945 Requested By: Ofelia Canela Order Number: [id number] Reading MD: Ofelia Canela Measurements Intervals Brandon Rate: 83 P: 76 SC: 151 QRS: -48 QRSD: 105 T: 73 QT: 393 QTc: 464 Interpretive Statements SINUS RHYTHM WITH OCCASIONAL VENTRICULAR PREMATURE COMPLEXES WITH OCCASIONAL SUPRAVENTRICULAR PREMATURE COMPLEXES LEFT ANTERIOR FASCICULAR BLOCK MODERATE T-WAVE ABNORMALITY, CONSIDER ANTERIOR ISCHEMIA Compared to ECG 12/28/2024 06:13:05 Ventricular premature complex(es) now present T-wave abnormality now present Possible ischemia now present Sinus arrhythmia no longer present /store/S0/[id number]
[2024-12-30] MEDS: cefTRIAXone/D5w 1gm IV premix 1 GM/50 ML BAG IV (09:08)
[2024-12-30] MEDS: HYDROXYUREA 500 MG CAPSULE 2000 MG PO (09:09)
[2024-12-30] MEDS: DRONEDARONE HCL 400 MG PO ×2 (09:10→20:33)
[2024-12-30] MEDS: DOCUSATE SOD 100 MG CAPSULE PO (09:10)
[2024-12-30] MEDS: APIXABAN 2.5 MG TABLET 5 MG PO ×2 (09:10→20:34)
[2024-12-30] MEDS: DILTIAZEM CD 120 MG CAPCR PO (09:10)
--- NOTE | 2024-12-30 09:26 | PD.RESPRO ---
Documentation for date of: 12/30/24 Subjective Subjective Interval history: The patient is evaluated at the bedside , Ovenight revents pertinent for agitation and patient complaining of chest tightness, received Halodol 5mg, bilateral soft restraints were placed and ABG was done which showed hypercarbia, noted IV steroids were withheld in the morning, but pt was given additional dose of solumedrol 125mg and Bipap was initiated, Repeat ABG did show improvement in pCo2 levels. Currently seen on Bipap, pulling 3.5 - 4 L MV, Ipap/Epap 15/, on 30 % FiO2, saturating 94 %. Physical exam pertiennt for drowsiness, the pateint is easily arousable on calling out her name but just looks around in a blank stare, did not answer any of my questions this morning, possibly due to medication effects of halodol, Ordered an EKG to make sure QT is within normal limits. Recommend to resume IV steroids as patient still has poor air entry bilaterally and had rapid responses for respiratory distress and hypercarbia, patient likely contributed to patient's altered mental status. EKG shows dynamic EKG changes, T inversions now noted in v3-v6, Likely secondary to supply/demand ischemia in the setting of hypoxia and severe COPD. Pt appears to be in Sinus arrhythmia with LAFB. QT 390ms QTc 460 ms , Would recommend to avoid further QT prolonging medications like Halodol, if possible. CXR was negative for Pneumonia, Reported as bronchitis pattern, Recommendation for Azithromycin in setting of COPD exacerbation is 500 mg once daily for 3 days , Today would be Day 3, will defer further antibiotic covergae to primary team, as long as daily QT is monitored. Keep magnesium >2 and potassium > 4 to prevent arrythmias. Exam Vital Signs Temp Pulse Resp BP Pulse Ox O2 Del Method O2 Flow Rate 97.3 F 86 35 H 148/88 H 93 L BiPAP 12/30/24 08:00 12/30/24 09:10 12/30/24 08:00 12/30/24 09:10 12/30/24 08:00 12/30/24 08:00 12/30/24 00:00 FiO2 30 12/30/24 08:00 Narrative Exam General: Currently drowsy and somnolent, on BiPAP saturating 94% on 30% FiO2 Skin: Intact, no cyanosis or edema noted. HEENT: Atraumatic/normocephalic, MIC, neck supple Heart: Irregular rhythm no murmurs appreciated Lungs: Decreased air entry bilaterally, poor breath sounds, no audible wheezing. Abdomen: Soft, nontender. Bowel sounds present . Vascular: Peripheral pulses palpable Neuro: No focal neurological deficits noted. Patient is arousable but somnolent and drowsy. Objective Labs 12/31/24 06:00 12/31/24 06:00 Labs: Laboratory Results - last 24 hr 12/29/24 12/29/24 12/29/24 05:06 06:27 20:30 WBC RBC Hgb Hct MCV MCH MCHC RDW Std Deviation Plt Count Neut % (Auto) Lymph % (Auto) Granite % (Auto) Eos % (Auto) Baso % (Auto) Neut # (Auto) Lymph # (Auto) Granite # (Auto) Eos # (Auto) Baso # (Auto) Immature Gran # (Auto) Absolute Nucleated RBC Immature Gran % Nucleated RBC % Smear Path Review Sent to Pathologist Puncture Site ABG pH ABG pCO2 ABG pO2 ABG HCO3 ABG O2 Saturation ABG Base Excess FiO2 Sodium Potassium Chloride Carbon Dioxide Anion Gap BUN Creatinine Estim Creat Clear Calc eGFR BUN/Creatinine Ratio Glucose Calculated Osmolality Uric Acid 4.9 Calcium Corrected Calcium Phosphorus Magnesium Iron 7 L TIBC 410 Iron Saturation 1 L Unsat Iron Binding 403 H Total Bilirubin AST ALT Alkaline Phosphatase Lactate Dehydrogenase 416 H 300 H Total Protein Albumin Globulin Albumin/Globulin Ratio 12/30/24 12/30/24 12/30/24 00:06 03:30 05:04 WBC 29.5 H D RBC 4.89 Hgb 11.5 L Hct 40.1 MCV 82 MCH 23.5 L MCHC 28.7 L RDW Std Deviation 64.3 H Plt Count 1049 H* D Neut % (Auto) 97 H Lymph % (Auto) 1 L Granite % (Auto) 1 Eos % (Auto) 0 Baso % (Auto) 0 Neut # (Auto) 28.5 H Lymph # (Auto) 0.2 L Granite # (Auto) 0.3 Eos # (Auto) 0.0 Baso # (Auto) 0.1 Immature Gran # (Auto) 0.38 H Absolute Nucleated RBC 0.00 Immature Gran % 1 H Nucleated RBC % 0 Smear Path Review Puncture Site Right Radial Right Radial ABG pH 7.29 L 7.40 D ABG pCO2 77 H* D 60 H D ABG pO2 169 H D 63 L D ABG HCO3 37 H 37 H ABG O2 Saturation 100 H 92 ABG Base Excess 7 H 10 H FiO2 45 25 Sodium 140 Potassium 3.6 D Chloride 97 L Carbon Dioxide 30.2 Anion Gap 13 BUN 17 Creatinine 1.0 Estim Creat Clear Calc 44.0 L eGFR 57 L BUN/Creatinine Ratio 17 Glucose 146 H Calculated Osmolality 283 Uric Acid 4.7 Calcium 9.8 Corrected Calcium 10.0 Phosphorus 3.8 Magnesium 2.1 Iron TIBC Iron Saturation Unsat Iron Binding Total Bilirubin 0.4 AST 30 ALT 10 Alkaline Phosphatase 95 Lactate Dehydrogenase 277 H Total Protein 5.8 Albumin 3.8 Globulin 2.0 L Albumin/Globulin Ratio 1.9 ABG Interpretation ABG results: 12/27/24 12/27/24 12/28/24 16:52 20:50 09:30 ABG pH 7.33 L 7.30 L 7.35 ABG pCO2 65 H 61 H 53 H ABG pO2 189 H 47 L* D 71 L D ABG HCO3 34 H 30 H 29 H ABG O2 Saturation 100 H 78 L 95 ABG Base Excess 6 H 2 2 12/30/24 12/30/24 00:06 03:30 ABG pH 7.29 L 7.40 D ABG pCO2 77 H* D 60 H D ABG pO2 169 H D 63 L D ABG HCO3 37 H 37 H ABG O2 Saturation 100 H 92 ABG Base Excess 7 H 10 H Quality Measures Quality Measures none Advance care planning discussed with:: patient Assessment & Plan Assessment Current Active Medications: Generic Name Dose Route Start Last Admin Trade Name Freq PRN Reason Stop Dose Admin Acetaminophen 650 mg 12/27/24 18:54 Acetaminophen 325 Mg Tablet PO 01/26/25 18:53 Q6H PRN Fever >100.4 Acetaminophen 650 mg 12/27/24 18:54 12/28/24 03:23 Acetaminophen 325 Mg Tablet PO 01/26/25 18:53 650 mg Q6H PRN Administration PAIN SCALE 1-3 (mild Albuterol/Ipratropium 3 ml 12/27/24 18:54 Albuterol/Ipratropium (Duoneb) Rt Lanie 3 Ml Nebu INH 01/26/25 18:53 Q2HR PRN SHORTNESS OF BREATH OR WHEEZE Albuterol/Ipratropium 3 ml 12/27/24 19:00 12/30/24 07:00 Albuterol/Ipratropium (Duoneb) Rt Lanie 3 Ml Nebu INH 01/26/25 18:59 3 ml Q4HRRT AUTUMN Administration Allopurinol 300 mg 12/27/24 19:15 12/30/24 09:10 Allopurinol 100 Mg Tablet PO 01/26/25 19:14 300 mg QDAY AUTUMN Administration Apixaban 5 mg 12/28/24 21:00 12/30/24 09:10 Apixaban 2.5 Mg Tablet PO 01/27/25 20:59 5 mg BID AUTUMN Administration Diltiazem HCl 120 mg 12/28/24 09:15 12/30/24 09:10 Diltiazem Cd 120 Mg Capcr PO 01/27/25 09:14 120 mg QDAY AUTUMN Administration Docusate Sodium 100 mg 12/28/24 09:00 12/30/24 09:10 Docusate Sod 100 Mg Capsule PO 01/27/25 08:59 100 mg QDAY AUTUMN Administration Protocol Dronedarone 400 mg 12/28/24 10:00 12/30/24 09:10 Dronedarone Hcl 400 Mg Tablet (Non-Formulary) PO 01/27/25 09:59 400 mg BID AUTUMN Administration Hydroxyurea 2,000 mg 12/30/24 09:00 12/30/24 09:09 Hydroxyurea 500 Mg Capsule PO 01/29/25 08:59 2,000 mg QDAY AUTUMN Administration Protocol Azithromycin 500 mg/ Sodium 250 mls @ 250 mls/hr 12/28/24 14:00 12/29/24 19:23 Chloride IV 01/04/25 13:59 Infused QDAY@1400 AUTUMN Infusion Ceftriaxone Sodium/Dextrose 1 gm in 50 mls @ 100 mls/hr 12/28/24 09:08 12/30/24 09:08 Rocephin/D5w 1gm Iv Premix IV 01/04/25 09:07 100 mls/hr QDAY AUTUMN Administration Methylprednisolone Sodium Succinate 60 mg 12/27/24 23:15 12/29/24 10:02 Methylprednisolone Sod Succ 62.5 Mg/Ml 2ml Vial IVP 01/03/25 23:14 Not Given BID AUTUMN Ondansetron HCl 4 mg 12/27/24 18:54 Ondansetron Inj 2 Mg/Ml Inj 2 Ml IVP 01/26/25 18:53 Q6H PRN NAUSEA OR VOMITING Protocol Phenyleph/Shark Oil/Min Oil/Petrol 0 gm 12/27/24 21:03 Preparation H Oint 30 Gm Tube SD 01/26/25 21:02 BID PRN HEMORRHOIDS Sennosides 1 tab 12/28/24 09:00 12/30/24 09:09 Senna Tablet PO 01/27/25 08:59 1 tab QDAY AUTUMN Administration Protocol Sodium Chloride 3 ml 12/29/24 23:45 Sodium Chloride Rt Lanie 0.9% 3 Ml Nebu INH 01/28/25 23:44 PRN PRN SOLN Plan Patient is an 79-year-old female with a past medical history of severe COPD on 3-5 L home oxygen, HTN, atrial fibrillation, polycythemia and thrombocytosis with JAK2 mutation, followed by Dr. Trinidad, pulmonary hypertension, history of smoking 40 to 50 pack year, who presented to the emergency room complaining of worsening shortness of breath. Patient was found to have acute hypoxic and hypercapnic respiratory failure secondary to severe COPD , she was initially started on BiPAP, ABG showed respiratory acidosis. Later patient was transitioned to high flow nasal cannula oxygen. Problems: 1. Acute on chronic hypoxic/hypercapnic respiratory failure 2. Acute severe COPD 3. Thrombocytopenia 4. Polycythemia 5. Sinus arrhythmia 6. Ruled out pulmonary embolism 7. History of pulmonary hypertension 8. History of hypertension 9. History of A-fib The patient has history of severe COPD and is on 3 to 5 L nasal cannula oxygen, but started becoming more short of breath over the past few days, denies any sick contacts, or fever, she reported access to oxygen, but said that she ran out of inhalers. Patient reported she has not seen her primary care doctor in over a year. At the time of evaluation, patient was seen on high flow nasal cannula oxygen at 25 L, 45% FiO2, patient was wheezing excessively and showing signs of respiratory distress. Also noted respiratory acidosis on initial ABG, recommended using BiPAP if continued increased work of breathing. Patient had received 1 dose of Solu-Medrol 125 mg in the ED. Recommend starting patient on IV steroids Solu-Medrol 60 mg twice daily for COPD exacerbation. The patient is started on ceftriaxone and azithromycin, though patient is taking dronedarone for atrial fibrillation which can prolong QT, ordered repeat EKG in the morning to monitor QT. EKG showed sinus rhythm, QT362, QTc 431 on 12/28/2024, recommend continued monitoring of QT interval. Patient has history of polycythemia and thrombocytosis with JAK2 mutation, previously requiring phlebotomy, currently on hydroxyurea, patient has persistent thrombocytosis, due to concern for acute hypoxic respiratory failure, and thrombocytosis there was concern for pulmonary embolism, but CT angiogram was done which ruled out pulm embolism. Patient was started on heparin drip by primary team as empiric treatment, Which is now on hold. Recommend to resume patient's home medication Eliquis. CBC shows Noted worsening leukocytosis on WBCs, quite possibly secondary to reactive process/steroids. Patient continues to be afebrile. EKG was repeated that showed please take it under your care please take it out that both thank you just 1 I would think you should we did 2 weeks then I story board you may stickers there you to measure QT, as patient is having azithromycin and is also on Multaq, concern for QT prolongation, QT 362, QTc 431, CTA was negative, pulmonary embolism ruled out, heparin drip was discontinued and patient was started on home medication Eliquis 5 mg twice daily for atrial fibrillation. Resume home medications of diltiazem 120 mg daily and Multaq 400 mg twice daily. Recommended to keep magnesium more than 2 and potassium more than 4 at all times due to risk of QT prolongation. Echocardiogram had showed diastolic dysfunction stage I, EF 55 to 60%, mild MR and TR, moderately dilated LA, normal LV and RV size and function.Can give IV fluids if needed due to thrombocytosis. 12/30/2024 the patient is evaluated at the bedside , Ovenight revents pertinent for agitation and patient complaining of chest tightness, received Halodol 5mg, bilateral soft restraints were placed and ABG was done which showed hypercarbia, Pt was given additional dose of solumedrol 125mg and Bipap was initiated, Repeat ABG did show improvement in pCo2 levels. Currently seen on Bipap, pulling 3.5 - 4 L MV, Ipap/Epap 15/8, on 30 % FiO2, saturating 94 %. Physical exam pertiennt for drowsiness, the pateint is easily arousable on calling out her name but just looks around in a blank stare, did not answer any of my questions this morning, possibly due to medication effects of halodol, Ordered an EKG to make sure QT is within normal limits. EKG shows dynamic EKG changes, T inversions now noted in v3-v6, Likely secondary to supply/demand mismatch in the setting of hypoxia and severe COPD. Pt appears to be in Sinus arrhythmia with LAFB. QT 390ms QTc 460 ms , Would recommend to avoid further QT prolonging medications like Halodol, if possible. CXR was negative for Pneumonia, Reported as bronchitis pattern, Recommendation for Azithromycin in setting of COPD exacerbation is 500 mg once daily for 3 days , Today would be Day 3, will defer further antibiotic covergae to primary team, as long as daily QT is monitored. Recommendations: ? Resumed Solu-Medrol 60 mg every 8 hours, will give an additional dose of Solu-Medrol 125 mg x 1 tonight. Recommend to continue steroid taper when pt ready for discharge. ? Added Tessalon 200 mg every 8 hour, N-acetylcysteine inhalation every 8 hours ? Added LABA, LAMA and ICS to patient's treatment regimen?Spiriva/Advair ? CT angiogram negative for pulmonary embolism, resume patient's home medication Eliquis. ? Recommend resuming home medication dronedarone/Multaq and diltiazem ? Recommend to avoid hypomagnesemia and hypokalemia as patient is getting dronedarone which can lead to increased QT. Keep magnesium more than 2 and potassium more than 4 at all times. ? Consider BiPAP if indicated for increased work of breathing or severe hypercapnia ? Agree with non destructive testing scientist/oncologist recommending continuing patient's hydroxyurea. Rest of the management deferred to primary team. Thank you for cardiology consultation. We appreciate the opportunity to participate in this patient's care. Will continue to follow-up on this patient This case was discussed with mines safety engineer, Dr. Bhatt. Ofelia Canela MD PG3 Attending Provider Attestation/Addendum I have personally seen and examined the patient separately on the above date of service and discussed the plan of care with the resident. I reviewed the resident Dr. Gilbert consultation progress note and agree with the resident findings and plan in the note above and have also edited the documentation to reflect my findings and plan. Overnight rapid response was called as patient developed hypoxia and short of breath along with altered mental status. Unfortunately patient received only 3 doses of methylprednisone 60 mg IV since admission until yesterday morning. IV steroids were stopped and she did not receive any for a total of 24 hours and she developed the COPD exacerbation again. ABG was repeated and showed a pH of 7.29 yesterday night with a PCO2 of 77. Patient was started on BiPAP and Solu-Medrol 125 mg IV was given x 1. Patient was placed on restraints as she was agitated slightly and also received Haldol. Again this evening patient did have a rapid response for hypoxia and shortness of breath. Patient again did not receive any IV steroid this morning and hence started the patient on IV methylprednisolone 60 mg every 12 hours for now along with Advair and informed the primary team to continue the same treatment along with the nebulizations. Patient has longstanding COPD and severe COPD exacerbation at the present point of time and will need a tapering course of steroids along with Advair or Trelegy in the nebulizations. Recommend to discharge the patient on tapering dose of oral prednisone along with the above. EKG reviewed and showed sinus arrhythmia with nonspecific T wave changes. QTc is 460. Patient denies any Chest pain or chest pressure. Recommend to continue the patient with Multaq 400 mg twice daily for now along with diltiazem 120 mg once daily if blood pressure is permissible. Keep potassium greater than 4.0 and magnesium greater than 2.0. Continue Eliquis for anticoagulation. Inderjit Bhatt M.D. Interventional Cardiology
[2024-12-30 10:05] LABS: Base Excess, Venous 10 (-3-3); O2 Saturation, Venous 98 % (96-97); PCO2, Venous 55 mmHg (36-56); PO2, Venous 85 mmHg (15-58); pH, Venous 7.43 (7.33-7.66)
--- NOTE | 2024-12-30 10:16 | CHAP ---
Patient expressed gratitude for visit and prayer.
[2024-12-30 11:31] LABS: LDH (Lactate Dehydrogenase) 206 U/L (120-246)
[2024-12-30 16:00] LABS: Uric Acid 4.4 mg/dL (3.1-7.8)
[2024-12-30] MEDS: AZITHROMYCIN INJ 500 MG in SODIUM CHLORIDE 0.9% 250 ML 250 ML 250 MG IV (16:15)
--- NOTE | 2024-12-30 16:58 | PC.SS ---
Rounding note: high flow.
--- NOTE | 2024-12-30 17:38 | XR_ITS ---
Examination: AP chest single view Technique : AP portable upright chest single view INDICATIONS: Shortness of breath today. FINDINGS: Mild heart failure. Mild enlargement cardiac contour. Prominent vascular congestion. Early septal edema at the lung bases The film is rotated severely LPO Prominent osteopenia IMPRESSION: Mild heart failure
[2024-12-30 18:03] LABS: Base Excess 10 (-3-3); HCO3 36 mEq/L (20-26); O2 Saturation 96 % (91-98); PCO2 53 mmHg (32.0-48.0); PO2 74 mmHg (83-108); pH, Arterial 7.44 (7.35-7.45)
[2024-12-30 18:07] LABS: Allen Test Not Performed; Inspired Oxygen, FIO2 30 %; Puncture Site Right Radial
[2024-12-30 18:12] LABS: Basophils # (Auto) 0.1 Thou/mm3 (0.0-0.2); Basophils % (Auto) 0 % (0-2.5); Eosinophils # (Auto) 0.0 Thou/mm3 (0.0-0.5); Eosinophils % (Auto) 0 % (0-10); Hematocrit 39.8 % (36.0-46.0); Hemoglobin 11.7 g/dL (12.0-16.0); Immature Granulocytes Auto 0.27 Thou/mm3 (0.00-0.00); Lymphocytes # (Auto) 0.4 Thou/mm3 (1.0-4.8); Lymphocytes % (Auto) 1 % (10-50); Mean Corpuscular HGB Conc 29.4 g/dl (31.0-37.0); Mean Corpuscular Hemoglobin 23.6 pg (25.0-35.0); Mean Corpuscular Volume 80 fL (80-100); Monocytes # (Auto) 0.5 Thou/mm3 (0.0-0.8); Monocytes % (Auto) 2 % (0-12); Neutrophils # (Auto) 29.3 Thou/mm3 (1.8-7.7); Neutrophils % (Auto) 96 % (37-80); Nucleated Red Blood Cell # 0.03 Thou/mm3 (0.00-0.00); Nucleated Red Blood Cell % 0 /100 WBC (0); RDW Standard Deviation 63.5 fL (36.4-46.3); Red Blood Count 4.96 Miln/mm3 (4.00-5.20); White Blood Count 30.5 Thou/mm3 (3.6-11.0)
[2024-12-30 18:15] LABS: Platelet Count 1171 Thou/mm3 (140-440)
[2024-12-30 18:38] LABS: Alanine Aminotransferase 9 U/L (10-49); Albumin, Serum 4.0 gm/dL (3.4-4.8); Albumin/Globulin Ratio 2.1 (1.2-2.2); Alkaline Phosphatase 94 U/L (46-116); Anion Gap 10 (7-16); Aspartate Amino Transferase 23 U/L (0-34); BUN/Creatinine Ratio 21 Ratio (12-20); Bilirubin,Total 0.4 mg/dL (0.3-1.2); Blood Urea Nitrogen 17 mg/dL (9-23); Calcium 10.1 mg/dL (8.3-10.6); Calcium (Corrected) 10.1 mg/dL (8.5-10.1); Carbon Dioxide 31.7 mMol/L (20.0-31.0); Chloride 99 mMol/L (98-107); Creatinine (Component) 0.8 mg/dL (0.6-1.3); Estimated Creatinine Clearance 54.9 mL/min (>60); Globulin 1.9 gm/dL (2.3-3.5); Glucose 113 mg/dL (74-106); Magnesium 2.2 mg/dL (1.6-2.6); Osmolality,Calculated 283 (275-295); Phosphorous 3.4 mg/dL (2.4-5.1); Potassium 4.0 mMol/L (3.4-5.1); Sodium 141 mMol/L (136-145); Total Protein 5.9 gm/dL (5.7-8.2); Troponin I < 0.020 ng/mL (0.0-0.045); eGFR > 60 See Note
[2024-12-30 18:43] LABS: B-Type Natriuretic Peptide 417 pg/mL (0-100)
[2024-12-30 19:02] LABS: Lactate (Lactic Acid) 2.4 mMol/L (0.4-2.0)
[2024-12-30] MEDS: FLUTICASONE/SALMETEROL 500/50 60 DOSE INH 1 PUFF INH (19:25)
[2024-12-30] MEDS: MethylPREDNISolone SOD SUCC 62.5 MG/ML 2ML VIAL 125 MG IVP (19:40)
--- NOTE | 2024-12-30 20:36 | EVENTNT_ITS ---
<Statement entered by Bebeto Robles MD - 12/30/24 21:59> Patient was examined and case was reviewed with team including attending physician. Note reviewed, I agree with most of its contents and agree with the patient's care as documented by Dr. Harley Robles MD PGY-2 Documentation for date of: 12/30/24 Event Note Event Note: Rapid Response Room: 268 Time: 17:25 Reason for Call: acute SpO2 change < 85%, increased work of breathing Patient developed increased work of breathing and reported dyspnea. On exam, patient had decreased breath sounds bilaterally. BiPAP support was initiated, and DuoNeb treatments were administered as needed. Following intervention, oxygen saturation improved to 99% with symptomatic relief. ABG demonstrated pH 7.44 and pCO2 53, consistent with chronic CO2 retention. Lactic acid was 2.4. Patient remained alert, oriented, and hemodynamically stable. New orders: - CBC, CMP, Mg, Phos, BNP, ABG, Lactic acid - Bedside glucose test - X-ray - Troponin Intervention - Nebulizer treatment - BiPAP Patient was discussed with the attending, Dr. Caballero , and senior resident , Tan. Marika Souza, DO PGY-1
[2024-12-30 21:10] LABS: Reflex Lactate? Y
[2024-12-30] MEDS: BENZONATATE 100 MG CAPSULE 200 MG PO (21:11)
[2024-12-30 21:54] LABS: LDH (Lactate Dehydrogenase) 294 U/L (120-246)
[2024-12-30 23:46] LABS: Lactic Acid, 3 HR 1.8 mMol/L (0.4-2.0)
[2024-12-31] VITALS (16 sets, daily range): BP systolic 131–148; BP diastolic 75–85; PULSE 73–108; RESP 19–34; TEMP 36.2–36.8; O2SAT 81–99
[2024-12-31 00:18] LABS: Uric Acid 4.0 mg/dL (3.1-7.8)
[2024-12-31] MEDS: ALBUTEROL/IPRATROPIUM (Duoneb) RT SOL 3 ML NEBU INH ×6 (03:10→22:38)
[2024-12-31] MEDS: BENZONATATE 100 MG CAPSULE 200 MG PO ×3 (05:45→21:17)
[2024-12-31 06:12] LABS: Lactate (Lactic Acid) 1.4 mMol/L (0.4-2.0)
[2024-12-31 06:20] LABS: Basophils # (Auto) 0.1 Thou/mm3 (0.0-0.2); Basophils % (Auto) 0 % (0-2.5); Eosinophils # (Auto) 0.0 Thou/mm3 (0.0-0.5); Eosinophils % (Auto) 0 % (0-10); Hematocrit 39.7 % (36.0-46.0); Hemoglobin 11.4 g/dL (12.0-16.0); Immature Granulocytes Auto 0.49 Thou/mm3 (0.00-0.00); Lymphocytes # (Auto) 0.3 Thou/mm3 (1.0-4.8); Lymphocytes % (Auto) 1 % (10-50); Mean Corpuscular HGB Conc 28.7 g/dl (31.0-37.0); Mean Corpuscular Hemoglobin 23.5 pg (25.0-35.0); Mean Corpuscular Volume 82 fL (80-100); Monocytes # (Auto) 0.2 Thou/mm3 (0.0-0.8); Monocytes % (Auto) 1 % (0-12); Neutrophils # (Auto) 26.2 Thou/mm3 (1.8-7.7); Neutrophils % (Auto) 96 % (37-80); Nucleated Red Blood Cell # 0.02 Thou/mm3 (0.00-0.00); Nucleated Red Blood Cell % 0 /100 WBC (0); RDW Standard Deviation 64.2 fL (36.4-46.3); Red Blood Count 4.85 Miln/mm3 (4.00-5.20); White Blood Count 27.2 Thou/mm3 (3.6-11.0)
[2024-12-31 06:26] LABS: Platelet Count 1105 Thou/mm3 (140-440)
[2024-12-31] MEDS: TIOTROPIUM BR 2.5 MCG 120 PUFF/4 GM INHALER INH (06:32)
[2024-12-31 07:32] LABS: Albumin, Serum 3.6 gm/dL (3.4-4.8); Albumin/Globulin Ratio 1.9 (1.2-2.2); Alkaline Phosphatase 81 U/L (46-116); Anion Gap 9 (7-16); Aspartate Amino Transferase 18 U/L (0-34); BUN/Creatinine Ratio 30 Ratio (12-20); Bilirubin,Total 0.5 mg/dL (0.3-1.2); Blood Urea Nitrogen 24 mg/dL (9-23); Calcium 10.3 mg/dL (8.3-10.6); Calcium (Corrected) 10.6 mg/dL (8.5-10.1); Carbon Dioxide 35.6 mMol/L (20.0-31.0); Chloride 100 mMol/L (98-107); Creatinine (Component) 0.8 mg/dL (0.6-1.3); Estimated Creatinine Clearance 54.9 mL/min (>60); Globulin 1.9 gm/dL (2.3-3.5); Glucose 130 mg/dL (74-106); LDH (Lactate Dehydrogenase) 204 U/L (120-246); Magnesium 1.9 mg/dL (1.6-2.6); Osmolality,Calculated 294 (275-295); Phosphorous 3.8 mg/dL (2.4-5.1); Potassium 3.7 mMol/L (3.4-5.1); Sodium 145 mMol/L (136-145); Total Protein 5.5 gm/dL (5.7-8.2); Uric Acid 4.1 mg/dL (3.1-7.8); eGFR > 60 See Note
[2024-12-31 07:45] LABS: Alanine Aminotransferase 8 U/L (10-49)
[2024-12-31] MEDS: DOCUSATE SOD 100 MG CAPSULE PO (08:58)
[2024-12-31] MEDS: DILTIAZEM CD 120 MG CAPCR PO (08:59)
[2024-12-31] MEDS: ACETAMINOPHEN 325 MG TABLET 650 MG PO (09:00)
[2024-12-31] MEDS: cefTRIAXone/D5w 1gm IV premix 1 GM/50 ML BAG IV (09:00)
--- NOTE | 2024-12-31 09:08 | ESPR_ITS ---
Documentation for date of: 12/31/24 Subjective Subjective Interval history: Patient evaluated bedside, currently alert and oriented, no acute overnight events reported, RN Robin at the bedside, patient is taking her morning medications. RN did report patient had hypoxic events saturation dropping down to 81 transiently before improving, no consistent hypoxia reported, will need to evaluate waveform to confirm if true hypoxia Currently seen on HFNC, 20 L/min at 35% FiO2, saturating 96%, patient's target SaO2 goal is 88 to 92%, patient likely prefers the higher flow rate from HFNC, can go down on FiO2 if possible, patient's home oxygen requirements of 4-5 L . Noted improvement in wheezing, air entry improved, noted primary team discontinued Advair and Mucomyst and decrease steroids to 40 mg twice daily, would consider LABA/LAMA and ICS for severe COPD. Okay to wean down steroids as long as they are not abruptly discontinued. Exam Vital Signs Temp Pulse Resp BP Pulse Ox O2 Del Method O2 Flow Rate 97.3 F 99 30 H 144/85 H 91 L High Flow Nasal Cannula 20 12/31/24 08:00 12/31/24 08:59 12/31/24 08:00 12/31/24 08:59 12/31/24 08:00 12/31/24 08:00 12/31/24 08:00 FiO2 35 12/31/24 08:00 Narrative Exam General: Currently alert oriented x 3, on HFNC saturating 96% on 20 L, 35% FiO2 Skin: Intact, no cyanosis or edema noted. HEENT: Atraumatic/normocephalic, MIC, neck supple Heart: Irregular rhythm no murmurs appreciated Lungs: Decreased air entry bilaterally, poor breath sounds, no audible wheezing. Abdomen: Soft, nontender. Bowel sounds present . Vascular: Peripheral pulses palpable Neuro: No focal neurological deficits noted. Patient is arousable but somnolent and drowsy. Objective Labs 01/02/25 05:10 01/02/25 05:10 Labs: Laboratory Results - last 24 hr 12/30/24 12/30/24 12/30/24 10:00 15:09 17:44 WBC RBC Hgb Hct MCV MCH MCHC RDW Std Deviation Plt Count Neut % (Auto) Lymph % (Auto) [place] % (Auto) Eos % (Auto) Baso % (Auto) Neut # (Auto) Lymph # (Auto) [place] # (Auto) Eos # (Auto) Baso # (Auto) Immature Gran # (Auto) Absolute Nucleated RBC Immature Gran % Nucleated RBC % Puncture Site Right Radial ABG pH 7.44 ABG pCO2 53 H ABG pO2 74 L ABG HCO3 36 H ABG O2 Saturation 96 ABG Base Excess 10 H VBG pH 7.43 VBG pCO2 55 VBG pO2 85 H VBG O2 Sat (Karissa) 98 H VBG Base Excess 10 H FiO2 30 Sodium Potassium Chloride Carbon Dioxide Anion Gap BUN Creatinine Estim Creat Clear Calc eGFR BUN/Creatinine Ratio Glucose Calculated Osmolality Lactic Acid Uric Acid 4.4 Calcium Corrected Calcium Phosphorus Magnesium Total Bilirubin AST ALT Alkaline Phosphatase Lactate Dehydrogenase 206 Troponin I B-Natriuretic Peptide Total Protein Albumin Globulin Albumin/Globulin Ratio 12/30/24 12/30/24 12/30/24 18:00 20:53 22:32 WBC 30.5 H RBC 4.96 Hgb 11.7 L Hct 39.8 MCV 80 MCH 23.6 L MCHC 29.4 L RDW Std Deviation 63.5 H Plt Count 1171 H* D Neut % (Auto) 96 H Lymph % (Auto) 1 L [place] % (Auto) 2 Eos % (Auto) 0 Baso % (Auto) 0 Neut # (Auto) 29.3 H Lymph # (Auto) 0.4 L [place] # (Auto) 0.5 Eos # (Auto) 0.0 Baso # (Auto) 0.1 Immature Gran # (Auto) 0.27 H Absolute Nucleated RBC 0.03 H Immature Gran % 1 H Nucleated RBC % 0 Puncture Site ABG pH ABG pCO2 ABG pO2 ABG HCO3 ABG O2 Saturation ABG Base Excess VBG pH VBG pCO2 VBG pO2 VBG O2 Sat (Karissa) VBG Base Excess FiO2 Sodium 141 Potassium 4.0 Chloride 99 Carbon Dioxide 31.7 H Anion Gap 10 BUN 17 Creatinine 0.8 Estim Creat Clear Calc 54.9 L eGFR > 60 BUN/Creatinine Ratio 21 H Glucose 113 H Calculated Osmolality 283 Lactic Acid 2.4 H 1.8 Uric Acid 4.0 Calcium 10.1 Corrected Calcium 10.1 Phosphorus 3.4 Magnesium 2.2 Total Bilirubin 0.4 AST 23 ALT 9 L Alkaline Phosphatase 94 Lactate Dehydrogenase 294 H Troponin I < 0.020 B-Natriuretic Peptide 417 H Total Protein 5.9 Albumin 4.0 Globulin 1.9 L Albumin/Globulin Ratio 2.1 12/31/24 06:00 WBC 27.2 H RBC 4.85 Hgb 11.4 L Hct 39.7 MCV 82 MCH 23.5 L MCHC 28.7 L RDW Std Deviation 64.2 H Plt Count 1105 H* D Neut % (Auto) 96 H Lymph % (Auto) 1 L [place] % (Auto) 1 Eos % (Auto) 0 Baso % (Auto) 0 Neut # (Auto) 26.2 H Lymph # (Auto) 0.3 L [place] # (Auto) 0.2 Eos # (Auto) 0.0 Baso # (Auto) 0.1 Immature Gran # (Auto) 0.49 H Absolute Nucleated RBC 0.02 H Immature Gran % 2 H Nucleated RBC % 0 Puncture Site ABG pH ABG pCO2 ABG pO2 ABG HCO3 ABG O2 Saturation ABG Base Excess VBG pH VBG pCO2 VBG pO2 VBG O2 Sat (Karissa) VBG Base Excess FiO2 Sodium 145 Potassium 3.7 Chloride 100 Carbon Dioxide 35.6 H Anion Gap 9 BUN 24 H Creatinine 0.8 Estim Creat Clear Calc 54.9 L eGFR > 60 BUN/Creatinine Ratio 30 H Glucose 130 H Calculated Osmolality 294 Lactic Acid 1.4 Uric Acid 4.1 Calcium 10.3 Corrected Calcium 10.6 H Phosphorus 3.8 Magnesium 1.9 Total Bilirubin 0.5 AST 18 ALT 8 L Alkaline Phosphatase 81 Lactate Dehydrogenase 204 Troponin I B-Natriuretic Peptide Total Protein 5.5 L Albumin 3.6 Globulin 1.9 L Albumin/Globulin Ratio 1.9 ABG Interpretation ABG results: 12/27/24 12/27/24 12/28/24 16:52 20:50 09:30 ABG pH 7.33 L 7.30 L 7.35 ABG pCO2 65 H 61 H 53 H ABG pO2 189 H 47 L* D 71 L D ABG HCO3 34 H 30 H 29 H ABG O2 Saturation 100 H 78 L 95 ABG Base Excess 6 H 2 2 VBG pH VBG pCO2 VBG pO2 VBG Base Excess 12/30/24 12/30/24 12/30/24 00:06 03:30 10:00 ABG pH 7.29 L 7.40 D ABG pCO2 77 H* D 60 H D ABG pO2 169 H D 63 L D ABG HCO3 37 H 37 H ABG O2 Saturation 100 H 92 ABG Base Excess 7 H 10 H VBG pH 7.43 VBG pCO2 55 VBG pO2 85 H VBG Base Excess 10 H 12/30/24 17:44 ABG pH 7.44 ABG pCO2 53 H ABG pO2 74 L ABG HCO3 36 H ABG O2 Saturation 96 ABG Base Excess 10 H VBG pH VBG pCO2 VBG pO2 VBG Base Excess Quality Measures Quality Measures none Advance care planning discussed with:: patient Assessment & Plan Assessment Current Active Medications: Generic Name Dose Route Start Last Admin Trade Name Freq PRN Reason Stop Dose Admin Acetaminophen 650 mg 12/27/24 18:54 Acetaminophen 325 Mg Tablet PO 01/26/25 18:53 Q6H PRN Fever >100.4 Acetaminophen 650 mg 12/27/24 18:54 12/31/24 09:00 Acetaminophen 325 Mg Tablet PO 01/26/25 18:53 650 mg Q6H PRN Administration PAIN SCALE 1-3 (mild Albuterol/Ipratropium 3 ml 12/27/24 18:54 Albuterol/Ipratropium (Duoneb) Rt Lanie 3 Ml Nebu INH 01/26/25 18:53 Q2HR PRN SHORTNESS OF BREATH OR WHEEZE Albuterol/Ipratropium 3 ml 12/27/24 19:00 12/31/24 06:32 Albuterol/Ipratropium (Duoneb) Rt Lanie 3 Ml Nebu INH 01/26/25 18:59 3 ml Q4HRRT AUTUMN Administration Allopurinol 300 mg 12/27/24 19:15 12/31/24 08:57 Allopurinol 100 Mg Tablet PO 01/26/25 19:14 300 mg QDAY AUTUMN Administration Apixaban 5 mg 12/28/24 21:00 12/30/24 20:34 Apixaban 2.5 Mg Tablet PO 01/27/25 20:59 5 mg BID AUTUMN Administration Benzonatate 200 mg 12/30/24 22:00 12/31/24 05:45 Benzonatate 100 Mg Capsule PO 01/29/25 21:59 200 mg Q8HR AUTUMN Administration Protocol Diltiazem HCl 120 mg 12/28/24 09:15 12/31/24 08:59 Diltiazem Cd 120 Mg Capcr PO 01/27/25 09:14 120 mg QDAY AUTUMN Administration Docusate Sodium 100 mg 12/28/24 09:00 12/31/24 08:58 Docusate Sod 100 Mg Capsule PO 01/27/25 08:59 100 mg QDAY AUTUMN Administration Protocol Dronedarone 400 mg 12/28/24 10:00 12/30/24 20:33 Dronedarone Hcl 400 Mg Tablet (Non-Formulary) PO 01/27/25 09:59 400 mg BID AUTUMN Administration Hydroxyurea 2,000 mg 12/30/24 09:00 12/30/24 09:09 Hydroxyurea 500 Mg Capsule PO 01/29/25 08:59 2,000 mg QDAY AUTUMN Administration Protocol Azithromycin 500 mg/ Sodium 250 mls @ 250 mls/hr 12/28/24 14:00 12/30/24 16:15 Chloride IV 01/04/25 13:59 250 mls/hr QDAY@1400 AUTUMN Administration Ceftriaxone Sodium/Dextrose 1 gm in 50 mls @ 100 mls/hr 12/28/24 09:08 12/31/24 09:00 Rocephin/D5w 1gm Iv Premix IV 01/04/25 09:07 100 mls/hr QDAY AUTUMN Administration Magnesium Sulfate/Dextrose 1 gm in 100 mls @ 100 mls/hr 12/31/24 09:00 Magnesium Sulfate Ivpb IV 12/31/24 09:59 X1 ONE Methylprednisolone Sodium Succinate 40 mg 12/31/24 21:00 Methylprednisolone Sod Succ 40 Mg Vial IVP 01/07/25 08:59 BID AUTUMN Ondansetron HCl 4 mg 12/27/24 18:54 Ondansetron Inj 2 Mg/Ml Inj 2 Ml IVP 01/26/25 18:53 Q6H PRN NAUSEA OR VOMITING Protocol Phenyleph/Shark Oil/Min Oil/Petrol 0 gm 12/27/24 21:03 Preparation H Oint 30 Gm Tube KS 01/26/25 21:02 BID PRN HEMORRHOIDS Sennosides 1 tab 12/28/24 09:00 12/31/24 08:58 Senna Tablet PO 01/27/25 08:59 1 tab QDAY AUTUMN Administration Protocol Sodium Chloride 3 ml 12/29/24 23:45 Sodium Chloride Rt Lanie 0.9% 3 Ml Nebu INH 01/28/25 23:44 PRN PRN SOLN Tiotropium Mercedes 2 puff 12/30/24 20:00 12/31/24 06:32 Tiotropium Br 2.5 Mcg 120 Puff/4 Gm Inhaler INH 01/29/25 19:59 2 puff QDAY ON LICENSE OF [facility] Administration Plan Patient is an 79-year-old female with a past medical history of severe COPD on 3-5 L home oxygen, HTN, atrial fibrillation, polycythemia and thrombocytosis with JAK2 mutation, followed by Dr. Trinidad, pulmonary hypertension, history of smoking 40 to 50 pack year, who presented to the emergency room complaining of worsening shortness of breath. Patient was found to have acute hypoxic and hypercapnic respiratory failure secondary to severe COPD , she was initially started on BiPAP, ABG showed respiratory acidosis. Later patient was transitioned to high flow nasal cannula oxygen. Problems: 1. Acute on chronic hypoxic/hypercapnic respiratory failure 2. Acute severe COPD 3. Thrombocytopenia 4. Polycythemia 5. Sinus arrhythmia 6. Ruled out pulmonary embolism 7. History of pulmonary hypertension 8. History of hypertension 9. History of paroxysmal A-fib, now converted to sinus rhythm The patient has history of severe COPD and is on 3 to 5 L nasal cannula oxygen, but started becoming more short of breath over the past few days, denies any sick contacts, or fever, she reported access to oxygen, but said that she ran out of inhalers. Patient reported she has not seen her primary care doctor in over a year. At the time of evaluation, patient was seen on high flow nasal cannula oxygen at 25 L, 45% FiO2, patient was wheezing excessively and showing signs of respiratory distress. Also noted respiratory acidosis on initial ABG, recommended using BiPAP if continued increased work of breathing. Patient had received 1 dose of Solu-Medrol 125 mg in the ED. The patient is started on ceftriaxone and azithromycin, though patient is taking dronedarone for atrial fibrillation which can prolong QT, ordered repeat EKG in the morning to monitor QT. EKG showed sinus rhythm, QT362, QTc 431 on 12/28/2024, recommend continued monitoring of QT interval. The patient has history of JAK2 kinase mutation, polycythemia and thrombocytosis, followed by cancer treatment center Dr. Trinidad, started on hydroxyurea 2000 mg daily, patient has persistent thrombocytosis, due to concern for acute hypoxic respiratory failure, and thrombocytosis there was concern for pulmonary embolism, but CT angiogram was done which ruled out pulm embolism. Patient was started on heparin drip by primary team as empiric treatment, Which is now discontinued. Recommend to resume patient's home medication Eliquis. Echocardiogram had showed diastolic dysfunction stage I, EF 55 to 60%, mild MR and TR, moderately dilated LA, normal LV and RV size and function.Can give IV fluids if needed due to thrombocytosis. CXR was negative for Pneumonia, Reported as bronchitis pattern, currently on antibiotics were initially treated with azithromycin and ceftriaxone, currently on day 4 of azithromycin, recommended to continue monitoring QTc with daily EKGs. The patient has persistent prolonging of her QT interval, given that patient is on QT prolonging medications a longer QTc is acceptable, continue telemetry monitoring for arrhythmias, keep magnesium more than 2 and potassium more than 4 at all times. EKG shows sinus arrhythmia, pharmacological conversion to sinus rhythm achieved by Multaq, likely has paroxysmal atrial fibrillation, recommend to continue with diltiazem and Multaq and anticoagulation with Eliquis. Recommendations: ? Remain to continue IV steroids during hospital stay and recommend to prescribe steroid taper when pt ready for discharge. ? Recommend Tessalon 200 mg every 8 hour, N-acetylcysteine inhalation every 8 hours ? Recommend LABA, LAMA and ICS to patient's treatment regimen?consider Spiriva/Advair ? CT angiogram negative for pulmonary embolism, resume patient's home medication Eliquis. ? Recommend resuming home medication dronedarone/Multaq and diltiazem ? Recommend to avoid hypomagnesemia and hypokalemia as patient is on multiple QT prolonging medications. Keep magnesium more than 2 and potassium more than 4 at all times. ? Consider BiPAP if indicated for increased work of breathing or severe hypercapnia ? Agree with feed crusher operator/oncologist recommending continuing patient's hydroxyurea. ? Chest physiotherapy Rest of the management deferred to primary team. Thank you for cardiology consultation. We appreciate the opportunity to participate in this patient's care. Will continue to follow-up on this patient This case was discussed with patient financial counselor, Dr. Bhatt. Ofelia Canela MD PG3 Attending Provider Attestation/Addendum I reviewed the resident Dr. Neville consultation progress note and agree with the resident findings and plan in the note above and have also edited the documentation to reflect my findings and plan. Inderjit Bhatt M.D. Interventional Cardiology
[2024-12-31] MEDS: APIXABAN 2.5 MG TABLET 5 MG PO ×2 (09:32→21:16)
[2024-12-31] MEDS: DRONEDARONE HCL 400 MG PO ×2 (09:35→21:17)
[2024-12-31] MEDS: HYDROXYUREA 500 MG CAPSULE 2000 MG PO (09:49)
--- NOTE | 2024-12-31 10:02 | XR_ITS ---
Examination: Abdomen sonogram, complete Date and time of exam: December 31, 2024, 10:15 AM Indications. Abdominal pain week Technique: Multiple real-time grayscale transabdominal sonographic images of the abdomen have been obtained. Findings: Cholelithiasis negative for cholecystitis. About the cecum Pancreatic head 3.0 cm Proximal aorta visualized not enlarged. Hepatomegaly 17.4 cm. Normal hepatopedal portal venous flow. Patent IVC. Right kidney 9.7 cm cortex 1.2 cm Multiple renal cysts, the largest 7.4 cm Left kidney 11.7 cm renal cortex 1.4 cm Multiple cysts, the largest 19 mm Spleen 11.6 cm Impression: Cholelithiasis, negative for cholecystitis
[2024-12-31] MEDS: BUDESONIDE RT 0.5 MG/2 ML NEBU INH ×2 (10:42→19:35)
[2024-12-31 12:29] LABS: LDH (Lactate Dehydrogenase) 246 U/L (120-246)
--- NOTE | 2024-12-31 12:31 | ESPR_ITS ---
<Statement entered by Bebeto Robles MD - 12/31/24 15:06> Patient was examined and case was reviewed with team including attending physician. Note reviewed, I agree with most of its contents and agree with the patient's care as documented by Dr. Jenkins Patient seen today at the bedside found awake, alert, orientedx3. No overnight events reported. Vitals and labs reviewed. Currently on high flow nasal cannula weaning down oxygen demands at this time. Patient with shallow breathing likely in the setting of bronchospasms no wheezing noted on exam physical exam today. Breathing treatments, steroid medications adjusted. Dry cough noted kenna richardson orderded. High flow nasal cannula slowly being weaned down we will continue to reevaluate. Case discussed with my attending Dr. Ada Robles MD PGY-2 Disclaimer: Despite multiple revisions, due to the dictation software being used, the document bellow may not be free of grammatical errors including phonetic/typographic errors. However, this does not deter from our commitment to providing health care in the patient's best interest in mind. Documentation for date of: 12/31/24 Subjective Subjective Interval history: Afebrile, tachycardic, tachypneic. Continued on HFNC 20 L, FiO2 35. Patient reports right upper quadrant pain, dry cough. Exam Vital Signs Temp Pulse Resp BP Pulse Ox O2 Del Method O2 Flow Rate 97.3 F 84 29 H 144/85 H 97 High Flow Nasal Cannula 20 12/31/24 08:00 12/31/24 10:43 12/31/24 10:43 12/31/24 09:35 12/31/24 10:43 12/31/24 08:00 12/31/24 10:43 FiO2 30 12/31/24 10:43 Narrative Exam General: No acute distress Eye: PERRL, EOMI, normal conjunctiva, no scleral icterus HENT: Normocephalic, atraumatic, normal hearing, moist oral mucosa Neck: Supple, non-tender, no JVD, no lymphadenopathy Lungs: Clear to auscultation bilaterally, improved breath sounds on HFNC, no wheezes or crackles appreciated, symmetric chest rise, no use of accessory muscles Heart: Normal S1 and S2, no S3 or S4 appreciated. Normal rate and regular rhythm, no murmurs, rubs gallops, or edema. Peripheral pulses intact bilaterally, capillary refill brisk distally Abdomen: Soft, +RUQ tenderness, negative Georges's sign, non-distended, normal bowel sounds. No guarding or rebound tenderness. Musculoskeletal: Normal range of motion and strength, no tenderness or swelling Skin: Skin is warm, dry, no rashes or lesions. Neurologic: Alert, awake and oriented x3. CN II-XII grossly intact. No focal neuro deficits. No signs of meningeal irritation noted. Psychiatric: Cooperative, appropriate mood and affect Objective Labs 01/01/25 05:37 01/01/25 05:37 Labs: Laboratory Results - last 24 hr 12/30/24 12/30/24 12/30/24 15:09 17:44 18:00 WBC 30.5 H RBC 4.96 Hgb 11.7 L Hct 39.8 MCV 80 MCH 23.6 L MCHC 29.4 L RDW Std Deviation 63.5 H Plt Count 1171 H* D Neut % (Auto) 96 H Lymph % (Auto) 1 L [place] % (Auto) 2 Eos % (Auto) 0 Baso % (Auto) 0 Neut # (Auto) 29.3 H Lymph # (Auto) 0.4 L [place] # (Auto) 0.5 Eos # (Auto) 0.0 Baso # (Auto) 0.1 Immature Gran # (Auto) 0.27 H Absolute Nucleated RBC 0.03 H Immature Gran % 1 H Nucleated RBC % 0 Puncture Site Right Radial ABG pH 7.44 ABG pCO2 53 H ABG pO2 74 L ABG HCO3 36 H ABG O2 Saturation 96 ABG Base Excess 10 H FiO2 30 Sodium 141 Potassium 4.0 Chloride 99 Carbon Dioxide 31.7 H Anion Gap 10 BUN 17 Creatinine 0.8 Estim Creat Clear Calc 54.9 L eGFR > 60 BUN/Creatinine Ratio 21 H Glucose 113 H Calculated Osmolality 283 Lactic Acid 2.4 H Uric Acid 4.4 Calcium 10.1 Corrected Calcium 10.1 Phosphorus 3.4 Magnesium 2.2 Total Bilirubin 0.4 AST 23 ALT 9 L Alkaline Phosphatase 94 Lactate Dehydrogenase Troponin I < 0.020 B-Natriuretic Peptide 417 H Total Protein 5.9 Albumin 4.0 Globulin 1.9 L Albumin/Globulin Ratio 2.1 12/30/24 12/30/24 12/31/24 20:53 22:32 06:00 WBC 27.2 H RBC 4.85 Hgb 11.4 L Hct 39.7 MCV 82 MCH 23.5 L MCHC 28.7 L RDW Std Deviation 64.2 H Plt Count 1105 H* D Neut % (Auto) 96 H Lymph % (Auto) 1 L [place] % (Auto) 1 Eos % (Auto) 0 Baso % (Auto) 0 Neut # (Auto) 26.2 H Lymph # (Auto) 0.3 L [place] # (Auto) 0.2 Eos # (Auto) 0.0 Baso # (Auto) 0.1 Immature Gran # (Auto) 0.49 H Absolute Nucleated RBC 0.02 H Immature Gran % 2 H Nucleated RBC % 0 Puncture Site ABG pH ABG pCO2 ABG pO2 ABG HCO3 ABG O2 Saturation ABG Base Excess FiO2 Sodium 145 Potassium 3.7 Chloride 100 Carbon Dioxide 35.6 H Anion Gap 9 BUN 24 H Creatinine 0.8 Estim Creat Clear Calc 54.9 L eGFR > 60 BUN/Creatinine Ratio 30 H Glucose 130 H Calculated Osmolality 294 Lactic Acid 1.8 1.4 Uric Acid 4.0 4.1 Calcium 10.3 Corrected Calcium 10.6 H Phosphorus 3.8 Magnesium 1.9 Total Bilirubin 0.5 AST 18 ALT 8 L Alkaline Phosphatase 81 Lactate Dehydrogenase 294 H 204 Troponin I B-Natriuretic Peptide Total Protein 5.5 L Albumin 3.6 Globulin 1.9 L Albumin/Globulin Ratio 1.9 12/31/24 11:50 WBC RBC Hgb Hct MCV MCH MCHC RDW Std Deviation Plt Count Neut % (Auto) Lymph % (Auto) [place] % (Auto) Eos % (Auto) Baso % (Auto) Neut # (Auto) Lymph # (Auto) [place] # (Auto) Eos # (Auto) Baso # (Auto) Immature Gran # (Auto) Absolute Nucleated RBC Immature Gran % Nucleated RBC % Puncture Site ABG pH ABG pCO2 ABG pO2 ABG HCO3 ABG O2 Saturation ABG Base Excess FiO2 Sodium Potassium Chloride Carbon Dioxide Anion Gap BUN Creatinine Estim Creat Clear Calc eGFR BUN/Creatinine Ratio Glucose Calculated Osmolality Lactic Acid Uric Acid Calcium Corrected Calcium Phosphorus Magnesium Total Bilirubin AST ALT Alkaline Phosphatase Lactate Dehydrogenase 246 Troponin I B-Natriuretic Peptide Total Protein Albumin Globulin Albumin/Globulin Ratio ABG Interpretation ABG results: 12/27/24 12/27/24 12/28/24 16:52 20:50 09:30 ABG pH 7.33 L 7.30 L 7.35 ABG pCO2 65 H 61 H 53 H ABG pO2 189 H 47 L* D 71 L D ABG HCO3 34 H 30 H 29 H ABG O2 Saturation 100 H 78 L 95 ABG Base Excess 6 H 2 2 VBG pH VBG pCO2 VBG pO2 VBG Base Excess 12/30/24 12/30/24 12/30/24 00:06 03:30 10:00 ABG pH 7.29 L 7.40 D ABG pCO2 77 H* D 60 H D ABG pO2 169 H D 63 L D ABG HCO3 37 H 37 H ABG O2 Saturation 100 H 92 ABG Base Excess 7 H 10 H VBG pH 7.43 VBG pCO2 55 VBG pO2 85 H VBG Base Excess 10 H 12/30/24 17:44 ABG pH 7.44 ABG pCO2 53 H ABG pO2 74 L ABG HCO3 36 H ABG O2 Saturation 96 ABG Base Excess 10 H VBG pH VBG pCO2 VBG pO2 VBG Base Excess Quality Measures Quality Measures none Advance care planning discussed with:: patient Assessment & Plan Assessment Current Active Medications: Generic Name Dose Route Start Last Admin Trade Name Freq PRN Reason Stop Dose Admin Acetaminophen 650 mg 12/27/24 18:54 Acetaminophen 325 Mg Tablet PO 01/26/25 18:53 Q6H PRN Fever >100.4 Acetaminophen 650 mg 12/27/24 18:54 12/31/24 09:00 Acetaminophen 325 Mg Tablet PO 01/26/25 18:53 650 mg Q6H PRN Administration PAIN SCALE 1-3 (mild Acetylcysteine 3 ml 12/31/24 15:00 Acetylcysteine Lanie 20% 4 Ml Nebu INH 01/30/25 14:59 Q4HRRT AUTUMN Albuterol/Ipratropium 3 ml 12/27/24 18:54 Albuterol/Ipratropium (Duoneb) Rt Lanie 3 Ml Nebu INH 01/26/25 18:53 Q2HR PRN SHORTNESS OF BREATH OR WHEEZE Albuterol/Ipratropium 3 ml 12/27/24 19:00 12/31/24 10:42 Albuterol/Ipratropium (Duoneb) Rt Lanie 3 Ml Nebu INH 01/26/25 18:59 3 ml Q4HRRT AUTUMN Administration Allopurinol 300 mg 12/27/24 19:15 12/31/24 08:57 Allopurinol 100 Mg Tablet PO 01/26/25 19:14 300 mg QDAY AUTUMN Administration Apixaban 5 mg 12/28/24 21:00 12/31/24 09:32 Apixaban 2.5 Mg Tablet PO 01/27/25 20:59 5 mg BID AUTUMN Administration Benzonatate 200 mg 12/30/24 22:00 12/31/24 05:45 Benzonatate 100 Mg Capsule PO 01/29/25 21:59 200 mg Q8HR AUTUMN Administration Protocol Budesonide 0.5 mg 12/31/24 10:15 12/31/24 10:42 Budesonide Rt 0.5 Mg/2 Ml Nebu INH 01/30/25 10:14 0.5 mg Q4H AUTUMN Administration Diltiazem HCl 120 mg 12/28/24 09:15 12/31/24 08:59 Diltiazem Cd 120 Mg Capcr PO 01/27/25 09:14 120 mg QDAY AUTUMN Administration Docusate Sodium 100 mg 12/28/24 09:00 12/31/24 08:58 Docusate Sod 100 Mg Capsule PO 01/27/25 08:59 100 mg QDAY AUTUMN Administration Protocol Dronedarone 400 mg 12/28/24 10:00 12/31/24 09:35 Dronedarone Hcl 400 Mg Tablet (Non-Formulary) PO 01/27/25 09:59 400 mg BID AUTUMN Administration Guaifenesin 200 mg 12/31/24 11:15 Guaifenesin Syrup 200 Mg/10 Ml Udc PO 01/30/25 11:14 QID PRN dry cough Protocol Hydroxyurea 2,000 mg 12/30/24 09:00 12/31/24 09:49 Hydroxyurea 500 Mg Capsule PO 01/29/25 08:59 2,000 mg QDAY AUTUMN Administration Protocol Azithromycin 500 mg/ Sodium 250 mls @ 250 mls/hr 12/28/24 14:00 12/30/24 16:15 Chloride IV 01/04/25 13:59 250 mls/hr QDAY@1400 AUTUMN Administration Ceftriaxone Sodium/Dextrose 1 gm in 50 mls @ 100 mls/hr 12/28/24 09:08 12/31/24 09:00 Rocephin/D5w 1gm Iv Premix IV 01/04/25 09:07 100 mls/hr QDAY AUTUMN Administration Sodium Chloride 1,000 mls @ 75 mls/hr 12/31/24 12:08 Ns IV 12/31/24 18:47 .[id number] AUTUMN Methylprednisolone Sodium Succinate 40 mg 12/31/24 14:00 Methylprednisolone Sod Succ 40 Mg Vial IVP 01/07/25 13:59 TID AUTUMN Ondansetron HCl 4 mg 12/27/24 18:54 Ondansetron Inj 2 Mg/Ml Inj 2 Ml IVP 01/26/25 18:53 Q6H PRN NAUSEA OR VOMITING Protocol Phenyleph/Shark Oil/Min Oil/Petrol 0 gm 12/27/24 21:03 Preparation H Oint 30 Gm Tube NM 01/26/25 21:02 BID PRN HEMORRHOIDS Sennosides 1 tab 12/28/24 09:00 12/31/24 08:58 Senna Tablet PO 01/27/25 08:59 1 tab QDAY [facility] Administration Protocol Sodium Chloride 3 ml 12/29/24 23:45 Sodium Chloride Rt Lanie 0.9% 3 Ml Nebu INH 01/28/25 23:44 PRN PRN SOLN Tiotropium [place] 2 puff 12/30/24 20:00 12/31/24 06:32 Tiotropium Br 2.5 Mcg 120 Puff/4 Gm Inhaler INH 01/29/25 19:59 2 puff QDAY AUTUMN Administration Plan 79-year-old female with severe COPD on 3?6 L home O2, [id number] smoking history, hypertension, atrial fibrillation, polycythemia, and thrombocytosis with JAK2 mutation presenting with acute on chronic hypoxic and hypercapnic respiratory failure likely due to COPD exacerbation requiring high flow nasal cannula. #Acute on chronic hypoxic and hypercapnic respiratory failure Met 2/4 SIRS criteria: RR 30, WBC 26.1. COPD exacerbation vs PE vs CHF ABG on admission: pH 7.33, pCO2 65, pO2 189, HCO3 34 ? consistent with chronic CO2 retention with acute decompensation. CTA chest negative for pulmonary embolism, no evidence of pneumonia or pulmonary edema. Noted pulmonary artery hypertension. D-dimer <250. BNP 198. CTA other findings: Pulmonary artery hypertension, No pneumonia or pulmonary edema. On admission, patient requiring 6 L/min NC (FiO2 45%) to maintain SpO2 92%. Received Methylprednisolone and antibitoics (Ceftriaxone 1 gram x1, Azithromycin 500 mg x1) in ED. CXR (12/29): Basilar bronchitis pattern. VBG (12/30): pH 7.43, pCO2 55. Plan: - Continue supplemental O2, target SpO2 88?92% to avoid worsening hypercapnia. - Continue HFNC. Continue to wean O2 requirements as tolerated. - Duoneb, Budesonide BID - Tessalon pearls q6h - Guaifenesin syrup 200 PO QID - Continue Methylprednisolone 40 mg IV TID. CTM for steroid-induced psychosis - Continue Ceftriaxone 1 gram. - Continue Azithromycin 500 mg. - Resumed patient's home medication Eliquis, dronedarone, and diltiazem per cardio recs. - Keep magnesium > 2 and potassium >4 at all times as dronedarone can lead to increased QT. - Reassess ABG in 2?4 hrs if respiratory distress persists. #Pulmonary Hypertension Echo (12/27): Normal LV size and function. Diastolic dysfunction stage I. Estimated EF 55-60%. Normal RV size and function. Estimated RVSP moderately elevated at around of 40 to 50 mmHg. Mild MR and TR. Mild aortic valve sclerosis without stenosis. Moderately dilated LA. IVC Mildly dilated measuring 2.1cm. Plan: - Fluid restriction 1800 mL. #Leukocytosis (improving) WBC 26.1 --> 36.7 --> 29.5 Procalcitonin 0.06 UA: negative. Steroid-induced versus polycythemia vera. Plan - Continue methylprednisolone as above - Trend CBC daily. - Evaluate for alternative sources of infection if no improvement. #Polycythemia vera Platelet count 1281 --> 1047 --> 1158 --> 1049. Known diagnosis. JAK2-positive. Followed by Dr. Trinidad. History noteable for multiple prior therapeutic phlebotomies. Currently on hydroxyurea 500 mg daily at home. LDH 416 --> 300 --> 277. Plan: - Continue hydroxyurea to [address] Trinidad's recommendation. - Continue with LDH and uric acid checks Q8H. - Start allopurinol 300 mg daily for hyperuricemia prophylaxis. - Monitor CBC daily to assess treatment response. - Maintain adequate hydration to reduce thrombosis risk. - Dr. Trinidad aware of admission. #Electrolyte abnormalities #Hypokalemia (resolved) #Hypermagnesemia (resolved) Mg 2.8. Likely iatrogenic from IV mag administered by EMS en route to hospital. Plan: - Keep magnesium > 2 and potassium >4 at all times as dronedarone can lead to increased QT. - Recheck electrolytes in AM labs. #RUQ pain Developed 12/31, TTP but negative Georges's sign 1 small loose stool yesterday LFTs and bili WNL Lactic acid and uric acid unremarkable May be 2/2 polycythemia vera / thrombosis of hepatic veins US abdomen showed cholelithiasis. No cholecystitis Plan: - CTM clinical sx Health [facility] DVT prophylaxis: Heparin GI prophylaxis: none Diet: Low sodium Lines: Peripheral IV CODE STATUS: Limited Code Plan discussed with Dr. Benito and Dr. Ada Jenkins MD PGY1 Attending Provider Attestation/Addendum Lance, Yakelin Caballero DO, attest that I was physically present for the bartholomew portions of the service and evaluated the patient with the resident and I reviewed and discussed the case with the resident and agree with the resident's findings and plans of care as documented above Patient seen and evaluated this a.m. patient manage back at baseline mental status. Currently on high flow nasal cannula we will slow her 20 L a minute and FiO2 30%. Breath sounds in bilateral lung jackson appear much improved. No rhonchi noted on exam. No need for Mucomyst at this time. However, patient has been having prior coughing spells. Will start patient on Robitussin DM to suppress cough. Will continue with breathing treatments every 4 hours with every 2 hours as needed. Patient reporting pain in her right upper quadrant. Ultrasound order which shows cholelithiasis, but no evidence of cholecystitis. Normal hepatopetal pedal portal venous flow. Patient with very poor appetite. Encouraged patient to drink Ensure. Will decrease Solu-Medrol 40 mg IV to 3 times daily. Will titrate as needed. Continue with antibiotics at this time. Wean off O2 as tolerated. Will give bowel regimen if patient complains of abdominal pain. Abdominal exam is otherwise benign.
[2024-12-31] MEDS: SODIUM CHLORIDE 0.9% 500 ML 500 ML 75 ML IV (13:02)
--- NOTE | 2024-12-31 13:54 | PC.NURSE ---
Spoke with Geraldo, caregiver, she instructed that patient is not conserved, she stated to call [facility] and speak to officer of the day for consent for EGD.
[2024-12-31] MEDS: AZITHROMYCIN INJ 500 MG in SODIUM CHLORIDE 0.9% 250 ML 250 ML 250 MG IV (14:23)
--- NOTE | 2024-12-31 16:34 | PC.SS ---
Rounding note: On High Flow 20L, may discharge in 1-2days. Patient to return home when medically clear.
[2024-12-31 19:33] LABS: Uric Acid 3.8 mg/dL (3.1-7.8)
[2024-12-31 20:49] LABS: LDH (Lactate Dehydrogenase) 261 U/L (120-246)
[2024-12-31] MEDS: guaiFENesin/DM 10 ML UDC PO (21:17)
[2025-01-01] VITALS (16 sets, daily range): BP systolic 139–171; BP diastolic 75–97; PULSE 72–155; RESP 18–35; TEMP 36.1–36.4; O2SAT 89–100
[2025-01-01 00:08] LABS: Uric Acid 3.5 mg/dL (3.1-7.8)
[2025-01-01] MEDS: ALBUTEROL/IPRATROPIUM (Duoneb) RT SOL 3 ML NEBU INH ×6 (02:48→22:32)
[2025-01-01] MEDS: ACETAMINOPHEN 325 MG TABLET 650 MG PO (05:34)
[2025-01-01] MEDS: BENZONATATE 100 MG CAPSULE 200 MG PO ×3 (05:34→21:59)
[2025-01-01] MEDS: BUDESONIDE RT 0.5 MG/2 ML NEBU INH ×2 (06:31→18:21)
[2025-01-01] MEDS: TIOTROPIUM BR 2.5 MCG 120 PUFF/4 GM INHALER INH (06:41)
[2025-01-01 06:45] LABS: Basophils # (Auto) 0.1 Thou/mm3 (0.0-0.2); Basophils % (Auto) 0 % (0-2.5); Eosinophils # (Auto) 0.0 Thou/mm3 (0.0-0.5); Eosinophils % (Auto) 0 % (0-10); Hematocrit 39.5 % (36.0-46.0); Hemoglobin 11.4 g/dL (12.0-16.0); Immature Granulocytes Auto 0.34 Thou/mm3 (0.00-0.00); Lymphocytes # (Auto) 0.2 Thou/mm3 (1.0-4.8); Lymphocytes % (Auto) 1 % (10-50); Mean Corpuscular HGB Conc 28.9 g/dl (31.0-37.0); Mean Corpuscular Hemoglobin 23.5 pg (25.0-35.0); Mean Corpuscular Volume 81 fL (80-100); Monocytes # (Auto) 0.2 Thou/mm3 (0.0-0.8); Monocytes % (Auto) 1 % (0-12); Neutrophils # (Auto) 30.2 Thou/mm3 (1.8-7.7); Neutrophils % (Auto) 97 % (37-80); Nucleated Red Blood Cell # 0.06 Thou/mm3 (0.00-0.00); Nucleated Red Blood Cell % 0 /100 WBC (0); RDW Standard Deviation 65.7 fL (36.4-46.3); Red Blood Count 4.85 Miln/mm3 (4.00-5.20); White Blood Count 31.1 Thou/mm3 (3.6-11.0)
[2025-01-01 07:05] LABS: Platelet Count 1070 Thou/mm3 (140-440)
[2025-01-01] MEDS: guaiFENesin/DM 10 ML UDC PO ×2 (07:21→21:59)
[2025-01-01 07:34] LABS: Alanine Aminotransferase 9 U/L (10-49); Albumin, Serum 3.6 gm/dL (3.4-4.8); Albumin/Globulin Ratio 2.0 (1.2-2.2); Alkaline Phosphatase 80 U/L (46-116); Anion Gap 11 (7-16); Aspartate Amino Transferase 26 U/L (0-34); BUN/Creatinine Ratio 35 Ratio (12-20); Bilirubin,Total 0.5 mg/dL (0.3-1.2); Blood Urea Nitrogen 28 mg/dL (9-23); Calcium 10.1 mg/dL (8.3-10.6); Calcium (Corrected) 10.4 mg/dL (8.5-10.1); Carbon Dioxide 33.9 mMol/L (20.0-31.0); Chloride 101 mMol/L (98-107); Creatinine (Component) 0.8 mg/dL (0.6-1.3); Estimated Creatinine Clearance 54.9 mL/min (>60); Globulin 1.8 gm/dL (2.3-3.5); Glucose 104 mg/dL (74-106); LDH (Lactate Dehydrogenase) 385 U/L (120-246); Magnesium 2.0 mg/dL (1.6-2.6); Osmolality,Calculated 296 (275-295); Phosphorous 4.2 mg/dL (2.4-5.1); Potassium 4.5 mMol/L (3.4-5.1); Sodium 146 mMol/L (136-145); Total Protein 5.4 gm/dL (5.7-8.2); eGFR > 60 See Note
[2025-01-01 07:44] LABS: Uric Acid 3.5 mg/dL (3.1-7.8)
--- NOTE | 2025-01-01 07:44 | ESPR_ITS ---
<Statement entered by Bebeto Robles MD - 01/01/25 12:35> Patient was examined and case was reviewed with team including attending physician. Note reviewed, I agree with most of its contents and agree with the patient's care as documented by Dr. Souza Patient seen and evaluated at bedside. Patient on high flow nasal cannula 15 L and FiO2 30%. Attempted to transition to BiPAP however patient did not tolerate so was replaced on high flow nasal cannula. On physical exam patient has good air entry bilaterally on auscultation. Will continue breathing treatments and starting medications at this time. If patient continues to improve we will de- escalate steroid medications. Overall at this time clinically improving. Case discussed with my attending Dr. Ada Robles MD PGY-2 Disclaimer: Despite multiple revisions, due to the dictation software being used, the document bellow may not be free of grammatical errors including phonetic/typographic errors. However, this does not deter from our commitment to providing health care in the patient's best interest in mind. Documentation for date of: 01/01/25 Subjective Subjective Interval history: Patient was evaluated at the bedside this morning. The patient is currently on BiPAP at 15 L/min with an FiO2 of 30%. The plan is to continue BiPAP with gradual weaning. Will recommend patient to use BiPAP overnight for sleep. banking services clerk will be consulted to arrange for a BiPAP machine at home. Patient will remain on steroids for now, with the goal of tapering if respiratory status improves. Cough has improved with addition of guaifenisen yesterday. Patient endorses intermittent, sharp pain in the left abdomen. She reports improvement since yesterday, with pain decreasing from 10/10 to 8/10 today. She denies nausea, vomiting, or dysuria. Senna has been changed to PRN and Colace remains scheduled as patient had three bowel movements. Ensure has been added to the patient?s diet. Exam Vital Signs Temp Pulse Resp BP Pulse Ox O2 Del Method O2 Flow Rate 97.5 F 75 24 H 153/97 H 99 High Flow Nasal Cannula 01/01/25 04:00 01/01/25 06:42 01/01/25 06:42 01/01/25 04:00 01/01/25 06:42 01/01/25 00:00 01/01/25 06:42 FiO2 25 17/25 06:42 Narrative Exam Physical Exam General: Awake and in no acute distress. Conversational and non-toxic appearing. Bipap on. HEENT: Normocephalic, atraumatic. Heart: Regular rate and rhythm, no murmurs. Lungs: Clear to auscultation bilaterally, improved breath sounds on Bipap, no wheezes or crackles appreciated. No use of accessory respiratory muscles. Abdomen: Soft, nondistended. Tenderness to light and deep palpation on left abdominal. No guarding or rebound tenderness. No tenderness to palpation of right abdominal. Neurologic: Alert and oriented x3, no gross neurological deficit, and patient able to move all 4 extremities. Extremities: No edema. Skin: No rash or ecchymoses. Objective Labs 01/02/25 05:10 01/02/25 05:10 Labs: Laboratory Results - last 24 hr 12/31/24 12/31/24 12/31/24 06:00 11:50 15:45 WBC RBC Hgb Hct MCV MCH MCHC RDW Std Deviation Plt Count Neut % (Auto) Lymph % (Auto) Mcintosh % (Auto) Eos % (Auto) Baso % (Auto) Neut # (Auto) Lymph # (Auto) Mcintosh # (Auto) Eos # (Auto) Baso # (Auto) Immature Gran # (Auto) Absolute Nucleated RBC Immature Gran % Nucleated RBC % Sodium Potassium Chloride Carbon Dioxide Anion Gap BUN Creatinine Estim Creat Clear Calc eGFR BUN/Creatinine Ratio Glucose Calculated Osmolality Uric Acid 3.8 Calcium Corrected Calcium Phosphorus Magnesium Total Bilirubin AST ALT 8 L Alkaline Phosphatase Lactate Dehydrogenase 246 Total Protein Albumin Globulin Albumin/Globulin Ratio 12/31/24 12/31/24 01/01/25 19:47 23:30 05:37 WBC 31.1 H RBC 4.85 Hgb 11.4 L Hct 39.5 MCV 81 MCH 23.5 L MCHC 28.9 L RDW Std Deviation 65.7 H Plt Count 1070 H* D Neut % (Auto) 97 H Lymph % (Auto) 1 L Mcintosh % (Auto) 1 Eos % (Auto) 0 Baso % (Auto) 0 Neut # (Auto) 30.2 H Lymph # (Auto) 0.2 L Mcintosh # (Auto) 0.2 Eos # (Auto) 0.0 Baso # (Auto) 0.1 Immature Gran # (Auto) 0.34 H Absolute Nucleated RBC 0.06 H Immature Gran % 1 H Nucleated RBC % 0 Sodium 146 H Potassium 4.5 D Chloride 101 Carbon Dioxide 33.9 H Anion Gap 11 BUN 28 H Creatinine 0.8 Estim Creat Clear Calc 54.9 L eGFR > 60 BUN/Creatinine Ratio 35 H Glucose 104 Calculated Osmolality 296 H Uric Acid 3.5 3.5 Calcium 10.1 Corrected Calcium 10.4 H Phosphorus 4.2 Magnesium 2.0 Total Bilirubin 0.5 AST 26 ALT 9 L Alkaline Phosphatase 80 Lactate Dehydrogenase 261 H 385 H Total Protein 5.4 L Albumin 3.6 Globulin 1.8 L Albumin/Globulin Ratio 2.0 ABG Interpretation ABG results: 12/27/24 12/27/24 12/28/24 16:52 20:50 09:30 ABG pH 7.33 L 7.30 L 7.35 ABG pCO2 65 H 61 H 53 H ABG pO2 189 H 47 L* D 71 L D ABG HCO3 34 H 30 H 29 H ABG O2 Saturation 100 H 78 L 95 ABG Base Excess 6 H 2 2 VBG pH VBG pCO2 VBG pO2 VBG Base Excess 12/30/24 12/30/24 12/30/24 00:06 03:30 10:00 ABG pH 7.29 L 7.40 D ABG pCO2 77 H* D 60 H D ABG pO2 169 H D 63 L D ABG HCO3 37 H 37 H ABG O2 Saturation 100 H 92 ABG Base Excess 7 H 10 H VBG pH 7.43 VBG pCO2 55 VBG pO2 85 H VBG Base Excess 10 H 12/30/24 17:44 ABG pH 7.44 ABG pCO2 53 H ABG pO2 74 L ABG HCO3 36 H ABG O2 Saturation 96 ABG Base Excess 10 H VBG pH VBG pCO2 VBG pO2 VBG Base Excess Quality Measures Quality Measures none Advance care planning discussed with:: patient and spouse Assessment & Plan Assessment Current Active Medications: Generic Name Dose Route Start Last Admin Trade Name Freq PRN Reason Stop Dose Admin Acetaminophen 650 mg 12/27/24 18:54 Acetaminophen 325 Mg Tablet PO 01/26/25 18:53 Q6H PRN Fever >100.4 Acetaminophen 650 mg 12/27/24 18:54 01/01/25 05:34 Acetaminophen 325 Mg Tablet PO 01/26/25 18:53 650 mg Q6H PRN Administration PAIN SCALE 1-3 (mild Albuterol/Ipratropium 3 ml 12/27/24 18:54 Albuterol/Ipratropium (Duoneb) Rt Lanie 3 Ml Nebu INH 01/26/25 18:53 Q2HR PRN SHORTNESS OF BREATH OR WHEEZE Albuterol/Ipratropium 3 ml 12/27/24 19:00 01/01/25 06:31 Albuterol/Ipratropium (Duoneb) Rt Lanie 3 Ml Nebu INH 01/26/25 18:59 3 ml Q4HRRT AUTUMN Administration Allopurinol 300 mg 12/27/24 19:15 12/31/24 08:57 Allopurinol 100 Mg Tablet PO 01/26/25 19:14 300 mg QDAY AUTUMN Administration Apixaban 5 mg 12/28/24 21:00 12/31/24 21:16 Apixaban 2.5 Mg Tablet PO 01/27/25 20:59 5 mg BID AUTUMN Administration Benzonatate 200 mg 12/30/24 22:00 01/01/25 05:34 Benzonatate 100 Mg Capsule PO 01/29/25 21:59 200 mg Q8HR AUTUMN Administration Protocol Budesonide 0.5 mg 12/31/24 19:00 01/01/25 06:31 Budesonide Rt 0.5 Mg/2 Ml Nebu INH 01/30/25 18:59 0.5 mg BIDRT AUTUMN Administration Diltiazem HCl 120 mg 12/28/24 09:15 12/31/24 08:59 Diltiazem Cd 120 Mg Capcr PO 01/27/25 09:14 120 mg QDAY AUTUMN Administration Docusate Sodium 100 mg 12/28/24 09:00 12/31/24 08:58 Docusate Sod 100 Mg Capsule PO 01/27/25 08:59 100 mg QDAY AUTUMN Administration Protocol Dronedarone 400 mg 12/28/24 10:00 12/31/24 21:17 Dronedarone Hcl 400 Mg Tablet (Non-Formulary) PO 01/27/25 09:59 400 mg BID AUTUMN Administration Guaifenesin/Dextromethorphan 10 ml 12/31/24 21:00 01/01/25 07:21 Guaifenesin/Dm 10 Ml Udc PO 01/30/25 20:59 10 ml BID AUTUMN Administration Protocol Hydroxyurea 2,000 mg 12/30/24 09:00 12/31/24 09:49 Hydroxyurea 500 Mg Capsule PO 01/29/25 08:59 2,000 mg QDAY AUTUMN Administration Protocol Azithromycin 500 mg/ Sodium 250 mls @ 250 mls/hr 12/28/24 14:00 12/31/24 14:23 Chloride IV 01/04/25 13:59 250 mls/hr QDAY@1400 AUTUMN Administration Ceftriaxone Sodium/Dextrose 1 gm in 50 mls @ 100 mls/hr 12/28/24 09:08 12/31/24 09:00 Rocephin/D5w 1gm Iv Premix IV 01/04/25 09:07 100 mls/hr QDAY AUTUMN Administration Methylprednisolone Sodium Succinate 40 mg 12/31/24 14:00 01/01/25 05:34 Methylprednisolone Sod Succ 40 Mg Vial IVP 01/07/25 13:59 40 mg TID AUTUMN Administration Ondansetron HCl 4 mg 12/27/24 18:54 Ondansetron Inj 2 Mg/Ml Inj 2 Ml IVP 01/26/25 18:53 Q6H PRN NAUSEA OR VOMITING Protocol Phenyleph/Shark Oil/Min Oil/Petrol 0 gm 12/27/24 21:03 Preparation H Oint 30 Gm Tube [place] 01/26/25 21:02 BID PRN HEMORRHOIDS Sennosides 1 tab 12/28/24 09:00 12/31/24 08:58 Senna Tablet PO 01/27/25 08:59 1 tab QDAY [facility] Administration Protocol Sodium Chloride 3 ml 12/29/24 23:45 Sodium Chloride Rt Lanie 0.9% 3 Ml Nebu INH 01/28/25 23:44 PRN PRN SOLN Tiotropium [place] 2 puff 12/30/24 20:00 01/01/25 06:41 Tiotropium Br 2.5 Mcg 120 Puff/4 Gm Inhaler INH 01/29/25 19:59 2 puff QDAY AUTUMN Administration Plan 79-year-old female with severe COPD on 3?6 L home O2, [id number] smoking history, hypertension, atrial fibrillation, polycythemia, and thrombocytosis with JAK2 mutation presenting with acute on chronic hypoxic and hypercapnic respiratory failure likely due to COPD exacerbation requiring high flow nasal cannula. #Acute on chronic hypoxic and hypercapnic respiratory failure (improving) Met 2/4 SIRS criteria: RR 30, WBC 26.1. COPD exacerbation vs PE vs CHF ABG on admission: pH 7.33, pCO2 65, pO2 189, HCO3 34 ? consistent with chronic CO2 retention with acute decompensation. CTA chest negative for pulmonary embolism, no evidence of pneumonia or pulmonary edema. Noted pulmonary artery hypertension. D-dimer <250. BNP 198. CTA other findings: Pulmonary artery hypertension, No pneumonia or pulmonary edema. On admission, patient requiring 6 L/min NC (FiO2 45%) to maintain SpO2 92%. Received Methylprednisolone and antibitoics (Ceftriaxone 1 gram x1, Azithromycin 500 mg x1) in ED. CXR (12/29): Basilar bronchitis pattern. VBG (12/30): pH 7.43, pCO2 55. Plan: - Continue supplemental O2, target SpO2 88?92% to avoid worsening hypercapnia. - Continue Bipap. Continue to wean O2 requirements as tolerated. - Duoneb, Budesonide BID - Tessalon pearls q6h - Guaifenesin syrup 200 PO QID - Continue Methylprednisolone 40 mg IV TID. Continue to monitor for steroid- induced psychosis. Plan to taper if respiratory status improves. - Continue Ceftriaxone 1 gram (12/28 -01/03). - Finished Azithromycin 500 mg (12/28 - 12/31). - Resumed patient's home medication Eliquis, dronedarone, and diltiazem per cardio recs. - Keep magnesium > 2 and potassium >4 at all times as dronedarone can lead to increased QT. - Reassess ABG in 2?4 hrs if respiratory distress persists. #Pulmonary Hypertension Echo (12/27): Normal LV size and function. Diastolic dysfunction stage I. Estimated EF 55-60%. Normal RV size and function. Estimated RVSP moderately elevated at around of 40 to 50 mmHg. Mild MR and TR. Mild aortic valve sclerosis without stenosis. Moderately dilated LA. IVC Mildly dilated measuring 2.1cm. Plan: - Fluid restriction 1800 mL. #Polycythemia vera Platelet count peaked at 1281. Known diagnosis. JAK2-positive. Followed by Dr. Trinidad. History noteable for multiple prior therapeutic phlebotomies. Currently on hydroxyurea 500 mg daily at home. Plan: - Continue hydroxyurea to [address] Trinidad's recommendation. - Continue with LDH and uric acid checks Q8H. - Start allopurinol 300 mg daily for hyperuricemia prophylaxis. - Monitor CBC daily to assess treatment response. - Maintain adequate hydration to reduce thrombosis risk. - Dr. Trinidad aware of admission. - Pending peripheral blood smear and flow cytometry. #Abdominal Pain (Resolved RUQ Pain, Ongoing Left Abdominal Pain) RUQ pain developed on 12/31, described as tender to palpation but with a negative Georges?s sign. Patient had one small loose stool yesterday. LFTs, bilirubin, lactic acid, and uric acid were all within normal limits. Abdominal ultrasound revealed cholelithiasis without signs of cholecystitis. RUQ pain has since resolved. Differential included possible hepatic vein thrombosis in the setting of polycythemia vera. Left abdominal pain also began on 12/31. Patient reports intermittent, sharp pain that has improved since onset. Pain rated 10/10 yesterday, now 8/10. She has had 3 bowel movements since yesterday. Denies nausea, vomiting, or dysuria. Plan: - Continue to monitor clinical symptoms. - No further imaging at this time. - Maintain bowel regimen (Senna PRN, Colace scheduled). - Ensure added to diet. - Reassess if symptoms worsen or do not improve #Leukocytosis WBC peaked at 36.7. Procalcitonin 0.06 UA: negative. Steroid-induced versus polycythemia vera. Plan - Continue methylprednisolone as above - Trend CBC daily. #Electrolyte abnormalities #Hypokalemia (resolved) #Hypermagnesemia (resolved) Mg 2.8. Likely iatrogenic from IV mag administered by EMS en route to hospital. Plan: - Keep magnesium > 2 and potassium >4 at all times as dronedarone can lead to increased QT. - Recheck electrolytes in AM labs. [facility]: Heparin GI prophylaxis: none Diet: Low sodium Lines: Peripheral IV CODE STATUS: Limited Code Patient was discussed with the attending, Dr. Caballero , and senior resident , Tan. Marika Souza DO PGY-1 Attending Provider Attestation/Addendum Yakelin Lucas DO, attest that I was physically present for the bartholomew portions of the service and evaluated the patient with the resident and I reviewed and discussed the case with the resident and agree with the resident's findings and plans of care as documented above Patient seen and evaluated this AM. Patient currently on BiPap. Will transition to HFNC. Patient encouraged to wear BiPap at night, but she states that it is very uncomfortable. She reports pain in her left lower abdomen. Noted to have a soft mass with mild ecchymosis noted on her left lateral side. Pain elicited on palpation. CT Abd/pelvis was done and mass appears to be hematoma. Respiratory status is much improved today, equal chest rise and breath sounds are more marked today. Will continue with breathing treatments. Titrate O2 as tolerated. If respiratory status continues to improve, will taper steroids tomorrow. Patient continues to have dry coughing spells per nursing, which prompted placement of the BiPap. Improved with richi DOYLE.
--- NOTE | 2025-01-01 09:55 | PD.RESPRO ---
Documentation for date of: 01/01/25 Subjective Subjective Interval history: Patient is evaluated bedside, alert and oriented x 3, patient's is also present at the bedside, patient reported improvement in her breathing but complained of abdominal discomfort and distention. Patient has not had a bowel movement in over 3 days. An abdominal ultrasound done yesterday showed cholelithiasis but negative for cholecystitis. Multiple renal cyst largest 7.4 cm in the right kidney. Currently saturating 93% on HFNC 30% FiO2, continue weaning down oxygen as tolerated. The patient is wearing a diaper but reported peeing atleast 3 times a day, no evidence of peripheral edema. CBC this morning shows persistent leukocytosis, WBC 31.1, hemoglobin 9.4, platelets 1070, sodium 146 potassium 4.5 carbon dioxide 33.9 BUN 28 creatinine 0.8 magnesium 2.0 Patient is continued on IV antibiotics azithromycin and ceftriaxone, DuoNebs every 4 hours, budesonide twice daily, methylprednisone 40 mg 3 times daily, tiotropium 2.5 daily. Continued on hydroxyurea, continued on apixaban, Multaq and Diltiazem. Exam Vital Signs Temp Pulse Resp BP Pulse Ox O2 Del Method O2 Flow Rate 96.9 F 91 35 H 167/79 H 89 L High Flow Nasal Cannula 15 01/01/25 08:00 01/01/25 08:00 01/01/25 08:00 01/01/25 08:00 01/01/25 08:00 01/01/25 08:00 01/01/25 08:00 FiO2 30 01/01/25 08:00 Narrative Exam General: Currently alert oriented x 3, on HFNC saturating 93% on 20 L, 30% FiO2 Skin: Intact, no cyanosis or edema noted. HEENT: Atraumatic/normocephalic, MIC, neck supple Heart: Regular rhythm no murmurs appreciated Lungs: Improved air entry bilaterally, no audible wheezing. In no acute resp distress. Abdomen: Soft but slightly distendede abdomen, RUQ and LUQ tenderness on palpation. Bowel sounds present . Vascular: Peripheral pulses palpable Neuro: No focal neurological deficits noted. Objective Labs 01/02/25 05:10 01/02/25 05:10 Labs: Laboratory Results - last 24 hr 12/31/24 12/31/24 12/31/24 11:50 15:45 19:47 WBC RBC Hgb Hct MCV MCH MCHC RDW Std Deviation Plt Count Neut % (Auto) Lymph % (Auto) [place] % (Auto) Eos % (Auto) Baso % (Auto) Neut # (Auto) Lymph # (Auto) [place] # (Auto) Eos # (Auto) Baso # (Auto) Immature Gran # (Auto) Absolute Nucleated RBC Immature Gran % Nucleated RBC % Sodium Potassium Chloride Carbon Dioxide Anion Gap BUN Creatinine Estim Creat Clear Calc eGFR BUN/Creatinine Ratio Glucose Calculated Osmolality Uric Acid 3.8 Calcium Corrected Calcium Phosphorus Magnesium Total Bilirubin AST ALT Alkaline Phosphatase Lactate Dehydrogenase 246 261 H Total Protein Albumin Globulin Albumin/Globulin Ratio 12/31/24 01/01/25 23:30 05:37 WBC 31.1 H RBC 4.85 Hgb 11.4 L Hct 39.5 MCV 81 MCH 23.5 L MCHC 28.9 L RDW Std Deviation 65.7 H Plt Count 1070 H* D Neut % (Auto) 97 H Lymph % (Auto) 1 L [place] % (Auto) 1 Eos % (Auto) 0 Baso % (Auto) 0 Neut # (Auto) 30.2 H Lymph # (Auto) 0.2 L [place] # (Auto) 0.2 Eos # (Auto) 0.0 Baso # (Auto) 0.1 Immature Gran # (Auto) 0.34 H Absolute Nucleated RBC 0.06 H Immature Gran % 1 H Nucleated RBC % 0 Sodium 146 H Potassium 4.5 D Chloride 101 Carbon Dioxide 33.9 H Anion Gap 11 BUN 28 H Creatinine 0.8 Estim Creat Clear Calc 54.9 L eGFR > 60 BUN/Creatinine Ratio 35 H Glucose 104 Calculated Osmolality 296 H Uric Acid 3.5 3.5 Calcium 10.1 Corrected Calcium 10.4 H Phosphorus 4.2 Magnesium 2.0 Total Bilirubin 0.5 AST 26 ALT 9 L Alkaline Phosphatase 80 Lactate Dehydrogenase 385 H Total Protein 5.4 L Albumin 3.6 Globulin 1.8 L Albumin/Globulin Ratio 2.0 ABG Interpretation ABG results: 12/27/24 12/27/24 12/28/24 16:52 20:50 09:30 ABG pH 7.33 L 7.30 L 7.35 ABG pCO2 65 H 61 H 53 H ABG pO2 189 H 47 L* D 71 L D ABG HCO3 34 H 30 H 29 H ABG O2 Saturation 100 H 78 L 95 ABG Base Excess 6 H 2 2 VBG pH VBG pCO2 VBG pO2 VBG Base Excess 12/30/24 12/30/24 12/30/24 00:06 03:30 10:00 ABG pH 7.29 L 7.40 D ABG pCO2 77 H* D 60 H D ABG pO2 169 H D 63 L D ABG HCO3 37 H 37 H ABG O2 Saturation 100 H 92 ABG Base Excess 7 H 10 H VBG pH 7.43 VBG pCO2 55 VBG pO2 85 H VBG Base Excess 10 H 12/30/24 17:44 ABG pH 7.44 ABG pCO2 53 H ABG pO2 74 L ABG HCO3 36 H ABG O2 Saturation 96 ABG Base Excess 10 H VBG pH VBG pCO2 VBG pO2 VBG Base Excess Quality Measures Quality Measures none Advance care planning discussed with:: patient and spouse Assessment & Plan Assessment Current Active Medications: Generic Name Dose Route Start Last Admin Trade Name Freq PRN Reason Stop Dose Admin Acetaminophen 650 mg 12/27/24 18:54 Acetaminophen 325 Mg Tablet PO 01/26/25 18:53 Q6H PRN Fever >100.4 Acetaminophen 650 mg 12/27/24 18:54 01/01/25 05:34 Acetaminophen 325 Mg Tablet PO 01/26/25 18:53 650 mg Q6H PRN Administration PAIN SCALE 1-3 (mild Albuterol/Ipratropium 3 ml 12/27/24 18:54 Albuterol/Ipratropium (Duoneb) Rt Lanie 3 Ml Nebu INH 01/26/25 18:53 Q2HR PRN SHORTNESS OF BREATH OR WHEEZE Albuterol/Ipratropium 3 ml 12/27/24 19:00 01/01/25 06:31 Albuterol/Ipratropium (Duoneb) Rt Lanie 3 Ml Nebu INH 01/26/25 18:59 3 ml Q4HRRT AUTUMN Administration Allopurinol 300 mg 12/27/24 19:15 12/31/24 08:57 Allopurinol 100 Mg Tablet PO 01/26/25 19:14 300 mg QDAY AUTUMN Administration Apixaban 5 mg 12/28/24 21:00 12/31/24 21:16 Apixaban 2.5 Mg Tablet PO 01/27/25 20:59 5 mg BID AUTUMN Administration Benzonatate 200 mg 12/30/24 22:00 01/01/25 05:34 Benzonatate 100 Mg Capsule PO 01/29/25 21:59 200 mg Q8HR AUTUMN Administration Protocol Budesonide 0.5 mg 12/31/24 19:00 01/01/25 06:31 Budesonide Rt 0.5 Mg/2 Ml Nebu INH 01/30/25 18:59 0.5 mg BIDRT AUTUMN Administration Diltiazem HCl 120 mg 12/28/24 09:15 12/31/24 08:59 Diltiazem Cd 120 Mg Capcr PO 01/27/25 09:14 120 mg QDAY AUTUMN Administration Docusate Sodium 100 mg 12/28/24 09:00 12/31/24 08:58 Docusate Sod 100 Mg Capsule PO 01/27/25 08:59 100 mg QDAY AUTUMN Administration Protocol Dronedarone 400 mg 12/28/24 10:00 12/31/24 21:17 Dronedarone Hcl 400 Mg Tablet (Non-Formulary) PO 01/27/25 09:59 400 mg BID AUTUMN Administration Guaifenesin/Dextromethorphan 10 ml 12/31/24 21:00 01/01/25 07:21 Guaifenesin/Dm 10 Ml Udc PO 01/30/25 20:59 10 ml BID AUTUMN Administration Protocol Hydroxyurea 2,000 mg 12/30/24 09:00 12/31/24 09:49 Hydroxyurea 500 Mg Capsule PO 01/29/25 08:59 2,000 mg QDAY AUTUMN Administration Protocol Azithromycin 500 mg/ Sodium 250 mls @ 250 mls/hr 12/28/24 14:00 12/31/24 14:23 Chloride IV 01/04/25 13:59 250 mls/hr QDAY@1400 AUTUMN Administration Ceftriaxone Sodium/Dextrose 1 gm in 50 mls @ 100 mls/hr 12/28/24 09:08 12/31/24 09:00 Rocephin/D5w 1gm Iv Premix IV 01/04/25 09:07 100 mls/hr QDAY AUTUMN Administration Methylprednisolone Sodium Succinate 40 mg 12/31/24 14:00 01/01/25 05:34 Methylprednisolone Sod Succ 40 Mg Vial IVP 01/07/25 13:59 40 mg TID AUTUMN Administration Ondansetron HCl 4 mg 12/27/24 18:54 Ondansetron Inj 2 Mg/Ml Inj 2 Ml IVP 01/26/25 18:53 Q6H PRN NAUSEA OR VOMITING Protocol Phenyleph/Shark Oil/Min Oil/Petrol 0 gm 12/27/24 21:03 Preparation H Oint 30 Gm Tube UT 01/26/25 21:02 BID PRN HEMORRHOIDS Sennosides 1 tab 12/28/24 09:00 12/31/24 08:58 Senna Tablet PO 01/27/25 08:59 1 tab QDAY AUTUMN Administration Protocol Sodium Chloride 3 ml 12/29/24 23:45 Sodium Chloride Rt Lanie 0.9% 3 Ml Nebu INH 01/28/25 23:44 PRN PRN SOLN Tiotropium Peridot 2 puff 12/30/24 20:00 01/01/25 06:41 Tiotropium Br 2.5 Mcg 120 Puff/4 Gm Inhaler INH 01/29/25 19:59 2 puff QDAY AUTUMN Administration Plan Patient is an 79-year-old female with a past medical history of severe COPD on 3-5 L home oxygen, HTN, atrial fibrillation, polycythemia and thrombocytosis with JAK2 mutation, followed by Dr. Trinidad, pulmonary hypertension, history of smoking 40 to 50 pack year, who presented to the emergency room complaining of worsening shortness of breath. Patient was found to have acute hypoxic and hypercapnic respiratory failure secondary to severe COPD , she was initially started on BiPAP, ABG showed respiratory acidosis. Later patient was transitioned to high flow nasal cannula oxygen. Problems: 1. Acute on chronic hypoxic/hypercapnic respiratory failure 2. Acute severe COPD 3. Thrombocytopenia 4. Polycythemia 5. Sinus arrhythmia 6. RUQ Abdominal Pain- r/o cholecystitis 7. Ruled out pulmonary embolism 8. History of pulmonary hypertension 9. History of hypertension 10. History of paroxysmal A-fib, now converted to sinus rhythm The patient has history of severe COPD and is on 3 to 5 L nasal cannula oxygen, but started becoming more short of breath over the past few days, denies any sick contacts, or fever, she reported access to oxygen, but said that she ran out of inhalers. Patient reported she has not seen her primary care doctor in over a year. At the time of evaluation, patient was seen on high flow nasal cannula oxygen at 25 L, 45% FiO2, patient was wheezing excessively and showing signs of respiratory distress. Also noted respiratory acidosis on initial ABG, recommended using BiPAP if continued increased work of breathing. Patient had received 1 dose of Solu-Medrol 125 mg in the ED. The patient is started on ceftriaxone and azithromycin, though patient is taking dronedarone for atrial fibrillation which can prolong QT, ordered repeat EKG in the morning to monitor QT. EKG showed sinus rhythm, QT362, QTc 431 on 12/28/2024, recommend continued monitoring of QT interval. The patient has history of JAK2 kinase mutation, polycythemia and thrombocytosis, followed by cancer treatment [facility] Dr. Trinidad, started on hydroxyurea 2000 mg daily, patient has persistent thrombocytosis, due to concern for acute hypoxic respiratory failure, and thrombocytosis there was concern for pulmonary embolism, but CT angiogram was done which ruled out pulm embolism. Patient was started on heparin drip by primary team as empiric treatment, Which is now discontinued. Recommend to resume patient's home medication Eliquis. Echocardiogram had showed diastolic dysfunction stage I, EF 55 to 60%, mild MR and TR, moderately dilated LA, normal LV and RV size and function.Can give IV fluids if needed due to thrombocytosis. CXR was negative for Pneumonia, Reported as bronchitis pattern, currently on antibiotics were initially treated with azithromycin and ceftriaxone, currently on day 4 of azithromycin, recommended to continue monitoring QTc with daily EKGs. The patient has persistent prolonging of her QT interval, given that patient is on QT prolonging medications a longer QTc is acceptable, continue telemetry monitoring for arrhythmias, keep magnesium more than 2 and potassium more than 4 at all times. EKG shows sinus arrhythmia, pharmacological conversion to sinus rhythm achieved by Multaq, likely has paroxysmal atrial fibrillation, recommend to continue with diltiazem and Multaq and anticoagulation with Eliquis. 01/01/2025 patient reported improvement in her breathing but complained of abdominal discomfort and distention. Patient has not had a bowel movement in over 3 days. An abdominal ultrasound done yesterday showed cholelithiasis but negative for cholecystitis. Multiple renal cyst largest 7.4 cm in the right kidney. Normal Liver function tests and T bilirubin. Currently saturating 93% on HFNC 30% FiO2, continue weaning down oxygen as tolerated. The patient is wearing a diaper but reported peeing atleast 3 times a day, no evidence of peripheral edema. CBC this morning shows persistent leukocytosis, WBC 31.1, hemoglobin 9.4, platelets 1070, sodium 146 potassium 4.5 carbon dioxide 33.9 BUN 28 creatinine 0.8 magnesium 2.0 Patient is continued on IV antibiotics azithromycin and ceftriaxone, DuoNebs every 4 hours, budesonide twice daily, methylprednisone 40 mg 3 times daily, tiotropium 2.5 daily. Continued on hydroxyurea, continued on apixaban, Multaq and Diltiazem. Recommendations: ? Remain to continue IV steroids during hospital stay and recommend to prescribe steroid taper when pt ready for discharge. ? Recommend Tessalon 200 mg every 8 hour, N-acetylcysteine inhalation every 8 hours. ? Recommend LABA, LAMA and ICS to patient's treatment regimen ? CT angiogram negative for pulmonary embolism, resume patient's home medication Eliquis. ? Resume home medications dronedarone/Multaq and diltiazem. The pateint is currently in sinus rhythm with sinus arrhythmia. ? Recommend to avoid hypomagnesemia and hypokalemia as patient is on multiple QT prolonging medications. Keep magnesium more than 2 and potassium more than 4 at all times. ? Consider BiPAP if indicated for increased work of breathing or severe hypercapnia. ? Agree with technology infusion specialist/oncologist recommending continuing patient's hydroxyurea. ? Chest physiotherapy as needed. Rest of the management deferred to primary team. Thank you for cardiology consultation. We appreciate the opportunity to participate in this patient's care. Will continue to follow-up on this patient This case was discussed with painter tumbling barrel, Dr. Bhatt. Ofelia Canela MD PG3 Attending Provider Attestation/Addendum I reviewed the resident consultation progress note and agree with the resident findings and plan in the note above and have also edited the documentation to reflect my findings and plan. Inderjit Bhatt M.D. Interventional Cardiology
--- NOTE | 2025-01-01 10:09 | EKG_ITS ---
[facility] Test Date: 2025-01-01 Pat Name: SHEKHAR SHARP [facility] [employer] Setter: WILIAN : 1945 Requested By: Ofelia Canela Order Number: [id number] Reading MD: Ofelia Canela Measurements Intervals [place] Rate: 86 P: 66 NM: 150 QRS: -46 QRSD: 105 T: 64 QT: 372 QTc: 447 Interpretive Statements SINUS RHYTHM WITH FREQUENT SUPRAVENTRICULAR PREMATURE COMPLEXES LEFT ANTERIOR FASCICULAR BLOCK Compared to ECG 12/30/2024 08:36:20 Ventricular premature complex(es) no longer present T-wave abnormality no longer present Possible ischemia no longer present /store/S0/[id number]
[2025-01-01] MEDS: cefTRIAXone/D5w 1gm IV premix 1 GM/50 ML BAG IV (10:11)
[2025-01-01] MEDS: DOCUSATE SOD 100 MG CAPSULE PO (10:12)
[2025-01-01] MEDS: DILTIAZEM CD 120 MG CAPCR PO (10:13)
[2025-01-01] MEDS: APIXABAN 2.5 MG TABLET 5 MG PO ×2 (10:23→21:59)
[2025-01-01] MEDS: DRONEDARONE HCL 400 MG PO ×2 (10:45→21:58)
[2025-01-01] MEDS: HYDROXYUREA 500 MG CAPSULE 2000 MG PO (10:46)
[2025-01-01 11:38] LABS: LDH (Lactate Dehydrogenase) 170 U/L (120-246)
--- NOTE | 2025-01-01 14:10 | XR_ITS ---
Examination: CT abdomen and pelvis without contrast. Coronal 3-D reconstructions. Sagittal 2-D reconstructions. Date and time of exam:25 1439 hrs. Indications: Intermittent left-sided chest pain abdominal pain beginning 3 days ago. CTDI: vol (mGy): 8.64 DLP: (mGycm): 445 Technique: Axial images of the abdomen have been obtained, 3 mm slice thickness Intravenous contrast material has not been administered. Low dose protocols were performed. One or more of the following dose reduction techniques were used; automated exposure control, adjustment of the mA and/or KV according to patient size, use of iterative reconstruction technique. Findings: No focal liver or splenic lesions Gallstones No pancreatic mass 7 cm upper pole right renal cyst and smaller bilateral renal cysts No renal or ureteral calculi, no hydronephrosis No pericecal inflammatory change Central fluid distended small bowel loops, mild No diverticulitis Moderate disc narrowing L3-L4 Probable stool in the central portion of the rectum, clinical correlation advised Soft tissue mass most consistent with hematoma in the subcutaneous tissue left lateral flank, 7.6 x 4.4 x 9.5 cm Impression: Cholelithiasis, negative for cholecystitis Soft tissue mass in the subcutaneous tissue left lateral abdominal wall, 7.6 x 4.4 x 9.5 cm, most consistent with hematoma, clinical correlation advised
[2025-01-01 15:08] LABS: Cocci Serology, IgM Negative (Negative)
[2025-01-01 16:13] LABS: Uric Acid 3.5 mg/dL (3.1-7.8)
[2025-01-01 21:47] LABS: LDH (Lactate Dehydrogenase) 202 U/L (120-246)
[2025-01-01 23:27] LABS: Uric Acid 3.6 mg/dL (3.1-7.8)
[2025-01-02] VITALS (14 sets, daily range): BP systolic 126–165; BP diastolic 57–89; PULSE 68–95; RESP 18–30; TEMP 36.1–36.4; O2SAT 92–100
[2025-01-02] MEDS: ALBUTEROL/IPRATROPIUM (Duoneb) RT SOL 3 ML NEBU INH ×4 (02:00→18:27)
[2025-01-02] MEDS: BENZONATATE 100 MG CAPSULE 200 MG PO ×3 (05:56→22:46)
[2025-01-02 06:14] LABS: Basophils # (Auto) 0.0 Thou/mm3 (0.0-0.2); Basophils % (Auto) 0 % (0-2.5); Eosinophils # (Auto) 0.0 Thou/mm3 (0.0-0.5); Eosinophils % (Auto) 0 % (0-10); Hematocrit 35.9 % (36.0-46.0); Hemoglobin 10.3 g/dL (12.0-16.0); Immature Granulocytes Auto 0.19 Thou/mm3 (0.00-0.00); Lymphocytes # (Auto) 0.1 Thou/mm3 (1.0-4.8); Lymphocytes % (Auto) 1 % (10-50); Mean Corpuscular HGB Conc 28.7 g/dl (31.0-37.0); Mean Corpuscular Hemoglobin 23.4 pg (25.0-35.0); Mean Corpuscular Volume 82 fL (80-100); Monocytes # (Auto) 0.1 Thou/mm3 (0.0-0.8); Monocytes % (Auto) 0 % (0-12); Neutrophils # (Auto) 24.6 Thou/mm3 (1.8-7.7); Neutrophils % (Auto) 98 % (37-80); Nucleated Red Blood Cell # 0.02 Thou/mm3 (0.00-0.00); Nucleated Red Blood Cell % 0 /100 WBC (0); Platelet Count 910 Thou/mm3 (140-440); RDW Standard Deviation 65.4 fL (36.4-46.3); Red Blood Count 4.40 Miln/mm3 (4.00-5.20); White Blood Count 25.0 Thou/mm3 (3.6-11.0)
[2025-01-02] MEDS: BUDESONIDE RT 0.5 MG/2 ML NEBU INH ×2 (07:14→18:27)
[2025-01-02 07:20] LABS: Alanine Aminotransferase 7 U/L (10-49); Albumin, Serum 3.4 gm/dL (3.4-4.8); Albumin/Globulin Ratio 2.1 (1.2-2.2); Alkaline Phosphatase 73 U/L (46-116); Anion Gap 9 (7-16); Aspartate Amino Transferase 11 U/L (0-34); BUN/Creatinine Ratio 49 Ratio (12-20); Bilirubin,Total 0.5 mg/dL (0.3-1.2); Blood Urea Nitrogen 39 mg/dL (9-23); Calcium 9.9 mg/dL (8.3-10.6); Calcium (Corrected) 10.4 mg/dL (8.5-10.1); Carbon Dioxide 36.5 mMol/L (20.0-31.0); Chloride 103 mMol/L (98-107); Creatinine (Component) 0.8 mg/dL (0.6-1.3); Estimated Creatinine Clearance 54.5 mL/min (>60); Globulin 1.6 gm/dL (2.3-3.5); Glucose 135 mg/dL (74-106); LDH (Lactate Dehydrogenase) 189 U/L (120-246); Magnesium 2.1 mg/dL (1.6-2.6); Osmolality,Calculated 305 (275-295); Phosphorous 4.8 mg/dL (2.4-5.1); Potassium 3.9 mMol/L (3.4-5.1); Sodium 148 mMol/L (136-145); Total Protein 5.0 gm/dL (5.7-8.2); eGFR > 60 See Note
[2025-01-02 07:29] LABS: Uric Acid 3.6 mg/dL (3.1-7.8)
--- NOTE | 2025-01-02 09:14 | ESPR_ITS ---
<Statement entered by Bebeto Robles MD - 01/02/25 15:17> Patient was examined and case was reviewed with team including attending physician. Note reviewed, I agree with most of its contents and agree with the patient's care as documented by Dr. Souza Patient seen today at the bedside found awake, alert, orientedx3. No overnight events reported. Vitals and labs reviewed. Oxygen requirements have tremendously decreased currently on nasal cannula at baseline oxygen of 5 L. Steroid medication is being tapered down at this time. Breathing treatments also de-escalated. If continued improvement patient can likely be discharged the next 24-48 hours. Case discussed with my attending Dr. Ada Robles MD PGY-2 Disclaimer: Despite multiple revisions, due to the dictation software being used, the document bellow may not be free of grammatical errors including phonetic/typographic errors. However, this does not deter from our commitment to providing health care in the patient's best interest in mind. Documentation for date of: 01/02/25 Subjective Subjective Interval history: Patient was seen at bedside this morning. No overnight events. She reported not using her BiPAP during sleep last night. She is currently on nasal cannula at 5 L/min with an FiO2 of 25% and states she is breathing more comfortably. She denies shortness of breath, chest pain, abdominal pain, or dysuria. The patient reports that her last bowel movement was yesterday and that she has started drinking Ensure. She notes that the hematoma on her lower left abdomen is tender only to palpation. Warm compresses may be used as needed for comfort. Plan includes initiating LR 500mL for mild hypernatremia (Na+ 148) noted on this morning's labs. Duonebs will be changed to every 6 hours, guaifenesin adjusted to PRN use, and methylprednisolone will be tapered from 3x to 2x daily. Patient reported back pain and lidocaine patch was ordered. Referral to physical therapy has also been placed. Exam Vital Signs Temp Pulse Resp BP Pulse Ox O2 Del Method O2 Flow Rate 97.0 F 74 25 H 157/72 H 92 L Nasal Cannula 5 01/02/25 08:00 01/02/25 08:00 01/02/25 08:00 01/02/25 08:00 01/02/25 08:00 01/02/25 08:00 01/02/25 08:00 FiO2 25 01/02/25 08:00 Narrative Exam Physical Exam General: Awake and in no acute distress. Conversational and non-toxic appearing. Nasal cannula present. HEENT: Normocephalic, atraumatic. Heart: Regular rate and rhythm, no murmurs. Lungs: Clear to auscultation bilaterally, improved breath sounds, no wheezes or crackles appreciated. No use of accessory respiratory muscles. Abdomen: Soft, nondistended. Tenderness to light and deep palpation on left abdominal. No guarding or rebound tenderness. No tenderness to palpation of right abdominal. Neurologic: Alert and oriented x3, no gross neurological deficit, and patient able to move all 4 extremities. Extremities: No edema. Skin: No rash or ecchymoses. Objective Labs 01/03/25 05:53 01/02/25 05:10 Labs: Laboratory Results - last 24 hr 12/31/24 01/01/25 01/01/25 23:30 11:11 15:30 WBC RBC Hgb Hct MCV MCH MCHC RDW Std Deviation Plt Count Neut % (Auto) Lymph % (Auto) Richardson % (Auto) Eos % (Auto) Baso % (Auto) Neut # (Auto) Lymph # (Auto) Richardson # (Auto) Eos # (Auto) Baso # (Auto) Immature Gran # (Auto) Absolute Nucleated RBC Immature Gran % Nucleated RBC % Sodium Potassium Chloride Carbon Dioxide Anion Gap BUN Creatinine Estim Creat Clear Calc eGFR BUN/Creatinine Ratio Glucose Calculated Osmolality Uric Acid 3.5 Calcium Corrected Calcium Phosphorus Magnesium Total Bilirubin AST ALT Alkaline Phosphatase Lactate Dehydrogenase 170 Total Protein Albumin Globulin Albumin/Globulin Ratio Coccidioides IgM Ab Negative 01/01/25 01/02/25 20:38 05:10 WBC 25.0 H D RBC 4.40 Hgb 10.3 L Hct 35.9 L MCV 82 MCH 23.4 L MCHC 28.7 L RDW Std Deviation 65.4 H Plt Count 910 H D Neut % (Auto) 98 H Lymph % (Auto) 1 L Richardson % (Auto) 0 Eos % (Auto) 0 Baso % (Auto) 0 Neut # (Auto) 24.6 H Lymph # (Auto) 0.1 L Richardson # (Auto) 0.1 Eos # (Auto) 0.0 Baso # (Auto) 0.0 Immature Gran # (Auto) 0.19 H Absolute Nucleated RBC 0.02 H Immature Gran % 1 H Nucleated RBC % 0 Sodium 148 H Potassium 3.9 D Chloride 103 Carbon Dioxide 36.5 H Anion Gap 9 BUN 39 H Creatinine 0.8 Estim Creat Clear Calc 54.5 L eGFR > 60 BUN/Creatinine Ratio 49 H Glucose 135 H Calculated Osmolality 305 H Uric Acid 3.6 3.6 Calcium 9.9 Corrected Calcium 10.4 H Phosphorus 4.8 Magnesium 2.1 Total Bilirubin 0.5 AST 11 ALT 7 L Alkaline Phosphatase 73 Lactate Dehydrogenase 202 189 Total Protein 5.0 L Albumin 3.4 Globulin 1.6 L Albumin/Globulin Ratio 2.1 Coccidioides IgM Ab ABG Interpretation ABG results: 12/27/24 12/27/24 12/28/24 16:52 20:50 09:30 ABG pH 7.33 L 7.30 L 7.35 ABG pCO2 65 H 61 H 53 H ABG pO2 189 H 47 L* D 71 L D ABG HCO3 34 H 30 H 29 H ABG O2 Saturation 100 H 78 L 95 ABG Base Excess 6 H 2 2 VBG pH VBG pCO2 VBG pO2 VBG Base Excess 12/30/24 12/30/24 12/30/24 00:06 03:30 10:00 ABG pH 7.29 L 7.40 D ABG pCO2 77 H* D 60 H D ABG pO2 169 H D 63 L D ABG HCO3 37 H 37 H ABG O2 Saturation 100 H 92 ABG Base Excess 7 H 10 H VBG pH 7.43 VBG pCO2 55 VBG pO2 85 H VBG Base Excess 10 H 12/30/24 17:44 ABG pH 7.44 ABG pCO2 53 H ABG pO2 74 L ABG HCO3 36 H ABG O2 Saturation 96 ABG Base Excess 10 H VBG pH VBG pCO2 VBG pO2 VBG Base Excess Quality Measures Quality Measures none Advance care planning discussed with:: patient and spouse Assessment & Plan Assessment Current Active Medications: Generic Name Dose Route Start Last Admin Trade Name Freq PRN Reason Stop Dose Admin Acetaminophen 650 mg 12/27/24 18:54 Acetaminophen 325 Mg Tablet PO 01/26/25 18:53 Q6H PRN Fever >100.4 Acetaminophen 650 mg 12/27/24 18:54 01/01/25 05:34 Acetaminophen 325 Mg Tablet PO 01/26/25 18:53 650 mg Q6H PRN Administration PAIN SCALE 1-3 (mild Albuterol/Ipratropium 3 ml 12/27/24 18:54 Albuterol/Ipratropium (Duoneb) Rt Lanie 3 Ml Nebu INH 01/26/25 18:53 Q2HR PRN SHORTNESS OF BREATH OR WHEEZE Albuterol/Ipratropium 3 ml 12/27/24 19:00 01/02/25 07:14 Albuterol/Ipratropium (Duoneb) Rt Lanie 3 Ml Nebu INH 01/26/25 18:59 3 ml Q4HRRT AUTUMN Administration Allopurinol 300 mg 12/27/24 19:15 01/01/25 10:12 Allopurinol 100 Mg Tablet PO 01/26/25 19:14 300 mg QDAY AUTUMN Administration Apixaban 5 mg 12/28/24 21:00 01/01/25 21:59 Apixaban 2.5 Mg Tablet PO 01/27/25 20:59 5 mg BID AUTUMN Administration Benzonatate 200 mg 12/30/24 22:00 01/02/25 05:56 Benzonatate 100 Mg Capsule PO 01/29/25 21:59 200 mg Q8HR AUTUMN Administration Protocol Budesonide 0.5 mg 12/31/24 19:00 01/02/25 07:14 Budesonide Rt 0.5 Mg/2 Ml Nebu INH 01/30/25 18:59 0.5 mg BIDRT AUTUMN Administration Diltiazem HCl 120 mg 12/28/24 09:15 01/01/25 10:13 Diltiazem Cd 120 Mg Capcr PO 01/27/25 09:14 120 mg QDAY AUTUMN Administration Docusate Sodium 100 mg 12/28/24 09:00 01/01/25 10:12 Docusate Sod 100 Mg Capsule PO 01/27/25 08:59 100 mg QDAY AUTUMN Administration Protocol Dronedarone 400 mg 12/28/24 10:00 01/01/25 21:58 Dronedarone Hcl 400 Mg Tablet (Non-Formulary) PO 01/27/25 09:59 400 mg BID AUTUMN Administration Guaifenesin/Dextromethorphan 10 ml 12/31/24 21:00 01/01/25 21:59 Guaifenesin/Dm 10 Ml Udc PO 01/30/25 20:59 10 ml BID AUTUMN Administration Protocol Hydroxyurea 2,000 mg 12/30/24 09:00 01/01/25 10:46 Hydroxyurea 500 Mg Capsule PO 01/29/25 08:59 2,000 mg QDAY AUTUMN Administration Protocol Ceftriaxone Sodium/Dextrose 1 gm in 50 mls @ 100 mls/hr 12/28/24 09:08 01/01/25 10:11 Rocephin/D5w 1gm Iv Premix IV 01/04/25 09:07 100 mls/hr QDAY AUTUMN Administration Methylprednisolone Sodium Succinate 40 mg 12/31/24 14:00 01/02/25 05:55 Methylprednisolone Sod Succ 40 Mg Vial IVP 01/07/25 13:59 40 mg TID AUTUMN Administration Ondansetron HCl 4 mg 12/27/24 18:54 Ondansetron Inj 2 Mg/Ml Inj 2 Ml IVP 01/26/25 18:53 Q6H PRN NAUSEA OR VOMITING Protocol Phenyleph/Shark Oil/Min Oil/Petrol 0 gm 12/27/24 21:03 Preparation H Oint 30 Gm Tube OK 01/26/25 21:02 BID PRN HEMORRHOIDS Sennosides 1 tab 01/01/25 11:44 Senna Tablet PO 01/27/25 08:59 QDAY PRN ABDOMINAL CRAMPING Protocol Sodium Chloride 3 ml 12/29/24 23:45 Sodium Chloride Rt Lanie 0.9% 3 Ml Nebu INH 01/28/25 23:44 PRN PRN SOLN Tiotropium [place] 2 puff 12/30/24 20:00 01/01/25 06:41 Tiotropium Br 2.5 Mcg 120 Puff/4 Gm Inhaler INH 01/29/25 19:59 2 puff QDAY AUTUMN Administration Plan 79-year-old female with severe COPD on 3?6 L home O2, 50-mbna-ryrc smoking history, hypertension, atrial fibrillation, polycythemia, and thrombocytosis with JAK2 mutation presenting with acute on chronic hypoxic and hypercapnic respiratory failure likely due to COPD exacerbation requiring high flow nasal cannula and bipap. #Acute on chronic hypoxic and hypercapnic respiratory failure (improving) #COPD exacerbation Met 2/4 SIRS criteria: RR 30, WBC 26.1. COPD exacerbation vs PE vs CHF ABG on admission: pH 7.33, pCO2 65, pO2 189, HCO3 34 ? consistent with chronic CO2 retention with acute decompensation. CTA chest negative for pulmonary embolism, no evidence of pneumonia or pulmonary edema. Noted pulmonary artery hypertension. D-dimer <250. BNP 198. CTA other findings: Pulmonary artery hypertension, No pneumonia or pulmonary edema. On admission, patient requiring 6 L/min NC (FiO2 45%) to maintain SpO2 92%. Received Methylprednisolone and antibitoics (Ceftriaxone 1 gram x1, Azithromycin 500 mg x1) in ED. CXR (12/29): Basilar bronchitis pattern. VBG (12/30): pH 7.43, pCO2 55. Plan: - Continue supplemental O2, target SpO2 88?92% to avoid worsening hypercapnia. - Continue nasal cannula. Patient uses 3-6 L of O2 at home. - Duoneb, Budesonide Q6H - Tessalon pearls Q6H - Guaifenesin syrup PRN - Start to taper IV Methylprednisolone 40 mg BID. Continue to monitor for steroid-induced psychosis. - Continue Ceftriaxone 1 gram (12/28 -01/03). - Finished Azithromycin 500 mg (12/28 - 12/31). - Resumed patient's home medication Eliquis, dronedarone, and diltiazem per cardio recs. - Keep magnesium > 2 and potassium >4 at all times as dronedarone can lead to increased QT. - Reassess ABG in 2?4 hrs if respiratory distress persists. - Start using Incentive spirometry to improve respiratory function. - Physical therapy referral placed. #Mild Hypernatremia Sodium 148 Plan - Start LR 500 mL. - Recheck sodium levels after fluids. #Pulmonary Hypertension Echo (12/27): Normal LV size and function. Diastolic dysfunction stage I. Estimated EF 55-60%. Normal RV size and function. Estimated RVSP moderately elevated at around of 40 to 50 mmHg. Mild MR and TR. Mild aortic valve sclerosis without stenosis. Moderately dilated LA. IVC Mildly dilated measuring 2.1cm. Plan: - Fluid restriction 1800 mL. #Polycythemia vera Platelet count peaked at 1281. Known diagnosis. JAK2-positive. Followed by Dr. Trinidad. History noteable for multiple prior therapeutic phlebotomies. Currently on hydroxyurea 500 mg daily at home. Plan: - Continue hydroxyurea to [address] Trinidad's recommendation. - Continue with LDH and uric acid checks Q8H. - Start allopurinol 300 mg daily for hyperuricemia prophylaxis. - Monitor CBC daily to assess treatment response. - Maintain adequate hydration to reduce thrombosis risk. - Dr. Trinidad aware of admission. - Pending peripheral blood smear and flow cytometry. #RUQ Abdominal Pain (resolved) #Hematoma on left abdominal RUQ pain developed on 12/31, described as tender to palpation but with a negative Georges?s sign. Patient had one small loose stool yesterday. LFTs, bilirubin, lactic acid, and uric acid were all within normal limits. Abdominal ultrasound revealed cholelithiasis without signs of cholecystitis. RUQ pain has since resolved. Differential included possible hepatic vein thrombosis in the setting of polycythemia vera. Left abdominal pain also began on 12/31. Patient reports intermittent, sharp pain that has improved since onset. Pain rated 10/10 yesterday, now 8/10. She has had 3 bowel movements since yesterday. Denies nausea, vomiting, or dysuria. CT abd/pelvis (01/01): soft tissue mass in the subcutaneous tissue left lateral abdominal wall, 7.6 x 4.4 x 9.5 cm, most consistent with hematoma. Plan: - Warm compresses to the left abdominal hematoma if necessary for pain relief. - Continue to monitor clinical symptoms. - Maintain bowel regimen (Senna PRN, Colace scheduled). - Ensure added to diet. - Reassess if symptoms worsen or do not improve #Leukocytosis (improving) WBC peaked at 36.7. Procalcitonin 0.06 UA: negative. Steroid-induced versus polycythemia vera. Plan - taper methylprednisolone as above - Trend CBC daily. #Electrolyte abnormalities #Hypokalemia (resolved) #Hypermagnesemia (resolved) Mg 2.8. Likely iatrogenic from IV mag administered by EMS en route to hospital. Plan: - Keep magnesium > 2 and potassium >4 at all times as dronedarone can lead to increased QT. - Recheck electrolytes in AM labs. Health Maintenance Disposition: AHRF mgmt DVT prophylaxis: Heparin GI prophylaxis: none Diet: Low sodium Lines: Peripheral IV CODE STATUS: Limited Code Patient was discussed with the attending, Dr. Caballero , and senior resident , Tan. Marika Souza DO PGY-1 Attending Provider Attestation/Addendum Lance, Yakelin Caballero DO, attest that I was physically present for the bartholomew portions of the service and evaluated the patient with the resident and I reviewed and discussed the case with the resident and agree with the resident's findings and plans of care as documented above Patient seen and evaluated this AM. She is currently on 5L/NC. Patient reports pain in her back due to the bed. Breath sounds in b/l lung jackson are much improved. explained findings of CT scan to patient regarding left abdominal wall hematoma. Will monitor closely as patient is on eliquis. She reports some soreness in the area. Will place warm compress. Will start tapering steroids and decrease interval of breathing treatments to q6h as respiratory status is improving. PT ordered as well. Will place lidocaine patch for back pain. Sodium uptrending, patient appears dry. Encouraged oral intake.
[2025-01-02] MEDS: cefTRIAXone/D5w 1gm IV premix 1 GM/50 ML BAG IV (09:37)
[2025-01-02] MEDS: APIXABAN 2.5 MG TABLET 5 MG PO ×2 (09:37→22:46)
[2025-01-02] MEDS: HYDROXYUREA 500 MG CAPSULE 2000 MG PO (09:37)
[2025-01-02] MEDS: guaiFENesin/DM 10 ML UDC PO (09:37)
[2025-01-02] MEDS: DOCUSATE SOD 100 MG CAPSULE PO (09:38)
[2025-01-02] MEDS: DILTIAZEM CD 120 MG CAPCR PO (09:38)
[2025-01-02] MEDS: DRONEDARONE HCL 400 MG PO ×2 (09:38→23:58)
[2025-01-02] MEDS: RINGERS LACTATED 1000 ML 1,000 ML 75 ML IV (09:58)
[2025-01-02] MEDS: LIDOCAINE 5% 1 PATCH TOP (11:24)
--- NOTE | 2025-01-02 14:00 | PC.SS ---
Rounding Note: Physical therapy is pending. Patient receiving steroids.
--- NOTE | 2025-01-02 20:21 | ESPR_ITS ---
Documentation for date of: 01/02/25 Subjective Subjective Interval history: The patient is evaluated at the bedside, currently awake and alert, resting comfortably in the bed, saturating 94% on 2 L nasal cannula oxygen. Physical exam shows improved air entry bilaterally. Patient denies any acute respiratory discomfort. Currently continued on ceftriaxone. Continue to IV steroids, methylprednisone 40 mg IV twice daily, continued nebulizations. Recommend steroid taper on discharge when patient is clinically stable for discharge. Exam Vital Signs Temp Pulse Resp BP Pulse Ox O2 Del Method O2 Flow Rate 97.5 F 73 20 132/61 H 100 Nasal Cannula 2 01/02/25 16:00 01/02/25 18:31 01/02/25 18:31 01/02/25 16:00 01/02/25 18:31 01/02/25 16:00 01/02/25 18:31 FiO2 25 01/02/25 16:00 Narrative Exam Physical Exam General: Awake and in no acute distress. Conversational and non-toxic appearing. Nasal cannula present. HEENT: Normocephalic, atraumatic. Heart: Regular rate and rhythm, no murmurs. Lungs: Clear to auscultation bilaterally, improved breath sounds, no wheezes or crackles appreciated. No use of accessory respiratory muscles. Abdomen: Soft, nondistended. Tenderness to light and deep palpation on left abdominal. No guarding or rebound tenderness. No tenderness to palpation of right abdominal. Neurologic: Alert and oriented x3, no gross neurological deficit, and patient able to move all 4 extremities. Extremities: No edema. Skin: No rash or ecchymoses. Objective Labs 01/02/25 05:10 01/02/25 05:10 Labs: Laboratory Results - last 24 hr 01/01/25 01/02/25 20:38 05:10 WBC 25.0 H D RBC 4.40 Hgb 10.3 L Hct 35.9 L MCV 82 MCH 23.4 L MCHC 28.7 L RDW Std Deviation 65.4 H Plt Count 910 H D Neut % (Auto) 98 H Lymph % (Auto) 1 L [place] % (Auto) 0 Eos % (Auto) 0 Baso % (Auto) 0 Neut # (Auto) 24.6 H Lymph # (Auto) 0.1 L [place] # (Auto) 0.1 Eos # (Auto) 0.0 Baso # (Auto) 0.0 Immature Gran # (Auto) 0.19 H Absolute Nucleated RBC 0.02 H Immature Gran % 1 H Nucleated RBC % 0 Sodium 148 H Potassium 3.9 D Chloride 103 Carbon Dioxide 36.5 H Anion Gap 9 BUN 39 H Creatinine 0.8 Estim Creat Clear Calc 54.5 L eGFR > 60 BUN/Creatinine Ratio 49 H Glucose 135 H Calculated Osmolality 305 H Uric Acid 3.6 3.6 Calcium 9.9 Corrected Calcium 10.4 H Phosphorus 4.8 Magnesium 2.1 Total Bilirubin 0.5 AST 11 ALT 7 L Alkaline Phosphatase 73 Lactate Dehydrogenase 202 189 Total Protein 5.0 L Albumin 3.4 Globulin 1.6 L Albumin/Globulin Ratio 2.1 ABG Interpretation ABG results: 12/27/24 12/27/24 12/28/24 16:52 20:50 09:30 ABG pH 7.33 L 7.30 L 7.35 ABG pCO2 65 H 61 H 53 H ABG pO2 189 H 47 L* D 71 L D ABG HCO3 34 H 30 H 29 H ABG O2 Saturation 100 H 78 L 95 ABG Base Excess 6 H 2 2 VBG pH VBG pCO2 VBG pO2 VBG Base Excess 12/30/24 12/30/24 12/30/24 00:06 03:30 10:00 ABG pH 7.29 L 7.40 D ABG pCO2 77 H* D 60 H D ABG pO2 169 H D 63 L D ABG HCO3 37 H 37 H ABG O2 Saturation 100 H 92 ABG Base Excess 7 H 10 H VBG pH 7.43 VBG pCO2 55 VBG pO2 85 H VBG Base Excess 10 H 12/30/24 17:44 ABG pH 7.44 ABG pCO2 53 H ABG pO2 74 L ABG HCO3 36 H ABG O2 Saturation 96 ABG Base Excess 10 H VBG pH VBG pCO2 VBG pO2 VBG Base Excess Quality Measures Quality Measures none Advance care planning discussed with:: patient Assessment & Plan Assessment Current Active Medications: Generic Name Dose Route Start Last Admin Trade Name Freq PRN Reason Stop Dose Admin Acetaminophen 650 mg 12/27/24 18:54 Acetaminophen 325 Mg Tablet PO 01/26/25 18:53 Q6H PRN Fever >100.4 Acetaminophen 650 mg 12/27/24 18:54 01/01/25 05:34 Acetaminophen 325 Mg Tablet PO 01/26/25 18:53 650 mg Q6H PRN Administration PAIN SCALE 1-3 (mild Albuterol/Ipratropium 3 ml 12/27/24 18:54 Albuterol/Ipratropium (Duoneb) Rt Lanie 3 Ml Nebu INH 01/26/25 18:53 Q2HR PRN SHORTNESS OF BREATH OR WHEEZE Albuterol/Ipratropium 3 ml 01/02/25 13:00 01/02/25 18:27 Albuterol/Ipratropium (Duoneb) Rt Lanie 3 Ml Nebu INH 02/01/25 12:59 3 ml Q6HRRT AUTUMN Administration Allopurinol 300 mg 12/27/24 19:15 01/02/25 09:37 Allopurinol 100 Mg Tablet PO 01/26/25 19:14 300 mg QDAY AUTUMN Administration Apixaban 5 mg 12/28/24 21:00 01/02/25 09:37 Apixaban 2.5 Mg Tablet PO 01/27/25 20:59 5 mg BID AUTUMN Administration Benzonatate 200 mg 12/30/24 22:00 01/02/25 13:07 Benzonatate 100 Mg Capsule PO 01/29/25 21:59 200 mg Q8HR AUTUMN Administration Protocol Budesonide 0.5 mg 12/31/24 19:00 01/02/25 18:27 Budesonide Rt 0.5 Mg/2 Ml Nebu INH 01/30/25 18:59 0.5 mg BIDRT AUTUMN Administration Diltiazem HCl 120 mg 12/28/24 09:15 01/02/25 09:38 Diltiazem Cd 120 Mg Capcr PO 01/27/25 09:14 120 mg QDAY AUTUMN Administration Docusate Sodium 100 mg 12/28/24 09:00 01/02/25 09:38 Docusate Sod 100 Mg Capsule PO 01/27/25 08:59 100 mg QDAY AUTUMN Administration Protocol Dronedarone 400 mg 12/28/24 10:00 01/02/25 09:38 Dronedarone Hcl 400 Mg Tablet (Non-Formulary) PO 01/27/25 09:59 400 mg BID AUTUMN Administration Guaifenesin/Dextromethorphan 10 ml 01/02/25 09:26 01/02/25 09:37 Guaifenesin/Dm 10 Ml Udc PO 02/01/25 09:25 10 ml Q6H PRN Administration COUGH Protocol Hydroxyurea 2,000 mg 12/30/24 09:00 01/02/25 09:37 Hydroxyurea 500 Mg Capsule PO 01/29/25 08:59 2,000 mg QDAY AUTUMN Administration Protocol Ceftriaxone Sodium/Dextrose 1 gm in 50 mls @ 100 mls/hr 12/28/24 09:08 01/02/25 09:37 Rocephin/D5w 1gm Iv Premix IV 01/04/25 09:07 100 mls/hr QDAY AUTUMN Administration Methylprednisolone Sodium Succinate 40 mg 01/02/25 21:00 Methylprednisolone Sod Succ 40 Mg Vial IVP 01/09/25 20:59 BID AUTUMN Ondansetron HCl 4 mg 12/27/24 18:54 Ondansetron Inj 2 Mg/Ml Inj 2 Ml IVP 01/26/25 18:53 Q6H PRN NAUSEA OR VOMITING Protocol Phenyleph/Shark Oil/Min Oil/Petrol 0 gm 12/27/24 21:03 Preparation H Oint 30 Gm Tube MT 01/26/25 21:02 BID PRN HEMORRHOIDS Sennosides 1 tab 01/01/25 11:44 Senna Tablet PO 01/27/25 08:59 QDAY PRN ABDOMINAL CRAMPING Protocol Sodium Chloride 3 ml 12/29/24 23:45 Sodium Chloride Rt Lanie 0.9% 3 Ml Nebu INH 01/28/25 23:44 PRN PRN SOLN Tiotropium [place] 2 puff 12/30/24 20:00 01/02/25 09:39 Tiotropium Br 2.5 Mcg 120 Puff/4 Gm Inhaler INH 01/29/25 19:59 Not Given QDAY AUTUMN Plan Patient is an 79-year-old female with a past medical history of severe COPD on 3-5 L home oxygen, HTN, atrial fibrillation, polycythemia and thrombocytosis with JAK2 mutation, followed by Dr. Trinidad, pulmonary hypertension, history of smoking 40 to 50 pack year, who presented to the emergency room complaining of worsening shortness of breath. Patient was found to have acute hypoxic and hypercapnic respiratory failure secondary to severe COPD , she was initially started on BiPAP, ABG showed respiratory acidosis. Later patient was transitioned to high flow nasal cannula oxygen. Problems: 1. Acute on chronic hypoxic/hypercapnic respiratory failure?improving 2. Acute severe COPD?resolving 3. Thrombocytopenia 4. Polycythemia 5. Sinus arrhythmia 6. RUQ Abdominal Pain- r/o cholecystitis 7. Ruled out pulmonary embolism 8. History of pulmonary hypertension 9. History of hypertension 10. History of paroxysmal A-fib, now converted to sinus rhythm The patient has history of severe COPD and is on 3 to 5 L nasal cannula oxygen, but started becoming more short of breath over the past few days, denies any sick contacts, or fever, she reported access to oxygen, but said that she ran out of inhalers. Patient reported she has not seen her primary care doctor in over a year. At the time of evaluation, patient was seen on high flow nasal cannula oxygen at 25 L, 45% FiO2, patient was wheezing excessively and showing signs of respiratory distress. Also noted respiratory acidosis on initial ABG, recommended using BiPAP if continued increased work of breathing. Patient had received 1 dose of Solu-Medrol 125 mg in the ED. The patient is started on ceftriaxone and azithromycin, though patient is taking dronedarone for atrial fibrillation which can prolong QT, ordered repeat EKG in the morning to monitor QT. EKG showed sinus rhythm, QT362, QTc 431 on 12/28/2024, recommend continued monitoring of QT interval. The patient has history of JAK2 kinase mutation, polycythemia and thrombocytosis, followed by cancer treatment center Dr. Trinidad, started on hydroxyurea 2000 mg daily, patient has persistent thrombocytosis, due to concern for acute hypoxic respiratory failure, and thrombocytosis there was concern for pulmonary embolism, but CT angiogram was done which ruled out pulm embolism. Patient was started on heparin drip by primary team as empiric treatment, Which is now discontinued. Recommend to resume patient's home medication Eliquis. Echocardiogram had showed diastolic dysfunction stage I, EF 55 to 60%, mild MR and TR, moderately dilated LA, normal LV and RV size and function.Can give IV fluids if needed due to thrombocytosis. CXR was negative for Pneumonia, Reported as bronchitis pattern, currently on antibiotics were initially treated with azithromycin and ceftriaxone, currently on day 4 of azithromycin, recommended to continue monitoring QTc with daily EKGs. The patient has persistent prolonging of her QT interval, given that patient is on QT prolonging medications a longer QTc is acceptable, continue telemetry monitoring for arrhythmias, keep magnesium more than 2 and potassium more than 4 at all times. EKG shows sinus arrhythmia, pharmacological conversion to sinus rhythm achieved by Multaq, likely has paroxysmal atrial fibrillation, recommend to continue with diltiazem and Multaq and anticoagulation with Eliquis. 01/01/2025 patient reported improvement in her breathing but complained of abdominal discomfort and distention. Patient has not had a bowel movement in over 3 days. An abdominal ultrasound done yesterday showed cholelithiasis but negative for cholecystitis. Multiple renal cyst largest 7.4 cm in the right kidney. Normal Liver function tests and T bilirubin. Currently saturating 93% on HFNC 30% FiO2, continue weaning down oxygen as tolerated. The patient is wearing a diaper but reported peeing atleast 3 times a day, no evidence of peripheral edema. CBC this morning shows persistent leukocytosis, WBC 31.1, hemoglobin 9.4, platelets 1070, sodium 146 potassium 4.5 carbon dioxide 33.9 BUN 28 creatinine 0.8 magnesium 2.0 Patient is continued on IV antibiotics azithromycin and ceftriaxone, DuoNebs every 4 hours, budesonide twice daily, methylprednisone 40 mg 3 times daily, tiotropium 2.5 daily. Continued on hydroxyurea, continued on apixaban, Multaq and Diltiazem. 01/02/2025 noted improvement in patient's respiratory distress, currently saturating well on 2 L nasal cannula oxygen, physical exam shows improved air entry bilaterally. Patient denies any acute respiratory discomfort. Currently continued on ceftriaxone. Continue to IV steroids, methylprednisone 40 mg IV twice daily, continued nebulizations. Recommend steroid taper on discharge when patient is clinically stable for discharge. Patient would also benefit from LABA/LAMA and ICS and optimizing COPD treatment on discharge. Recommendations: ? Remain to continue IV steroids during hospital stay and recommend to prescribe per oral steroid taper when pt ready for discharge. ? Recommend Tessalon 200 mg every 8 hour ? Recommend LABA, LAMA and ICS to patient's treatment regimen to be continued on discharge. ? CT angiogram negative for pulmonary embolism, resume patient's home medication Eliquis. ? Resume home medications dronedarone/Multaq and diltiazem. The pateint is currently in sinus rhythm with sinus arrhythmia. ? Recommend to avoid hypomagnesemia and hypokalemia as patient is on multiple QT prolonging medications. Keep magnesium more than 2 and potassium more than 4 at all times. ? Consider BiPAP if indicated for increased work of breathing or severe hypercapnia. ? Agree with deliverer pharmacy/oncologist recommending continuing patient's hydroxyurea. ? Chest physiotherapy as needed. Rest of the management deferred to primary team. Thank you for cardiology consultation. We appreciate the opportunity to participate in this patient's care. Will continue to follow-up on this patient This case was discussed with bulldozer/loader/compactor/scraper, Dr. Bhatt. Ofelai Canela MD PG3 Attending Provider Attestation/Addendum I have personally seen and examined the patient separately on the above date of service and discussed the plan of care with the resident. I reviewed the resident consultation progress note and agree with the resident findings and plan in the note above and have also edited the documentation to reflect my findings and plan. Inderjit Bhatt M.D. Interventional Cardiology
[2025-01-02 20:59] LABS: LDH (Lactate Dehydrogenase) 183 U/L (120-246)
[2025-01-02 23:56] LABS: Uric Acid 3.2 mg/dL (3.1-7.8)
[2025-01-03] VITALS (15 sets, daily range): BP systolic 131–153; BP diastolic 66–90; PULSE 68–112; RESP 17–24; TEMP 35.9–36.4; O2SAT 97–100; BMI 25.9
[2025-01-03] MEDS: ALBUTEROL/IPRATROPIUM (Duoneb) RT SOL 3 ML NEBU INH ×4 (00:45→18:02)
[2025-01-03] MEDS: BENZONATATE 100 MG CAPSULE 200 MG PO ×3 (05:50→21:06)
[2025-01-03] MEDS: BUDESONIDE RT 0.5 MG/2 ML NEBU INH ×2 (06:12→18:02)
[2025-01-03 06:38] LABS: Basophils # (Auto) 0.0 Thou/mm3 (0.0-0.2); Basophils % (Auto) 0 % (0-2.5); Eosinophils # (Auto) 0.0 Thou/mm3 (0.0-0.5); Eosinophils % (Auto) 0 % (0-10); Hematocrit 36.1 % (36.0-46.0); Hemoglobin 10.2 g/dL (12.0-16.0); Immature Granulocytes Auto 0.30 Thou/mm3 (0.00-0.00); Lymphocytes # (Auto) 0.1 Thou/mm3 (1.0-4.8); Lymphocytes % (Auto) 1 % (10-50); Mean Corpuscular HGB Conc 28.3 g/dl (31.0-37.0); Mean Corpuscular Hemoglobin 23.2 pg (25.0-35.0); Mean Corpuscular Volume 82 fL (80-100); Monocytes # (Auto) 0.1 Thou/mm3 (0.0-0.8); Monocytes % (Auto) 0 % (0-12); Neutrophils # (Auto) 17.7 Thou/mm3 (1.8-7.7); Neutrophils % (Auto) 97 % (37-80); Nucleated Red Blood Cell # 0.02 Thou/mm3 (0.00-0.00); Nucleated Red Blood Cell % 0 /100 WBC (0); Platelet Count 746 Thou/mm3 (140-440); RDW Standard Deviation 64.7 fL (36.4-46.3); Red Blood Count 4.40 Miln/mm3 (4.00-5.20); White Blood Count 18.3 Thou/mm3 (3.6-11.0)
[2025-01-03 07:22] LABS: Alanine Aminotransferase < 7 U/L (10-49); Albumin, Serum 3.6 gm/dL (3.4-4.8); Albumin/Globulin Ratio 2.1 (1.2-2.2); Alkaline Phosphatase 67 U/L (46-116); Anion Gap 9 (7-16); Aspartate Amino Transferase 12 U/L (0-34); BUN/Creatinine Ratio 46 Ratio (12-20); Bilirubin,Total 0.6 mg/dL (0.3-1.2); Blood Urea Nitrogen 32 mg/dL (9-23); Calcium 10.2 mg/dL (8.3-10.6); Calcium (Corrected) 10.5 mg/dL (8.5-10.1); Carbon Dioxide 35.7 mMol/L (20.0-31.0); Chloride 104 mMol/L (98-107); Creatinine (Component) 0.7 mg/dL (0.6-1.3); Estimated Creatinine Clearance 61.1 mL/min (>60); Globulin 1.7 gm/dL (2.3-3.5); Glucose 121 mg/dL (74-106); Magnesium 2.0 mg/dL (1.6-2.6); Osmolality,Calculated 304 (275-295); Phosphorous 4.2 mg/dL (2.4-5.1); Potassium 4.6 mMol/L (3.4-5.1); Sodium 149 mMol/L (136-145); Total Protein 5.3 gm/dL (5.7-8.2); eGFR > 60 See Note
--- NOTE | 2025-01-03 08:20 | ESPR_ITS ---
Documentation for date of: 01/03/25 Subjective Subjective Interval history: Patient is evaluated bedside, in no acute respiratory distress. Saturating well at 2 L nasal cannula oxygen. Of note, noted purpleish discoloration on patient's left flank, consistent with ecchymosis. Primary team concern for hematoma, withheld Eliquis. The area is not exquisitely tender, still complaining of right upper quadrant tenderness, but previous ultrasound imaging of RUQ was negative for cholecystitis. The patient does have underlying dementia, as she is not consistent in reporting her symptoms or her daily bowel movements., Patient's is present at bedside who confirmed that patient does have forgetfulness and possible dementia. Exam Vital Signs Temp Pulse Resp BP Pulse Ox O2 Del Method O2 Flow Rate 97.2 F 75 21 H 140/79 H 100 Nasal Cannula 2 01/03/25 04:00 01/03/25 06:13 01/03/25 06:13 01/03/25 04:00 01/03/25 06:13 01/03/25 04:00 01/03/25 06:13 FiO2 25 01/02/25 16:00 Narrative Exam Physical Exam General: Awake and in no acute distress. Conversational and non-toxic appearing. Nasal cannula present. HEENT: Normocephalic, atraumatic. Heart: Regular rate and rhythm, no murmurs. Lungs: Clear to auscultation bilaterally, improved breath sounds, no wheezes or crackles appreciated. No use of accessory respiratory muscles. Abdomen: Soft, nondistended. Tenderness to light and deep palpation on left abdominal. No guarding or rebound tenderness. No tenderness to palpation of right abdominal. Neurologic: Alert and oriented x3, no gross neurological deficit, and patient able to move all 4 extremities. Extremities: No edema. Skin: Noted large patch of left flank, consistent with ecchymosis, purplish discoloration. Slightly tender. Objective Labs 01/04/25 05:39 01/04/25 05:39 Labs: Laboratory Results - last 24 hr 01/02/25 01/03/25 20:15 05:53 WBC 18.3 H D RBC 4.40 Hgb 10.2 L Hct 36.1 MCV 82 MCH 23.2 L MCHC 28.3 L RDW Std Deviation 64.7 H Plt Count 746 H D Neut % (Auto) 97 H Lymph % (Auto) 1 L Stephens % (Auto) 0 Eos % (Auto) 0 Baso % (Auto) 0 Neut # (Auto) 17.7 H Lymph # (Auto) 0.1 L Stephens # (Auto) 0.1 Eos # (Auto) 0.0 Baso # (Auto) 0.0 Immature Gran # (Auto) 0.30 H Absolute Nucleated RBC 0.02 H Immature Gran % 2 H Nucleated RBC % 0 Sodium 149 H Potassium 4.6 D Chloride 104 Carbon Dioxide 35.7 H Anion Gap 9 BUN 32 H Creatinine 0.7 Estim Creat Clear Calc 61.1 eGFR > 60 BUN/Creatinine Ratio 46 H Glucose 121 H Calculated Osmolality 304 H Uric Acid 3.2 Calcium 10.2 Corrected Calcium 10.5 H Phosphorus 4.2 Magnesium 2.0 Total Bilirubin 0.6 AST 12 ALT < 7 L Alkaline Phosphatase 67 Lactate Dehydrogenase 183 Total Protein 5.3 L Albumin 3.6 Globulin 1.7 L Albumin/Globulin Ratio 2.1 ABG Interpretation ABG results: 12/27/24 12/27/24 12/28/24 16:52 20:50 09:30 ABG pH 7.33 L 7.30 L 7.35 ABG pCO2 65 H 61 H 53 H ABG pO2 189 H 47 L* D 71 L D ABG HCO3 34 H 30 H 29 H ABG O2 Saturation 100 H 78 L 95 ABG Base Excess 6 H 2 2 VBG pH VBG pCO2 VBG pO2 VBG Base Excess 12/30/24 12/30/24 12/30/24 00:06 03:30 10:00 ABG pH 7.29 L 7.40 D ABG pCO2 77 H* D 60 H D ABG pO2 169 H D 63 L D ABG HCO3 37 H 37 H ABG O2 Saturation 100 H 92 ABG Base Excess 7 H 10 H VBG pH 7.43 VBG pCO2 55 VBG pO2 85 H VBG Base Excess 10 H 12/30/24 17:44 ABG pH 7.44 ABG pCO2 53 H ABG pO2 74 L ABG HCO3 36 H ABG O2 Saturation 96 ABG Base Excess 10 H VBG pH VBG pCO2 VBG pO2 VBG Base Excess Quality Measures Quality Measures none Advance care planning discussed with:: patient Assessment & Plan Assessment Current Active Medications: Generic Name Dose Route Start Last Admin Trade Name Freq PRN Reason Stop Dose Admin Acetaminophen 650 mg 12/27/24 18:54 Acetaminophen 325 Mg Tablet PO 01/26/25 18:53 Q6H PRN Fever >100.4 Acetaminophen 650 mg 12/27/24 18:54 01/01/25 05:34 Acetaminophen 325 Mg Tablet PO 01/26/25 18:53 650 mg Q6H PRN Administration PAIN SCALE 1-3 (mild Albuterol/Ipratropium 3 ml 12/27/24 18:54 Albuterol/Ipratropium (Duoneb) Rt Lanie 3 Ml Nebu INH 01/26/25 18:53 Q2HR PRN SHORTNESS OF BREATH OR WHEEZE Albuterol/Ipratropium 3 ml 01/02/25 13:00 01/03/25 06:12 Albuterol/Ipratropium (Duoneb) Rt Lanie 3 Ml Nebu INH 02/01/25 12:59 3 ml Q6HRRT AUTUMN Administration Allopurinol 300 mg 12/27/24 19:15 01/02/25 09:37 Allopurinol 100 Mg Tablet PO 01/26/25 19:14 300 mg QDAY AUTUMN Administration Apixaban 5 mg 12/28/24 21:00 01/02/25 22:46 Apixaban 2.5 Mg Tablet PO 01/27/25 20:59 5 mg BID AUTUMN Administration Benzonatate 200 mg 12/30/24 22:00 01/03/25 05:50 Benzonatate 100 Mg Capsule PO 01/29/25 21:59 200 mg Q8HR AUTUMN Administration Protocol Budesonide 0.5 mg 12/31/24 19:00 01/03/25 06:12 Budesonide Rt 0.5 Mg/2 Ml Nebu INH 01/30/25 18:59 0.5 mg BIDRT AUTUMN Administration Diltiazem HCl 120 mg 12/28/24 09:15 01/02/25 09:38 Diltiazem Cd 120 Mg Capcr PO 01/27/25 09:14 120 mg QDAY AUTUMN Administration Docusate Sodium 100 mg 12/28/24 09:00 01/02/25 09:38 Docusate Sod 100 Mg Capsule PO 01/27/25 08:59 100 mg QDAY AUTUMN Administration Protocol Dronedarone 400 mg 12/28/24 10:00 01/02/25 23:58 Dronedarone Hcl 400 Mg Tablet (Non-Formulary) PO 01/27/25 09:59 400 mg BID AUTUMN Administration Guaifenesin/Dextromethorphan 10 ml 01/02/25 09:26 01/02/25 09:37 Guaifenesin/Dm 10 Ml Udc PO 02/01/25 09:25 10 ml Q6H PRN Administration COUGH Protocol Hydroxyurea 2,000 mg 12/30/24 09:00 01/02/25 09:37 Hydroxyurea 500 Mg Capsule PO 01/29/25 08:59 2,000 mg QDAY AUTUMN Administration Protocol Ceftriaxone Sodium/Dextrose 1 gm in 50 mls @ 100 mls/hr 12/28/24 09:08 01/02/25 09:37 Rocephin/D5w 1gm Iv Premix IV 01/04/25 09:07 100 mls/hr QDAY AUTUMN Administration Methylprednisolone Sodium Succinate 40 mg 01/02/25 21:00 01/02/25 22:46 Methylprednisolone Sod Succ 40 Mg Vial IVP 01/09/25 20:59 40 mg BID AUTUMN Administration Ondansetron HCl 4 mg 12/27/24 18:54 Ondansetron Inj 2 Mg/Ml Inj 2 Ml IVP 01/26/25 18:53 Q6H PRN NAUSEA OR VOMITING Protocol Phenyleph/Shark Oil/Min Oil/Petrol 0 gm 12/27/24 21:03 Preparation H Oint 30 Gm Tube ME 01/26/25 21:02 BID PRN HEMORRHOIDS Sennosides 1 tab 01/01/25 11:44 Senna Tablet PO 01/27/25 08:59 QDAY PRN ABDOMINAL CRAMPING Protocol Sodium Chloride 3 ml 12/29/24 23:45 Sodium Chloride Rt Lanie 0.9% 3 Ml Nebu INH 01/28/25 23:44 PRN PRN SOLN Tiotropium [place] 2 puff 12/30/24 20:00 01/02/25 09:39 Tiotropium Br 2.5 Mcg 120 Puff/4 Gm Inhaler INH 01/29/25 19:59 Not Given QDAY AUTUMN Plan Patient is an 79-year-old female with a past medical history of severe COPD on 3-5 L home oxygen, HTN, atrial fibrillation, polycythemia and thrombocytosis with JAK2 mutation, followed by Dr. Trinidad, pulmonary hypertension, history of smoking 40 to 50 pack year, who presented to the emergency room complaining of worsening shortness of breath. Patient was found to have acute hypoxic and hypercapnic respiratory failure secondary to severe COPD , she was initially started on BiPAP, ABG showed respiratory acidosis. Later patient was transitioned to high flow nasal cannula oxygen. Problems: 1. Acute on chronic hypoxic/hypercapnic respiratory failure?improving 2. Acute severe COPD?resolving 3. Thrombocytopenia 4. Polycythemia 5. Sinus arrhythmia 6. RUQ Abdominal Pain- r/o cholecystitis 7. Ruled out pulmonary embolism 8. History of pulmonary hypertension 9. History of hypertension 10. History of paroxysmal A-fib, now converted to sinus rhythm The patient has history of severe COPD and is on 3 to 5 L nasal cannula oxygen, but started becoming more short of breath over the past few days, denies any sick contacts, or fever, she reported access to oxygen, but said that she ran out of inhalers. Patient reported she has not seen her primary care doctor in over a year. At the time of evaluation, patient was seen on high flow nasal cannula oxygen at 25 L, 45% FiO2, patient was wheezing excessively and showing signs of respiratory distress. Also noted respiratory acidosis on initial ABG, recommended using BiPAP if continued increased work of breathing. Patient had received 1 dose of Solu-Medrol 125 mg in the ED. The patient is started on ceftriaxone and azithromycin, though patient is taking dronedarone for atrial fibrillation which can prolong QT, ordered repeat EKG in the morning to monitor QT. EKG showed sinus rhythm, QT362, QTc 431 on 12/28/2024, recommend continued monitoring of QT interval. The patient has history of JAK2 kinase mutation, polycythemia and thrombocytosis, followed by cancer treatment center Dr. Trinidad, started on hydroxyurea 2000 mg daily, patient has persistent thrombocytosis, due to concern for acute hypoxic respiratory failure, and thrombocytosis there was concern for pulmonary embolism, but CT angiogram was done which ruled out pulm embolism. Patient was started on heparin drip by primary team as empiric treatment, Which is now discontinued. Recommend to resume patient's home medication Eliquis. Echocardiogram had showed diastolic dysfunction stage I, EF 55 to 60%, mild MR and TR, moderately dilated LA, normal LV and RV size and function.Can give IV fluids if needed due to thrombocytosis. CXR was negative for Pneumonia, Reported as bronchitis pattern, currently on antibiotics were initially treated with azithromycin and ceftriaxone, currently on day 4 of azithromycin, recommended to continue monitoring QTc with daily EKGs. The patient has persistent prolonging of her QT interval, given that patient is on QT prolonging medications a longer QTc is acceptable, continue telemetry monitoring for arrhythmias, keep magnesium more than 2 and potassium more than 4 at all times. EKG shows sinus arrhythmia, pharmacological conversion to sinus rhythm achieved by Multaq, likely has paroxysmal atrial fibrillation, recommend to continue with diltiazem and Multaq and anticoagulation with Eliquis. 01/01/2025 patient reported improvement in her breathing but complained of abdominal discomfort and distention. Patient has not had a bowel movement in over 3 days. An abdominal ultrasound done yesterday showed cholelithiasis but negative for cholecystitis. Multiple renal cyst largest 7.4 cm in the right kidney. Normal Liver function tests and T bilirubin. Currently saturating 93% on HFNC 30% FiO2, continue weaning down oxygen as tolerated. The patient is wearing a diaper but reported peeing atleast 3 times a day, no evidence of peripheral edema. CBC this morning shows persistent leukocytosis, WBC 31.1, hemoglobin 9.4, platelets 1070, sodium 146 potassium 4.5 carbon dioxide 33.9 BUN 28 creatinine 0.8 magnesium 2.0 Patient is continued on IV antibiotics azithromycin and ceftriaxone, DuoNebs every 4 hours, budesonide twice daily, methylprednisone 40 mg 3 times daily, tiotropium 2.5 daily. Continued on hydroxyurea, continued on apixaban, Multaq and Diltiazem. 01/02/2025 noted improvement in patient's respiratory distress, currently saturating well on 2 L nasal cannula oxygen, physical exam shows improved air entry bilaterally. Patient denies any acute respiratory discomfort. Currently continued on ceftriaxone. Continue to IV steroids, methylprednisone 40 mg IV twice daily, continued nebulizations. Recommend steroid taper on discharge when patient is clinically stable for discharge. Patient would also benefit from LABA/LAMA and ICS and optimizing COPD treatment on discharge. 01/03/2025 Patient is evaluated bedside, in no acute respiratory distress. Saturating well at 2 L nasal cannula oxygen. Of note, noted purpleish discoloration on patient's left flank, consistent with ecchymosis. Primary team concern for hematoma, withheld Eliquis. The area is not exquisitely tender, still complaining of right upper quadrant tenderness, but previous ultrasound imaging of RUQ was negative for cholecystitis. The patient does have underlying dementia, as she is not consistent in reporting her symptoms or her daily bowel movements., Patient's is present at bedside who confirmed that patient does have forgetfulness and possible dementia. Recommendations: ? Remain to continue IV steroids during hospital stay and recommend to prescribe per oral steroid taper when pt ready for discharge. ? Recommend Tessalon 200 mg every 8 hour ? Recommend LABA, LAMA and ICS to patient's treatment regimen to be continued on discharge. ? CT angiogram negative for pulmonary embolism, resume patient's home medication Eliquis. ? Resume home medications dronedarone/Multaq and diltiazem. The pateint is currently in sinus rhythm with sinus arrhythmia. ? Recommend to avoid hypomagnesemia and hypokalemia as patient is on multiple QT prolonging medications. Keep magnesium more than 2 and potassium more than 4 at all times. ? Consider BiPAP if indicated for increased work of breathing or severe hypercapnia. ? Agree with veterinary medical officer/oncologist recommending continuing patient's hydroxyurea. ? Chest physiotherapy as needed. Rest of the management deferred to primary team. Thank you for cardiology consultation. We appreciate the opportunity to participate in this patient's care. Will continue to follow-up on this patient This case was discussed with tank truck milk receiver, Dr. Bhatt. Ofelia Canela MD PG3 Attending Provider Attestation/Addendum I have personally seen and examined the patient separately on the above date of service and discussed the plan of care with the resident. I reviewed the resident consultation progress note and agree with the resident findings and plan in the note above and have also edited the documentation to reflect my findings and plan. Inderjit Bhatt M.D. Interventional Cardiology
[2025-01-03] MEDS: cefTRIAXone/D5w 1gm IV premix 1 GM/50 ML BAG IV (09:46)
[2025-01-03] MEDS: DRONEDARONE HCL 400 MG PO ×2 (09:47→21:06)
[2025-01-03] MEDS: DOCUSATE SOD 100 MG CAPSULE PO (09:47)
--- NOTE | 2025-01-03 09:47 | PC.SS ---
PANEL MACHINE TENDER notified bedside nurse of need to conduct room air evaluation to submit referral for [facility].
[2025-01-03] MEDS: HYDROXYUREA 500 MG CAPSULE 2000 MG PO (09:48)
[2025-01-03] MEDS: DILTIAZEM CD 120 MG CAPCR PO (09:49)
[2025-01-03 10:13] LABS: INR 1.1 (0.9-1.3); Prothrombin Time 12.4 Seconds (9.0-12.2)
[2025-01-03 10:45] LABS: Cocci Serology, IgG Negative (Negative)
--- NOTE | 2025-01-03 10:48 | CHAP ---
Patient was visited by a Spiritual Care volunteer on 01/03/2025 between 0900 and 0925 and received comfort, encouragement and/or prayer.
--- NOTE | 2025-01-03 11:11 | PC.NURSE ---
PT was assessed for oxygen portability. On room air O2 at 92%. Room air w/exercise at 85%. Exercise with oxygen 2L NC at 94%.
[2025-01-03 12:36] LABS: Hematocrit 33.6 % (36.0-46.0); Hemoglobin 9.6 g/dL (12.0-16.0)
--- NOTE | 2025-01-03 13:12 | ESPR_ITS ---
<Statement entered by Bebeto Robles MD - 01/04/25 06:37> Patient was examined and case was reviewed with team including attending physician. Note reviewed, I agree with most of its contents and agree with the patient's care. Bebeto Robles MD PGY-2 Documentation for date of: 01/03/25 Subjective Subjective Interval history: Patient was evaluated at the bedside this morning, accompanied by her . No overnight events were reported. She denies shortness of breath and remains on nasal cannula oxygen at 2 L/min, which is below her home baseline of 3?4 L/min. Steroid taper will proceed as planned. She reports some discomfort with palpation over the area of the left abdominal hematoma. On exam, the hematoma appears stable in size but is slightly more tense. There are no clinical signs suggestive of compartment syndrome at this time. The area has been outlined with a skin marker to monitor for any progression. Can continue with warm compresses to hematoma if need. The patient's reports that she was able to participate in physical therapy yesterday. Hemoglobin continues to trend downward, Eliquis has been held for now, and H&H will be rechecked. The patient remains hemodynamically stable. Sodium uptrending on this morning's lab, will give LR 500mL for mild hypernatremia. Exam Vital Signs Temp Pulse Resp BP Pulse Ox O2 Del Method O2 Flow Rate 97.4 F 78 23 H 131/71 H 100 Nasal Cannula 2 01/03/25 12:00 01/03/25 12:11 01/03/25 12:11 01/03/25 12:00 01/03/25 12:11 01/03/25 12:00 01/03/25 12:11 FiO2 25 01/02/25 16:00 Narrative Exam Physical Exam General: Awake and in no acute distress. Conversational and non-toxic appearing. Nasal cannula present. HEENT: Normocephalic, atraumatic. Heart: Regular rate and rhythm, no murmurs. Lungs: Clear to auscultation bilaterally, improved breath sounds. No use of accessory respiratory muscles. Mild wheezing present bilaterally. Abdomen: Soft, nondistended. Tenderness to light and deep palpation on left abdominal. No guarding or rebound tenderness. No tenderness to palpation of right abdominal. Neurologic: Alert and oriented x3, no gross neurological deficit, and patient able to move all 4 extremities. Extremities: No edema. Skin: No rash or ecchymoses. Objective Labs 01/04/25 05:39 01/04/25 05:39 Labs: Laboratory Results - last 24 hr 12/31/24 01/02/25 01/03/25 23:30 20:15 05:53 WBC 18.3 H D RBC 4.40 Hgb 10.2 L Hct 36.1 MCV 82 MCH 23.2 L MCHC 28.3 L RDW Std Deviation 64.7 H Plt Count 746 H D Neut % (Auto) 97 H Lymph % (Auto) 1 L [place] % (Auto) 0 Eos % (Auto) 0 Baso % (Auto) 0 Neut # (Auto) 17.7 H Lymph # (Auto) 0.1 L [place] # (Auto) 0.1 Eos # (Auto) 0.0 Baso # (Auto) 0.0 Immature Gran # (Auto) 0.30 H Absolute Nucleated RBC 0.02 H Immature Gran % 2 H Nucleated RBC % 0 PT 12.4 H INR 1.1 Sodium 149 H Potassium 4.6 D Chloride 104 Carbon Dioxide 35.7 H Anion Gap 9 BUN 32 H Creatinine 0.7 Estim Creat Clear Calc 61.1 eGFR > 60 BUN/Creatinine Ratio 46 H Glucose 121 H Calculated Osmolality 304 H Uric Acid 3.2 Calcium 10.2 Corrected Calcium 10.5 H Phosphorus 4.2 Magnesium 2.0 Total Bilirubin 0.6 AST 12 ALT < 7 L Alkaline Phosphatase 67 Lactate Dehydrogenase 183 Total Protein 5.3 L Albumin 3.6 Globulin 1.7 L Albumin/Globulin Ratio 2.1 Coccidioides IgG Ab Negative 01/03/25 11:51 WBC RBC Hgb 9.6 L Hct 33.6 L MCV MCH MCHC RDW Std Deviation Plt Count Neut % (Auto) Lymph % (Auto) [place] % (Auto) Eos % (Auto) Baso % (Auto) Neut # (Auto) Lymph # (Auto) [place] # (Auto) Eos # (Auto) Baso # (Auto) Immature Gran # (Auto) Absolute Nucleated RBC Immature Gran % Nucleated RBC % PT INR Sodium Potassium Chloride Carbon Dioxide Anion Gap BUN Creatinine Estim Creat Clear Calc eGFR BUN/Creatinine Ratio Glucose Calculated Osmolality Uric Acid Calcium Corrected Calcium Phosphorus Magnesium Total Bilirubin AST ALT Alkaline Phosphatase Lactate Dehydrogenase Total Protein Albumin Globulin Albumin/Globulin Ratio Coccidioides IgG Ab ABG Interpretation ABG results: 12/27/24 12/27/24 12/28/24 16:52 20:50 09:30 ABG pH 7.33 L 7.30 L 7.35 ABG pCO2 65 H 61 H 53 H ABG pO2 189 H 47 L* D 71 L D ABG HCO3 34 H 30 H 29 H ABG O2 Saturation 100 H 78 L 95 ABG Base Excess 6 H 2 2 VBG pH VBG pCO2 VBG pO2 VBG Base Excess 12/30/24 12/30/24 12/30/24 00:06 03:30 10:00 ABG pH 7.29 L 7.40 D ABG pCO2 77 H* D 60 H D ABG pO2 169 H D 63 L D ABG HCO3 37 H 37 H ABG O2 Saturation 100 H 92 ABG Base Excess 7 H 10 H VBG pH 7.43 VBG pCO2 55 VBG pO2 85 H VBG Base Excess 10 H 12/30/24 17:44 ABG pH 7.44 ABG pCO2 53 H ABG pO2 74 L ABG HCO3 36 H ABG O2 Saturation 96 ABG Base Excess 10 H VBG pH VBG pCO2 VBG pO2 VBG Base Excess Quality Measures Quality Measures none Advance care planning discussed with:: patient and spouse Assessment & Plan Assessment Current Active Medications: Generic Name Dose Route Start Last Admin Trade Name Freq PRN Reason Stop Dose Admin Acetaminophen 650 mg 12/27/24 18:54 Acetaminophen 325 Mg Tablet PO 01/26/25 18:53 Q6H PRN Fever >100.4 Acetaminophen 650 mg 12/27/24 18:54 01/01/25 05:34 Acetaminophen 325 Mg Tablet PO 01/26/25 18:53 650 mg Q6H PRN Administration PAIN SCALE 1-3 (mild Albuterol/Ipratropium 3 ml 12/27/24 18:54 Albuterol/Ipratropium (Duoneb) Rt Lanie 3 Ml Nebu INH 01/26/25 18:53 Q2HR PRN SHORTNESS OF BREATH OR WHEEZE Albuterol/Ipratropium 3 ml 01/02/25 13:00 01/03/25 12:11 Albuterol/Ipratropium (Duoneb) Rt Lanie 3 Ml Nebu INH 02/01/25 12:59 3 ml Q6HRRT AUTUMN Administration Allopurinol 300 mg 12/27/24 19:15 01/03/25 09:47 Allopurinol 100 Mg Tablet PO 01/26/25 19:14 300 mg QDAY AUTUMN Administration Apixaban 5 mg 12/28/24 21:00 01/02/25 22:46 Apixaban 2.5 Mg Tablet PO 01/27/25 20:59 5 mg BID AUTUMN Administration Benzonatate 200 mg 12/30/24 22:00 01/03/25 05:50 Benzonatate 100 Mg Capsule PO 01/29/25 21:59 200 mg Q8HR AUTUMN Administration Protocol Budesonide 0.5 mg 12/31/24 19:00 01/03/25 06:12 Budesonide Rt 0.5 Mg/2 Ml Nebu INH 01/30/25 18:59 0.5 mg BIDRT AUTUMN Administration Diltiazem HCl 120 mg 12/28/24 09:15 01/03/25 09:49 Diltiazem Cd 120 Mg Capcr PO 01/27/25 09:14 120 mg QDAY AUTUMN Administration Docusate Sodium 100 mg 12/28/24 09:00 01/03/25 09:47 Docusate Sod 100 Mg Capsule PO 01/27/25 08:59 100 mg QDAY AUTUMN Administration Protocol Dronedarone 400 mg 12/28/24 10:00 01/03/25 09:47 Dronedarone Hcl 400 Mg Tablet (Non-Formulary) PO 01/27/25 09:59 400 mg BID AUTUMN Administration Guaifenesin/Dextromethorphan 10 ml 01/02/25 09:26 01/02/25 09:37 Guaifenesin/Dm 10 Ml Udc PO 02/01/25 09:25 10 ml Q6H PRN Administration COUGH Protocol Hydroxyurea 2,000 mg 12/30/24 09:00 01/03/25 09:48 Hydroxyurea 500 Mg Capsule PO 01/29/25 08:59 2,000 mg QDAY AUTUMN Administration Protocol Ceftriaxone Sodium/Dextrose 1 gm in 50 mls @ 100 mls/hr 12/28/24 09:08 01/03/25 09:46 Rocephin/D5w 1gm Iv Premix IV 01/04/25 09:07 100 mls/hr QDAY AUTUMN Administration Methylprednisolone Sodium Succinate 40 mg 01/04/25 09:00 Methylprednisolone Sod Succ 40 Mg Vial IVP 01/11/25 08:59 QDAY [facility] Ondansetron HCl 4 mg 12/27/24 18:54 Ondansetron Inj 2 Mg/Ml Inj 2 Ml IVP 01/26/25 18:53 Q6H PRN NAUSEA OR VOMITING Protocol Phenyleph/Shark Oil/Min Oil/Petrol 0 gm 12/27/24 21:03 Preparation H Oint 30 Gm Tube MI 01/26/25 21:02 BID PRN HEMORRHOIDS Sennosides 1 tab 01/01/25 11:44 01/03/25 09:47 Senna Tablet PO 01/27/25 08:59 1 tab QDAY PRN Administration ABDOMINAL CRAMPING Protocol Sodium Chloride 3 ml 12/29/24 23:45 Sodium Chloride Rt Lanie 0.9% 3 Ml Nebu INH 01/28/25 23:44 PRN PRN SOLN Tiotropium [place] 2 puff 12/30/24 20:00 01/02/25 09:39 Tiotropium Br 2.5 Mcg 120 Puff/4 Gm Inhaler INH 01/29/25 19:59 Not Given QDAY [facility] Plan 79-year-old female with severe COPD on home oxygen, a [id number] smoking history, hypertension, atrial fibrillation, polycythemia, and thrombocytosis with a JAK2 mutation, presented with [id number] hypoxic and hypercapnic respiratory failure?likely secondary to a COPD exacerbation. Initially requiring high-flow nasal cannula and BiPAP support, she has since improved and is now stable on low-flow nasal cannula. #Acute on chronic hypoxic and hypercapnic respiratory failure (improving) #COPD exacerbation Met 2/4 SIRS criteria: RR 30, WBC 26.1. COPD exacerbation vs PE vs CHF. ABG on admission: pH 7.33, pCO2 65, pO2 189, HCO3 34 ? consistent with chronic CO2 retention with acute decompensation. CTA chest negative for pulmonary embolism, no evidence of pneumonia or pulmonary edema. Noted pulmonary artery hypertension. D-dimer <250. BNP 198. CTA other findings: Pulmonary artery hypertension, No pneumonia or pulmonary edema. On admission, patient requiring 6 L/min NC (FiO2 45%) to maintain SpO2 92%. Received Methylprednisolone and antibitoics (Ceftriaxone 1 gram x1, Azithromycin 500 mg x1) in ED. CXR (12/29): Basilar bronchitis pattern. VBG (12/30): pH 7.43, pCO2 55. Plan: - Continue supplemental O2, target SpO2 88?92% to avoid worsening hypercapnia. - Continue nasal cannula. - Duoneb, Budesonide Q6H - Tessalon pearls Q6H - Guaifenesin syrup PRN - Continue to taper IV Methylprednisolone 40 mg daily. Continue to monitor for steroid-induced psychosis. - Finished Ceftriaxone 1 gram (12/28 -01/03). - Finished Azithromycin 500 mg (12/28 - 12/31). - Resumed patient's home medication dronedarone and diltiazem per cardio recs. - Keep magnesium > 2 and potassium >4 at all times as dronedarone can lead to increased QT. - Reassess ABG in 2?4 hrs if respiratory distress persists. - Continue to use Incentive spirometry to improve respiratory function. - Continue physical therapy. #Hematoma on left abdominal #Anemia Left abdominal pain also began on 12/31. Patient reports intermittent, sharp pain with soreness. Denies nausea, vomiting, or dysuria. CT abd/pelvis (01/01): soft tissue mass in the subcutaneous tissue left lateral abdominal wall, 7.6 x 4.4 x 9.5 cm, most consistent with hematoma. Patient's hemoglobin 9.6, does not require transfusion at the moment. Plan - Hold Eliquis for downtrending hemoglobin. - Warm compresses to the left abdominal hematoma if necessary for pain relief. - Continue to monitor, area has been outlined with a skin marker to monitor for any progression. - Maintain bowel regimen (Senna PRN, Colace scheduled). - Monitor H&H. Transfusing for Hgb <8 or symptomatic. #RUQ Abdominal Pain RUQ pain developed on 12/31, described as tender to palpation but with a negative Georges?s sign. LFTs, bilirubin, lactic acid, and uric acid were all within normal limits. Abdominal ultrasound (12/31): revealed cholelithiasis without signs of cholecystitis. Plan: - Monitor for any worsening of abdominal pain. #Pulmonary Hypertension Echo (12/27): Normal LV size and function. Diastolic dysfunction stage I. Estimated EF 55-60%. Normal RV size and function. Estimated RVSP moderately elevated at around of 40 to 50 mmHg. Mild MR and TR. Mild aortic valve sclerosis without stenosis. Moderately dilated LA. IVC Mildly dilated measuring 2.1cm. Plan: - Fluid restriction 1800 mL. #Mild Hypernatremia Sodium 148 Plan - Start LR 500 mL. x1 - Recheck sodium levels after fluids. #Polycythemia vera Platelet count peaked at 1281. Known diagnosis. JAK2-positive. Followed by Dr. Trinidad. History noteable for multiple prior therapeutic phlebotomies. Currently on hydroxyurea 500 mg daily at home. Plan: - Continue hydroxyurea to [address] Trinidad's recommendation. - Continue with LDH and uric acid checks Q8H. - Start allopurinol 300 mg daily for hyperuricemia prophylaxis. - Monitor CBC daily to assess treatment response. - Maintain adequate hydration to reduce thrombosis risk. - Dr. Trinidad aware of admission. - Pending peripheral blood smear and flow cytometry. #Leukocytosis (improving) WBC peaked at 36.7. Procalcitonin 0.06 UA: negative. Steroid-induced versus polycythemia vera. Plan - Taper methylprednisolone as above - Trend CBC daily. #Electrolyte abnormalities #Hypokalemia (resolved) #Hypermagnesemia (resolved) Mg 2.8. Likely iatrogenic from IV mag administered by EMS en route to hospital. Plan: - Keep magnesium > 2 and potassium >4 at all times as dronedarone can lead to increased QT. - Recheck electrolytes in AM labs. Health Maintenance Disposition: home w/ home health, w/ [facility] DVT prophylaxis: Heparin GI prophylaxis: none Diet: Low sodium Lines: Peripheral IV CODE STATUS: Limited Code Patient was discussed with the attending, Dr. Caballero , and senior resident , Tan. Marika Souza DO PGY-1 Attending Provider Attestation/Addendum I, Yakelin Caballero DO, attest that I was physically present for the bartholomew portions of the service and evaluated the patient with the resident and I reviewed and discussed the case with the resident and agree with the resident's findings and plans of care as documented above Patient seen and evaluated this AM. Ecchymosis over hematoma appears to be more prominent, marked to monitor progression. Patient has some tenderness in her RUQ on palpation as well, but no palpable masses or ecchymosis. Eliquis held due to hematoma. Will trend h/h. No signs of compartment syndrome. patient is currently on 2L/nc. she denies any back pain today. Will continue to taper steroids. Pt recommended SNF on discharge by PT, but and pt wish to go home with home health on discharge. Will continue [facility] PT in patient. Anticipate DC within next 48-72h.
--- NOTE | 2025-01-03 13:12 | PC.SS ---
Trilogy Machine Trilogy Machine has been ordered due to, J96.10 Chronic Respiratory Failure, J44.9 for COPD. Pt needs Mechanical ventilator due to chronic respiratory failure due to severe COPD. Patient needs to keep the tidal volume to prevent CO2 retention. A Ventilator is required to improve the pts pulmonary status. Without this respiratory support in the home it could lead to serious harm or . The BiPAP therapy did not improve the pts respiratory status and failed.
[2025-01-03] MEDS: RINGERS LACTATED 1000 ML 500 ML 75 ML IV (14:23)
--- NOTE | 2025-01-03 15:53 | PC.SS ---
Trilogy referral submitted on [facility] and on [facility] Fax. Documents placed in patient's chart.
--- NOTE | 2025-01-03 15:58 | PC.SS ---
BOARD OPERATOR confirmed with [employer] that vendor can provide trilogy to the patient. BOARD OPERATOR booked vendor on [facility] [facility].
--- NOTE | 2025-01-03 16:45 | PC.SS ---
Rounding Note: Plan is to wean down patient's oxygen. Hemoglobin has dropped. D/C within 1 day.
[2025-01-04] VITALS (16 sets, daily range): BP systolic 109–153; BP diastolic 63–83; PULSE 67–102; RESP 17–24; TEMP 36.1–36.6; O2SAT 91–100; BMI 25.9; BMI 11.0
[2025-01-04] MEDS: ALBUTEROL/IPRATROPIUM (Duoneb) RT SOL 3 ML NEBU INH ×5 (00:13→19:01)
[2025-01-04] MEDS: BENZONATATE 100 MG CAPSULE 200 MG PO ×3 (05:26→22:05)
[2025-01-04 06:06] LABS: Basophils # (Auto) 0.0 Thou/mm3 (0.0-0.2); Basophils % (Auto) 0 % (0-2.5); Eosinophils # (Auto) 0.3 Thou/mm3 (0.0-0.5); Eosinophils % (Auto) 3 % (0-10); Hematocrit 32.2 % (36.0-46.0); Hemoglobin 9.1 g/dL (12.0-16.0); Immature Granulocytes Auto 0.08 Thou/mm3 (0.00-0.00); Lymphocytes # (Auto) 0.7 Thou/mm3 (1.0-4.8); Lymphocytes % (Auto) 8 % (10-50); Mean Corpuscular HGB Conc 28.3 g/dl (31.0-37.0); Mean Corpuscular Hemoglobin 23.2 pg (25.0-35.0); Mean Corpuscular Volume 82 fL (80-100); Monocytes # (Auto) 0.1 Thou/mm3 (0.0-0.8); Monocytes % (Auto) 1 % (0-12); Neutrophils # (Auto) 7.9 Thou/mm3 (1.8-7.7); Neutrophils % (Auto) 87 % (37-80); Nucleated Red Blood Cell # 0.03 Thou/mm3 (0.00-0.00); Nucleated Red Blood Cell % 0 /100 WBC (0); Platelet Count 669 Thou/mm3 (140-440); RDW Standard Deviation 64.6 fL (36.4-46.3); Red Blood Count 3.93 Miln/mm3 (4.00-5.20); White Blood Count 9.1 Thou/mm3 (3.6-11.0)
[2025-01-04 06:37] LABS: Alanine Aminotransferase < 7 U/L (10-49); Albumin, Serum 3.2 gm/dL (3.4-4.8); Albumin/Globulin Ratio 2.1 (1.2-2.2); Alkaline Phosphatase 58 U/L (46-116); Anion Gap 8 (7-16); Aspartate Amino Transferase 11 U/L (0-34); BUN/Creatinine Ratio 50 Ratio (12-20); Bilirubin,Total 0.9 mg/dL (0.3-1.2); Blood Urea Nitrogen 30 mg/dL (9-23); Calcium 9.7 mg/dL (8.3-10.6); Calcium (Corrected) 10.3 mg/dL (8.5-10.1); Carbon Dioxide 37.2 mMol/L (20.0-31.0); Chloride 104 mMol/L (98-107); Creatinine (Component) 0.6 mg/dL (0.6-1.3); Estimated Creatinine Clearance 71.3 mL/min (>60); Globulin 1.5 gm/dL (2.3-3.5); Glucose 89 mg/dL (74-106); Magnesium 2.2 mg/dL (1.6-2.6); Osmolality,Calculated 301 (275-295); Phosphorous 3.7 mg/dL (2.4-5.1); Potassium 4.2 mMol/L (3.4-5.1); Sodium 149 mMol/L (136-145); Total Protein 4.7 gm/dL (5.7-8.2); eGFR > 60 See Note
[2025-01-04] MEDS: BUDESONIDE RT 0.5 MG/2 ML NEBU INH ×2 (06:39→19:01)
--- NOTE | 2025-01-04 07:46 | ESPR_ITS ---
Documentation for date of: 01/04/25 Subjective Subjective Interval history: Overnight events, labs reviewed. The patient examined this a.m. at bedside. The patient is Continued on 2 L NC o2, but she is complaining of worsening chest tightness and cough. During our encounter this am pt had a prolonged coughing episode and was audibly wheezing afterwards, Instructed the RN to request RT to deliver PRN duo nebz. CT a/p shows 7cm extensive hemaotma, Eliquis is on hold. Recommend to continue holding Eliquis for 2 weeks, and follow up with cariology outpt once patient is ready for discharge. Pt is currently in sinus rhythm. Continue Multaq. Will get EKG to assess QT, in the am if pt stays. Exam Vital Signs Temp Pulse Resp BP Pulse Ox O2 Del Method O2 Flow Rate 97.0 F 72 21 H 133/73 H 100 Nasal Cannula 2 01/04/25 04:00 01/04/25 06:39 01/04/25 06:39 01/04/25 04:00 01/04/25 06:39 01/04/25 04:00 01/04/25 06:39 FiO2 25 01/02/25 16:00 Narrative Exam Physical Exam General: Awake and in mild acute distress, coughing at present. Conversational and non-toxic appearing. Nasal cannula present. HEENT: Normocephalic, atraumatic. Heart: Regular rate and rhythm, no murmurs. Lungs: Noted bilateral wheezing. Abdomen: Soft, nondistended. Tenderness to light and deep palpation on left abdominal. No guarding or rebound tenderness. No tenderness to palpation of right abdominal. Neurologic: Alert and oriented x3, no gross neurological deficit, and patient able to move all 4 extremities. Extremities: No edema. Skin: Noted large patch of left flank, consistent with ecchymosis, purplish discoloration. Slightly tender. Objective Labs 01/04/25 05:39 01/04/25 05:39 Labs: Laboratory Results - last 24 hr 12/30/24 12/31/24 01/03/25 06:14 23:30 05:53 WBC RBC Hgb Hct MCV MCH MCHC RDW Std Deviation Plt Count Neut % (Auto) Lymph % (Auto) Otero % (Auto) Eos % (Auto) Baso % (Auto) Neut # (Auto) Lymph # (Auto) Otero # (Auto) Eos # (Auto) Baso # (Auto) Immature Gran # (Auto) Absolute Nucleated RBC Immature Gran % Nucleated RBC % PT 12.4 H INR 1.1 Sodium Potassium Chloride Carbon Dioxide Anion Gap BUN Creatinine Estim Creat Clear Calc eGFR BUN/Creatinine Ratio Glucose Calculated Osmolality Calcium Corrected Calcium Phosphorus Magnesium Total Bilirubin AST ALT Alkaline Phosphatase Total Protein Albumin Globulin Albumin/Globulin Ratio Coccidioides IgG Ab Negative Flow Cytometry Specimen See Sep Rpt Blood Type Antibody Screen Blood Bank Wristband ID 01/03/25 01/03/25 01/04/25 11:51 13:52 05:39 WBC 9.1 D RBC 3.93 L Hgb 9.6 L 9.1 L Hct 33.6 L 32.2 L MCV 82 MCH 23.2 L MCHC 28.3 L RDW Std Deviation 64.6 H Plt Count 669 H D Neut % (Auto) 87 H Lymph % (Auto) 8 L Otero % (Auto) 1 Eos % (Auto) 3 Baso % (Auto) 0 Neut # (Auto) 7.9 H Lymph # (Auto) 0.7 L Otero # (Auto) 0.1 Eos # (Auto) 0.3 Baso # (Auto) 0.0 Immature Gran # (Auto) 0.08 H Absolute Nucleated RBC 0.03 H Immature Gran % 1 H Nucleated RBC % 0 PT INR Sodium 149 H Potassium 4.2 Chloride 104 Carbon Dioxide 37.2 H Anion Gap 8 BUN 30 H Creatinine 0.6 Estim Creat Clear Calc 71.3 eGFR > 60 BUN/Creatinine Ratio 50 H Glucose 89 Calculated Osmolality 301 H Calcium 9.7 Corrected Calcium 10.3 H Phosphorus 3.7 Magnesium 2.2 Total Bilirubin 0.9 AST 11 ALT < 7 L Alkaline Phosphatase 58 Total Protein 4.7 L Albumin 3.2 L Globulin 1.5 L Albumin/Globulin Ratio 2.1 Coccidioides IgG Ab Flow Cytometry Specimen Blood Type O Positive Antibody Screen NEGATIVE Blood Bank Wristband ID Yes ABG Interpretation ABG results: 12/27/24 12/27/24 12/28/24 16:52 20:50 09:30 ABG pH 7.33 L 7.30 L 7.35 ABG pCO2 65 H 61 H 53 H ABG pO2 189 H 47 L* D 71 L D ABG HCO3 34 H 30 H 29 H ABG O2 Saturation 100 H 78 L 95 ABG Base Excess 6 H 2 2 VBG pH VBG pCO2 VBG pO2 VBG Base Excess 12/30/24 12/30/24 12/30/24 00:06 03:30 10:00 ABG pH 7.29 L 7.40 D ABG pCO2 77 H* D 60 H D ABG pO2 169 H D 63 L D ABG HCO3 37 H 37 H ABG O2 Saturation 100 H 92 ABG Base Excess 7 H 10 H VBG pH 7.43 VBG pCO2 55 VBG pO2 85 H VBG Base Excess 10 H 12/30/24 17:44 ABG pH 7.44 ABG pCO2 53 H ABG pO2 74 L ABG HCO3 36 H ABG O2 Saturation 96 ABG Base Excess 10 H VBG pH VBG pCO2 VBG pO2 VBG Base Excess Quality Measures Quality Measures none Advance care planning discussed with:: patient Assessment & Plan Assessment Current Active Medications: Generic Name Dose Route Start Last Admin Trade Name Freq PRN Reason Stop Dose Admin Acetaminophen 650 mg 12/27/24 18:54 Acetaminophen 325 Mg Tablet PO 01/26/25 18:53 Q6H PRN Fever >100.4 Acetaminophen 650 mg 12/27/24 18:54 01/01/25 05:34 Acetaminophen 325 Mg Tablet PO 01/26/25 18:53 650 mg Q6H PRN Administration PAIN SCALE 1-3 (mild Albuterol/Ipratropium 3 ml 12/27/24 18:54 Albuterol/Ipratropium (Duoneb) Rt Lanie 3 Ml Nebu INH 01/26/25 18:53 Q2HR PRN SHORTNESS OF BREATH OR WHEEZE Albuterol/Ipratropium 3 ml 01/02/25 13:00 01/04/25 06:39 Albuterol/Ipratropium (Duoneb) Rt Lanie 3 Ml Nebu INH 02/01/25 12:59 3 ml Q6HRRT AUTUMN Administration Allopurinol 300 mg 12/27/24 19:15 01/03/25 09:47 Allopurinol 100 Mg Tablet PO 01/26/25 19:14 300 mg QDAY AUTUMN Administration Apixaban 5 mg 12/28/24 21:00 01/02/25 22:46 Apixaban 2.5 Mg Tablet PO 01/27/25 20:59 5 mg BID AUTUMN Administration Benzonatate 200 mg 12/30/24 22:00 01/04/25 05:26 Benzonatate 100 Mg Capsule PO 01/29/25 21:59 200 mg Q8HR AUTUMN Administration Protocol Budesonide 0.5 mg 12/31/24 19:00 01/04/25 06:39 Budesonide Rt 0.5 Mg/2 Ml Nebu INH 01/30/25 18:59 0.5 mg BIDRT AUTUMN Administration Diltiazem HCl 120 mg 12/28/24 09:15 01/03/25 09:49 Diltiazem Cd 120 Mg Capcr PO 01/27/25 09:14 120 mg QDAY AUTUMN Administration Docusate Sodium 100 mg 12/28/24 09:00 01/03/25 09:47 Docusate Sod 100 Mg Capsule PO 01/27/25 08:59 100 mg QDAY AUTUMN Administration Protocol Dronedarone 400 mg 12/28/24 10:00 01/03/25 21:06 Dronedarone Hcl 400 Mg Tablet (Non-Formulary) PO 01/27/25 09:59 400 mg BID AUTUMN Administration Guaifenesin/Dextromethorphan 10 ml 01/02/25 09:26 01/02/25 09:37 Guaifenesin/Dm 10 Ml Udc PO 02/01/25 09:25 10 ml Q6H PRN Administration COUGH Protocol Hydroxyurea 2,000 mg 12/30/24 09:00 01/03/25 09:48 Hydroxyurea 500 Mg Capsule PO 01/29/25 08:59 2,000 mg QDAY AUTUMN Administration Protocol Ceftriaxone Sodium/Dextrose 1 gm in 50 mls @ 100 mls/hr 12/28/24 09:08 01/03/25 09:46 Rocephin/D5w 1gm Iv Premix IV 01/04/25 09:07 100 mls/hr QDAY AUTUMN Administration Methylprednisolone Sodium Succinate 40 mg 01/04/25 09:00 Methylprednisolone Sod Succ 40 Mg Vial IVP 01/11/25 08:59 QDAY AUTUMN Ondansetron HCl 4 mg 12/27/24 18:54 Ondansetron Inj 2 Mg/Ml Inj 2 Ml IVP 01/26/25 18:53 Q6H PRN NAUSEA OR VOMITING Protocol Phenyleph/Shark Oil/Min Oil/Petrol 0 gm 12/27/24 21:03 Preparation H Oint 30 Gm Tube GA 01/26/25 21:02 BID PRN HEMORRHOIDS Sennosides 1 tab 01/01/25 11:44 01/03/25 09:47 Senna Tablet PO 01/27/25 08:59 1 tab QDAY PRN Administration ABDOMINAL CRAMPING Protocol Sodium Chloride 3 ml 12/29/24 23:45 Sodium Chloride Rt Lanie 0.9% 3 Ml Nebu INH 01/28/25 23:44 PRN PRN SOLN Tiotropium Blakeslee 2 puff 12/30/24 20:00 01/03/25 14:13 Tiotropium Br 2.5 Mcg 120 Puff/4 Gm Inhaler INH 01/29/25 19:59 Not Given QDAY AUTUMN Plan Patient is an 79-year-old female with a past medical history of severe COPD on 3-5 L home oxygen, HTN, atrial fibrillation, polycythemia and thrombocytosis with JAK2 mutation, followed by Dr. Trinidad, pulmonary hypertension, history of smoking 40 to 50 pack year, who presented to the emergency room complaining of worsening shortness of breath. Patient was found to have acute hypoxic and hypercapnic respiratory failure secondary to severe COPD , she was initially started on BiPAP, ABG showed respiratory acidosis. Later patient was transitioned to high flow nasal cannula oxygen. Problems: 1. Acute on chronic hypoxic/hypercapnic respiratory failure?improving 2. Acute severe COPD?resolving 3. Hematoma - LLQ abdomen 4. Polycythemia 5. Sinus arrhythmia 6. Thrombocytosis 7. Ruled out pulmonary embolism 8. History of pulmonary hypertension 9. History of hypertension 10. History of paroxysmal A-fib, now converted to sinus rhythm The patient has history of severe COPD and is on 3 to 5 L nasal cannula oxygen, but started becoming more short of breath over the past few days, denies any sick contacts, or fever, she reported access to oxygen, but said that she ran out of inhalers. Patient reported she has not seen her primary care doctor in over a year. At the time of evaluation, patient was seen on high flow nasal cannula oxygen at 25 L, 45% FiO2, patient was wheezing excessively and showing signs of respiratory distress. Also noted respiratory acidosis on initial ABG, recommended using BiPAP if continued increased work of breathing. Patient had received 1 dose of Solu-Medrol 125 mg in the ED. The patient is started on ceftriaxone and azithromycin, though patient is taking dronedarone for atrial fibrillation which can prolong QT, ordered repeat EKG in the morning to monitor QT. EKG showed sinus rhythm, QT362, QTc 431 on 12/28/2024, recommend continued monitoring of QT interval. The patient has history of JAK2 kinase mutation, polycythemia and thrombocytosis, followed by cancer treatment center Dr. Trinidad, started on hydroxyurea 2000 mg daily, patient has persistent thrombocytosis, due to concern for acute hypoxic respiratory failure, and thrombocytosis there was concern for pulmonary embolism, but CT angiogram was done which ruled out pulm embolism. Patient was started on heparin drip by primary team as empiric treatment, Which is now discontinued. Recommend to resume patient's home medication Eliquis. Echocardiogram had showed diastolic dysfunction stage I, EF 55 to 60%, mild MR and TR, moderately dilated LA, normal LV and RV size and function.Can give IV fluids if needed due to thrombocytosis. CXR was negative for Pneumonia, Reported as bronchitis pattern, currently on antibiotics were initially treated with azithromycin and ceftriaxone, currently on day 4 of azithromycin, recommended to continue monitoring QTc with daily EKGs. The patient has persistent prolonging of her QT interval, given that patient is on QT prolonging medications a longer QTc is acceptable, continue telemetry monitoring for arrhythmias, keep magnesium more than 2 and potassium more than 4 at all times. EKG shows sinus arrhythmia, pharmacological conversion to sinus rhythm achieved by Multaq, likely has paroxysmal atrial fibrillation, recommend to continue with diltiazem and Multaq and anticoagulation with Eliquis. 01/01/2025 patient reported improvement in her breathing but complained of abdominal discomfort and distention. Patient has not had a bowel movement in over 3 days. An abdominal ultrasound done yesterday showed cholelithiasis but negative for cholecystitis. Multiple renal cyst largest 7.4 cm in the right kidney. Normal Liver function tests and T bilirubin. Currently saturating 93% on HFNC 30% FiO2, continue weaning down oxygen as tolerated. The patient is wearing a diaper but reported peeing atleast 3 times a day, no evidence of peripheral edema. CBC this morning shows persistent leukocytosis, WBC 31.1, hemoglobin 9.4, platelets 1070, sodium 146 potassium 4.5 carbon dioxide 33.9 BUN 28 creatinine 0.8 magnesium 2.0 Patient is continued on IV antibiotics azithromycin and ceftriaxone, DuoNebs every 4 hours, budesonide twice daily, methylprednisone 40 mg 3 times daily, tiotropium 2.5 daily. Continued on hydroxyurea, continued on apixaban, Multaq and Diltiazem. 01/02/2025 noted improvement in patient's respiratory distress, currently saturating well on 2 L nasal cannula oxygen, physical exam shows improved air entry bilaterally. Patient denies any acute respiratory discomfort. Currently continued on ceftriaxone. Continue to IV steroids, methylprednisone 40 mg IV twice daily, continued nebulizations. Recommend steroid taper on discharge when patient is clinically stable for discharge. Patient would also benefit from LABA/LAMA and ICS and optimizing COPD treatment on discharge. 01/03/2025 Patient is evaluated at the bedside, in no acute respiratory distress. Saturating well at 2 L nasal cannula oxygen. Of note, noted purpleish discoloration on patient's left flank, consistent with ecchymosis. Primary team concern for hematoma, withheld Eliquis. The area is not exquisitely tender, still complaining of right upper quadrant tenderness, but previous ultrasound imaging of RUQ was negative for cholecystitis. The patient does have underlying dementia, as she is not consistent in reporting her symptoms or her daily bowel movements., Patient's is present at bedside who confirmed that patient does have forgetfulness and possible dementia. 01/04/2025 The patient is Continued on 2 L NC o2, but she is complaining of worsening chest tightness and cough. During our encounter this am pt had a prolonged coughing episode and was audibly wheezing afterwards, Instructed the RN to request RT to deliver PRN duo nebz. CT a/p shows 7cm extensive hemaotma, Eliquis is on hold. Recommend to continue holding Eliquis for 2 weeks, and follow up with cariology outpt once patient is ready for discharge. Pt is currently in sinus rhythm. Continue Multaq. Will get EKG to assess QT, in the am if pt stays. Recommendations: ? Remain to continue IV steroids during hospital stay and recommend to prescribe per oral steroid taper when pt ready for discharge. ? Recommend LABA, LAMA and ICS to patient's treatment regimen to be continued on discharge. ? CT angiogram negative for pulmonary embolism, resume patient's home medication Eliquis, currently Anti - coagulation on hold due to Left lower quadrant Hematoma ? Resume home medications dronedarone/Multaq and diltiazem. The pateint is currently in sinus rhythm with sinus arrhythmia. ? Recommend to avoid hypomagnesemia and hypokalemia as patient is on multiple QT prolonging medications. Keep magnesium more than 2 and potassium more than 4 at all times. ? Consider BiPAP if indicated for increased work of breathing or severe hypercapnia. ? Agree with console operator/oncologist recommending continuing patient's hydroxyurea. ? Chest physiotherapy as needed. ? continue holding Eliquis for 2 weeks due to hematoma, Pt should followup with cardiology upon discharge prior to resuming Eliquis Rest of the management deferred to primary team. Thank you for cardiology consultation. We appreciate the opportunity to participate in this patient's care. Will continue to follow-up on this patient This case was discussed with developmental psychologist, Dr. Bhatt. Ofelia Canela MD PG3 Attending Provider Attestation/Addendum I have personally seen and examined the patient separately on the above date of service and discussed the plan of care with the resident. I reviewed the resident consultation progress note and agree with the resident findings and plan in the note above and have also edited the documentation to reflect my findings and plan. Inderjit Bhatt M.D. Interventional Cardiology
[2025-01-04] MEDS: DRONEDARONE HCL 400 MG PO ×2 (09:49→20:15)
[2025-01-04] MEDS: HYDROXYUREA 500 MG CAPSULE 2000 MG PO (09:49)
[2025-01-04] MEDS: DILTIAZEM CD 120 MG CAPCR PO (09:49)
[2025-01-04] MEDS: cefTRIAXone/D5w 1gm IV premix 1 GM/50 ML BAG IV (09:50)
--- NOTE | 2025-01-04 10:03 | PC.SS ---
SS follow up note; Patient is pending a Trilogy from [facility]. SS was contacted by RT Monterroso and she informed SS she would be sending RX form for Dr. Caballero to fill out. SS awaiting for form. Patient might possibly discharge home today.
--- NOTE | 2025-01-04 13:37 | PC.SS ---
SS follow upt note; Patient will discharge home tomorrow. SS notified Randi's RT as well. SS send back RX forms via email to Latasha BUTLER.
--- NOTE | 2025-01-04 16:52 | ESPR_ITS ---
<Statement entered by Devorah Wilburn MD - 01/04/25 22:04> Patient seen and examined at bedside. No acute overnight events reported. Patient was encouraged to walk with PT more. Patient's L flank hematoma is subsiding, and continues to not have pain. Will monitor patient's CBC in AM, and anticipate DC within 24 hours w/ Home Health. I discussed with and supervised the seo intern physician who took care of this patient. I personally saw and examined the patient and discussed the assessment and plan with the entire medicine team, including my attending Dr. Caballero, I agree with most of the assessment and plan as documented below Devorah Wilburn M.D. PGY-3 Documentation for date of: 01/04/25 Subjective Subjective Interval history: Patient was seen at the bedside this morning. She is currently on 2L nasal cannula and denies any shortness of breath. She reports no abdominal pain. The hematoma on the left abdomen has improved?now softer and less ecchymotic in appearance but has dispersed a little. Fluid restriction has been discontinued. Patient was encouraged to use the incentive spirometer and to continue with physical therapy. Steroid taper is ongoing. Hemoglobin levels will continue to be monitored. Possible discharge tomorrow if hemoglobin remains stable and patient is clinical stable. Patient will be discharged with home health. Spoke with Cardiology today regarding the addition of tiotropium to the patient?s COPD regimen. They recommended including a LAMA in combination with a LABA and ICS, as this triple therapy has been shown to be beneficial for patients with severe COPD. Plan to continue this regimen upon discharge. Cardiology also recommended holding Eliquis for 2 weeks after discharge and to follow up with cardiolgost Dr. Bhatt within one week. Exam Vital Signs Temp Pulse Resp BP Pulse Ox O2 Del Method O2 Flow Rate 97.4 F 87 21 H 109/70 100 Nasal Cannula 2 01/04/25 12:00 01/04/25 15:57 01/04/25 12:43 01/04/25 12:00 01/04/25 12:43 01/04/25 04:00 01/04/25 12:43 FiO2 25 01/02/25 16:00 Narrative Exam Physical Exam General: Awake and in no acute distress. Conversational and non-toxic appearing. Nasal cannula present. HEENT: Normocephalic, atraumatic. Heart: Regular rate and rhythm, no murmurs. Lungs: Clear to auscultation bilaterally, improved breath sounds. No use of accessory respiratory muscles. Mild wheezing present bilaterally. Abdomen: Soft, nondistended. Non-tender. No guarding or rebound tenderness. Resolving hematoma of left abdomen. Neurologic: Alert and oriented x3, no gross neurological deficit, and patient able to move all 4 extremities. Extremities: No edema. Skin: No rash or ecchymoses. Objective Labs 01/05/25 05:30 01/05/25 05:30 Labs: Laboratory Results - last 24 hr 12/30/24 01/04/25 06:14 05:39 WBC 9.1 D RBC 3.93 L Hgb 9.1 L Hct 32.2 L MCV 82 MCH 23.2 L MCHC 28.3 L RDW Std Deviation 64.6 H Plt Count 669 H D Neut % (Auto) 87 H Lymph % (Auto) 8 L Brooke % (Auto) 1 Eos % (Auto) 3 Baso % (Auto) 0 Neut # (Auto) 7.9 H Lymph # (Auto) 0.7 L Brooke # (Auto) 0.1 Eos # (Auto) 0.3 Baso # (Auto) 0.0 Immature Gran # (Auto) 0.08 H Absolute Nucleated RBC 0.03 H Immature Gran % 1 H Nucleated RBC % 0 Sodium 149 H Potassium 4.2 Chloride 104 Carbon Dioxide 37.2 H Anion Gap 8 BUN 30 H Creatinine 0.6 Estim Creat Clear Calc 71.3 eGFR > 60 BUN/Creatinine Ratio 50 H Glucose 89 Calculated Osmolality 301 H Calcium 9.7 Corrected Calcium 10.3 H Phosphorus 3.7 Magnesium 2.2 Total Bilirubin 0.9 AST 11 ALT < 7 L Alkaline Phosphatase 58 Total Protein 4.7 L Albumin 3.2 L Globulin 1.5 L Albumin/Globulin Ratio 2.1 Flow Cytometry Specimen See Sep Rpt ABG Interpretation ABG results: 12/27/24 12/27/24 12/28/24 16:52 20:50 09:30 ABG pH 7.33 L 7.30 L 7.35 ABG pCO2 65 H 61 H 53 H ABG pO2 189 H 47 L* D 71 L D ABG HCO3 34 H 30 H 29 H ABG O2 Saturation 100 H 78 L 95 ABG Base Excess 6 H 2 2 VBG pH VBG pCO2 VBG pO2 VBG Base Excess 12/30/24 12/30/24 12/30/24 00:06 03:30 10:00 ABG pH 7.29 L 7.40 D ABG pCO2 77 H* D 60 H D ABG pO2 169 H D 63 L D ABG HCO3 37 H 37 H ABG O2 Saturation 100 H 92 ABG Base Excess 7 H 10 H VBG pH 7.43 VBG pCO2 55 VBG pO2 85 H VBG Base Excess 10 H 12/30/24 17:44 ABG pH 7.44 ABG pCO2 53 H ABG pO2 74 L ABG HCO3 36 H ABG O2 Saturation 96 ABG Base Excess 10 H VBG pH VBG pCO2 VBG pO2 VBG Base Excess Quality Measures Quality Measures none Advance care planning discussed with:: patient and spouse Assessment & Plan Assessment Current Active Medications: Generic Name Dose Route Start Last Admin Trade Name Freq PRN Reason Stop Dose Admin Acetaminophen 650 mg 12/27/24 18:54 Acetaminophen 325 Mg Tablet PO 01/26/25 18:53 Q6H PRN Fever >100.4 Acetaminophen 650 mg 12/27/24 18:54 01/01/25 05:34 Acetaminophen 325 Mg Tablet PO 01/26/25 18:53 650 mg Q6H PRN Administration PAIN SCALE 1-3 (mild Albuterol/Ipratropium 3 ml 12/27/24 18:54 01/04/25 08:16 Albuterol/Ipratropium (Duoneb) Rt Lanie 3 Ml Nebu INH 01/26/25 18:53 3 ml Q2HR PRN Administration SHORTNESS OF BREATH OR WHEEZE Albuterol/Ipratropium 3 ml 01/02/25 13:00 01/04/25 12:43 Albuterol/Ipratropium (Duoneb) Rt Lanie 3 Ml Nebu INH 02/01/25 12:59 3 ml Q6HRRT AUTUNM Administration Allopurinol 300 mg 12/27/24 19:15 01/04/25 09:49 Allopurinol 100 Mg Tablet PO 01/26/25 19:14 300 mg QDAY AUTUMN Administration Apixaban 5 mg 12/28/24 21:00 01/02/25 22:46 Apixaban 2.5 Mg Tablet PO 01/27/25 20:59 5 mg BID AUTUMN Administration Benzonatate 200 mg 12/30/24 22:00 01/04/25 13:19 Benzonatate 100 Mg Capsule PO 01/29/25 21:59 200 mg Q8HR AUTUMN Administration Protocol Budesonide 0.5 mg 12/31/24 19:00 01/04/25 06:39 Budesonide Rt 0.5 Mg/2 Ml Nebu INH 01/30/25 18:59 0.5 mg BIDRT AUTUMN Administration Diltiazem HCl 120 mg 12/28/24 09:15 01/04/25 09:49 Diltiazem Cd 120 Mg Capcr PO 01/27/25 09:14 120 mg QDAY AUTUMN Administration Docusate Sodium 100 mg 12/28/24 09:00 01/04/25 09:49 Docusate Sod 100 Mg Capsule PO 01/27/25 08:59 Not Given QDAY AUTUMN Protocol Dronedarone 400 mg 12/28/24 10:00 01/04/25 09:49 Dronedarone Hcl 400 Mg Tablet (Non-Formulary) PO 01/27/25 09:59 400 mg BID AUTUMN Administration Guaifenesin/Dextromethorphan 10 ml 01/02/25 09:26 01/02/25 09:37 Guaifenesin/Dm 10 Ml Udc PO 02/01/25 09:25 10 ml Q6H PRN Administration COUGH Protocol Hydroxyurea 2,000 mg 12/30/24 09:00 01/04/25 09:49 Hydroxyurea 500 Mg Capsule PO 01/29/25 08:59 2,000 mg QDAY AUTUMN Administration Protocol Methylprednisolone Sodium Succinate 20 mg 01/05/25 09:00 Methylprednisolone Sod Succ 40 Mg Vial IVP 01/05/25 09:01 X1 ONE Ondansetron HCl 4 mg 12/27/24 18:54 Ondansetron Inj 2 Mg/Ml Inj 2 Ml IVP 01/26/25 18:53 Q6H PRN NAUSEA OR VOMITING Protocol Phenyleph/Shark Oil/Min Oil/Petrol 0 gm 12/27/24 21:03 Preparation H Oint 30 Gm Tube NV 01/26/25 21:02 BID PRN HEMORRHOIDS Sennosides 1 tab 01/01/25 11:44 01/03/25 09:47 Senna Tablet PO 01/27/25 08:59 1 tab QDAY PRN Administration ABDOMINAL CRAMPING Protocol Sodium Chloride 3 ml 12/29/24 23:45 Sodium Chloride Rt Lanie 0.9% 3 Ml Nebu INH 01/28/25 23:44 PRN PRN SOLN Tiotropium Apex 2 puff 12/30/24 20:00 01/04/25 06:39 Tiotropium Br 2.5 Mcg 120 Puff/4 Gm Inhaler INH 01/29/25 19:59 Not Given QDAY AUTUMN Plan 79-year-old female with severe COPD on home oxygen, a [id number] smoking history, hypertension, atrial fibrillation, polycythemia, and thrombocytosis with a JAK2 mutation, presented with [id number] hypoxic and hypercapnic respiratory failure?likely secondary to a COPD exacerbation. Initially requiring high-flow nasal cannula and BiPAP support, she has since improved and is now stable on low-flow nasal cannula. #Acute on chronic hypoxic and hypercapnic respiratory failure (improved) #COPD exacerbation Met 2/4 SIRS criteria: RR 30, WBC 26.1. COPD exacerbation vs PE vs CHF. ABG on admission: pH 7.33, pCO2 65, pO2 189, HCO3 34 ? consistent with chronic CO2 retention with acute decompensation. CTA chest negative for pulmonary embolism, no evidence of pneumonia or pulmonary edema. Noted pulmonary artery hypertension. D-dimer <250. BNP 198. CTA other findings: Pulmonary artery hypertension, No pneumonia or pulmonary edema. On admission, patient requiring 6 L/min NC (FiO2 45%) to maintain SpO2 92%. Received Methylprednisolone and antibitoics (Ceftriaxone 1 gram x1, Azithromycin 500 mg x1) in ED. CXR (12/29): Basilar bronchitis pattern. VBG (12/30): pH 7.43, pCO2 55. Plan: - Continue supplemental O2, target SpO2 88?92% to avoid worsening hypercapnia. - Continue nasal cannula. - Duoneb, Budesonide Q6H. - Continue tiotropium. - Tessalon pearls Q6H - Guaifenesin syrup PRN - Continue to taper IV Methylprednisolone, will give 20 mg x1 tomorrow. - Finished Ceftriaxone 1 gram (12/28 -01/03). - Finished Azithromycin 500 mg (12/28 - 12/31). - Resumed patient's home medication dronedarone and diltiazem per cardio recs. - Keep magnesium > 2 and potassium >4 at all times as dronedarone can lead to increased QT. - Reassess ABG in 2?4 hrs if respiratory distress persists. - Continue to use Incentive spirometry to improve respiratory function. - Continue physical therapy. #Hematoma on left abdominal (resolving) #Anemia Left abdominal pain also began on 12/31. Patient reports intermittent, sharp pain with soreness. Denies nausea, vomiting, or dysuria. CT abd/pelvis (01/01): soft tissue mass in the subcutaneous tissue left lateral abdominal wall, 7.6 x 4.4 x 9.5 cm, most consistent with hematoma. Patient's hemoglobin 9.1, does not require transfusion at the moment. Plan - Hold Eliquis for downtrending hemoglobin. Continue to monitor hemoglobin level. - Warm compresses to the left abdominal hematoma if necessary for pain relief. - Continue to monitor, area has been outlined with a skin marker to monitor for any progression. - Maintain bowel regimen (Senna PRN, Colace scheduled). - Monitor H&H. Transfusing for Hgb <8 or symptomatic. #RUQ Abdominal Pain (resolved) RUQ pain developed on 12/31, described as tender to palpation but with a negative Georges?s sign. LFTs, bilirubin, lactic acid, and uric acid were all within normal limits. Abdominal ultrasound (12/31): revealed cholelithiasis without signs of cholecystitis. Plan: - Monitor for any worsening of abdominal pain. #Pulmonary Hypertension Echo (12/27): Normal LV size and function. Diastolic dysfunction stage I. Estimated EF 55-60%. Normal RV size and function. Estimated RVSP moderately elevated at around of 40 to 50 mmHg. Mild MR and TR. Mild aortic valve sclerosis without stenosis. Moderately dilated LA. IVC Mildly dilated measuring 2.1cm. Plan: - Discontinued fluid restriction. #Mild Hypernatremia Sodium 149 Patient has received Lactated Ringer?s 500 mL daily for the past two days without significant improvement in labs. Plan: - Discontinued fluid restriction and encouraged to increase oral fluid intake. - Will continue to monitor vital signs, urine output, electrolyte balance, and overall volume status closely. #Polycythemia vera Platelet count peaked at 1281. Known diagnosis. JAK2-positive. Followed by Dr. Trinidad. History noteable for multiple prior therapeutic phlebotomies. Currently on hydroxyurea 500 mg daily at home. Plan: - Continue hydroxyurea to [address] Trinidad's recommendation. - Continue with LDH and uric acid checks Q8H. - Continue allopurinol 300 mg daily for hyperuricemia prophylaxis. - Monitor CBC daily to assess treatment response. - Maintain adequate hydration to reduce thrombosis risk. - Dr. Trinidad aware of admission. - Pending peripheral blood smear and flow cytometry. #Leukocytosis (resolved) WBC peaked at 36.7. Procalcitonin 0.06 UA: negative. Steroid-induced versus polycythemia vera. Plan - Taper methylprednisolone as above - Trend CBC daily. #Electrolyte abnormalities #Hypokalemia (resolved) #Hypermagnesemia (resolved) Mg 2.8. Likely iatrogenic from IV mag administered by EMS en route to hospital. Plan: - Keep magnesium > 2 and potassium >4 at all times as dronedarone can lead to increased QT. - Recheck electrolytes in AM labs. Health Maintenance Disposition: home w/ home health, w/ [employer] DVT prophylaxis: Heparin GI prophylaxis: none Diet: Low sodium Lines: Peripheral IV CODE STATUS: Limited Code Patient was discussed with the attending, Dr. Caballero , and senior resident , Dr. Wilburn. Marika Souza DO PGY-1 Attending Provider Attestation/Addendum I, Yakelin Caballero DO, attest that I was physically present for the bartholomew portions of the service and evaluated the patient with the resident and I reviewed and discussed the case with the resident and agree with the resident's findings and plans of care as documented above Patient seen and evaluated this AM. She states she is feeling well. No acute events overnight. She denies any pain at this time. left sided abdominal wall hematoma appears to be improving as it is less firm and ecchymosis appears to be dispersing. There remains to be some mild tenderness to palpation. Will monitor H/H closely. If H/h remains stable in AM, anticipate DC home. Encourage patient to work with PT. She remains on 2L/NC at this time. Tapering steroids and breathing treatments at this time.
[2025-01-04] MEDS: TIOTROPIUM BR 2.5 MCG 120 PUFF/4 GM INHALER INH (19:02)
[2025-01-05] VITALS (10 sets, daily range): BP systolic 120–135; BP diastolic 61–68; PULSE 66–87; RESP 16–22; TEMP 36.2–36.9; O2SAT 93–100; BMI 25.9
[2025-01-05] MEDS: ALBUTEROL/IPRATROPIUM (Duoneb) RT SOL 3 ML NEBU INH ×3 (01:00→10:21)
[2025-01-05] MEDS: BENZONATATE 100 MG CAPSULE 200 MG PO (05:35)
--- NOTE | 2025-01-05 06:00 | EKG_ITS ---
[facility] Test Date: 2025-01-05 Pat Name: SHEKHAR SHARP [facility] [employer] Setter: PALLAVI : 1945 Requested By: Ofelia Canela Order Number: [id number] Reading MD: Ofelia Canela Measurements Intervals [place] Rate: 71 P: 70 VA: 158 QRS: -20 QRSD: 107 T: 68 QT: 416 QTc: 452 Interpretive Statements SINUS RHYTHM WITH OCCASIONAL SUPRAVENTRICULAR PREMATURE COMPLEXES POSSIBLE LATERAL MYOCARDIAL INFARCTION , OF INDETERMINATE AGE Compared to ECG 01/01/2025 10:50:42 Myocardial infarct finding now present Left anterior fascicular block no longer present /store/S0/[id number]
[2025-01-05 06:29] LABS: Basophils # (Auto) 0.0 Thou/mm3 (0.0-0.2); Basophils % (Auto) 0 % (0-2.5); Eosinophils # (Auto) 0.1 Thou/mm3 (0.0-0.5); Eosinophils % (Auto) 1 % (0-10); Hematocrit 31.3 % (36.0-46.0); Hemoglobin 9.0 g/dL (12.0-16.0); Immature Granulocytes Auto 0.02 Thou/mm3 (0.00-0.00); Lymphocytes # (Auto) 0.5 Thou/mm3 (1.0-4.8); Lymphocytes % (Auto) 8 % (10-50); Mean Corpuscular HGB Conc 28.8 g/dl (31.0-37.0); Mean Corpuscular Hemoglobin 23.2 pg (25.0-35.0); Mean Corpuscular Volume 81 fL (80-100); Monocytes # (Auto) 0.1 Thou/mm3 (0.0-0.8); Monocytes % (Auto) 1 % (0-12); Neutrophils # (Auto) 5.9 Thou/mm3 (1.8-7.7); Neutrophils % (Auto) 90 % (37-80); Nucleated Red Blood Cell # 0.00 Thou/mm3 (0.00-0.00); Nucleated Red Blood Cell % 0 /100 WBC (0); Platelet Count 521 Thou/mm3 (140-440); RDW Standard Deviation 63.0 fL (36.4-46.3); Red Blood Count 3.88 Miln/mm3 (4.00-5.20); White Blood Count 6.6 Thou/mm3 (3.6-11.0)
[2025-01-05] MEDS: TIOTROPIUM BR 2.5 MCG 120 PUFF/4 GM INHALER INH (06:33)
[2025-01-05] MEDS: BUDESONIDE RT 0.5 MG/2 ML NEBU INH (06:33)
[2025-01-05 07:09] LABS: Alanine Aminotransferase < 7 U/L (10-49); Albumin, Serum 3.3 gm/dL (3.4-4.8); Albumin/Globulin Ratio 2.1 (1.2-2.2); Alkaline Phosphatase 59 U/L (46-116); Anion Gap 5 (7-16); Aspartate Amino Transferase < 10 U/L (0-34); BUN/Creatinine Ratio 45 Ratio (12-20); Bilirubin,Total 0.9 mg/dL (0.3-1.2); Blood Urea Nitrogen 36 mg/dL (9-23); Calcium 10.2 mg/dL (8.3-10.6); Calcium (Corrected) 10.8 mg/dL (8.5-10.1); Carbon Dioxide > 40.0 mMol/L (20.0-31.0); Chloride 102 mMol/L (98-107); Creatinine (Component) 0.8 mg/dL (0.6-1.3); Estimated Creatinine Clearance 53.5 mL/min (>60); Globulin 1.6 gm/dL (2.3-3.5); Glucose 106 mg/dL (74-106); Magnesium 1.8 mg/dL (1.6-2.6); Osmolality,Calculated 300 (275-295); Phosphorous 3.7 mg/dL (2.4-5.1); Potassium 4.3 mMol/L (3.4-5.1); Sodium 147 mMol/L (136-145); Total Protein 4.9 gm/dL (5.7-8.2); eGFR > 60 See Note
[2025-01-05] MEDS: HYDROXYUREA 500 MG CAPSULE 2000 MG PO (09:10)
[2025-01-05] MEDS: DILTIAZEM CD 120 MG CAPCR PO (09:10)
[2025-01-05] MEDS: DRONEDARONE HCL 400 MG PO (09:10)
[2025-01-05] MEDS: DOCUSATE SOD 100 MG CAPSULE PO (09:10)
[2025-01-05] MEDS: Magnesium Sulfate 2 GM Ivpb 2 GM/50 ML BAG IV (09:10)
--- NOTE | 2025-01-05 10:50 | ESPR_ITS ---
Documentation for date of: 01/05/25 Subjective Subjective Interval history: Patient is evaluated at bedside, no acute overnight events reported. Currently on 1 L nasal cannula oxygen, in no acute respiratory distress. Patient was noted to have severe metabolic alkalosis, bicarb more than 40, ordered blood gas to evaluate pH. Noted improvement in bilateral wheezing. Hematoma stable, no extension noted, slightly tender on physical exam. Recommend patient to be discharged on steroid taper when stable, recommend to continue holding Eliquis and follow-up with cardiology within 1 week of discharge from hospital. Exam Vital Signs Temp Pulse Resp BP Pulse Ox O2 Del Method O2 Flow Rate 98.1 F 72 16 120/61 100 Nasal Cannula 1 01/05/25 07:40 01/05/25 10:26 01/05/25 10:21 01/05/25 09:10 01/05/25 10:21 01/05/25 07:40 01/05/25 10:21 FiO2 25 01/02/25 16:00 Narrative Exam Physical Exam General: Awake and sitting upright, in no acute distress, coughing at present. Conversational and non-toxic appearing. Nasal cannula present. HEENT: Normocephalic, atraumatic. Heart: Regular rate and rhythm, no murmurs. Lungs: Noted bilateral wheezing. No accessory muscle use noted. Abdomen: Soft, nondistended. Tenderness to light and deep palpation on left abdominal. No guarding or rebound tenderness. No tenderness to palpation of right abdominal. Neurologic: Alert and oriented x3, no gross neurological deficit, and patient able to move all 4 extremities. Extremities: No edema. Skin: Noted large patch of left flank, consistent with ecchymosis, purplish discoloration. Slightly tender. Objective Labs 01/05/25 05:30 01/05/25 05:30 Labs: Laboratory Results - last 24 hr 01/05/25 05:30 WBC 6.6 RBC 3.88 L Hgb 9.0 L Hct 31.3 L MCV 81 MCH 23.2 L MCHC 28.8 L RDW Std Deviation 63.0 H Plt Count 521 H D Neut % (Auto) 90 H Lymph % (Auto) 8 L [place] % (Auto) 1 Eos % (Auto) 1 Baso % (Auto) 0 Neut # (Auto) 5.9 Lymph # (Auto) 0.5 L [place] # (Auto) 0.1 Eos # (Auto) 0.1 Baso # (Auto) 0.0 Immature Gran # (Auto) 0.02 H Absolute Nucleated RBC 0.00 Immature Gran % 0 Nucleated RBC % 0 Sodium 147 H Potassium 4.3 Chloride 102 Carbon Dioxide > 40.0 H Anion Gap 5 L BUN 36 H Creatinine 0.8 Estim Creat Clear Calc 53.5 L eGFR > 60 BUN/Creatinine Ratio 45 H Glucose 106 Calculated Osmolality 300 H Calcium 10.2 Corrected Calcium 10.8 H Phosphorus 3.7 Magnesium 1.8 Total Bilirubin 0.9 AST < 10 ALT < 7 L Alkaline Phosphatase 59 Total Protein 4.9 L Albumin 3.3 L Globulin 1.6 L Albumin/Globulin Ratio 2.1 ABG Interpretation ABG results: 12/27/24 12/27/24 12/28/24 16:52 20:50 09:30 ABG pH 7.33 L 7.30 L 7.35 ABG pCO2 65 H 61 H 53 H ABG pO2 189 H 47 L* D 71 L D ABG HCO3 34 H 30 H 29 H ABG O2 Saturation 100 H 78 L 95 ABG Base Excess 6 H 2 2 VBG pH VBG pCO2 VBG pO2 VBG Base Excess 12/30/24 12/30/24 12/30/24 00:06 03:30 10:00 ABG pH 7.29 L 7.40 D ABG pCO2 77 H* D 60 H D ABG pO2 169 H D 63 L D ABG HCO3 37 H 37 H ABG O2 Saturation 100 H 92 ABG Base Excess 7 H 10 H VBG pH 7.43 VBG pCO2 55 VBG pO2 85 H VBG Base Excess 10 H 12/30/24 17:44 ABG pH 7.44 ABG pCO2 53 H ABG pO2 74 L ABG HCO3 36 H ABG O2 Saturation 96 ABG Base Excess 10 H VBG pH VBG pCO2 VBG pO2 VBG Base Excess Quality Measures Quality Measures none Advance care planning discussed with:: patient Assessment & Plan Assessment Current Active Medications: Generic Name Dose Route Start Last Admin Trade Name Freq PRN Reason Stop Dose Admin Acetaminophen 650 mg 12/27/24 18:54 Acetaminophen 325 Mg Tablet PO 01/26/25 18:53 Q6H PRN Fever >100.4 Acetaminophen 650 mg 12/27/24 18:54 01/01/25 05:34 Acetaminophen 325 Mg Tablet PO 01/26/25 18:53 650 mg Q6H PRN Administration PAIN SCALE 1-3 (mild Albuterol/Ipratropium 3 ml 12/27/24 18:54 01/04/25 08:16 Albuterol/Ipratropium (Duoneb) Rt Lanie 3 Ml Nebu INH 01/26/25 18:53 3 ml Q2HR PRN Administration SHORTNESS OF BREATH OR WHEEZE Albuterol/Ipratropium 3 ml 01/02/25 13:00 01/05/25 10:21 Albuterol/Ipratropium (Duoneb) Rt Lanie 3 Ml Nebu INH 02/01/25 12:59 3 ml Q6HRRT AUTUMN Administration Allopurinol 300 mg 12/27/24 19:15 01/05/25 09:11 Allopurinol 100 Mg Tablet PO 01/26/25 19:14 300 mg QDAY AUTUMN Administration Apixaban 5 mg 12/28/24 21:00 01/02/25 22:46 Apixaban 2.5 Mg Tablet PO 01/27/25 20:59 5 mg BID AUTUMN Administration Benzonatate 200 mg 12/30/24 22:00 01/05/25 05:35 Benzonatate 100 Mg Capsule PO 01/29/25 21:59 200 mg Q8HR AUTUMN Administration Protocol Budesonide 0.5 mg 12/31/24 19:00 01/05/25 06:33 Budesonide Rt 0.5 Mg/2 Ml Nebu INH 01/30/25 18:59 0.5 mg BIDRT AUTUMN Administration Diltiazem HCl 120 mg 12/28/24 09:15 01/05/25 09:10 Diltiazem Cd 120 Mg Capcr PO 01/27/25 09:14 120 mg QDAY AUTUMN Administration Docusate Sodium 100 mg 12/28/24 09:00 01/05/25 09:10 Docusate Sod 100 Mg Capsule PO 01/27/25 08:59 100 mg QDAY AUTUMN Administration Protocol Dronedarone 400 mg 12/28/24 10:00 01/05/25 09:10 Dronedarone Hcl 400 Mg Tablet (Non-Formulary) PO 01/27/25 09:59 400 mg BID AUTUMN Administration Guaifenesin/Dextromethorphan 10 ml 01/02/25 09:26 01/02/25 09:37 Guaifenesin/Dm 10 Ml Udc PO 02/01/25 09:25 10 ml Q6H PRN Administration COUGH Protocol Hydroxyurea 2,000 mg 12/30/24 09:00 01/05/25 09:10 Hydroxyurea 500 Mg Capsule PO 01/29/25 08:59 2,000 mg QDAY AUTUMN Administration Protocol Ondansetron HCl 4 mg 12/27/24 18:54 Ondansetron Inj 2 Mg/Ml Inj 2 Ml IVP 01/26/25 18:53 Q6H PRN NAUSEA OR VOMITING Protocol Phenyleph/Shark Oil/Min Oil/Petrol 0 gm 12/27/24 21:03 Preparation H Oint 30 Gm Tube AL 01/26/25 21:02 BID PRN HEMORRHOIDS Sennosides 1 tab 01/01/25 11:44 01/03/25 09:47 Senna Tablet PO 01/27/25 08:59 1 tab QDAY PRN Administration ABDOMINAL CRAMPING Protocol Sodium Chloride 3 ml 12/29/24 23:45 Sodium Chloride Rt Lanie 0.9% 3 Ml Nebu INH 01/28/25 23:44 PRN PRN SOLN Tiotropium [place] 2 puff 01/04/25 17:15 01/05/25 06:33 Tiotropium Br 2.5 Mcg 120 Puff/4 Gm Inhaler INH 02/03/25 17:14 2.5 mcg QDAY AUTUMN Administration Plan Patient is an 79-year-old female with a past medical history of severe COPD on 3-5 L home oxygen, HTN, atrial fibrillation, polycythemia and thrombocytosis with JAK2 mutation, followed by Dr. Trinidad, pulmonary hypertension, history of smoking 40 to 50 pack year, who presented to the emergency room complaining of worsening shortness of breath. Patient was found to have acute hypoxic and hypercapnic respiratory failure secondary to severe COPD , she was initially started on BiPAP, ABG showed respiratory acidosis. Later patient was transitioned to high flow nasal cannula oxygen. Problems: 1. Acute on chronic hypoxic/hypercapnic respiratory failure?improving 2. Acute severe COPD?resolving 3. Hematoma - LLQ abdomen 4. Polycythemia 5. Sinus arrhythmia 6. Thrombocytosis 7. Ruled out pulmonary embolism 8. History of pulmonary hypertension 9. History of hypertension 10. History of paroxysmal A-fib, now converted to sinus rhythm The patient has history of severe COPD and is on 3 to 5 L nasal cannula oxygen, but started becoming more short of breath over the past few days, denies any sick contacts, or fever, she reported access to oxygen, but said that she ran out of inhalers. Patient reported she has not seen her primary care doctor in over a year. At the time of evaluation, patient was seen on high flow nasal cannula oxygen at 25 L, 45% FiO2, patient was wheezing excessively and showing signs of respiratory distress. Also noted respiratory acidosis on initial ABG, recommended using BiPAP if continued increased work of breathing. Patient had received 1 dose of Solu-Medrol 125 mg in the ED. The patient is started on ceftriaxone and azithromycin, though patient is taking dronedarone for atrial fibrillation which can prolong QT, ordered repeat EKG in the morning to monitor QT. EKG showed sinus rhythm, QT362, QTc 431 on 12/28/2024, recommend continued monitoring of QT interval. The patient has history of JAK2 kinase mutation, polycythemia and thrombocytosis, followed by cancer treatment center Dr. Trinidad, started on hydroxyurea 2000 mg daily, patient has persistent thrombocytosis, due to concern for acute hypoxic respiratory failure, and thrombocytosis there was concern for pulmonary embolism, but CT angiogram was done which ruled out pulm embolism. Patient was started on heparin drip by primary team as empiric treatment, Which is now discontinued. Was initially on Eliquis, which is now on hold due to hematoma left lower quadrant abdomen, recommend to follow-up with cardiology within 1 week of discharge from hospital. Echocardiogram had showed diastolic dysfunction stage I, EF 55 to 60%, mild MR and TR, moderately dilated LA, normal LV and RV size and function.Can give IV fluids if needed due to thrombocytosis. CXR was negative for Pneumonia, Reported as bronchitis pattern, currently on antibiotics were initially treated with azithromycin and ceftriaxone, currently on day 4 of azithromycin, recommended to continue monitoring QTc with daily EKGs. The patient has persistent prolonging of her QT interval, given that patient is on QT prolonging medications a longer QTc is acceptable, continue telemetry monitoring for arrhythmias, keep magnesium more than 2 and potassium more than 4 at all times. EKG shows sinus arrhythmia, pharmacological conversion to sinus rhythm achieved by Multaq, likely has paroxysmal atrial fibrillation, recommend to continue with diltiazem and Multaq and anticoagulation with Eliquis. Noted purple discoloration on patient's left flank, consistent with ecchymosis. Primary team concern for hematoma, withheld Eliquis. The area is not exquisitely tender, still complaining of right upper quadrant tenderness, but previous ultrasound imaging of RUQ was negative for cholecystitis. The patient does have underlying dementia, as she is not consistent in reporting her symptoms or her daily bowel movements., Patient's is present at bedside who confirmed that patient does have forgetfulness and possible dementia. CT a/p shows 7cm extensive hemaotma, Eliquis is on hold. Recommend to continue holding Eliquis for 2 weeks, and follow up with cariology outpt once patient is ready for discharge. Pt is currently in sinus rhythm. Continue Multaq. Will get EKG to assess QT, in the am if pt stays. Recommendations: ? Remain to continue IV steroids during hospital stay and recommend to prescribe per oral steroid taper when pt ready for discharge. ? Recommend LABA, LAMA and ICS to patient's treatment regimen to be continued on discharge. ? Resume home medications dronedarone/Multaq and diltiazem. The pateint is currently in sinus rhythm with sinus arrhythmia. ? Recommend to avoid hypomagnesemia and hypokalemia as patient is on multiple QT prolonging medications. Keep magnesium more than 2 and potassium more than 4 at all times. ? Consider BiPAP if indicated for increased work of breathing or severe hypercapnia. ? Agree with core driller/oncologist recommending continuing patient's hydroxyurea. ? Chest physiotherapy as needed. -EKG and telemetry did show the patient is in normal sinus rhythm and she does have a history of paroxysmal atrial fibrillation and recommend to continue diltiazem along with Multaq/dronedarone which are her home medications for rate as well as rhythm control - Keep potassium greater than 4 magnesium greater than 2.0 at all times ?Recommend follow-up with cardiology within 1 week of discharge from hospital, Eliquis continues to be withheld, will resume at a later date upon evaluation at seismic observer office. Rest of the management deferred to primary team. Thank you for cardiology consultation. We appreciate the opportunity to participate in this patient's care. Will continue to follow-up on this patient This case was discussed with seismic observer, Dr. Bhatt. Ofelia Canela MD PG3 Attending Provider Attestation/Addendum I have personally seen and examined the patient separately on the above date of service and discussed the plan of care with the resident. I reviewed the resident Dr. Valdovinos consultation progress note and agree with the resident findings and plan in the note above and have also edited the documentation to reflect my findings and plan. Inderjit Bhatt M.D. Interventional Cardiology
--- NOTE | 2025-01-05 11:23 | PC.SS ---
SS follow up note; SS contacted Randi and spoke to Marisela. SS informed Marisela that patient would be discharging today at 1PM. Marisela informed SS they will be meeting at patient's home at 2PM. SS contacted patient's , Gene and he is agreeable and verbalized understanding. SS contacted patient's nurse, Ihsan and informed her patient will need to discharge @ 1PM that [address] Randi could meet with patient at 2PM, Sang verbalized understanding.
[2025-01-05 12:25] LABS: Base Excess, Venous 11 (-3-3); O2 Saturation, Venous 80 % (96-97); PCO2, Venous 60 mmHg (36-56); PO2, Venous 45 mmHg (15-58); pH, Venous 7.40 (7.33-7.66)
--- NOTE | 2025-01-05 13:01 | PD.RESPRO ---
Documentation for date of: 01/05/25 Subjective Subjective Interval history: Patient was seen at the bedside this morning with her . She reported no new complaints, and there were no acute events overnight. She was awake, alert, and resting comfortably. Oxygen saturation was stable at 93% on 1L nasal cannula, and she denied any shortness of breath. The abdominal hematoma on the left side continues to improve, with dispersing ecchymosis. The patient endorses only mild tenderness to palpation. Steroid taper is ongoing. Eliquis has been held since 01/03 for hematoma. Hemoglobin remains low but stable at 9.0. Patient was encouraged to walk more with physical therapy. Discussed case with Dr. Trinidad, who recommends the following adjustments: - Reduce hydroxyurea to 500 mg twice daily. - Discontinue allopurinol, as LDH and uric acid levels are within normal limits. - Repeat CBC, CMP, LDH, and uric acid in 2 weeks prior to outpatient follow-up with her. Exam Vital Signs Temp Pulse Resp BP Pulse Ox O2 Del Method O2 Flow Rate 98.4 F 82 17 125/66 93 L Nasal Cannula 1 01/05/25 12:00 01/05/25 12:08 01/05/25 12:00 01/05/25 12:00 01/05/25 12:00 01/05/25 12:00 01/05/25 12:00 FiO2 25 01/02/25 16:00 Narrative Exam Physical Exam General: Awake and in no acute distress. Conversational and non-toxic appearing. Nasal cannula present. HEENT: Normocephalic, atraumatic. Heart: Regular rate and rhythm, no murmurs. Lungs: Clear to auscultation bilaterally, improved breath sounds. No use of accessory respiratory muscles. Mild wheezing present bilaterally. Abdomen: Soft, nondistended. Non-tender. No guarding or rebound tenderness. Resolving hematoma of left abdomen. Neurologic: Alert and oriented x3, no gross neurological deficit, and patient able to move all 4 extremities. Extremities: No edema. Skin: No rash or ecchymoses. Objective Labs 01/05/25 05:30 01/05/25 05:30 Labs: Laboratory Results - last 24 hr 01/05/25 01/05/25 05:30 12:00 WBC 6.6 RBC 3.88 L Hgb 9.0 L Hct 31.3 L MCV 81 MCH 23.2 L MCHC 28.8 L RDW Std Deviation 63.0 H Plt Count 521 H D Neut % (Auto) 90 H Lymph % (Auto) 8 L [place] % (Auto) 1 Eos % (Auto) 1 Baso % (Auto) 0 Neut # (Auto) 5.9 Lymph # (Auto) 0.5 L [place] # (Auto) 0.1 Eos # (Auto) 0.1 Baso # (Auto) 0.0 Immature Gran # (Auto) 0.02 H Absolute Nucleated RBC 0.00 Immature Gran % 0 Nucleated RBC % 0 VBG pH 7.40 VBG pCO2 60 H VBG pO2 45 VBG O2 Sat (Karissa) 80 L VBG Base Excess 11 H Sodium 147 H Potassium 4.3 Chloride 102 Carbon Dioxide > 40.0 H Anion Gap 5 L BUN 36 H Creatinine 0.8 Estim Creat Clear Calc 53.5 L eGFR > 60 BUN/Creatinine Ratio 45 H Glucose 106 Calculated Osmolality 300 H Calcium 10.2 Corrected Calcium 10.8 H Phosphorus 3.7 Magnesium 1.8 Total Bilirubin 0.9 AST < 10 ALT < 7 L Alkaline Phosphatase 59 Total Protein 4.9 L Albumin 3.3 L Globulin 1.6 L Albumin/Globulin Ratio 2.1 ABG Interpretation ABG results: 12/27/24 12/27/24 12/28/24 16:52 20:50 09:30 ABG pH 7.33 L 7.30 L 7.35 ABG pCO2 65 H 61 H 53 H ABG pO2 189 H 47 L* D 71 L D ABG HCO3 34 H 30 H 29 H ABG O2 Saturation 100 H 78 L 95 ABG Base Excess 6 H 2 2 VBG pH VBG pCO2 VBG pO2 VBG Base Excess 12/30/24 12/30/24 12/30/24 00:06 03:30 10:00 ABG pH 7.29 L 7.40 D ABG pCO2 77 H* D 60 H D ABG pO2 169 H D 63 L D ABG HCO3 37 H 37 H ABG O2 Saturation 100 H 92 ABG Base Excess 7 H 10 H VBG pH 7.43 VBG pCO2 55 VBG pO2 85 H VBG Base Excess 10 H 12/30/24 01/05/25 17:44 12:00 ABG pH 7.44 ABG pCO2 53 H ABG pO2 74 L ABG HCO3 36 H ABG O2 Saturation 96 ABG Base Excess 10 H VBG pH 7.40 VBG pCO2 60 H VBG pO2 45 VBG Base Excess 11 H Quality Measures Quality Measures none Assessment & Plan Assessment Current Active Medications: Generic Name Dose Route Start Last Admin Trade Name Freq PRN Reason Stop Dose Admin Acetaminophen 650 mg 12/27/24 18:54 Acetaminophen 325 Mg Tablet PO 01/26/25 18:53 Q6H PRN Fever >100.4 Acetaminophen 650 mg 12/27/24 18:54 01/01/25 05:34 Acetaminophen 325 Mg Tablet PO 01/26/25 18:53 650 mg Q6H PRN Administration PAIN SCALE 1-3 (mild Albuterol/Ipratropium 3 ml 12/27/24 18:54 01/04/25 08:16 Albuterol/Ipratropium (Duoneb) Rt Lanie 3 Ml Nebu INH 01/26/25 18:53 3 ml Q2HR PRN Administration SHORTNESS OF BREATH OR WHEEZE Albuterol/Ipratropium 3 ml 01/02/25 13:00 01/05/25 10:21 Albuterol/Ipratropium (Duoneb) Rt Lanie 3 Ml Nebu INH 02/01/25 12:59 3 ml Q6HRRT AUTUMN Administration Allopurinol 300 mg 12/27/24 19:15 01/05/25 09:11 Allopurinol 100 Mg Tablet PO 01/26/25 19:14 300 mg QDAY AUTUMN Administration Apixaban 5 mg 12/28/24 21:00 01/02/25 22:46 Apixaban 2.5 Mg Tablet PO 01/27/25 20:59 5 mg BID AUTUMN Administration Benzonatate 200 mg 12/30/24 22:00 01/05/25 05:35 Benzonatate 100 Mg Capsule PO 01/29/25 21:59 200 mg Q8HR AUTUMN Administration Protocol Budesonide 0.5 mg 12/31/24 19:00 01/05/25 06:33 Budesonide Rt 0.5 Mg/2 Ml Nebu INH 01/30/25 18:59 0.5 mg BIDRT AUTUMN Administration Diltiazem HCl 120 mg 12/28/24 09:15 01/05/25 09:10 Diltiazem Cd 120 Mg Capcr PO 01/27/25 09:14 120 mg QDAY AUTUMN Administration Docusate Sodium 100 mg 12/28/24 09:00 01/05/25 09:10 Docusate Sod 100 Mg Capsule PO 01/27/25 08:59 100 mg QDAY AUTUMN Administration Protocol Dronedarone 400 mg 12/28/24 10:00 01/05/25 09:10 Dronedarone Hcl 400 Mg Tablet (Non-Formulary) PO 01/27/25 09:59 400 mg BID AUTUMN Administration Guaifenesin/Dextromethorphan 10 ml 01/02/25 09:26 01/02/25 09:37 Guaifenesin/Dm 10 Ml Udc PO 02/01/25 09:25 10 ml Q6H PRN Administration COUGH Protocol Hydroxyurea 2,000 mg 12/30/24 09:00 01/05/25 09:10 Hydroxyurea 500 Mg Capsule PO 01/29/25 08:59 2,000 mg QDAY AUTUMN Administration Protocol Ondansetron HCl 4 mg 12/27/24 18:54 Ondansetron Inj 2 Mg/Ml Inj 2 Ml IVP 01/26/25 18:53 Q6H PRN NAUSEA OR VOMITING Protocol Phenyleph/Shark Oil/Min Oil/Petrol 0 gm 12/27/24 21:03 Preparation H Oint 30 Gm Tube [place] 01/26/25 21:02 BID PRN HEMORRHOIDS Sennosides 1 tab 01/01/25 11:44 01/03/25 09:47 Senna Tablet PO 01/27/25 08:59 1 tab QDAY PRN Administration ABDOMINAL CRAMPING Protocol Sodium Chloride 3 ml 12/29/24 23:45 Sodium Chloride Rt Lanie 0.9% 3 Ml Nebu INH 01/28/25 23:44 PRN PRN SOLN Tiotropium [place] 2 puff 01/04/25 17:15 01/05/25 06:33 Tiotropium Br 2.5 Mcg 120 Puff/4 Gm Inhaler INH 02/03/25 17:14 2.5 mcg QDAY AUTUMN Administration
--- NOTE | 2025-01-05 13:16 | ESDS_ITS ---
<Statement entered by Yakelin Caballero DO - 01/06/25 09:23> I, Yakelin Caballero DO, attest that I was physically present for the bartholomew portions of the service and evaluated the patient with the resident and I reviewed and discussed the case with the resident and agree with the resident's findings and plans of care as documented above Planned Discharge Date 01/05/25 DS: Providers Provider Date of admission: 12/27/24 18:49 Primary care physician: Physician No Primary/Family Admitting Provider: Yakelin Caballero DO Attending Provider on Admission: Yakelin Caballero DO Consults: 12/27/24 19:17 Consult to Cardiology Stat Comment: CHF Consulting Provider: Inderjit Bhatt 12/28/24 00:07 Referral Registered Dietitian Routine Comment: Referral Wound Care Routine Comment: 01/02/25 10:09 Referral Physical Therapy Stat Comment: Physician Instructions: Attending Provider on DC: Yakelin Caballero DO Discharging Provider: Marika Souza DO Anticipated date of discharge: 01/05/25 DS: Diagnosis Problem List Completed Was Problem List Reviewed/Reconciled?: Yes Hospital Course Hospital Course Hospital course: 87-year-old female with COPD on 5L/NC home oxygen, hypertension, and JAK2- positive polycythemia vera presented on 12/27 with acute on chronic hypoxic and hypercapnic respiratory failure. She required BiPAP and later high-flow nasal cannula. CTA chest ruled out PE and pneumonia but showed pulmonary artery hypertension. Initial management included IV steroids, antibiotics (ceftriaxone, azithromycin), and nebulized bronchodilators. Cardiology and hematology were consulted. Hospital course was complicated by marked leukocytosis, attributed to steroids and underlying polycythemia vera, for which hydroxyurea was escalated to 2 g daily and allopurinol added. She also developed a large left abdominal wall hematoma on 01/01 while on anticoagulation, leading to holding Eliquis. Hemoglobin trended down but remained above transfusion threshold, and the hematoma stabilized with supportive management. RUQ pain was evaluated with ultrasound, showing cholelithiasis without cholecystitis. She experienced steroid-induced agitation/psychosis, prompting tapering and eventual discontinuation of high-dose steroids. Respiratory status gradually improved with transition from BiPAP to HFNC, and by 01/02 she was stable on nasal cannula 2?5 L, close to her baseline. Pulmonary hypertension was managed with diuretics and fluid restriction initially, later discontinued as patient was dehydrated and had poor oral intake while on BiPap. Hypernatremia was managed with fluids and increased oral intake. Steroids have been slowly weaned and respiratory status improved with scheduled breathing treatments. By 01/04, the patient reported significant improvement in breathing and resolution of abdominal pain. The hematoma was softening and less ecchymotic, H/H stable. leukocytosis was improving, and she was stable on 2 L nasal cannula. Discharge was planned with home health, continuation of inhaled triple therapy (ICS/LABA/LAMA), tapering steroids, hydroxyurea with CBC monitoring, and outpatient cardiology/hematology follow-up. Eliquis to be held for 2 weeks per cardiology. Patient is medically and physically stable for discharge. Diagnosis: #Acute on chronic hypoxic and hypercapnic respiratory failure #Acute COPD exacerbation #Pulmonary hypertension #Polycythemia vera (JAK2-positive) with thrombocytosis #Steroid-induced psychosis #Leukocytosis #Left abdominal wall hematoma with associated anemia #Hypertension #Hypernatremia #Hypokalemia Discharge Plan: Follow up with Dr. Trinidad within 2 weeks. Follow up with Dr. Bhatt within 2 weeks. Follow up with PCP within 2 weeks. Use Trelegy Elipta inhaler every day in the morning. Start taking hydroxyurea 500 mg twice daily. Use Medrol Hua as instructed. Hold Eliquis until seen by cardiology within the next 2 weeks. Continue other home medications as prescribed. Use BiPAP at night. Repeat CBC, CMP, LDH and uric acid in 2 weeks. Case discussed with my senior resident Dr. Pineda and my attending . Marika Souza DO PGY 1 Status at Discharge Overall status at discharge: patient is back to baseline Time Spent with Patient Time attestation: Total time spent providing and/or coordinating discharge services: Time spent: Greater than 30 minutes Home Health Home Health Referral Orders: 01/04/25 10:22 Home Health Referral Routine Reason For Exam: COPD Home-Bound The patient must either because of illness or injury, need the aid of supportive devices such as crutches, canes, wheelchairs, and walkers; the use of special transportation; or the assistance of another person in order to leave their place of residence; OR have a condition such that leaving his or her home is medically contraindicated. In addition, the patient also meets the following criteria: patient is normally unable to leave the home and leaving home requires considerable taxing effort. Addendum to Home Health Certification Practitioner's Certification: I certify that the patient has been under my care in the hospital and the care of attending physician (see below). We had a [id number] encounter on (see date below). My clinical findings indicate that the patient is home bound per the above criteria and the Home Health Services noted in these orders are medically necessary. The primary reason for the [id number] encounter is related to the fact that the patient requires home health services. Date Certifying [id number] Physician Encounter: 12/27/24 Physician's Name who will Assume Oversight for HH Services: Brandon Bui SENIOR UX DESIGNER - Community Resources: No PT to Evaluate: Yes PT to evaluate and provide a treatmnet plan to increase patient's mobility and strength. Wound Care: No IV Therapy: No RN Safety Evaluation: Yes RN to evaluate and create a plan of care that will produce positive outcomes. Palliative Treatment: No Palliative treatment and evaluate the need for hospice. Home Health Aide - Personal Care: Yes Home Health Aide to assist with any ADL's. Exam Vital Signs Temp Pulse Resp BP Pulse Ox O2 Del Method O2 Flow Rate 98.4 F 82 17 125/66 93 L Nasal Cannula 1 01/05/25 12:00 01/05/25 12:08 01/05/25 12:01/05/25 12:01/05/25 12:01/05/25 12:01/05/25 12:00 FiO2 01/02/25 16:00 Narrative Exam Physical Exam General: Awake and in no acute distress. Conversational and non-toxic appearing. Nasal cannula present. HEENT: Normocephalic, atraumatic. Heart: Regular rate and rhythm, no murmurs. Lungs: Clear to auscultation bilaterally, improved breath sounds. No use of ac cessory respiratory muscles. Abdomen: Soft, nondistended. Non-tender. No guarding or rebound tenderness. Resolving hematoma of left abdomen. Neurologic: Alert and oriented x3, no gross neurological deficit, and patient able to move all 4 extremities. Extremities: No edema. Skin: No rash or ecchymoses. Discharge Plan Plan Patient Disposition: Home w/HOME HEALTH Patient condition on transfer: Stable Care Plan Goals: Follow up with Dr. Trinidad within 2 weeks. Follow up with Dr. Bhatt within 2 weeks. Follow up with PCP within 2 weeks. Use Trelegy Elipta inhaler every day in the morning. Start taking hydroxyurea 500 mg twice daily. Use Medrol Hua as instructed. Hold Eliquis until seen by cardiology within the next 2 weeks. Continue other home medications as prescribed. Use BiPAP at night. Repeat CBC, CMP, LDH and uric acid in 2 weeks. Prescriptions/Referrals Prescriptions/Med Rec: New methylprednisolone [Medrol (Hua)] 4 mg tablets,dose pack 4 mg PO QAM Qty: 21 0RF Trelegy Ellipta 200-62.5-25 mcg blister with device 1 inh inhalation QDAY Qty: 60 2RF Continued albuterol sulfate [Ventolin HFA] 90 mcg/actuation Hfa Aerosol Inhaler 2 puff INHALATION Q6H temazepam 15 mg capsule 15 mg PO HS paroxetine HCl 20 mg tablet 20 mg PO QDAY Stiolto Respimat 2.5-2.5 mcg/actuation Mist 2 puff INHALATION Q24H diltiazem HCl 120 mg capsule,extended release 24 hr 120 mg PO QDAY Patient Comments: TAKE 1 CAPSULE BY MOUTH EVERY DAY Multaq 400 mg tablet 400 mg PO BID Rx Instructions: Take 1 tablet by mouth twice a day with meals Changed hydroxyurea 500 mg capsule 500 mg PO BID Qty: 60 1RF Held Eliquis 5 mg tablet 5 mg PO BID Hold Instructions: Until seen by cardiology Rx Instructions: Take 1 tablet by mouth twice a day for 90 days Discontinued prednisone 10 mg tablet See Taper PO QDAY Qty: 30 0RF Taper: Prednisone Taper 40 mg DAILY for 3 Days and 0 Hour 30 mg DAILY for 3 Days and 0 Hour 20 mg DAILY for 3 Days and 0 Hour 10 mg DAILY for 3 Days Referrals: No Primary/Family,Physician [Primary Care Provider] - Patient/Caregiver Discharge Instructions Education Materials: ED COPD Flare Print Language: Indonesian Stand Alone Forms: Deanne Award Info., Patient Portal Info Letter Discharge Order Discharge Orders: Discharge (Routine); Ordered 01/05/25 Ordered By: Brett Pineda Quality Discharge Quality Measures none
--- NOTE | 2025-01-06 08:33 | PC.SS ---
SS received a call from Rosalino Ricardo who stated upo9n setting pt up with [employer] there was not enough Amps for the machine. Due to the electrical issue they were unable to set up. Haleigh requested to send new DME order for a bipap which would work better for their home.
--- NOTE | 2025-01-06 15:02 | PC.CM ---
Patient has [employer] insurance so I faxed information to [facility] and [facility].
== END 2025-01-05 13:04 | disposition home health service (06) | DRG 190 ==
LOC: SERX 18:38 → SERHOLD 19:28 → S2NX 20:01 → S3NX 01-03 21:56
PROVIDERS: Student in an Organized Health Care Education/Training Program; Admitting Provider Internal Medicine; Emergency Provider Family Medicine; Visit Provider Internal Medicine
DX: J44.1 Chronic obstructive pulmonary disease with (acute) exacerbation (principal); J96.21 Acute and chronic respiratory failure with hypoxia; J96.22 Acute and chronic respiratory failure with hypercapnia; D68.59 Other primary thrombophilia; E87.0 Hyperosmolality and hypernatremia; I48.20 Chronic atrial fibrillation, unspecified; E87.4 Mixed disorder of acid-base balance; Z99.81 Dependence on supplemental oxygen; I10 Essential (primary) hypertension; E87.6 Hypokalemia; E83.41 Hypermagnesemia; D72.829 Elevated white blood cell count, unspecified; D69.6 Thrombocytopenia, unspecified; I48.91 Unspecified atrial fibrillation; D64.9 Anemia, unspecified; K80.20 Calculus of gallbladder without cholecystitis without obstruction; D75.1 Secondary polycythemia; F03.90 Unspecified dementia, unspecified severity, without behavioral disturbance, psychotic disturbance, mood disturbance, and anxiety; I48.0 Paroxysmal atrial fibrillation; N28.1 Cyst of kidney, acquired; S30.1XXA Contusion of abdominal wall, initial encounter; T38.0X5A Adverse effect of glucocorticoids and synthetic analogues, initial encounter; I27.21 Secondary pulmonary arterial hypertension; Z78.1 Physical restraint status; D75.839 Thrombocytosis, unspecified; Z79.01 Long term (current) use of anticoagulants; Z79.899 Other long term (current) drug therapy; Z87.891 Personal history of nicotine dependence; Z90.710 Acquired absence of both cervix and uterus
CPT/HCPCS: 36415; 36600; 71045; 71275; 74176; 76700; 80053; 80061; 80307; 81001; 82803; 83540; 83550; 83605; 83615; 83735; 83880; 84100; 84145; 84443; 84484; 84550; 85014; 85018; 85025; 85379; 85610; 85652; 85730; 85810; 86140; 86331; 86635; 86850; 86900; 86901; 87040; 87086; 87400; 87811; 93005; 93225; 93306; 94640; 94644; 94645; 94660; 94667; 96365; 97162; 99285; A4649; A9270; J0456; J0696; J1630; J1644; J2919; J3475; J3480; J3490; J7030; J7050; J7120; J7999; Q9967

== ENCOUNTER 2025-02-08 14:02 | Outpatient (AMB) | payer OTHER, MEDICAID, SELFPAY ==
--- NOTE | 2025-02-08 14:27 | ACNOTE_ITS ---
Vital Signs 02/08/25 14:30 Respiration 17 Pulse 67 Pulse Source Monitor Temp 97.6 F Temp Source Temporal Artery Scan Pulse Oximetry (%) 95 Oxygen Delivery Method Nasal Cannula Oxygen Flow Rate 2 Allergies/Meds Allergies & Medications Allergies orange Allergy (Verified 03/13/23 22:30) Swelling of Lip/Tongue/Throat orange juice Allergy (Verified 03/13/23 22:30) Swelling of Lip/Tongue/Throat MA Intake Visit Data Collection New Patient or Established: Established Patient (seen at [facility] within 3 years) Reason for Visit:: FOLLOW UP Pain Present Currently: No PCP or OBGYN visit in last 3 months: Yes Date of Last PCP or OBGYN visit: 01/05/25 Hx Now: No Do You Feel Safe at Home: Yes Authorities Contacted: N/A Smoking Status Smoking Status: Former smoker Immunization / Flu Flu Vaccine in the Last 12 Months: No Flu Vaccine Exclusion Criteria: No Exclusion Criteria Past Medical History Past Medical History NEUROLOGIC: Negative Neurological Disorders, Seizures or Amyotrophic Lateral Scl erosis (ALS/Jimena Gehrig's) CARDIAC: Negative Cardiac Disorders or Congestive Heart Failure RESPIRATORY: Positive Chronic Obstructive Pulmonary Disease (COPD), Asthma, Emphysema and Pneumonia GASTROINTESTINAL: Negative Gastrointestinal Disorders GENITOURINARY: Negative Genitourinary Disorders or Renal Disease REPRODUCTIVE: Positive Previous Pregnancies MUSCULOSKELETAL: Positive Fractures ENT: Positive Cataracts ENDOCRINE: Negative Endocrine Disorders, Diabetes Mellitus Type 1 or Diabetes Mellitus Type 2 HEMATOLOGIC: Positive Blood Disorders and Anemia; Negative Sickle Cell Disease PSYCHO/SOCIAL: Positive Depression and Anxiety OTHER HISTORY: Positive Falls and Chicken Pox; Negative Blood Transfusions, Blood Transfusion Reaction or Anesthesia Reactions Family History FAMILY HISTORY: Positive Family Respiratory Disorders and Family Cardiac Disorders Surgical History SURGICAL: Positive Eye Surgery, Abdominal Surgery, Open Reduction Internal Fixation and Hysterectomy Social History SMOKING STATUS: Smoking status: Former smoker SECOND HAND EXPOSURE: second hand exposure: No (1PPd or less-QUIT 10 yrs ago) ALCOHOL: Alcohol Intake: Former ALCOHOL FREQUENCY: Alcohol Intake Frequency: holidays/special occasions only HOUSING: Housing: House LIVES WITH: Lives With: Spouse Patient Portal Questionabdulaziz Social History Living Situation History Housing: House Housing Other:: Patient resides at home with spouse. Tobacco History Smoking Status: Former smoker Second Hand Smoke Exposure: No (1PPd or less-QUIT 10 yrs ago) Alcohol History Alcohol Intake: Former Alcohol Intake Frequency: holidays/special occasions only Domestic Abuse History Do You Feel Safe at Home: Yes Review of Systems Report any current symptoms Only answer those that you have currently: Past Medical History Past Medical History Have you ever been diagnosed with any of the following: Neurological Problems Seizures: No Amyotrophic Lateral Sclerosis (ALS/Jimena Gehrig's): No Cardiology Problems Congestive Heart Failure: No Respiratory Problems Chronic Obstructive Pulmonary Disease (COPD): Yes Asthma: Yes Emphysema: Yes Pneumonia: Yes Genital/Urinary Problems Renal Disease: No Reproductive Problems Previous Pregnancies: Yes Musculoskeletal Problems Fractures: Yes Head,Eye,Nose,Throat Problems Cataracts: Yes Endocrine Problems Diabetes Mellitus Type 1: No Diabetes Mellitus Type 2: No Blood Problems Anemia: Yes Sickle Cell Disease: No Psychologic Problems Depression: Yes Anxiety: Yes Other Problems Falls: Yes Blood Transfusions: No Blood Transfusion Reaction: No Anesthesia Reactions: No Chicken Pox: Yes Surgical History Hysterectomy: Yes History of Present Illness HPI Narrative Ms Johnson is a 87-year-old female with COPD on 5L/NC home oxygen, hypertension, and JAK2-positive polycythemia vera presented on 12/27 with acute on chronic hypoxic and hypercapnic respiratory failure. She had a prolonged hospitalization from 12/27 - 2024. Cardiology and hematology were consulted. Patient was treated with IV steroids, antibiotics (ceftriaxone, azithromycin), nebulized bronchodilators, BiPAP and later high-flow nasal cannula. CTA chest ruled out PE and pneumonia but showed pulmonary artery hypertension. Hospital course was complicated by marked leukocytosis, attributed to steroids and underlying polycythemia vera, for which hydroxyurea was escalated to 2 g daily and allopurinol added. She also developed a large left abdominal wall hematoma on 01/01 while on anticoagulation, leading to holding Eliquis. Hemoglobin trended down but remained above transfusion threshold, and the hematoma stabilized with supportive management. Respiratory status gradually improved with transition from BiPAP to HFNC, and by 01/02 she was stable on nasal cannula 2?5 L, close to her baseline. Pulmonary hypertension was managed with diuretics and fluid restriction initially, later discontinued as patient was dehydrated and had poor oral intake while on BiPap. Hypernatremia was managed with fluids and increased oral intake. She experienced steroid-induced agitation/psychosis, prompting tapering and eventual discontinuation of high-dose steroids. By 01/04, the patient reported significant improvement in breathing and resolution of abdominal pain. The hematoma was softening and less ecchymotic, H/H stable. leukocytosis was improving, and she was stable on 2 L nasal cannula. Discharge was planned with home health, continuation of inhaled triple therapy (ICS/LABA/LAMA), tapering steroids, hydroxyurea with CBC monitoring, and outpatient cardiology/hematology follow-up. Eliquis to be held for 2 weeks per cardiology. Discharge Instructions: Follow up with Dr. Trinidad Follow up with Dr. Bhatt Use Trelegy Elipta inhaler every day in the morning. Start taking hydroxyurea 500 mg twice daily. Hold Eliquis until seen by cardiology within the next 2 weeks. Use BiPAP at night. 02/08/2025: Patient seen at [facility] to establish primary care post hospital discharge in dec, 2024. She appears to be in her normal state of health. Currently on 2L of oxygen continously, for COPD. Is able to tolerate Trelegy Elipta comfortably, COPD under control. Patient is taking all medications as prescribed since her discharge. Eliquis was held due to the 7cm hematoma on CT, to be resumed 2 weeks post discharge. present at bedside and requested refills for hydroxyurea, will send to pharmacy. Patient is scheduled to follow up with Data Entry Machine Operator Dr Bhatt in the next 3 weeks for medication optimization. She has no active complaints at this time. Review of Systems Review of Systems Narrative Review of Systems: GENERAL: Denies fevers/chills, diaphoresis. HEENT: Denies headache or visual/hearing changes. Denies nasal discharge. NEURO: Denies unusual weakness or difficulty speaking. CARDIO: Denies chest pain, palpitations. PULM: Denies SOB, cough, wheezing. GI: Denies abdominal pain, no N/V, no C/D. Reports having BMs URO: Denies burning/itching/pain/urinary changes. WOOD CRAFTER: Denies menstrual changes, hot flashes. MSK/EXT/SKIN: Denies skeletal/muscle pain, changes in upper or lower extremities, itchiness, superficial skin chnages. PSYCH: Cooperative, pleasant mood & affect. The rest of the review of systems is otherwise negative. Objective/Exam Narrative Physical exam: Constitutional Alert, oriented x3. Elderly, frail HEENT Vision grossly intact, PERRL. Patent nares. Trachea midline. On 2L of oxygen via NC Respiratory Chest normal on inspection and mild wheezes on auscultation bilaterally. Cardiovascular S1 and S2 audible, RRR. No murmurs or carotid bruit. No gross JVD. Abdominal Soft and BS + ; non tender to palpation in all quadrants. Genitourinary No bladder tenderness, no flank pain. Normal to palpation. Musculoskeletal Extremities tone within normal limits. No LE edema. Neurological CN II - XII grossly intact. Extremity motor and sensation grossly intact. Skin Warm, dry and intact. Senile purpurae Psychiatric Patient has a good affect, is cooperative. Assessment & Plan Diagnosis / Problem List (1) COPD with chronic bronchitis: Status: Acute Assessment & Plan: Long standing history On baseline 2L of oxygen, ambulatory Plan: Continue Trelegy Elipta Well controlled (2) Sinus arrhythmia: Status: Acute Assessment & Plan: Previously PArox A.Fib Now sinus arrythmia Eliquis was held due to hematoma on CT A/P Plan: Eliquis to be resumed per Cardiology recommendations, follow up in 3 weeks Continue Multaq and Diltiazem as prescribed (3) Polycythemia vera: Status: Acute Assessment & Plan: Hx of JAK2 mutation On Hydroxyurea 500mg BID Plan: Continue follow up with Dr Trinidad outpatient Refills sent for hydroxyurea Plan Follow up in March Orders: Referrals Cardiology I48.91 - Unspecified atrial fibrillation Advanced Care Planning Advance care planning discussed with:: patient and spouse Physician Billing New Patient New Patient: E/M Level 3-CPT 43939 Office Procedures [facility] Level of Care Nursing/Assessment Patient Status: Established Patient Nursing Assessment/Reassessment: Medication Reconciliation, Update PMH in EMR and Vital Signs Coordination of Care: Complex Care and Chronic Disease 1-5, Education Complex Pt/Fam, Consent,records obtained, informed consent and Lab and Imaging orders Established Patient Charge Established Patient Point Assignment: 95
[2025-02-08 14:30] VITALS: PULSE 67; RESP 17; TEMP 36.4; O2SAT 95
== END 2025-02-08 14:52 | disposition home or self-care (01) ==
LOC: HODAHC 14:02
PROVIDERS: Supervising Provider Internal Medicine; Visit Provider Student in an Organized Health Care Education/Training Program
DX: J44.9 Chronic obstructive pulmonary disease, unspecified (principal); I48.91 Unspecified atrial fibrillation; Z99.81 Dependence on supplemental oxygen; Z76.0 Encounter for issue of repeat prescription; I10 Essential (primary) hypertension; Z79.01 Long term (current) use of anticoagulants; D45 Polycythemia vera
CPT/HCPCS: 99213; G0463

== ENCOUNTER 2025-04-12 13:24 | Outpatient (AMB) | payer OTHER, MEDICAID, SELFPAY ==
--- NOTE | 2025-04-12 14:02 | PD.RESCLINIC ---
Vital Signs 04/12/25 14:03 Height 1.6 m Height Method Stated Weight 68.719 kg Weight Measurement Method Standing Scale BMI 26.8 BP 147/70 H Blood Pressure Source Automatic Cuff Blood Pressure Location Right Upper Arm Position Sitting Respiration 16 Pulse 65 Pulse Source Monitor Temp 97.8 F Temp Source Temporal Artery Scan Pulse Oximetry (%) 94 L Oxygen Delivery Method Nasal Cannula Allergies/Meds Allergies & Medications Allergies orange Allergy (Verified 04/12/25 14:05) Swelling of Lip/Tongue/Throat orange juice Allergy (Verified 04/12/25 14:05) Swelling of Lip/Tongue/Throat Medication Reconciliation albuterol sulfate 90 mcg/actuation aerosol inhaler (Ventolin HFA) 2 puff inhalation Q6H 06/19/17 [History Confirmed 04/12/25] paroxetine HCl 20 mg tablet 20 mg PO QDAY 03/15/23 [History Confirmed 04/12/25] temazepam 15 mg capsule 15 mg PO HS 03/15/23 [History Confirmed 04/12/25] tiotropium 2.5 mcg-olodaterol 2.5 mcg/actuation mist for inhalation (Stiolto Respimat) 2 puff inhalation Q24H 03/16/23 [History Confirmed 04/12/25] apixaban 5 mg tablet (Eliquis) 5 mg PO BID 12/28/24 [History Confirmed 04/12/25] Held on 01/05/25. Instructions: Until seen by cardiology diltiazem HCl 120 mg capsule,24 hr,extended release 120 mg PO QDAY 12/28/24 [History Confirmed 04/12/25] dronedarone 400 mg tablet (Multaq) 400 mg PO BID 12/28/24 [History Confirmed 04/12/25] fluticasone fur. 200 mcg-umeclid 62.5 mcg-vilant 25 mcg inhalat.powder (Trelegy Ellipta) 1 inh inhalation QDAY #60 ea 01/05/25 [Rx Confirmed 04/12/25] methylprednisolone 4 mg tablets in a dose pack (Medrol (Hua)) 4 mg PO QAM #21 tabs 01/05/25 [Rx Confirmed 04/12/25] hydroxyurea 500 mg capsule 500 mg PO QDAY #60 caps 04/12/25 [Rx] CT Intake Visit Data Collection New Patient or Established: Established Patient (seen at [facility] within 3 years) Seen by Clinical Staff ONLY (RN/MA): No Pain Present Currently: Yes Pain scale:: 0 Pain Scale Used: [place]/[employer] Manager Required: No PCP or OBGYN visit in last 3 months: Yes Hx Now: No Do You Feel Safe at Home: Yes Authorities Contacted: N/A Smoking Status Smoking Status: Former smoker Immunization / Flu Flu Vaccine in the Last 12 Months: No Flu Vaccine Exclusion Criteria: Refused by Patient Past Medical History Past Medical History NEUROLOGIC: Negative Neurological Disorders, Seizures or Amyotrophic Lateral Sclerosis (ALS/Jimena Gehrig's) CARDIAC: Negative Cardiac Disorders or Congestive Heart Failure RESPIRATORY: Positive Chronic Obstructive Pulmonary Disease (COPD), Asthma, Emphysema and Pneumonia GASTROINTESTINAL: Negative Gastrointestinal Disorders GENITOURINARY: Negative Genitourinary Disorders or Renal Disease REPRODUCTIVE: Positive Previous Pregnancies MUSCULOSKELETAL: Positive Fractures ENT: Positive Cataracts ENDOCRINE: Negative Endocrine Disorders, Diabetes Mellitus Type 1 or Diabetes Mellitus Type 2 HEMATOLOGIC: Positive Blood Disorders and Anemia; Negative Sickle Cell Disease PSYCHO/SOCIAL: Positive Depression and Anxiety OTHER HISTORY: Positive Falls and Chicken Pox; Negative Blood Transfusions, Blood Transfusion Reaction or Anesthesia Reactions Family History FAMILY HISTORY: Positive Family Respiratory Disorders and Family Cardiac Disorders Surgical History SURGICAL: Positive Eye Surgery, Abdominal Surgery, Open Reduction Internal Fixation and Hysterectomy Social History SMOKING STATUS: Smoking status: Former smoker SECOND HAND EXPOSURE: second hand exposure: No (1PPd or less-QUIT 10 yrs ago) ALCOHOL: Alcohol Intake: Former ALCOHOL FREQUENCY: Alcohol Intake Frequency: holidays/special occasions only HOUSING: Housing: House LIVES WITH: Lives With: Spouse Patient Portal Questionaires Social History Living Situation History Housing: House Housing Other:: Patient resides at home with spouse. Tobacco History Smoking Status: Former smoker Second Hand Smoke Exposure: No (1PPd or less-QUIT 10 yrs ago) Alcohol History Alcohol Intake: Former Alcohol Intake Frequency: holidays/special occasions only Domestic Abuse History Do You Feel Safe at Home: Yes Review of Systems Report any current symptoms Only answer those that you have currently: Past Medical History Past Medical History Have you ever been diagnosed with any of the following: Neurological Problems Seizures: No Amyotrophic Lateral Sclerosis (ALS/Jimena Gehrig's): No Cardiology Problems Congestive Heart Failure: No Respiratory Problems Chronic Obstructive Pulmonary Disease (COPD): Yes Asthma: Yes Emphysema: Yes Pneumonia: Yes Genital/Urinary Problems Renal Disease: No Reproductive Problems Previous Pregnancies: Yes Musculoskeletal Problems Fractures: Yes Head,Eye,Nose,Throat Problems Cataracts: Yes Endocrine Problems Diabetes Mellitus Type 1: No Diabetes Mellitus Type 2: No Blood Problems Anemia: Yes Sickle Cell Disease: No Psychologic Problems Depression: Yes Anxiety: Yes Other Problems Falls: Yes Blood Transfusions: No Blood Transfusion Reaction: No Anesthesia Reactions: No Chicken Pox: Yes Surgical History Hysterectomy: Yes History of Present Illness HPI Narrative Ms Johnson is a 87-year-old female with COPD on 5L/NC home oxygen, hypertension, and JAK2-positive polycythemia vera presented on 12/27 with acute on chronic hypoxic and hypercapnic respiratory failure. She had a prolonged hospitalization from 12/27 - 2024. Cardiology and hematology were consulted. Patient was treated with IV steroids, antibiotics (ceftriaxone, azithromycin), nebulized bronchodilators, BiPAP and later high-flow nasal cannula. CTA chest ruled out PE and pneumonia but showed pulmonary artery hypertension. Hospital course was complicated by marked leukocytosis, attributed to steroids and underlying polycythemia vera, for which hydroxyurea was escalated to 2 g daily and allopurinol added. She also developed a large left abdominal wall hematoma on 01/01 while on anticoagulation, leading to holding Eliquis. Hemoglobin trended down but remained above transfusion threshold, and the hematoma stabilized with supportive management. Respiratory status gradually improved with transition from BiPAP to HFNC, and by 01/02 she was stable on nasal cannula 2?5 L, close to her baseline. Pulmonary hypertension was managed with diuretics and fluid restriction initially, later discontinued as patient was dehydrated and had poor oral intake while on BiPap. Hypernatremia was managed with fluids and increased oral intake. She experienced steroid-induced agitation/psychosis, prompting tapering and eventual discontinuation of high-dose steroids. By 01/04, the patient reported significant improvement in breathing and resolution of abdominal pain. The hematoma was softening and less ecchymotic, H/H stable. leukocytosis was improving, and she was stable on 2 L nasal cannula. Discharge was planned with home health, continuation of inhaled triple therapy (ICS/LABA/LAMA), tapering steroids, hydroxyurea with CBC monitoring, and outpatient cardiology/hematology follow-up. Eliquis to be held for 2 weeks per cardiology. Discharge Instructions: Follow up with Dr. Trinidad Follow up with Dr. Bhatt Use Trelegy Elipta inhaler every day in the morning. Start taking hydroxyurea 500 mg twice daily. Hold Eliquis until seen by cardiology within the next 2 weeks. Use BiPAP at night. 02/08/2025: Patient seen at [facility] to establish primary care post hospital discharge in dec, 2024. She appears to be in her normal state of health. Currently on 2L of oxygen continously, for COPD. Is able to tolerate Trelegy Elipta comfortably, COPD under control. Patient is taking all medications as prescribed since her discharge. Eliquis was held due to the 7cm hematoma on CT, to be resumed 2 weeks post discharge. present at bedside and requested refills for hydroxyurea, will send to pharmacy. Patient is scheduled to follow up with [employer] Dr Bhatt in the next 3 weeks for medication optimization. She has no active complaints at this time. 04/12/2025: Patient seen at [facility] for follow up pcp appointment, she reports that she is feeling well. She has some fatigue. she has minimal interest in getting vaccines such as covid or flu. Patient continues to use 2-3 L of O2 daily, she continues to use the trelegy, COPD under control, no wheezing and no recent use of rescue inhaller. she follows with Dr. Bhatt. was restarted on 2.5 elequis BID. She has yet to see assistant professor of sociology for he polycythemia vera, resubmitted referal. changed hydroxyurea from 500 bid to qd Objective/Exam Narrative Physical exam: Constitutional Alert, oriented x3. Elderly, frail HEENT Vision grossly intact, PERRL. Patent nares. Trachea midline. On 3L of oxygen via NC Respiratory Chest normal on inspection and no wheezing appreciated on auscultation, speaking in short sentences Cardiovascular S1 and S2 audible, RRR. No murmurs or carotid bruit. No gross JVD. Abdominal Soft and BS + ; non tender to palpation in all quadrants. Genitourinary No bladder tenderness, no flank pain. Normal to palpation. Musculoskeletal Extremities tone within normal limits. No LE edema. Neurological CN II - XII grossly intact. Extremity motor and sensation grossly intact. Skin Warm, dry and intact. Senile purpurae Psychiatric Patient has a good affect, is cooperative. Assessment & Plan Diagnosis / Problem List (1) COPD with chronic bronchitis: Status: Acute Assessment & Plan: stable, has not needed to use rescue inhaler Plan: - continue trelegy - albuterol rescue inhaler as needed (2) Polycythemia vera: Status: Acute Assessment & Plan: pt has not been seen by assistant professor of sociology yet hgb 9 in 12/2024, will get repeat labs at next appointment. Plan: - referral placed to Dr. Trinidad for heme onc - decrease dose of hydroxyurea from 500 bid to 500 qd - cbc and cmp in 3 months - 3 month follow up (3) Atrial fibrillation: Status: Acute Qualifiers: Atrial fibrillation type: paroxysmal Qualified Code(s): I48.0 - Paroxysmal atrial fibrillation Assessment & Plan: patient follows with Dr. Bhatt, restarted on elequis at lower dose. Plan: - elequis 2.5 bid Plan patient care discussed with my attending Dr. Jacquie Smith MD PGY1 Orders: Orders CBC 2 Months I48.0 - Paroxysmal atrial fibrillation, J44.1 - Chronic obstructive pulmonary disease with (acute) exacerbation Comprehensive Metabolic Panel 2 Months D45 - Polycythemia vera, I48.0 - Paroxysmal atrial fibrillation Referrals Hematology & Oncology Advanced Care Planning Advance care planning discussed with:: patient and significant other Office Procedures [facility] Level of Care Nursing/Assessment Patient Status: Established Patient Nursing Assessment/Reassessment: Medication Reconciliation, Update PMH in EMR and Vital Signs Coordination of Care: Complex Care and Chronic Disease 1-5, Complex Care/Chronic Disease 5 or more, Education Complex Pt/Fam, Consent,records obtained, informed consent, Lab and Imaging orders, Results/Orders obtained and Staff clarify orders Established Patient Charge Established Patient Point Assignment: 145 Established Patient Point Charge: EP Level 4 (120-155)
[2025-04-12 14:03] VITALS: BP 147/70; PULSE 65; RESP 16; TEMP 36.6; O2SAT 94; BMI 26.8
== END 2025-04-12 15:28 | disposition home or self-care (01) ==
LOC: HODAHC 13:24
PROVIDERS: Supervising Provider Internal Medicine
DX: I48.0 Paroxysmal atrial fibrillation (principal); D45 Polycythemia vera; R53.83 Other fatigue; Z99.81 Dependence on supplemental oxygen; J44.89 Other specified chronic obstructive pulmonary disease; Z79.01 Long term (current) use of anticoagulants
CPT/HCPCS: 99214; G0463